=== PATIENT | male | born 1960 ===

== ENCOUNTER 2017-11-28 09:34 | Inpatient (IN) | payer MEDICAID ==
[2017-11-28 09:34] VITALS: BMI 35.7
[2017-11-28] MEDS ORDERED: Sodium Chloride 0.9% 1,000 ML IV SCH (10:30)
[2017-11-28] MEDS ORDERED: Iohexol 240 (50 ml) PO ONE (10:38)
[2017-11-28] MEDS ORDERED: Iohexol 240 (50 ml) ONE (11:16)
[2017-11-28 11:25] LABS: BASO % 0.5 % (0.0-2.0); EOS # 0.6 K/uL (0.0-0.7); EOS % 7.4 % (0.0-4.0); HEMOGLOBIN 13.9 g/dL (12.0-18.0); LYMPH # 1.6 K/uL (1.0-4.3); LYMPH % 19.9 % (20.0-40.0); MEAN CELL VOLUME 87.9 fl (80.0-94.0); MEAN CORPUSCULAR HEMOGLOBIN 29.5 pg (27.0-31.0); MEAN CORPUSCULAR HGB CONC 33.6 g/dL (33.0-37.0); MEAN PLATELET VOLUME 9.5 fl (7.2-11.7); MONO # 0.9 K/uL (0.0-0.8); MONO % 10.5 % (0.0-10.0); NEUT # 5.1 K/uL (1.8-7.0); NEUT % 61.7 % (50.0-75.0); NRBC % 0.4 % (0.0-0.0); RBC 4.71 Mil/uL (4.40-5.90); RED CELL DISTRIBUTION WIDTH 13.4 % (11.5-14.5); WHITE BLOOD COUNT 8.2 K/uL (4.8-10.8)
[2017-11-28 11:35] LABS: ALBUMIN 4.4 g/dL (3.5-5.0); ALT/SGPT 34 U/L (21-72); AST/SGOT 27 U/L (17-59); BLOOD UREA NITROGEN 17 mg/dl (9-20); CALCIUM 10.3 mg/dL (8.4-10.2); GFR AFRICAN-AMERICAN > 60; GFR NON-AFRICAN AMERICAN > 60; LIPASE 72 U/L (23-300)
[2017-11-28 11:41] LABS: INR 1.2 (0.9-1.2); PARTIAL THROMBOPLASTIN TIME 28.2 Seconds (25.6-37.1); PROTHROMBIN TIME 13.1 Seconds (9.8-13.1)
--- NOTE | 2017-11-28 11:42 | ED PDOC ---
HPI: Abdomen Time Seen by Provider: 11/28/17 09:59 Chief Complaint (Nursing): Abdominal Pain History Per: Patient History/Exam Limitations: no limitations Onset/Duration Of Symptoms: Days (1 week) Outside of [place] travel?: No Current Symptoms Are (Timing): Still Present Location Of Pain/Discomfort: Diffuse Associated Symptoms: Nausea, Vomiting, Diarrhea. denies: Fever Exacerbating Factors: None Alleviating Factors: None Additional Complaint(s): Keyon Bobo is a 57 year old male, whose past medical history includes HTN , peripheral edema, surgery for partial colectomy due to volvulus in 09/2016 and hernia repair in 09/2016, who presents to the emergency department complaining of diffused abdominal pain since 1 week. Patient reports his abdominal pain is associated with nausea, vomiting, and diarrhea. He notes having 5 previous colonoscopies in the past 4 years but only colonic polyps were found. Patient denies chest pain, shortness of breath, headache, fever, chills, cough, dysuria, hematuria, frequency, flank pain, testicular pain or penile discharge. States that he feels that he has gas, but is not able to pass it. Past Medical History Reviewed: Historical Data, Nursing Documentation, Vital Signs Vital Signs: Last Vital Signs Temp 97 F L 11/28/17 09:52 Pulse 90 11/28/17 09:52 Resp 18 11/28/17 09:52 BP 148/84 11/28/17 09:52 Pulse Ox 98 11/28/17 11:55 - Medical History PMH: Asthma, Colonic Polyps, Fractures (5TH FINGER LEFT HAND- NO TX.), HTN, Peripheral Edema Denies: Chronic Kidney Disease, TIA - Surgical History Surgical History: Endoscopy - Family History Family History: States: Unknown Family Hx - Immunization History Hx Tetanus Toxoid Vaccination: No Hx Influenza Vaccination: Yes Hx Pneumococcal Vaccination: Yes - Home Medications Home Medications: Ambulatory Orders Medication Instructions Recorded Metoprolol Tartrate [Lopressor] 100 mg PO BID 08/06/16 Losartan [Cozaar] 1 tab PO DAILY 09/09/16 Sertraline HCl 25 mg PO DAILY 08/05/17 Tamsulosin [Flomax] 0.4 mg PO DAILY 08/05/17 - Allergies Allergies/Adverse Reactions: Allergies Allergy/AdvReac Type Severity Reaction Status Date / Time No Known Allergies Allergy Verified 11/01/17 07:40 Review of Systems Constitutional: Negative for: Fever Cardiovascular: Negative for: Chest Pain Respiratory: Negative for: Shortness of Breath Gastrointestinal: Positive for: Nausea, Vomiting, Abdominal Pain, Diarrhea Genitourinary Male: Negative for: Dysuria, Frequency Musculoskeletal: Negative for: Back Pain Neurological: Negative for: Weakness Physical Exam - Reviewed Nursing Documentation Reviewed: Yes Vital Signs Reviewed: Yes - Physical Exam Comments: GENERAL APPEARANCE: Patient is awake, alert, oriented x 3, in mild distress SKIN: Warm, dry; (-) cyanosis. EYES: (-) conjunctival pallor, (-) scleral icterus. ENMT: Mucous membranes moist. NECK: (-) tenderness, (-) stiffness, (-) lymphadenopathy. CHEST AND RESPIRATORY: (-) rales, (-) rhonchi, (-) wheezes; breath sounds equal bilaterally. HEART AND CARDIOVASCULAR: (-) irregularity; (-) murmur, (-) gallop. ABDOMEN AND GI: (+) distention but still soft. Bowel sounds active; (-) tenderness, (-) guarding, (-) rebound, (-) palpable masses, (-) CVA tenderness. (+) dullness to percussion throughout the abdomen. EXTREMITIES: (-) deformity, (-) edema, (+) distal pulses. NEURO AND PSYCH: Mental status as above; (-) focal findings. - Laboratory Results Result Diagrams: 11/28/17 11:00 11/28/17 11:00 - ECG O2 Sat by Pulse Oximetry: 98 (room air) Pulse Ox Interpretation: Normal Medical Decision Making Medical Decision Making: Impression: 57 y/o male with abdominal distention and dullness to percussion c/o diffused abdominal pain x1 week with n/v/d Plan: -- CT abdomen and pelvis -- Labs -- Urinalysis -- Bentyl, Omnipaque, Pepcid, Zofran, Potassium Chloride, and Sodium Chloride -- Reassess and disposition Progress Notes: Labs reviewed : wbc is wnl, K 3.1, rest of the labs is wnl. On re-evaluation, patient reports improvement of pain, denies any nausea, or diarrhea at this time. On exam, patient remains AAOx3, in no acute distress, is tolerating po contrast. CT pending. KCL 20 mEq PO given. Patient returned from CT without any incident. On second re-evaluation, patient reports that his pain is recurring, denies any nausea, or diarrhea at this time. On exam, patient remains AAOx3, in no acute distress, abdomen is not soft , (+) distended, (+) mild diffuse tenderness, (-) guarding, (-) rebound. Patient medicated with morphine 4 mg IV and zofran [address] A/P w/ PO and IV contrast : FINDINGS: LOWER THORAX: The lung bases are clear. LIVER: The liver is normal in size and there is homogeneous enhancement. No gross lesion or ductal dilatation. GALLBLADDER AND BILE DUCTS: No calcified gallstones. PANCREAS: Normal in size with homogeneous enhancement. No gross lesion or ductal dilatation. SPLEEN: Normal in size and appearance. ADRENALS: No discrete nodule. KIDNEYS AND URETERS: Both kidneys are normal in size and there is homogeneous enhancement without hydronephrosis. There are simple cysts in both kidneys, the largest in the left upper pole measures 2.7 cm. VASCULATURE: No aortic aneurysm. BOWEL: The small bowel loops are normal in caliber. The sigmoid colon is elongated dense tract chest and/or volvulus is identified in the left mid abdomen with severe distention of the proximal sigmoid colon, descending transverse and ascending colon with air-fluid levels. Multiple surgical clips are identified at the site of the volvulus. APPENDIX: Normal appendix. PERITONEUM: No free fluid. No free air. LYMPH NODES: No enlarged lymph nodes. BLADDER: Normal in appearance. REPRODUCTIVE: Unremarkable. BONES: No acute fracture. OTHER FINDINGS: None. IMPRESSION: Findings are consistent with acute sigmoid volvulus with the transition between severely distended proximal colon and elongated stretch normal caliber distal sigmoid colon in the left mid abdomen at the site of prior surgery. CT results reviewed and discussed with the patient in great detail. Diagnosis of volvulus d/w the patient. Call placed to Dr. Valencia, who the patient states did his last surgery at [facility]. Patient seen and evaluated by ER MD and agrees with current management and plan. Case d/w resident surgeon Dr. Baird and Dr. Valencia, who will come and evaluate the patient. Dr. Elliott request admission under Dr. Vyas. Case d/w Dr. Vyas, will admit the patient. Bridge orders placed, patient kept NPO at this time. Based on history, exam and diagnostic results, plan will be for inpatient admission and possible OR. Patient states he fully agrees with and understands further plan and disposition. I have given the patient opportunity to ask any additional questions. Scribe Attestation: Documented by Myah Garcia acting as a scribe for Patti Saenz MD. Scribe Attestation: All medical record entries made by the Scribe were at my direction and personally dictated by me. I have reviewed the chart and agree that the record accurately reflects my personal performance of the history, physical exam, medical decision making, and the department course for this patient. I have also personally directed, reviewed, and agree with the discharge instructions and disposition. Disposition - Clinical Impression Clinical Impression: Abdominal pain, Sigmoid volvulus - Patient ED Disposition Is Patient to be Admitted: Yes Doctor Will See Patient In The: ED Counseled Patient/Family Regarding: Studies Performed, Diagnosis - Disposition Disposition Time: 15:45 Condition: STABLE Forms: [employer] (Nepali)
[2017-11-28] MEDS ORDERED: Potassium Chloride 20 mEq ER Tab PO ONE ×2 (11:47→15:05)
[2017-11-28] MEDS ORDERED: Iohexol 300 100 ML IJ ONE (12:20)
[2017-11-28 13:35] LABS: SQUAMOUS EPITHIAL < 1 /hpf (0-5); URINE AMORPHOUS SEDIMENT RARE /ul (<OCC); URINE BILIRUBIN NEGATIVE (NEGATIVE); URINE BLOOD NEGATIVE (NEGATIVE); URINE CLARITY SLIGHTY-CLOUDY (Clear); URINE COLOR YELLOW (YELLOW); URINE GLUCOSE (UA) NEG (Normal); URINE LEUKOCYTE ESTERASE NEG Leu/uL (Negative); URINE NITRATE NEGATIVE (NEGATIVE); URINE PROTEIN NEGATIVE (NEGATIVE); URINE UROBILINOGEN 0.2-1.0 mg/dL (0.2-1.0)
--- NOTE | 2017-11-28 14:13 | CT ---
PROCEDURE: CT Abdomen and Pelvis with contrast HISTORY: Abdominal pain, diarrhea, h/o volvulus COMPARISON: None. TECHNIQUE: CT scan of the abdomen and pelvis was performed after intravenous administration of contrast. Oral contrast was administered. Coronal and sagittal reformatted images were obtained. Contrast dose: 95 mL Omnipaque 300 Radiation dose: Total exam DLP = 1062.05 mGy-cm. This CT exam was performed using one or more of the following dose reduction techniques: Automated exposure control, adjustment of the mA and/or kV according to patient size, and/or use of iterative reconstruction technique. FINDINGS: LOWER THORAX: The lung bases are clear. LIVER: The liver is normal in size and there is homogeneous enhancement. No gross lesion or ductal dilatation. GALLBLADDER AND BILE DUCTS: No calcified gallstones. PANCREAS: Normal in size with homogeneous enhancement. No gross lesion or ductal dilatation. SPLEEN: Normal in size and appearance. ADRENALS: No discrete nodule. KIDNEYS AND URETERS: Both kidneys are normal in size and there is homogeneous enhancement without hydronephrosis. There are simple cysts in both kidneys, the largest in the left upper pole measures 2.7 cm. VASCULATURE: No aortic aneurysm. BOWEL: The small bowel loops are normal in caliber. The sigmoid colon is elongated dense tract chest and/or volvulus is identified in the left mid abdomen with severe distention of the proximal sigmoid colon, descending transverse and ascending colon with air-fluid levels. Multiple surgical clips are identified at the site of the volvulus. APPENDIX: Normal appendix. PERITONEUM: No free fluid. No free air. LYMPH NODES: No enlarged lymph nodes. BLADDER: Normal in appearance. REPRODUCTIVE: Unremarkable. BONES: No acute fracture. OTHER FINDINGS: None. IMPRESSION: Findings are consistent with acute sigmoid volvulus with the transition between severely distended proximal colon and elongated stretch normal caliber distal sigmoid colon in the left mid abdomen at the site of prior surgery. Important findings were discussed with PARRISH Molina on 11/28/2017 at 2:11 p.m.
[2017-11-28] MEDS ORDERED: Morphine 4 MG/ML VIAL IVP STA (14:52)
[2017-11-28] MEDS ORDERED: Morphine 4 MG/ML VIAL ONE (15:04)
--- NOTE | 2017-11-28 17:50 | CP.PCM.CON ---
<Nelson Baird - Last Filed: 11/29/17 11:34> History of Present Illness - History of Present Illness History of Present Illness: Consult Note Surgery- Dr. Valencia 6M significant PMHx of chronic constipation, recurrent sigmoid volvulus s/p robotic sigmoidectomy in 2015 presents to [facility] ED w/ increased crampy generalized abdominal pain localized to LLQ, w/ associated nausea and non- bloody non-bilious vomiting for the last week. Abd is feeling more distended than normal. unable to pass flatus for 1 day, although as the urge to. to Patient also has ongoing diarrhea and incontinences since January 2017. During ED course, pt had relief after pain medication and zofran. Denies current: Fevers, chills, chest pain, shortness of breath, changes in urinary habits, bright red blood per rectum, recent excessive weight loss/ weight gain PMH: Asthma, BPH, HTN, chronic constipation, sigmoid volvulus PSH: robotic sigmoidectomy, umbilical hernia repair, colonoscopy 07/2017 ALL: NKDA SocialHx: Denies Tobacco, etoh, recreational drug use Review of Systems - Review of Systems All systems: reviewed and no additional remarkable complaints except - Constitutional Constitutional: As Per HPI Past Patient History - Past Medical History & Family History Past Medical History?: Yes - Past Social History Smoking Status: Never Smoked - CARDIAC Hx Hypertension: Yes Hx Peripheral Edema: Yes - PULMONARY Hx Asthma: Yes - NEUROLOGICAL Hx Transient Ischemic Attacks (TIA): No - HEENT Hx HEENT Problems: No - RENAL Hx Chronic Kidney Disease: No - ENDOCRINE/METABOLIC Hx Endocrine Disorders: No - HEMATOLOGICAL/ONCOLOGICAL Hx Blood Disorders: No Hx Blood Transfusions: Yes Hx Blood Transfusion Reaction: No - INTEGUMENTARY Hx Dermatological Problems: No - MUSCULOSKELETAL/RHEUMATOLOGICAL Hx Fractures: Yes (5TH FINGER LEFT HAND- NO TX.) - GASTROINTESTINAL Hx Gastrointestinal Disorders: Yes Hx Bowel Surgery: Yes (HEMICOLECTOMY 2015) Hx Colostomy: No Hx Hemorrhoids: Yes (INTERNAL) Hx Ulcer: Yes (GASTRIC) Other/Comment: HX: SIGMOID VOLVULUS/CHRONIC CONSTIPATION/SPONTANEOUS UNCONTROLLED FECAL EVACUATION, WITH HEMICOLECTOMY - GENITOURINARY/GYNECOLOGICAL Hx Genitourinary Disorders: Yes Other/Comment: PATIENT HAS HESITANCY UPON URINATION BUT ON FLOMAX & HAS NO PROBLEM NOW (PER PT). - PSYCHIATRIC Hx Psychophysiologic Disorder: No Hx Substance Use: No - SURGICAL HISTORY Hx Surgeries: Yes Other/Comment: SIGMOID VOLVULUS/CHRONIC CONSTIPATION/SPONTANEOUS UNCONTROLLED FECAL EVACUATION, WITH HEMICOLECTOMY - ANESTHESIA Hx Anesthesia: Yes Hx Anesthesia Reactions: No Hx Malignant Hyperthermia: No Meds Allergies/Adverse Reactions: Allergies Allergy/AdvReac Type Severity Reaction Status Date / Time No Known Allergies Allergy Verified 08/05/17 07:40 - Medications Medications: Current Medications Sodium Chloride (Sodium Chloride 0.9%) 1,000 mls @ 1,000 mls/hr IV .Q1H REESE Last Admin: 11/28/17 11:29 Dose: 1,000 mls/hr Physical Exam - Constitutional Appears: Non-toxic, No Acute Distress - Head Exam Head Exam: ATRAUMATIC - Eye Exam Eye Exam: EOMI. absent: Scleral icterus - ENT Exam Additional comments: dentures in mouth - Respiratory Exam Respiratory Exam: NORMAL BREATHING PATTERN. absent: Accessory Muscle Use, Respiratory Distress - Cardiovascular Exam Cardiovascular Exam: +S1, +S2. absent: Bradycardia, Tachycardia - GI/Abdominal Exam GI & Abdominal Exam: Distended, Guarding, Hernia, Soft, Tenderness. absent: Firm, Rigid Additional comments: soft, distended, TTP LLQ Palpable umbilical hernia - Extremities Exam Extremities exam: Positive for: normal inspection. Negative for: calf tenderness - Back Exam Back exam: absent: CVA tenderness (L), CVA tenderness (R) - Neurological Exam Neurological exam: Alert, Oriented x3 - Psychiatric Exam Psychiatric exam: Normal Affect - Skin Skin Exam: Intact, Warm Results - Vital Signs Recent Vital Signs: Last Vital Signs Temp 98.1 F 11/28/17 17:20 Pulse 90 11/28/17 09:52 Resp 18 11/28/17 09:52 BP 148/84 11/28/17 09:52 Pulse Ox 98 11/28/17 16:19 - Labs Result Diagrams: 11/28/17 11:00 11/28/17 11:00 Labs: Laboratory Results - last 24 hr 11/28/17 11/28/17 11/28/17 11:00 11:00 11:00 WBC 8.2 RBC 4.71 Hgb 13.9 Hct 41.4 MCV 87.9 MCH 29.5 MCHC 33.6 RDW 13.4 Plt Count 213 MPV 9.5 Neut % (Auto) 61.7 Lymph % (Auto) 19.9 L [place] % (Auto) 10.5 H Eos % (Auto) 7.4 H Baso % (Auto) 0.5 Neut # (Auto) 5.1 Lymph # (Auto) 1.6 [place] # (Auto) 0.9 H Eos # (Auto) 0.6 Baso # (Auto) 0.0 PT INR APTT Sodium 139 Potassium 3.1 L Chloride 98 Carbon Dioxide 27 Anion Gap 17 BUN 17 Creatinine 0.9 Est GFR ( Amer) > 60 Est GFR (Non-Af Amer) > 60 Random Glucose 91 Calcium 10.3 H Total Bilirubin 0.7 AST 27 ALT 34 Alkaline Phosphatase 118 Total Protein 8.9 H Albumin 4.4 Globulin 4.5 H Albumin/Globulin Ratio 1.0 Lipase 72 Urine Color Urine Clarity Urine pH Ur Specific [place] Urine Protein Urine Glucose (UA) Urine Ketones Urine Blood Urine Nitrate Urine Bilirubin Urine Urobilinogen Ur Leukocyte Esterase Urine RBC (Auto) Urine Microscopic WBC Ur Squamous Epith Cells Amorphous Sediment Blood Type A POSITIVE Antibody Screen Negative BBK History Checked Patient has bt 11/28/17 11/28/17 11:00 13:22 WBC RBC Hgb Hct MCV MCH MCHC RDW Plt Count MPV Neut % (Auto) Lymph % (Auto) [place] % (Auto) Eos % (Auto) Baso % (Auto) Neut # (Auto) Lymph # (Auto) [place] # (Auto) Eos # (Auto) Baso # (Auto) PT 13.1 INR 1.2 APTT 28.2 Sodium Potassium Chloride Carbon Dioxide Anion Gap BUN Creatinine Est GFR ( Amer) Est GFR (Non-Af Amer) Random Glucose Calcium Total Bilirubin AST ALT Alkaline Phosphatase Total Protein Albumin Globulin Albumin/Globulin Ratio Lipase Urine Color Yellow Urine Clarity Slighty-cloudy Urine pH 6.0 Ur Specific [place] 1.014 Urine Protein Negative Urine Glucose (UA) Neg Urine Ketones Negative Urine Blood Negative Urine Nitrate Negative Urine Bilirubin Negative Urine Urobilinogen 0.2-1.0 Ur Leukocyte Esterase Neg Urine RBC (Auto) 1 Urine Microscopic WBC 1 Ur Squamous Epith Cells < 1 Amorphous Sediment Rare H Blood Type Antibody Screen BBK History Checked Assessment & Plan - Assessment and Plan (Free Text) Assessment: 57M hx of recurrent sigmoid volvulus s/p robotic sigmoidectomy; w/ bowel obstruction Plan: - NPO - NGT to suction - IVF - c/s GI- all recs appreciated - serial abd exams - monitor for bowel function return - monitor labs - discussed w/ Dr. Valencia surgical attending PGY1 <Ryan Valencia - Last Filed: 12/04/17 15:18> Meds - Medications Medications: Current Medications Enoxaparin Sodium (Lovenox) 40 mg SC DAILY REESE PRN Reason: Protocol Last Admin: 12/04/17 08:35 Dose: Not Given Sodium Chloride 35 meq/ Sodium Phosphate 18 mmole/ Potassium Chloride 20 meq/ Potassium Acetate 25 meq/ Magnesium Sulfate 8 meq/ Calcium Gluconate 4.5 meq/ Multivitamins/Vitamin C 10 ml/Chromium/Copper/Manganese/Zinc 3 ml/ Amino Acids 1,061.8978 mls @ 42 mls/hr IV .Q24H ONE Stop: 12/04/17 17:59 Last Admin: 12/04/17 02:00 Dose: 42 mls/hr Morphine Sulfate (Morphine) 2 mg IVP Q4 PRN PRN Reason: Pain, moderate (4-7) Last Admin: 11/30/17 02:14 Dose: 2 mg Pantoprazole Sodium (Protonix Inj) 40 mg IVP Q12 REESE Last Admin: 12/04/17 08:36 Dose: Not Given Phenol/Menthol (Phenaseptic 1.4% Throat [place]) 1 spry MT Q2 PRN PRN Reason: Sore Throat Last Admin: 11/28/17 22:10 Dose: 1 spr Results - Vital Signs Recent Vital Signs: Last Vital Signs Temp 99.4 F 12/04/17 14:36 Pulse 106 H 12/04/17 14:36 Resp 18 12/04/17 14:36 BP 162/96 H 12/04/17 14:36 Pulse Ox 99 12/04/17 12:50 - Labs Result Diagrams: 12/04/17 04:11 12/04/17 04:11 Labs: Laboratory Results - last 24 hr 12/04/17 12/04/17 04:11 04:11 WBC 7.9 RBC 3.96 L Hgb 11.7 L Hct 34.9 L MCV 88.2 MCH 29.6 MCHC 33.6 RDW 13.2 Plt Count 199 Sodium 143 Potassium 4.0 Chloride 107 Carbon Dioxide 26 Anion Gap 14 BUN 11 Creatinine 0.7 L Est GFR ( Amer) > 60 Est GFR (Non-Af Amer) > 60 Random Glucose 96 Calcium 8.7 Attending/Attestation - Attestation I have personally seen and examined this patient.: Yes I have fully participated in the care of the patient.: Yes I have reviewed all pertinent clinical information: Yes Notes (Text): Pt was seen and examined at beside Agree with above note and assessment Pt with Chronic Constipation and Severe colonic Dilatation Labs and radiology reviewed Ass: No clinical evidence of Volvulus Pt has severe Colonic dilatation and Ileus Plan : NG tube to LIS NPO,IVF c.w current mx Plan d.w pt in detail Risk and benefit explained in detail.
--- NOTE | 2017-11-28 18:24 | CP.PCM.CON ---
Past Patient History - Past Medical History & Family History Past Medical History?: Yes - Past Social History Smoking Status: Never Smoked - CARDIAC Hx Hypertension: Yes Hx Peripheral Edema: Yes - PULMONARY Hx Asthma: Yes - NEUROLOGICAL Hx Transient Ischemic Attacks (TIA): No - HEENT Hx HEENT Problems: No - RENAL Hx Chronic Kidney Disease: No - ENDOCRINE/METABOLIC Hx Endocrine Disorders: No - HEMATOLOGICAL/ONCOLOGICAL Hx Blood Disorders: No Hx Blood Transfusions: Yes Hx Blood Transfusion Reaction: No - INTEGUMENTARY Hx Dermatological Problems: No - MUSCULOSKELETAL/RHEUMATOLOGICAL Hx Fractures: Yes (5TH FINGER LEFT HAND- NO TX.) - GASTROINTESTINAL Hx Gastrointestinal Disorders: Yes Hx Bowel Surgery: Yes (HEMICOLECTOMY 2015) Hx Colostomy: No Hx Hemorrhoids: Yes (INTERNAL) Hx Ulcer: Yes (GASTRIC) Other/Comment: HX: SIGMOID VOLVULUS/CHRONIC CONSTIPATION/SPONTANEOUS UNCONTROLLED FECAL EVACUATION, WITH HEMICOLECTOMY - GENITOURINARY/GYNECOLOGICAL Hx Genitourinary Disorders: Yes Other/Comment: PATIENT HAS HESITANCY UPON URINATION BUT ON FLOMAX & HAS NO PROBLEM NOW (PER PT). - PSYCHIATRIC Hx Psychophysiologic Disorder: No Hx Substance Use: No - SURGICAL HISTORY Hx Surgeries: Yes Other/Comment: SIGMOID VOLVULUS/CHRONIC CONSTIPATION/SPONTANEOUS UNCONTROLLED FECAL EVACUATION, WITH HEMICOLECTOMY - ANESTHESIA Hx Anesthesia: Yes Hx Anesthesia Reactions: No Hx Malignant Hyperthermia: No Meds Allergies/Adverse Reactions: Allergies Allergy/AdvReac Type Severity Reaction Status Date / Time No Known Allergies Allergy Verified 08/05/17 07:40 - Medications Medications: Current Medications Sodium Chloride (Sodium Chloride 0.9%) 1,000 mls @ 1,000 mls/hr IV .Q1H REESE Last Admin: 11/28/17 11:29 Dose: 1,000 mls/hr Results - Vital Signs Recent Vital Signs: Last Vital Signs Temp 98.1 F 11/28/17 18:19 Pulse 78 11/28/17 18:19 Resp 18 11/28/17 18:19 BP 130/72 11/28/17 18:19 Pulse Ox 98 11/28/17 16:19 - Labs Result Diagrams: 11/28/17 11:00 11/28/17 11:00 Labs: Laboratory Results - last 24 hr 11/28/17 11/28/17 11/28/17 11:00 11:00 11:00 WBC 8.2 RBC 4.71 Hgb 13.9 Hct 41.4 MCV 87.9 MCH 29.5 MCHC 33.6 RDW 13.4 Plt Count 213 MPV 9.5 Neut % (Auto) 61.7 Lymph % (Auto) 19.9 L [place] % (Auto) 10.5 H Eos % (Auto) 7.4 H Baso % (Auto) 0.5 Neut # (Auto) 5.1 Lymph # (Auto) 1.6 [place] # (Auto) 0.9 H Eos # (Auto) 0.6 Baso # (Auto) 0.0 PT INR APTT Sodium 139 Potassium 3.1 L Chloride 98 Carbon Dioxide 27 Anion Gap 17 BUN 17 Creatinine 0.9 Est GFR ( Amer) > 60 Est GFR (Non-Af Amer) > 60 Random Glucose 91 Calcium 10.3 H Total Bilirubin 0.7 AST 27 ALT 34 Alkaline Phosphatase 118 Total Protein 8.9 H Albumin 4.4 Globulin 4.5 H Albumin/Globulin Ratio 1.0 Lipase 72 Urine Color Urine Clarity Urine pH Ur Specific [place] Urine Protein Urine Glucose (UA) Urine Ketones Urine Blood Urine Nitrate Urine Bilirubin Urine Urobilinogen Ur Leukocyte Esterase Urine RBC (Auto) Urine Microscopic WBC Ur Squamous Epith Cells Amorphous Sediment Blood Type A POSITIVE Antibody Screen Negative BBK History Checked Patient has bt 11/28/17 11/28/17 11:00 13:22 WBC RBC Hgb Hct MCV MCH MCHC RDW Plt Count MPV Neut % (Auto) Lymph % (Auto) [place] % (Auto) Eos % (Auto) Baso % (Auto) Neut # (Auto) Lymph # (Auto) [place] # (Auto) Eos # (Auto) Baso # (Auto) PT 13.1 INR 1.2 APTT 28.2 Sodium Potassium Chloride Carbon Dioxide Anion Gap BUN Creatinine Est GFR ( Amer) Est GFR (Non-Af Amer) Random Glucose Calcium Total Bilirubin AST ALT Alkaline Phosphatase Total Protein Albumin Globulin Albumin/Globulin Ratio Lipase Urine Color Yellow Urine Clarity Slighty-cloudy Urine pH 6.0 Ur Specific [place] 1.014 Urine Protein Negative Urine Glucose (UA) Neg Urine Ketones Negative Urine Blood Negative Urine Nitrate Negative Urine Bilirubin Negative Urine Urobilinogen 0.2-1.0 Ur Leukocyte Esterase Neg Urine RBC (Auto) 1 Urine Microscopic WBC 1 Ur Squamous Epith Cells < 1 Amorphous Sediment Rare H Blood Type Antibody Screen BBK History Checked
--- NOTE | 2017-11-28 18:30 | RAD ---
PROCEDURE: CHEST RADIOGRAPH, 1 VIEW HISTORY: s/p NGT placement COMPARISON: None available. FINDINGS: LUNGS: No acute infiltrate bilaterally. Linear atelectasis seen the left base versus trace fibrosis. PLEURA: No pneumothorax or pleural fluid seen. CARDIOVASCULAR: Normal. OSSEOUS STRUCTURES: No significant abnormalities. VISUALIZED UPPER ABDOMEN: Knee J-tube is in place and does not terminate at the left upper quadrant abdomen with coils at the esophagogastric junction and returns to terminate at the hypopharynx. Removal and re- insertion is advised CT follow-up by confirmation radiograph. OTHER FINDINGS: None. IMPRESSION: No acute infiltrate. No cardiomegaly. Linear atelectasis or fibrosis left base. Malpositioned NG tube. Removal of insertion follow-up by confirmation radiography advised. Discussed with Ms. Murphy SENIOR 11/28/2017 6:21 p.m. with written down and read back verification.
[2017-11-28] MEDS: Lactated Ringer's 1,000 ML IV SCH ×3 (19:11→22:09)
[2017-11-28] MEDS ORDERED: Phenol 1.4% Throat Spray MT PRN (20:39)
[2017-11-29] MEDS: Morphine 4 MG/ML VIAL IVP PRN ×4 (00:32→17:43)
[2017-11-29] MEDS: Lactated Ringer's 1,000 ML IV SCH ×3 (05:59→21:39)
--- NOTE | 2017-11-29 07:07 | CP.PCM.CON ---
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 The patient states that over the last 10 days he has noted intermittent, intensifying left sided abdominal pain and worsening abdominal distention. 10+/10 Pain comes in waves at approximately 20 minute intervals over the left flank. He has noted more difficulty passing flatus over the last week, has not passed flatus today and continues to have multiple episodes of loose watery stool daily with episodes of fecal incontinence increasing this past week. In the last 48 hours he has been more nauseated and had decreased appetite. As symptoms became unbearable, he came to the ED for further evaluation. Patient denies any rectal bleeding/ hematochezia/melena, weight loss, vomiting, fever, chills. In the ED, the surgical technology instructor placed an NGT for bowel decompression and nursing has inserted rectal tube, also to suction. Presently, he states pain is tolerable but does still have tenderness with palpation of the LLQ/flank. PMHx: See HPI PSHx: Robotic sigmoidectomy (09/2016), umbilical hernia repair FHx: Discussed with patient and denies any significant family history Social: Denies tobacco, EtOH or illicit drug use Endo: Most recent: Colon - 08/2017 - healthy colo-colonic anastamosis, internal hemorrhoids - biopsies unremarkable 12 system ROS performed and negative except where stated. Past Patient History - Past Medical History & Family History Past Medical History?: Yes - Past Social History Smoking Status: Never Smoked - CARDIAC Hx Cardiac Disorders: Yes Hx Hypertension: Yes Hx Peripheral Edema: Yes - PULMONARY Hx Respiratory Disorders: Yes Hx Asthma: Yes - NEUROLOGICAL Hx Neurological Disorder: No Hx Transient Ischemic Attacks (TIA): No - HEENT Hx HEENT Problems: No - RENAL Hx Chronic Kidney Disease: No - ENDOCRINE/METABOLIC Hx Endocrine Disorders: No - HEMATOLOGICAL/ONCOLOGICAL Hx Blood Disorders: Yes Hx Blood Transfusions: Yes Hx Blood Transfusion Reaction: No - INTEGUMENTARY Hx Dermatological Problems: No - MUSCULOSKELETAL/RHEUMATOLOGICAL Hx Musculoskeletal Disorders: Yes Hx Falls: No Hx Fractures: Yes (5TH FINGER LEFT HAND- NO TX.) - GASTROINTESTINAL Hx Gastrointestinal Disorders: Yes Hx Bowel Surgery: Yes (HEMICOLECTOMY 2015) Hx Colostomy: No Hx Hemorrhoids: Yes (INTERNAL) Hx Ulcer: Yes (GASTRIC) Other/Comment: HX: SIGMOID VOLVULUS/CHRONIC CONSTIPATION/SPONTANEOUS UNCONTROLLED FECAL EVACUATION, WITH HEMICOLECTOMY - GENITOURINARY/GYNECOLOGICAL Hx Genitourinary Disorders: Yes Other/Comment: PATIENT HAS HESITANCY UPON URINATION BUT ON FLOMAX & HAS NO PROBLEM NOW (PER PT). - PSYCHIATRIC Hx Psychophysiologic Disorder: No Hx Substance Use: No - SURGICAL HISTORY Hx Surgeries: Yes Other/Comment: SIGMOID VOLVULUS/CHRONIC CONSTIPATION/SPONTANEOUS UNCONTROLLED FECAL EVACUATION, WITH HEMICOLECTOMY - ANESTHESIA Hx Anesthesia: Yes Hx Anesthesia Reactions: No Hx Malignant Hyperthermia: No Meds Allergies/Adverse Reactions: Allergies Allergy/AdvReac Type Severity Reaction Status Date / Time No Known Allergies Allergy Verified 08/05/17 07:40 - Medications Medications: Current Medications Sodium Chloride (Sodium Chloride 0.9%) 1,000 mls @ 1,000 mls/hr IV .Q1H [facility] Last Admin: 11/28/17 11:29 Dose: 1,000 mls/hr Lactated Ringer's (Lactated Ringer's) 1,000 mls @ 120 mls/hr IV .Q8H20M [facility] Last Admin: 11/29/17 05:59 Dose: 120 mls/hr Morphine Sulfate (Morphine) 2 mg IVP Q4 PRN PRN Reason: Pain, moderate (4-7) Last Admin: 11/29/17 05:55 Dose: 2 mg Phenol/Menthol (Phenaseptic 1.4% Throat [place]) 1 spry MT Q2 PRN PRN Reason: Sore Throat Last Admin: 11/28/17 22:10 Dose: 1 spr Physical Exam - Constitutional Appears: No Acute Distress, Other (obese) - Eye Exam Eye Exam: EOMI, PERRL - ENT Exam ENT Exam: Mucous Membranes Dry - Respiratory Exam Respiratory Exam: Clear to Auscultation Bilateral. absent: Rales, Rhonchi, Wheezes - Cardiovascular Exam Cardiovascular Exam: Tachycardia, REGULAR RHYTHM, +S1, +S2 - GI/Abdominal Exam GI & Abdominal Exam: Distended, Firm, Guarding, Hyperactive Bowel Sounds, Tenderness (LLQ, left flank). absent: Hernia, Mass, Organomegaly, Rigid, Soft - Extremities Exam Extremities exam: Positive for: normal inspection. Negative for: pedal edema - Neurological Exam Neurological exam: Alert, Oriented x3 - Psychiatric Exam Psychiatric exam: Normal Affect, Normal Mood - Skin Skin Exam: Dry, Warm Results - Vital Signs Recent Vital Signs: Last Vital Signs Temp 97.7 F 11/28/17 23:45 Pulse 93 H 11/28/17 23:45 Resp 18 11/28/17 23:45 BP 122/79 11/28/17 23:45 Pulse Ox 95 11/28/17 23:45 - Labs Result Diagrams: 11/28/17 11:00 11/28/17 11:00 Labs: Laboratory Results - last 24 hr 11/28/17 11/28/17 11/28/17 11:00 11:00 11:00 WBC 8.2 RBC 4.71 Hgb 13.9 Hct 41.4 MCV 87.9 MCH 29.5 MCHC 33.6 RDW 13.4 Plt Count 213 MPV 9.5 Neut % (Auto) 61.7 Lymph % (Auto) 19.9 L [place] % (Auto) 10.5 H Eos % (Auto) 7.4 H Baso % (Auto) 0.5 Neut # (Auto) 5.1 Lymph # (Auto) 1.6 [place] # (Auto) 0.9 H Eos # (Auto) 0.6 Baso # (Auto) 0.0 PT INR APTT Sodium 139 Potassium 3.1 L Chloride 98 Carbon Dioxide 27 Anion Gap 17 BUN 17 Creatinine 0.9 Est GFR ( Amer) > 60 Est GFR (Non-Af Amer) > 60 Random Glucose 91 Lactic Acid Calcium 10.3 H Total Bilirubin 0.7 AST 27 ALT 34 Alkaline Phosphatase 118 Total Protein 8.9 H Albumin 4.4 Globulin 4.5 H Albumin/Globulin Ratio 1.0 Lipase 72 Urine Color Urine Clarity Urine pH Ur Specific [place] Urine Protein Urine Glucose (UA) Urine Ketones Urine Blood Urine Nitrate Urine Bilirubin Urine Urobilinogen Ur Leukocyte Esterase Urine RBC (Auto) Urine Microscopic WBC Ur Squamous Epith Cells Amorphous Sediment Blood Type A POSITIVE Antibody Screen Negative BBK History Checked Patient has bt 11/28/17 11/28/17 11/28/17 11:00 13:22 18:37 WBC RBC Hgb Hct MCV MCH MCHC RDW Plt Count MPV Neut % (Auto) Lymph % (Auto) [place] % (Auto) Eos % (Auto) Baso % (Auto) Neut # (Auto) Lymph # (Auto) [place] # (Auto) Eos # (Auto) Baso # (Auto) PT 13.1 INR 1.2 APTT 28.2 Sodium Potassium Chloride Carbon Dioxide Anion Gap BUN Creatinine Est GFR ( Amer) Est GFR (Non-Af Amer) Random Glucose Lactic Acid 1.4 Calcium Total Bilirubin AST ALT Alkaline Phosphatase Total Protein Albumin Globulin Albumin/Globulin Ratio Lipase Urine Color Yellow Urine Clarity Slighty-cloudy Urine pH 6.0 Ur Specific [place] 1.014 Urine Protein Negative Urine Glucose (UA) Neg Urine Ketones Negative Urine Blood Negative Urine Nitrate Negative Urine Bilirubin Negative Urine Urobilinogen 0.2-1.0 Ur Leukocyte Esterase Neg Urine RBC (Auto) 1 Urine Microscopic WBC 1 Ur Squamous Epith Cells < 1 Amorphous Sediment Rare H Blood Type Antibody Screen BBK History Checked Assessment & Plan - Assessment and Plan (Free Text) Assessment: Patient is a 57yo male with PMHx significant for 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, HTN, BPH, chronic diarrhea, depression/ anxiety who presented to the ER with abdominal pain -Abdominal pain; some concern for recurrent volvulus vs obstruction -Chronic diarrhea -Depression/anxiety Plan: -S/P insertion of NGT and rectal tube to decompression -Will discuss CT findings with radiology -If volvulus suspected, could consider flexible sigmoidoscopy to attempt to relieve this torsion -Surgical service following - appreciate recs -IVF as ordered -Symptomatic management -Avoid opiate medications where possible -NPO - Date & Time Date: 11/29/17 Time: 07:09 <Micah Butterfield Y - Last Filed: 11/29/17 11:18> Meds - Medications Medications: Current Medications Lactated Ringer's (Lactated Ringer's) 1,000 mls @ 120 mls/hr IV .Q8H20M [facility] Last Admin: 11/29/17 05:59 Dose: 120 mls/hr Morphine Sulfate (Morphine) 2 mg IVP Q4 PRN PRN Reason: Pain, moderate (4-7) Last Admin: 11/29/17 05:55 Dose: 2 mg Phenol/Menthol (Phenaseptic 1.4% Throat [place]) 1 spry MT Q2 PRN PRN Reason: Sore Throat Last Admin: 11/28/17 22:10 Dose: 1 spr Results - Vital Signs Recent Vital Signs: Last Vital Signs Temp 98.0 F 11/29/17 08:35 Pulse 92 H 11/29/17 08:35 Resp 20 11/29/17 08:35 BP 106/68 11/29/17 08:35 Pulse Ox 95 11/29/17 08:35 - Labs Result Diagrams: 11/29/17 05:20 11/29/17 05:20 Labs: Laboratory Results - last 24 hr 11/28/17 11/28/17 11/28/17 11:00 11:00 11:00 WBC 8.2 RBC 4.71 Hgb 13.9 Hct 41.4 MCV 87.9 MCH 29.5 MCHC 33.6 RDW 13.4 Plt Count 213 MPV 9.5 Neut % (Auto) 61.7 Lymph % (Auto) 19.9 L [place] % (Auto) 10.5 H Eos % (Auto) 7.4 H Baso % (Auto) 0.5 Neut # (Auto) 5.1 Lymph # (Auto) 1.6 [place] # (Auto) 0.9 H Eos # (Auto) 0.6 Baso # (Auto) 0.0 PT INR APTT Sodium 139 Potassium 3.1 L Chloride 98 Carbon Dioxide 27 Anion Gap 17 BUN 17 Creatinine 0.9 Est GFR ( Amer) > 60 Est GFR (Non-Af Amer) > 60 Random Glucose 91 Lactic Acid Calcium 10.3 H Total Bilirubin 0.7 AST 27 ALT 34 Alkaline Phosphatase 118 Total Protein 8.9 H Albumin 4.4 Globulin 4.5 H Albumin/Globulin Ratio 1.0 Lipase 72 TSH 3rd Generation Urine Color Urine Clarity Urine pH Ur Specific [place] Urine Protein Urine Glucose (UA) Urine Ketones Urine Blood Urine Nitrate Urine Bilirubin Urine Urobilinogen Ur Leukocyte Esterase Urine RBC (Auto) Urine Microscopic WBC Ur Squamous Epith Cells Amorphous Sediment Blood Type A POSITIVE Antibody Screen Negative BBK History Checked Patient has bt 11/28/17 11/28/17 11/28/17 11:00 13:22 18:37 WBC RBC Hgb Hct MCV MCH MCHC RDW Plt Count MPV Neut % (Auto) Lymph % (Auto) [place] % (Auto) Eos % (Auto) Baso % (Auto) Neut # (Auto) Lymph # (Auto) [place] # (Auto) Eos # (Auto) Baso # (Auto) PT 13.1 INR 1.2 APTT 28.2 Sodium Potassium Chloride Carbon Dioxide Anion Gap BUN Creatinine Est GFR ( Amer) Est GFR (Non-Af Amer) Random Glucose Lactic Acid 1.4 Calcium Total Bilirubin AST ALT Alkaline Phosphatase Total Protein Albumin Globulin Albumin/Globulin Ratio Lipase TSH 3rd Generation Urine Color Yellow Urine Clarity Slighty-cloudy Urine pH 6.0 Ur Specific [place] 1.014 Urine Protein Negative Urine Glucose (UA) Neg Urine Ketones Negative Urine Blood Negative Urine Nitrate Negative Urine Bilirubin Negative Urine Urobilinogen 0.2-1.0 Ur Leukocyte Esterase Neg Urine RBC (Auto) 1 Urine Microscopic WBC 1 Ur Squamous Epith Cells < 1 Amorphous Sediment Rare H Blood Type Antibody Screen BBK History Checked 11/29/17 11/29/17 11/29/17 05:20 05:20 05:20 WBC 8.8 RBC 4.30 L Hgb 12.9 Hct 38.2 MCV 88.7 MCH 29.9 MCHC 33.8 RDW 13.5 Plt Count 177 MPV 9.2 Neut % (Auto) 65.1 Lymph % (Auto) 20.0 [place] % (Auto) 8.8 Eos % (Auto) 5.8 H Baso % (Auto) 0.3 Neut # (Auto) 5.7 Lymph # (Auto) 1.7 [place] # (Auto) 0.8 Eos # (Auto) 0.5 Baso # (Auto) 0.0 PT INR APTT Sodium 141 Potassium 3.1 L Chloride 96 L Carbon Dioxide 30 Anion Gap 18 BUN 15 Creatinine 0.9 Est GFR ( Amer) > 60 Est GFR (Non-Af Amer) > 60 Random Glucose 95 Lactic Acid Calcium 9.0 Total Bilirubin AST ALT Alkaline Phosphatase Total Protein Albumin Globulin Albumin/Globulin Ratio Lipase TSH 3rd Generation 1.28 Urine Color Urine Clarity Urine pH Ur Specific [place] Urine Protein Urine Glucose (UA) Urine Ketones Urine Blood Urine Nitrate Urine Bilirubin Urine Urobilinogen Ur Leukocyte Esterase Urine RBC (Auto) Urine Microscopic WBC Ur Squamous Epith Cells Amorphous Sediment Blood Type Antibody Screen BBK History Checked Attending/Attestation - Attestation I have personally seen and examined this patient.: Yes I have fully participated in the care of the patient.: Yes I have reviewed all pertinent clinical information: Yes Notes (Text): 11/29/17 11:09 I have seen and examined patient. Agree with above documentation with the following additions. In brief, this is a 57 year old male with history of sigmoid volvulus s/p 30 cm segmental resection in 2016, HTN, BPH, chronic constipation/diarrhea who presents to hospital with complaint of progressive abdominal pain over the past 10 days. He describes intermittent LLQ pain that lasts for 20 minute intervals and resolves on its own. During this time he also reports frequent non-bloody liquid bowel movements, at times with incontinence. He endorses associated nausea and loss of appetite but denies weight loss, fever/chills, or rectal bleeding. He underwent colonoscopy in August 2017 which was unremarkable including biopsies. NGT was placed on initial presentation with approximately 300 cc output. Obesity HTN Chronic constipation/diarrhea History of sigmoid volvulus s/p surgical segmental resection Abdominal pain CT imaging reviewed by me showing air distended colon with distal tapering in LLQ, air in rectum. - NPO - Continue with IVF hydration, supportive care - Pain control - Monitor NGT output - Rectal tube to low intermittent suction - Case discussed in detail with surgical team (Dr. Valencia), felt unlikely to represent recurrent colonic volvulus. Will continue to closely monitor patient clinical course and plan for colonoscopy tomorrow AM with full thickness rectal biopsies for further evaluation.
[2017-11-29 07:21] LABS: BASO % 0.3 % (0.0-2.0); EOS # 0.5 K/uL (0.0-0.7); EOS % 5.8 % (0.0-4.0); HEMOGLOBIN 12.9 g/dL (12.0-18.0); LYMPH # 1.7 K/uL (1.0-4.3); MEAN CELL VOLUME 88.7 fl (80.0-94.0); MEAN CORPUSCULAR HEMOGLOBIN 29.9 pg (27.0-31.0); MEAN CORPUSCULAR HGB CONC 33.8 g/dL (33.0-37.0); MEAN PLATELET VOLUME 9.2 fl (7.2-11.7); MONO # 0.8 K/uL (0.0-0.8); MONO % 8.8 % (0.0-10.0); NEUT # 5.7 K/uL (1.8-7.0); NEUT % 65.1 % (50.0-75.0); NRBC % 0.1 % (0.0-0.0); RBC 4.3 Mil/uL (4.40-5.90); RED CELL DISTRIBUTION WIDTH 13.5 % (11.5-14.5); WHITE BLOOD COUNT 8.8 K/uL (4.8-10.8)
[2017-11-29 07:27] LABS: BLOOD UREA NITROGEN 15 mg/dl (9-20); GFR AFRICAN-AMERICAN > 60; GFR NON-AFRICAN AMERICAN > 60
--- NOTE | 2017-11-29 08:25 | RAD ---
PROCEDURE: CHEST RADIOGRAPH, 1 VIEW HISTORY: NGT placement COMPARISON: Portable chest 11/28/2017 5:49 p.m. FINDINGS: Nasogastric tube has been repositioned entering into the left marian abdomen with the tip off the image. LUNGS: No interval infiltrate bilaterally. Trace fibrosis again noted left base laterally. PLEURA: No pneumothorax or pleural fluid seen. CARDIOVASCULAR: Normal. OSSEOUS STRUCTURES: No significant abnormalities. VISUALIZED UPPER ABDOMEN: Gas is seen distending large-bowel segments in the visualized abdomen. OTHER FINDINGS: None. IMPRESSION: Status post repositioning of nasogastric tube entering into the abdomen as described above. No acute cardiopulmonary disease appreciable. Gas is identified distending large-bowel segments in the upper abdomen.
--- NOTE | 2017-11-29 08:53 | CP.PCM.PN ---
<Nelson Baird - Last Filed: 11/29/17 08:54> Subjective - Date & Time of Evaluation Date of Evaluation: 11/29/17 Time of Evaluation: 05:45 - Subjective Subjective: General Surgery- Dr. Valencia Patient seen and examined at bedside this AM. NGT and Rectal tube to suction. ABD still distended, however pain is better. OOB and ambulating. Denies F/C CP/ SOB N/V Objective - Vital Signs/Intake and Output Vital Signs (last 24 hours): Temp Pulse Resp BP Pulse Ox 97.7 F 93 H 18 122/79 95 11/28/17 23:45 11/28/17 23:45 11/28/17 23:45 11/28/17 23:45 11/28/17 23:45 Intake and Output: 11/29/17 11/29/17 06:59 18:59 Intake Total 3080 Output Total 2000 Balance 1080 - Medications Medications: Current Medications Sodium Chloride (Sodium Chloride 0.9%) 1,000 mls @ 1,000 mls/hr IV .Q1H [facility] Last Admin: 11/28/17 11:29 Dose: 1,000 mls/hr Lactated Ringer's (Lactated Ringer's) 1,000 mls @ 120 mls/hr IV .Q8H20M [facility] Last Admin: 11/29/17 05:59 Dose: 120 mls/hr Morphine Sulfate (Morphine) 2 mg IVP Q4 PRN PRN Reason: Pain, moderate (4-7) Last Admin: 11/29/17 05:55 Dose: 2 mg Phenol/Menthol (Phenaseptic 1.4% Throat [place]) 1 spry MT Q2 PRN PRN Reason: Sore Throat Last Admin: 11/28/17 22:10 Dose: 1 spr - Labs Labs: 11/29/17 05:20 11/29/17 05:20 PT 13.1 Seconds (9.8-13.1) 11/28/17 11:00 INR 1.2 (0.9-1.2) 11/28/17 11:00 APTT 28.2 Seconds (25.6-37.1) 11/28/17 11:00 - Constitutional Appears: Non-toxic, No Acute Distress - Head Exam Head Exam: ATRAUMATIC - Eye Exam Eye Exam: EOMI - ENT Exam ENT Exam: Mucous Membranes Moist - Respiratory Exam Respiratory Exam: NORMAL BREATHING PATTERN. absent: Accessory Muscle Use, Respiratory Distress - Cardiovascular Exam Cardiovascular Exam: +S1, +S2. absent: Bradycardia, Tachycardia - GI/Abdominal Exam GI & Abdominal Exam: Distended, Firm, Soft, Tenderness. absent: Guarding, Rigid , Rebound Additional comments: Tender to palpation in RLQ abd distended, however softer than yesterday NGT in place and to suction - Extremities Exam Extremities Exam: absent: Calf Tenderness - Neurological Exam Neurological Exam: Alert, Awake, Oriented x3 - Skin Skin Exam: Intact, Warm Assessment and Plan - Assessment and Plan (Free Text) Assessment: 57M hx sigmoid volvulus s/p robotic sigmoidectomy; abd pain, bowel obstruction vs volvulus Plan: - NPO - NGT and Rectal tube to suction - pain control and anti-emetic PRN; avoid opiates - aggressive fluid rehydration - c/s GI following- all recs appreciated - possible flex sig if decompression does not relieve symptoms - further recs per Dr. Valencia surgical attending [facility] PGY1 <Ryan Valencia - Last Filed: 12/04/17 15:16> Objective - Vital Signs/Intake and Output Vital Signs (last 24 hours): Temp Pulse Resp BP Pulse Ox 99.4 F 106 H 18 162/96 H 99 12/04/17 14:36 12/04/17 14:36 12/04/17 14:36 12/04/17 14:36 12/04/17 12:50 Intake and Output: 12/04/17 12/04/17 06:59 18:59 Intake Total 1128 Output Total 1200 Balance -72 - Medications Medications: Current Medications Enoxaparin Sodium (Lovenox) 40 mg SC DAILY [facility] PRN Reason: Protocol Last Admin: 12/04/17 08:35 Dose: Not Given Sodium Chloride 35 meq/ Sodium Phosphate 18 mmole/ Potassium Chloride 20 meq/ Potassium Acetate 25 meq/ Magnesium Sulfate 8 meq/ Calcium Gluconate 4.5 meq/ Multivitamins/Vitamin C 10 ml/Chromium/Copper/Manganese/Zinc 3 ml/ Amino Acids 1,061.8978 mls @ 42 mls/hr IV .Q24H [facility] Stop: 12/04/17 17:59 Last Admin: 12/04/17 02:00 Dose: 42 mls/hr Morphine Sulfate (Morphine) 2 mg IVP Q4 PRN PRN Reason: Pain, moderate (4-7) Last Admin: 11/30/17 02:14 Dose: 2 mg Pantoprazole Sodium (Protonix Inj) 40 mg IVP Q12 [facility] Last Admin: 12/04/17 08:36 Dose: Not Given Phenol/Menthol (Phenaseptic 1.4% Throat [place]) 1 spry MT Q2 PRN PRN Reason: Sore Throat Last Admin: 11/28/17 22:10 Dose: 1 spr - Labs Labs: 12/04/17 04:11 12/04/17 04:11 PT 13.1 Seconds (9.8-13.1) 11/28/17 11:00 INR 1.2 (0.9-1.2) 11/28/17 11:00 APTT 28.2 Seconds (25.6-37.1) 11/28/17 11:00 Attending/Attestation - Attestation I have personally seen and examined this patient.: Yes I have fully participated in the care of the patient.: Yes I have reviewed all pertinent clinical information, including history, physical exam and plan: Yes Notes (Text): Pt was seen and examined at beside Agree with above note and assessment Pt with Chronic Constipation and Severe colonic Dilatation Labs and radiology reviewed Ass: No clinical evidence of Volvulus Pt has severe Colonic dilatation and Ileus Plan : NG tube to LIS NPO,IVF c.w current mx Plan d.w pt in detail Risk and benefit explained in detail.
[2017-11-29] MEDS ORDERED: Potassium CL 10 MEQ/50 ML 50 ML IVPB SCH (14:00)
[2017-11-30] MEDS: Morphine 4 MG/ML VIAL IVP PRN (02:14)
[2017-11-30] MEDS: Lactated Ringer's 1,000 ML IV SCH (04:23)
[2017-11-30 06:38] LABS: MEAN CELL VOLUME 88.4 fl (80.0-94.0); MEAN CORPUSCULAR HEMOGLOBIN 29.6 pg (27.0-31.0); MEAN CORPUSCULAR HGB CONC 33.5 g/dL (33.0-37.0); RBC 4.37 Mil/uL (4.40-5.90)
[2017-11-30 06:52] LABS: ALBUMIN 3.6 g/dL (3.5-5.0); ALT/SGPT 24 U/L (21-72); AST/SGOT 28 U/L (17-59); BLOOD UREA NITROGEN 16 mg/dl (9-20); CALCIUM 8.7 mg/dL (8.4-10.2); GFR AFRICAN-AMERICAN > 60; GFR NON-AFRICAN AMERICAN > 60; HDL CHOLESTEROL 26 MG/DL (30-70)
[2017-11-30 06:57] LABS: LDL CHOLESTEROL 88 mg/dL (0-129)
--- NOTE | 2017-11-30 07:49 | CP.PCM.PN ---
<Laurie Jj - Last Filed: 11/30/17 08:03> Subjective - Date & Time of Evaluation Date of Evaluation: 11/30/17 Time of Evaluation: 07:47 - Subjective Subjective: General Surgery Progress Note - Dr. Valencia Patient seen and examined at bedside this morning. NGT and rectal tube to suction are in place. Pt says he is feeling slightly better today. Denies passing gas. Says he has been able to walk around on the floors. Denies F/C/N/V/ CP/SOB NGT 900cc output overnight Objective - Vital Signs/Intake and Output Vital Signs (last 24 hours): Temp Pulse Resp BP Pulse Ox 98.7 F 94 H 19 134/76 95 11/30/17 01:00 11/30/17 01:00 11/30/17 01:00 11/30/17 01:00 11/30/17 01:00 - Medications Medications: Current Medications Lactated Ringer's (Lactated Ringer's) 1,000 mls @ 120 mls/hr IV .Q8H20M [facility] Last Admin: 11/29/17 21:39 Dose: 120 mls/hr Morphine Sulfate (Morphine) 2 mg IVP Q4 PRN PRN Reason: Pain, moderate (4-7) Last Admin: 11/30/17 02:14 Dose: 2 mg Pantoprazole Sodium (Protonix Inj) 40 mg IVP Q12 [facility] Phenol/Menthol (Phenaseptic 1.4% Throat [place]) 1 spry MT Q2 PRN PRN Reason: Sore Throat Last Admin: 11/28/17 22:10 Dose: 1 spr - Labs Labs: 11/30/17 05:45 11/30/17 05:45 PT 13.1 Seconds (9.8-13.1) 11/28/17 11:00 INR 1.2 (0.9-1.2) 11/28/17 11:00 APTT 28.2 Seconds (25.6-37.1) 11/28/17 11:00 - Constitutional Appears: Well, Non-toxic, No Acute Distress - Head Exam Head Exam: NORMAL INSPECTION - Eye Exam Eye Exam: Normal appearance - ENT Exam Additional comments: NGT in place and to suction - Respiratory Exam Respiratory Exam: NORMAL BREATHING PATTERN. absent: Chest Wall Tenderness, Respiratory Distress - Cardiovascular Exam Cardiovascular Exam: Tachycardia Additional comments: 104 last night down to 94 today AM - GI/Abdominal Exam GI & Abdominal Exam: Distended, Soft. absent: Tenderness, Rebound Additional comments: Abdomen soft, moderately distended - Extremities Exam Extremities Exam: Normal Inspection - Neurological Exam Neurological Exam: Alert, Awake, Oriented x3 - Psychiatric Exam Psychiatric exam: Normal Affect, Normal Mood - Skin Skin Exam: Intact, Normal Color Assessment and Plan - Assessment and Plan (Free Text) Assessment: 57M hx sigmoid volvulus s/p robotic sigmoidectomy; abd pain, bowel obstruction vs volvulus Plan: - NPO - NGT and Rectal tube to suction - cont NGT decompression - pain control and anti-emetic PRN; avoid opiates - cont IVF - f/u colonoscopy today - further recs per Dr. Valencia surgical attending <Ryan Valencia - Last Filed: 12/04/17 15:19> Objective - Vital Signs/Intake and Output Vital Signs (last 24 hours): Temp Pulse Resp BP Pulse Ox 99.4 F 106 H 18 162/96 H 99 12/04/17 14:36 12/04/17 14:36 12/04/17 14:36 12/04/17 14:36 12/04/17 12:50 Intake and Output: 12/04/17 12/04/17 06:59 18:59 Intake Total 1128 Output Total 1200 Balance -72 - Medications Medications: Current Medications Enoxaparin Sodium (Lovenox) 40 mg SC DAILY [facility] PRN Reason: Protocol Last Admin: 12/04/17 08:35 Dose: Not Given Sodium Chloride 35 meq/ Sodium Phosphate 18 mmole/ Potassium Chloride 20 meq/ Potassium Acetate 25 meq/ Magnesium Sulfate 8 meq/ Calcium Gluconate 4.5 meq/ Multivitamins/Vitamin C 10 ml/Chromium/Copper/Manganese/Zinc 3 ml/ Amino Acids 1,061.8978 mls @ 42 mls/hr IV .Q24H [facility] Stop: 12/04/17 17:59 Last Admin: 12/04/17 02:00 Dose: 42 mls/hr Morphine Sulfate (Morphine) 2 mg IVP Q4 PRN PRN Reason: Pain, moderate (4-7) Last Admin: 11/30/17 02:14 Dose: 2 mg Pantoprazole Sodium (Protonix Inj) 40 mg IVP Q12 [facility] Last Admin: 12/04/17 08:36 Dose: Not Given Phenol/Menthol (Phenaseptic 1.4% Throat [place]) 1 spry MT Q2 PRN PRN Reason: Sore Throat Last Admin: 11/28/17 22:10 Dose: 1 spr - Labs Labs: 12/04/17 04:11 12/04/17 04:11 PT 13.1 Seconds (9.8-13.1) 11/28/17 11:00 INR 1.2 (0.9-1.2) 11/28/17 11:00 APTT 28.2 Seconds (25.6-37.1) 11/28/17 11:00 Attending/Attestation - Attestation I have personally seen and examined this patient.: Yes I have fully participated in the care of the patient.: Yes I have reviewed all pertinent clinical information, including history, physical exam and plan: Yes Notes (Text): Pt was seen and examined at beside Agree with above note and assessment Pt with Chronic Constipation and Severe colonic Dilatation Pt is improving clinically S/P Colonoscopy with no evidence of volvulus NG to LIS, NPO,IVF c.w current mx Plan d.w pt in detail Risk and benefit explained in detail.
[2017-11-30] MEDS ORDERED: Lactated Ringer's 1,000 ML IV ONE ×2 (08:05→08:11)
[2017-11-30] MEDS ORDERED: Propofol 10 mg/ml Inj (20 ML) ONE (08:08)
[2017-11-30] MEDS ORDERED: Lidocaine PF 2% (5 ml) Inj (For Cardiac Arrhy) IV ONE (08:08)
[2017-11-30] MEDS ORDERED: Lactated Ringer's 1,000 ML IV SCH (08:45)
--- NOTE | 2017-11-30 09:23 | HP ---
ADDENDUM If EKG is unremarkable, the patient is pain. The patient . CHIEF COMPLAINT: Abdominal pain and distention. 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 The patient was brought to Emergency Room, but the patient was found to have sigmoid volvulus and was admitted for further management. REVIEW OF SYSTEMS: Positive for abdominal pain and expansion. Review of systems, otherwise, is negative for headache, dizziness, syncope, loss of consciousness, chest pain, shortness of breath or any new joint or extremity pain. Review of systems of all other organ systems is unremarkable. PAST MEDICAL HISTORY: Significant for hypertension, bronchial asthma, and obesity. PAST SURGICAL HISTORY: Remarkable for sigmoidectomy for volvulus. PERSONAL HISTORY: The patient is currently nonsmoker and nondrinker. No substance abuse. MEDICATIONS: The patient is on multiple medications, which is as per reconciliation sheet, which was reviewed, which included Toprol, amlodipine, and Lexapro. ALLERGIES: THE PATIENT IS NOT ALLERGIC TO ANY MEDICATIONS. FAMILY HISTORY: Noncontributory. PHYSICAL EXAMINATION: GENERAL: A well-built and well-nourished, obese male with NG tube draining some of content, in no respiratory distress. VITAL SIGNS: Temperature is afebrile, pulse is 80, respirations are 18, and blood pressure is 136/76. HEENT: Pupils are reactive to light. No JVD. No thyromegaly. No lymphadenopathy. No nystagmus. Normocephalic and atraumatic skull. NG tube is in good position and functioning . HEART: S1 and S2 normal and regular. No significant murmur, gallop or rub is heard. LUNGS: Exam shows good bilateral air exchange. No rales or rhonchi. ABDOMEN: Soft and distended. There is mild tenderness . IMPRESSION: Sigmoid volvulus, intestinal obstruction, hypertension, and bronchial asthma. Available diagnostic data reviewed. Complete blood cell count and comprehensive metabolic panel acceptable. Chest x-ray is reviewed. CAT scan of abdomen is returned with abnormal findings which were reviewed. Electrocardiogram is . Vinnie Vyas MD [facility] # [id number]
--- NOTE | 2017-11-30 09:32 | PN ---
DATE: 11/30/2017 SUBJECTIVE: The patient is seen and examined. Interim events noted. Consults noted and appreciated. Gastroenterology and surgical followup and intervention noted and appreciated. The patient remains in regular medical floor with NG tube drainage. The patient still has abdominal distention and pain, but is slightly better, also had lot of NG drainage. PHYSICAL EXAMINATION: GENERAL: The patient is in no acute distress. VITAL SIGNS: Stable. HEART: S1 and S2, normal and regular. LUNGS: Good bilateral air exchange. ABDOMEN: Shows gross distention, but no sign of acute abdomen. No guarding. No rigidity. The patient has acute generalized mild tenderness. EXTREMITIES: No edema. No calf swelling. No tenderness. No acute ischemia. 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 DIAGNOSTIC DATA: Available diagnostic data is reviewed. PLAN: Overall, the patient's general medical condition is stable. The patient is today. Plan as ordered. Case and plan discussed with the patient. EKG did not reveal any acute ST-T changes where surgical intervention required. The patient is medically stable and surgeries and required anesthesia. There is no sign of any acute medical contraindication. Surgery should be . Vinnie Vyas MD
[2017-11-30] MEDS: Potassium Chloride 20 MEQ in Lactated Ringer's 1,000 ML IV SCH ×3 (13:10→23:00)
--- NOTE | 2017-11-30 19:09 | CARD ---
APPROVED REPORT EKG Measurement Heart [id number] CO [id number] <Conclusion> Normal sinus rhythm Incomplete right bundle branch block Borderline ECG
--- NOTE | 2017-11-30 21:23 | CARD ---
APPROVED REPORT EKG Measurement Heart [id number] ID [id number] <Conclusion> Normal sinus rhythm Normal ECG
[2017-12-01 06:51] LABS: MEAN CELL VOLUME 88.8 fl (80.0-94.0); MEAN CORPUSCULAR HEMOGLOBIN 29.8 pg (27.0-31.0); MEAN CORPUSCULAR HGB CONC 33.6 g/dL (33.0-37.0); RBC 4.04 Mil/uL (4.40-5.90); RED CELL DISTRIBUTION WIDTH 12.9 % (11.5-14.5); WHITE BLOOD COUNT 8.1 K/uL (4.8-10.8)
[2017-12-01 07:03] LABS: ALB/GLOB RATIO 0.9 (1.0-2.1); ALBUMIN 3.2 g/dL (3.5-5.0); ALT/SGPT 24 U/L (21-72); AST/SGOT 28 U/L (17-59); BLOOD UREA NITROGEN 18 mg/dl (9-20); CALCIUM 8.5 mg/dL (8.4-10.2); GFR AFRICAN-AMERICAN > 60; GFR NON-AFRICAN AMERICAN > 60
--- NOTE | 2017-12-01 07:50 | CP.PCM.PN ---
Addendum entered and electronically signed by Allen Palmer DO 12/01/17 10: 13: plan for half dose go lytely today repeat CT w/ PO and IV contrast tomorrow to r/o obstruction possible ICU admission for neostigmine tomorrow pending CT results will start PPN Original Note: <ParvizLaurie - Last Filed: 12/01/17 09:05> Subjective - Date & Time of Evaluation Date of Evaluation: 12/01/17 Time of Evaluation: 07:47 - Subjective Subjective: General Surgery Progress Note - Dr. Valencia Patient S&E at bedside this morning. NGT in place. Pt feeling better and says he had 2-3 bowel movements yesterday. Admits to passing flatus. Says he has been walking around on the floors. Denies F/C/N/V/CP/SOB NGT 200cc output overnight Objective - Vital Signs/Intake and Output Vital Signs (last 24 hours): Temp Pulse Resp BP Pulse Ox 99.3 F 97 H 18 120/64 95 12/01/17 00:36 12/01/17 00:36 12/01/17 00:36 12/01/17 00:36 12/01/17 00:36 Intake and Output: 12/01/17 12/01/17 06:59 18:59 Intake Total 300 Output Total 100 Balance 200 - Medications Medications: Current Medications Potassium Chloride 20 meq/ (Lactated Ringer's) 1,010 mls @ 150 mls/hr IV .Q6H44M [facility] Last Admin: 11/30/17 23:00 Dose: Not Given Morphine Sulfate (Morphine) 2 mg IVP Q4 PRN PRN Reason: Pain, moderate (4-7) Last Admin: 11/30/17 02:14 Dose: 2 mg Pantoprazole Sodium (Protonix Inj) 40 mg IVP Q12 [facility] Last Admin: 11/30/17 21:42 Dose: 40 mg Phenol/Menthol (Phenaseptic 1.4% Throat [place]) 1 spry MT Q2 PRN PRN Reason: Sore Throat Last Admin: 11/28/17 22:10 Dose: 1 spr - Labs Labs: 12/01/17 05:35 12/01/17 05:35 PT 13.1 Seconds (9.8-13.1) 11/28/17 11:00 INR 1.2 (0.9-1.2) 11/28/17 11:00 APTT 28.2 Seconds (25.6-37.1) 11/28/17 11:00 - Constitutional Appears: Well, Non-toxic, No Acute Distress - Head Exam Head Exam: ATRAUMATIC - Eye Exam Eye Exam: Normal appearance - ENT Exam Additional comments: NGT in place and to suction - Respiratory Exam Respiratory Exam: NORMAL BREATHING PATTERN. absent: Chest Wall Tenderness, Respiratory Distress - GI/Abdominal Exam GI & Abdominal Exam: Distended, Soft. absent: Guarding, Tenderness, Mass, Rebound Additional comments: Abdomen soft, moderately distended (decreased from yesterday) - Extremities Exam Extremities Exam: Normal Inspection - Neurological Exam Neurological Exam: Alert, Awake, Oriented x3 - Psychiatric Exam Psychiatric exam: Normal Affect, Normal Mood - Skin Skin Exam: Dry, Intact Assessment and Plan - Assessment and Plan (Free Text) Assessment: 57M hx sigmoid volvulus s/p robotic sigmoidectomy with abdominal pain; bowel obstruction vs volvulus -cont NPO -cont NGT decompression -abd flat plate to show resolution of obstruction if (-) will d/c NGT - pain control and anti-emetic PRN; avoid opiates - cont IVF -cont ambulation -seen with surgical sales representative Dr. Palmer and discussed with Dr. Valencia <Ryan Valencia - Last Filed: 12/04/17 15:20> Objective - Vital Signs/Intake and Output Vital Signs (last 24 hours): Temp Pulse Resp BP Pulse Ox 99.4 F 106 H 18 162/96 H 99 12/04/17 14:36 12/04/17 14:36 12/04/17 14:36 12/04/17 14:36 12/04/17 12:50 Intake and Output: 12/04/17 12/04/17 06:59 18:59 Intake Total 1128 Output Total 1200 Balance -72 - Medications Medications: Current Medications Enoxaparin Sodium (Lovenox) 40 mg SC DAILY REESE PRN Reason: Protocol Last Admin: 12/04/17 08:35 Dose: Not Given Sodium Chloride 35 meq/ Sodium Phosphate 18 mmole/ Potassium Chloride 20 meq/ Potassium Acetate 25 meq/ Magnesium Sulfate 8 meq/ Calcium Gluconate 4.5 meq/ Multivitamins/Vitamin C 10 ml/Chromium/Copper/Manganese/Zinc 3 ml/ Amino Acids 1,061.8978 mls @ 42 mls/hr IV .Q24H ONE Stop: 12/04/17 17:59 Last Admin: 12/04/17 02:00 Dose: 42 mls/hr Morphine Sulfate (Morphine) 2 mg IVP Q4 PRN PRN Reason: Pain, moderate (4-7) Last Admin: 11/30/17 02:14 Dose: 2 mg Pantoprazole Sodium (Protonix Inj) 40 mg IVP Q12 [facility] Last Admin: 12/04/17 08:36 Dose: Not Given Phenol/Menthol (Phenaseptic 1.4% Throat [place]) 1 spry MT Q2 PRN PRN Reason: Sore Throat Last Admin: 11/28/17 22:10 Dose: 1 spr - Labs Labs: 12/04/17 04:11 12/04/17 04:11 PT 13.1 Seconds (9.8-13.1) 11/28/17 11:00 INR 1.2 (0.9-1.2) 11/28/17 11:00 APTT 28.2 Seconds (25.6-37.1) 11/28/17 11:00 Attending/Attestation - Attestation I have personally seen and examined this patient.: Yes I have fully participated in the care of the patient.: Yes I have reviewed all pertinent clinical information, including history, physical exam and plan: Yes Notes (Text): Pt was seen and examined at beside Agree with above note and assessment Pt is improving clinically AXR is much improved Golytely today CT scan tomorrow PPN NG tube to LIS NPO,IVF c.w current mx Plan d.w pt in detail Risk and benefit explained in detail.
--- NOTE | 2017-12-01 07:55 | CP.PCM.PN ---
<Chikis Roblero - Last Filed: 12/01/17 16:29> Subjective - Date & Time of Evaluation Date of Evaluation: 12/01/17 Time of Evaluation: 07:00 - Subjective Subjective: GI Fellow PGY 4 Progress Note Pt seen and evaluated at bedside, pt says he feels a little better today with liquid stool 3 times overnight and passing gas. Pt reports abdominal discomfort is slightly better. Pt is s/p colonoscopy with no complications. NGT with 500 cc overnight. ROS: A 12pt ROS was negative except as above Objective - Vital Signs/Intake and Output Vital Signs (last 24 hours): Temp Pulse Resp BP Pulse Ox 99.3 F 97 H 18 120/64 95 12/01/17 00:36 12/01/17 00:36 12/01/17 00:36 12/01/17 00:36 12/01/17 00:36 Intake and Output: 12/01/17 12/01/17 06:59 18:59 Intake Total 300 Output Total 100 Balance 200 - Medications Medications: Current Medications Potassium Chloride 20 meq/ (Lactated Ringer's) 1,010 mls @ 150 mls/hr IV .Q6H44M [facility] Last Admin: 11/30/17 23:00 Dose: Not Given Morphine Sulfate (Morphine) 2 mg IVP Q4 PRN PRN Reason: Pain, moderate (4-7) Last Admin: 11/30/17 02:14 Dose: 2 mg Pantoprazole Sodium (Protonix Inj) 40 mg IVP Q12 [facility] Last Admin: 11/30/17 21:42 Dose: 40 mg Phenol/Menthol (Phenaseptic 1.4% Throat [place]) 1 spry MT Q2 PRN PRN Reason: Sore Throat Last Admin: 11/28/17 22:10 Dose: 1 spr - Labs Labs: 12/01/17 05:35 12/01/17 05:35 PT 13.1 Seconds (9.8-13.1) 11/28/17 11:00 INR 1.2 (0.9-1.2) 11/28/17 11:00 APTT 28.2 Seconds (25.6-37.1) 11/28/17 11:00 - Constitutional Appears: Non-toxic, No Acute Distress - Head Exam Head Exam: ATRAUMATIC, NORMAL INSPECTION, NORMOCEPHALIC - Eye Exam Eye Exam: EOMI, Normal appearance, PERRL Pupil Exam: PERRL - ENT Exam ENT Exam: Mucous Membranes Dry Additional comments: NGT to suction - Neck Exam Neck Exam: Full ROM - Respiratory Exam Respiratory Exam: Clear to Ausculation Bilateral, NORMAL BREATHING PATTERN - Cardiovascular Exam Cardiovascular Exam: REGULAR RHYTHM, RRR - GI/Abdominal Exam GI & Abdominal Exam: Distended, Soft, Normal Bowel Sounds. 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 He underwent colonoscopy in August 2017 which was unremarkable including biopsies. 1. Distended colon s/p colonoscopy with no obstruction or volvulus 2. History of sigmoid volvulus s/p surgical segmental resection 3. Abdominal pain 4. Chronic constipation/diarrhea Plan: -Continue supportive care with pain control and anti-emetics -NGT to suction with decreasing amount of bilious outpt -NPO -Discontinued rectal tube yesterday -s/p Colonoscopy to proximal transverse, poor prep, no luminal obstruction or volvulus, rectal lesion s/p biospy and rectal biospy to r/o Jacinta, path pending -Will discuss with surgical team about further plans, if pt needs repeat imaging or any surgical intervention -Will continue to follow pt closely <Marino Ramirez - Last Filed: 12/01/17 20:30> Objective - Vital Signs/Intake and Output Vital Signs (last 24 hours): Temp Pulse Resp BP Pulse Ox 98.2 F 90 19 143/82 99 12/01/17 16:20 12/01/17 16:20 12/01/17 16:20 12/01/17 16:20 12/01/17 16:20 Intake and Output: 12/01/17 12/02/17 18:59 06:59 Output Total 100 200 Balance -100 -200 - Medications Medications: Current Medications Potassium Chloride 40 meq/ (Lactated Ringer's) 1,020 mls @ 150 mls/hr IV .Q6H48M [facility] Last Admin: 12/01/17 17:20 Dose: Not Given Chromium/Copper/Manganese/Zinc 3 ml/ Multivitamins/Vitamin C 10 ml/ Amino Acids/ Electrolytes/Dextrose 1,013 mls @ 42 mls/hr IV .Q24H ONE Stop: 12/02/17 14:59 Last Admin: 12/01/17 18:53 Dose: 42 mls/hr Morphine Sulfate (Morphine) 2 mg IVP Q4 PRN PRN Reason: Pain, moderate (4-7) Last Admin: 11/30/17 02:14 Dose: 2 mg Pantoprazole Sodium (Protonix Inj) 40 mg IVP Q12 [facility] Last Admin: 12/01/17 09:15 Dose: 40 mg Phenol/Menthol (Phenaseptic 1.4% Throat [place]) 1 spry MT Q2 PRN PRN Reason: Sore Throat Last Admin: 11/28/17 22:10 Dose: 1 spr - Labs Labs: 12/01/17 05:35 12/01/17 05:35 PT 13.1 Seconds (9.8-13.1) 11/28/17 11:00 INR 1.2 (0.9-1.2) 11/28/17 11:00 APTT 28.2 Seconds (25.6-37.1) 11/28/17 11:00 Attending/Attestation - Attestation I have personally seen and examined this patient.: Yes I have fully participated in the care of the patient.: Yes I have reviewed all pertinent clinical information, including history, physical exam and plan: Yes Notes (Text): 12/01/17 20:24 Patient seen with Gi fellow. 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 He underwent colonoscopy in August 2017 which was unremarkable including biopsies. Now s/p colonoscopy till transverse colon unprepped colon showing no luminal obstruction or volvulus. NGt in place with decreasing output but yet significant with abdominal distension. Passing gas and stool. As per surgical team will repeat CT with IV contrast and po and decide to start neostigmine after transferring to MICU. Discussed with the patient side effects of neostigmine including but not limited to arrythmias and bradycardia. Will follow closely
--- NOTE | 2017-12-01 08:55 | CP.PCM.PN ---
Subjective - Date & Time of Evaluation Date of Evaluation: 12/01/17 Time of Evaluation: 07:35 - Subjective Subjective: Patient evaluated with Dr Vyas during morning rounds. No acute distress, no acute event overnight. Patient feels "better". Denies nausea, vomiting. Abd improved. Afebrile Objective - Vital Signs/Intake and Output Vital Signs (last 24 hours): Temp Pulse Resp BP Pulse Ox 98.3 F 91 H 20 134/72 96 12/01/17 08:01 12/01/17 08:01 12/01/17 08:01 12/01/17 08:01 12/01/17 08:01 Intake and Output: 12/01/17 12/01/17 06:59 18:59 Intake Total 300 Output Total 100 Balance 200 - Medications Medications: Current Medications Potassium Chloride 20 meq/ (Lactated Ringer's) 1,010 mls @ 150 mls/hr IV .Q6H44M [facility] Last Admin: 11/30/17 23:00 Dose: Not Given Morphine Sulfate (Morphine) 2 mg IVP Q4 PRN PRN Reason: Pain, moderate (4-7) Last Admin: 11/30/17 02:14 Dose: 2 mg Pantoprazole Sodium (Protonix Inj) 40 mg IVP Q12 [facility] Last Admin: 11/30/17 21:42 Dose: 40 mg Phenol/Menthol (Phenaseptic 1.4% Throat [place]) 1 spry MT Q2 PRN PRN Reason: Sore Throat Last Admin: 11/28/17 22:10 Dose: 1 spr - Labs Labs: 12/01/17 05:35 12/01/17 05:35 PT 13.1 Seconds (9.8-13.1) 11/28/17 11:00 INR 1.2 (0.9-1.2) 11/28/17 11:00 APTT 28.2 Seconds (25.6-37.1) 11/28/17 11:00 - Constitutional Appears: Non-toxic - Eye Exam Eye Exam: EOMI, PERRL - ENT Exam ENT Exam: Mucous Membranes Moist - Respiratory Exam Respiratory Exam: Clear to Ausculation Bilateral, NORMAL BREATHING PATTERN - Cardiovascular Exam Cardiovascular Exam: REGULAR RHYTHM, +S1, +S2. absent: Gallop - GI/Abdominal Exam GI & Abdominal Exam: Distended (Mild, diffuse), Tenderness (Mild, diffuse), Normal Bowel Sounds. absent: Guarding, Rebound - Extremities Exam Extremities Exam: absent: Calf Tenderness - Neurological Exam Neurological Exam: Alert, Awake, Oriented x3 - Skin Skin Exam: Normal Color, Warm Assessment and Plan - Assessment and Plan (Free Text) Assessment: Abdominal distention No obstruction or volvulus found C/W Supportive care/Decompression. Sx consult appreciated: F/U recs GI consult appreciated: F/U recs
--- NOTE | 2017-12-01 09:58 | RAD ---
HISTORY: volvulus COMPARISON: No prior. FINDINGS: BOWEL: Marked gaseous distention of bowel with focally dilated loop of bowel in the left upper quadrant. BONES: Normal. OTHER FINDINGS: Partially imaged enteric tube with tip in the stomach. Surgical material in the left mid abdomen IMPRESSION: Marked gaseous distention of bowel with focally dilated loop of bowel in the left upper quadrant.
[2017-12-01] MEDS ORDERED: Peg-Electrolyte Oral Soln 4L (Golytely) PO ONE (10:15)
[2017-12-01] MEDS: Potassium Chloride 40 MEQ in Lactated Ringer's 1,000 ML IV SCH ×3 (11:15→22:55)
[2017-12-01 13:18] LABS: MAGNESIUM 1.8 MG/DL (1.6-2.3)
[2017-12-01] MEDS ORDERED: [UNRECOGNIZED DRUG - NUTRITION] IV ONE ×2 (14:45→15:00)
[2017-12-02 06:47] LABS: HEMOGLOBIN 11.8 g/dL (12.0-18.0); MEAN CORPUSCULAR HEMOGLOBIN 30.2 pg (27.0-31.0); MEAN CORPUSCULAR HGB CONC 34.7 g/dL (33.0-37.0); RBC 3.92 Mil/uL (4.40-5.90); RED CELL DISTRIBUTION WIDTH 13.5 % (11.5-14.5); WHITE BLOOD COUNT 7.5 K/uL (4.8-10.8)
[2017-12-02 07:12] LABS: ALB/GLOB RATIO 0.9 (1.0-2.1); ALBUMIN 3.2 g/dL (3.5-5.0); ALT/SGPT 25 U/L (21-72); AST/SGOT 30 U/L (17-59); BLOOD UREA NITROGEN 16 mg/dl (9-20); CALCIUM 8.3 mg/dL (8.4-10.2); GFR AFRICAN-AMERICAN > 60; GFR NON-AFRICAN AMERICAN > 60; MAGNESIUM 1.9 MG/DL (1.6-2.3)
[2017-12-02] MEDS ORDERED: Iohexol 240 (50 ml) PO ONE (07:35)
--- NOTE | 2017-12-02 08:36 | PN ---
DATE: 12/02/2017 SUBJECTIVE: The patient is seen and examined. Interim events noted. Consults noted and appreciated. Surgical and Gastroenterology intervention noted and appreciated. The patient remains in regular medical floor with NG tube. The patient feels better. Abdominal pain Is improved and distention much less. No chest pain or shortness of breath. PHYSICAL EXAMINATION: GENERAL: The patient is in no acute distress. VITAL SIGNS: Stable. HEART: S1 and S2, normal and regular. LUNGS: Good bilateral air exchange. ABDOMEN: Still distended, but much softer. No guarding. No rigidity. No rebound. Bowel sounds are plus. Abdominal exam again is much more benign than before. No sign of acute abdomen. No guarding. No rigidity. No rebound. EXTREMITIES: No edema. No calf swelling. No tenderness. No acute ischemia. CENTRAL NERVOUS SYSTEM: Exam is essentially unchanged. DIAGNOSTIC DATA: Available diagnostic data is reviewed. IMPRESSION AND PLAN: Overall, the patient's general medical condition is stable and improving. Plan as ordered. Vinnie Vyas MD
[2017-12-02] MEDS: Potassium Chloride 40 MEQ in Lactated Ringer's 1,000 ML IV SCH (08:44)
--- NOTE | 2017-12-02 11:02 | CP.PCM.PN ---
<Chikis Roblero - Last Filed: 12/02/17 13:28> Subjective - Date & Time of Evaluation Date of Evaluation: 12/02/17 Time of Evaluation: 09:30 - Subjective Subjective: GI Fellow PGY 4 Progress Note Pt seen and evaluated at bedside, pt says he feels a little better today with liquid stool multiple times overnight and passing gas. Pt reports abdominal discomfort is slightly better. Pt is s/p colonoscopy with no complications. NGT with 200 cc overnight, decreasing. ROS: A 12pt ROS was negative except as above Objective - Vital Signs/Intake and Output Vital Signs (last 24 hours): Temp Pulse Resp BP Pulse Ox 97.8 F 76 20 178/79 H 95 12/02/17 07:46 12/02/17 07:46 12/02/17 07:46 12/02/17 07:46 12/02/17 07:46 Intake and Output: 12/02/17 12/02/17 06:59 18:59 Intake Total 300 Output Total 400 Balance -100 - Medications Medications: Current Medications Potassium Chloride 40 meq/ (Lactated Ringer's) 1,020 mls @ 150 mls/hr IV .Q6H48M [facility] Last Admin: 12/02/17 08:44 Dose: Not Given Chromium/Copper/Manganese/Zinc 3 ml/ Multivitamins/Vitamin C 10 ml/ Amino Acids/ Electrolytes/Dextrose 1,013 mls @ 42 mls/hr IV .Q24H ONE Stop: 12/02/17 14:59 Last Admin: 12/01/17 18:53 Dose: 42 mls/hr Potassium Chloride 10 meq/ (Sodium Chloride) 55 mls @ 55 mls/hr IV Q1 [facility] Stop: 12/02/17 11:59 Morphine Sulfate (Morphine) 2 mg IVP Q4 PRN PRN Reason: Pain, moderate (4-7) Last Admin: 11/30/17 02:14 Dose: 2 mg Pantoprazole Sodium (Protonix Inj) 40 mg IVP Q12 [facility] Last Admin: 12/02/17 09:27 Dose: 40 mg Phenol/Menthol (Phenaseptic 1.4% Throat [place]) 1 spry MT Q2 PRN PRN Reason: Sore Throat Last Admin: 11/28/17 22:10 Dose: 1 spr - Labs Labs: 12/02/17 05:40 12/02/17 05:40 PT 13.1 Seconds (9.8-13.1) 11/28/17 11:00 INR 1.2 (0.9-1.2) 11/28/17 11:00 APTT 28.2 Seconds (25.6-37.1) 11/28/17 11:00 - Constitutional Appears: Non-toxic, No Acute Distress - Head Exam Head Exam: ATRAUMATIC, NORMOCEPHALIC - Eye Exam Eye Exam: EOMI Pupil Exam: PERRL - ENT Exam ENT Exam: Mucous Membranes Dry Additional comments: NGT - Neck Exam Neck Exam: Full ROM, Normal Inspection - Respiratory Exam Respiratory Exam: Clear to Ausculation Bilateral, NORMAL BREATHING PATTERN - Cardiovascular Exam Cardiovascular Exam: REGULAR RHYTHM, RRR - GI/Abdominal Exam GI & Abdominal Exam: Distended, Firm, Soft, Normal Bowel Sounds. 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 He underwent colonoscopy in August 2017 which was unremarkable including biopsies. 1. Distended colon s/p colonoscopy with no obstruction or volvulus 2. History of sigmoid volvulus s/p surgical segmental resection 3. Abdominal pain 4. Chronic constipation/diarrhea Plan: -Continue supportive care with pain control and anti-emetics -NGT to suction with decreasing amount of bilious outpt -NPO -Pt started on PPN -s/p Colonoscopy 11/30/17 to proximal transverse, poor prep, no luminal obstruction or volvulus, rectal lesion s/p biospy and rectal biospy to r/o Hirshprungs, path pending -Discuss with surgical team, plan for Golytely and repeat CT imaging today, based on finding plan for possible neostigmine and ICU transfer for close monitoring as side effects of medication is bradyarrhythmias, r/o ash's syndrome -Will continue to follow pt closely <LouannEarl - Last Filed: 12/02/17 15:02> Objective - Vital Signs/Intake and Output Vital Signs (last 24 hours): Temp Pulse Resp BP Pulse Ox 97.8 F 76 20 178/79 H 95 12/02/17 07:46 12/02/17 07:46 12/02/17 07:46 12/02/17 07:46 12/02/17 07:46 Intake and Output: 12/02/17 12/02/17 06:59 18:59 Intake Total 300 Output Total 400 Balance -100 - Medications Medications: Current Medications Potassium Chloride 40 meq/ (Lactated Ringer's) 1,020 mls @ 150 mls/hr IV .Q6H48M [facility] Last Admin: 12/02/17 08:44 Dose: Not Given Chromium/Copper/Manganese/Zinc 3 ml/ Multivitamins/Vitamin C 10 ml/ Parenteral Electrolytes 20 ml/ Amino Acids 1,033 mls @ 42 mls/hr IV .Q24H ONE Stop: 12/03/17 13:44 Morphine Sulfate (Morphine) 2 mg IVP Q4 PRN PRN Reason: Pain, moderate (4-7) Last Admin: 11/30/17 02:14 Dose: 2 mg Pantoprazole Sodium (Protonix Inj) 40 mg IVP Q12 [facility] Last Admin: 12/02/17 09:27 Dose: 40 mg Phenol/Menthol (Phenaseptic 1.4% Throat [place]) 1 spry MT Q2 PRN PRN Reason: Sore Throat Last Admin: 11/28/17 22:10 Dose: 1 spr - Labs Labs: 12/02/17 05:40 12/02/17 05:40 PT 13.1 Seconds (9.8-13.1) 11/28/17 11:00 INR 1.2 (0.9-1.2) 11/28/17 11:00 APTT 28.2 Seconds (25.6-37.1) 11/28/17 11:00 Attending/Attestation - Attestation I have personally seen and examined this patient.: Yes I have fully participated in the care of the patient.: Yes I have reviewed all pertinent clinical information, including history, physical exam and plan: Yes Notes (Text): 12/02/17 15:00 57 year old male with h/o sigmoid volvulus s/p resection admitted with diffusely dilated colon 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 Repeat CT today per surgery. NG to LIS. Decreased abdominal distention. Small bms. Consider trial of neostigmine in ICU depending on CT results.
[2017-12-02] MEDS ORDERED: Iohexol 300 100 ML IJ ONE (11:43)
--- NOTE | 2017-12-02 12:11 | CP.PCM.PN ---
<Jasmin Wang - Last Filed: 12/02/17 12:08> Subjective - Date & Time of Evaluation Date of Evaluation: 12/02/17 Time of Evaluation: 11:30 - Subjective Subjective: General Surgery Dr. Valencia Pt S&E @bedside. NAEO. pt reports multiple bowel movements overnight and major improvement in abd distention. Pt denies f/c, n/v. NGT in place. currently NPO. Objective - Vital Signs/Intake and Output Vital Signs (last 24 hours): Temp Pulse Resp BP Pulse Ox 97.8 F 76 20 178/79 H 95 12/02/17 07:46 12/02/17 07:46 12/02/17 07:46 12/02/17 07:46 12/02/17 07:46 Intake and Output: 12/02/17 12/02/17 06:59 18:59 Intake Total 300 Output Total 400 Balance -100 - Medications Medications: Current Medications Potassium Chloride 40 meq/ (Lactated Ringer's) 1,020 mls @ 150 mls/hr IV .Q6H48M [facility] Last Admin: 12/02/17 08:44 Dose: Not Given Chromium/Copper/Manganese/Zinc 3 ml/ Multivitamins/Vitamin C 10 ml/ Amino Acids/ Electrolytes/Dextrose 1,013 mls @ 42 mls/hr IV .Q24H ONE Stop: 12/02/17 14:59 Last Admin: 12/01/17 18:53 Dose: 42 mls/hr Morphine Sulfate (Morphine) 2 mg IVP Q4 PRN PRN Reason: Pain, moderate (4-7) Last Admin: 11/30/17 02:14 Dose: 2 mg Pantoprazole Sodium (Protonix Inj) 40 mg IVP Q12 [facility] Last Admin: 12/02/17 09:27 Dose: 40 mg Phenol/Menthol (Phenaseptic 1.4% Throat [place]) 1 spry [place] Q2 PRN PRN Reason: Sore Throat Last Admin: 11/28/17 22:10 Dose: 1 spr - Labs Labs: 12/02/17 05:40 12/02/17 05:40 PT 13.1 Seconds (9.8-13.1) 11/28/17 11:00 INR 1.2 (0.9-1.2) 11/28/17 11:00 APTT 28.2 Seconds (25.6-37.1) 11/28/17 11:00 - Constitutional Appears: Non-toxic, No Acute Distress - Head Exam Head Exam: NORMAL INSPECTION - Eye Exam Eye Exam: Normal appearance - ENT Exam ENT Exam: Mucous Membranes Moist Additional comments: NGT in place on suction - Respiratory Exam Respiratory Exam: NORMAL BREATHING PATTERN. absent: Accessory Muscle Use, Respiratory Distress - GI/Abdominal Exam GI & Abdominal Exam: Distended (minima), Soft. absent: Firm, Guarding, Tenderness, Rebound - Extremities Exam Extremities Exam: Normal Capillary Refill - Neurological Exam Neurological Exam: Alert, Awake, Oriented x3 - Psychiatric Exam Psychiatric exam: Normal Affect, Normal Mood - Skin Skin Exam: Dry, Intact, Normal Color, Warm Assessment and Plan - Assessment and Plan (Free Text) Assessment: 57 y/o M w/ improved colon obstruction - f/u CT results - cont NGT to LCS - monitor output - replete electrolytes PRN - recommend reglan for potential gastroparesis Pt discussed w/ Dr. Annie Wang DO PGY2 <Ryan Valencia B - Last Filed: 12/04/17 15:22> Objective - Vital Signs/Intake and Output Vital Signs (last 24 hours): Temp Pulse Resp BP Pulse Ox 99.4 F 106 H 18 162/96 H 99 12/04/17 14:36 12/04/17 14:36 12/04/17 14:36 12/04/17 14:36 12/04/17 12:50 Intake and Output: 12/04/17 12/04/17 06:59 18:59 Intake Total 1128 Output Total 1200 Balance -72 - Medications Medications: Current Medications Enoxaparin Sodium (Lovenox) 40 mg SC DAILY [facility] PRN Reason: Protocol Last Admin: 12/04/17 08:35 Dose: Not Given Sodium Chloride 35 meq/ Sodium Phosphate 18 mmole/ Potassium Chloride 20 meq/ Potassium Acetate 25 meq/ Magnesium Sulfate 8 meq/ Calcium Gluconate 4.5 meq/ Multivitamins/Vitamin C 10 ml/Chromium/Copper/Manganese/Zinc 3 ml/ Amino Acids 1,061.8978 mls @ 42 mls/hr IV .Q24H ONE Stop: 12/04/17 17:59 Last Admin: 12/04/17 02:00 Dose: 42 mls/hr Morphine Sulfate (Morphine) 2 mg IVP Q4 PRN PRN Reason: Pain, moderate (4-7) Last Admin: 11/30/17 02:14 Dose: 2 mg Pantoprazole Sodium (Protonix Inj) 40 mg IVP Q12 [facility] Last Admin: 12/04/17 08:36 Dose: Not Given Phenol/Menthol (Phenaseptic 1.4% Throat [place]) 1 spry MT Q2 PRN PRN Reason: Sore Throat Last Admin: 11/28/17 22:10 Dose: 1 spr - Labs Labs: 12/04/17 04:11 12/04/17 04:11 PT 13.1 Seconds (9.8-13.1) 11/28/17 11:00 INR 1.2 (0.9-1.2) 11/28/17 11:00 APTT 28.2 Seconds (25.6-37.1) 11/28/17 11:00 Attending/Attestation - Attestation I have personally seen and examined this patient.: Yes I have fully participated in the care of the patient.: Yes I have reviewed all pertinent clinical information, including history, physical exam and plan: Yes Notes (Text): Pt was seen and examined at beside Agree with above note and assessment CT scan is suggestive of colonic dilatation NG tube to LIS NPO,IVF ICU consult for Neostigmine Plan son parker current mx Plan son pt in detail Risk and benefit explained in detail.
[2017-12-02] MEDS ORDERED: [UNRECOGNIZED DRUG - NUTRITION] IV ONE (13:30)
[2017-12-02] MEDS ORDERED: [UNRECOGNIZED DRUG - NUTRITION] IV ONE (13:45)
--- NOTE | 2017-12-02 15:40 | CT ---
PROCEDURE: CT Abdomen and Pelvis with contrast HISTORY: comparative for LBO COMPARISON: 11/28/2017 TECHNIQUE: Contrast dose: 95 mL Omnipaque 350 Radiation dose: Total exam DLP = 1066.98 mGy-cm. This CT exam was performed using one or more of the following dose reduction techniques: Automated exposure control, adjustment of the mA and/or kV according to patient size, and/or use of iterative reconstruction technique. FINDINGS: LOWER THORAX: Minimal dependent pleural thickening both lower lobes. Nasogastric tube traversing the esophagus to the gastric lumen. No infiltrate/ effusion. LIVER: Unremarkable. No gross lesion or ductal dilatation. GALLBLADDER AND BILE DUCTS: Unremarkable. PANCREAS: Unremarkable. No gross lesion or ductal dilatation. SPLEEN: Unremarkable. ADRENALS: Unremarkable. No mass. KIDNEYS AND URETERS: Left upper pole renal cyst, 3.0 cm. Right upper pole renal cyst, 1.4 cm. Additional smaller cortical cysts bilaterally. No calculus or hydronephrosis. VASCULATURE: Unremarkable. No aortic aneurysm. BOWEL: Previously noted large bowel dilatation has resolved. There is mild circumferential mural thickening of a redundant splenic flexure and proximal descending colon to the level surgical anastomosis, status post sigmoidectomy. This is nonspecific and may represent postoperative change though cannot rule out a colitis. . No other abnormal bowel loops. APPENDIX: Not identified. No secondary findings. PERITONEUM: No ascites or pneumoperitoneum. Umbilical hernia containing only mesenteric fat. LYMPH NODES: Unremarkable. No enlarged lymph nodes. BLADDER: Unremarkable. REPRODUCTIVE: Normal prostate BONES: No acute fracture. OTHER FINDINGS: None. IMPRESSION: No evidence of large bowel obstruction. Status post sigmoidectomy. Circumferential mural thickening of redundant splenic flexure and proximal descending colon, nonspecific. Rule out colitis versus postoperative change. Nasogastric tube. Additional minor findings as above.
[2017-12-03] MEDS: Potassium Chloride 40 MEQ in Lactated Ringer's 1,000 ML IV SCH ×3 (04:42→21:46)
[2017-12-03] MEDS ORDERED: Potassium Chl 40 mEq in D5-NS 1,000 ML IV SCH (07:15)
--- NOTE | 2017-12-03 08:36 | CP.PCM.PN ---
<CelestinoReinapierreguido - Last Filed: 12/03/17 15:14> Subjective - Date & Time of Evaluation Date of Evaluation: 12/03/17 Time of Evaluation: 07:45 - Subjective Subjective: General Surgery Progress Note - Dr. Valencia Patient S&E at bedside this morning. NGT in place. Patient reports that he had a large bowel movement and his belly feels a lot smaller today. Admits that he is feeling well today. Reports that he has been NPO. Denies F/C/N/V/CP/SOB NGT 200cc output overnight Objective - Vital Signs/Intake and Output Vital Signs (last 24 hours): Temp Pulse Resp BP Pulse Ox 97.7 F 75 20 124/71 99 12/03/17 07:59 12/03/17 07:59 12/03/17 07:59 12/03/17 07:59 12/03/17 07:59 Intake and Output: 12/03/17 12/03/17 06:59 18:59 Output Total 250 Balance -250 - Medications Medications: Current Medications Potassium Chloride 40 meq/ (Lactated Ringer's) 1,020 mls @ 150 mls/hr IV .Q6H48M [facility] Last Admin: 12/03/17 04:42 Dose: Not Given Chromium/Copper/Manganese/Zinc 3 ml/ Multivitamins/Vitamin C 10 ml/ Parenteral Electrolytes 20 ml/ Amino Acids 1,033 mls @ 42 mls/hr IV .Q24H ONE Stop: 12/03/17 13:44 Last Admin: 12/02/17 21:51 Dose: 42 mls/hr Potassium Chloride/Dextrose/Sod Cl (D5-Ns1l+40meq Kcl) 1,000 mls @ 100 mls/hr IV .Q10H [facility] Stop: 12/04/17 07:05 Morphine Sulfate (Morphine) 2 mg IVP Q4 PRN PRN Reason: Pain, moderate (4-7) Last Admin: 11/30/17 02:14 Dose: 2 mg Pantoprazole Sodium (Protonix Inj) 40 mg IVP Q12 [facility] Last Admin: 12/03/17 08:30 Dose: 40 mg Phenol/Menthol (Phenaseptic 1.4% Throat [place]) 1 spry MT Q2 PRN PRN Reason: Sore Throat Last Admin: 11/28/17 22:10 Dose: 1 spr - Labs Labs: 12/02/17 05:40 12/02/17 05:40 PT 13.1 Seconds (9.8-13.1) 11/28/17 11:00 INR 1.2 (0.9-1.2) 11/28/17 11:00 APTT 28.2 Seconds (25.6-37.1) 11/28/17 11:00 - Constitutional Appears: Well, Non-toxic, No Acute Distress - Head Exam Head Exam: ATRAUMATIC - Respiratory Exam Respiratory Exam: NORMAL BREATHING PATTERN - GI/Abdominal Exam GI & Abdominal Exam: Soft Additional comments: Abdomen soft, moderately distended - Extremities Exam Extremities Exam: Normal Inspection - Neurological Exam Neurological Exam: Alert, Awake, Oriented x3 - Psychiatric Exam Psychiatric exam: Normal Affect, Normal Mood - Skin Skin Exam: Intact, Normal Color, Warm Assessment and Plan - Assessment and Plan (Free Text) Assessment: 57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 Valencia <Ryan Valencia - Last Filed: 12/04/17 15:24> Objective - Vital Signs/Intake and Output Vital Signs (last 24 hours): Temp Pulse Resp BP Pulse Ox 99.4 F 106 H 18 162/96 H 99 12/04/17 14:36 12/04/17 14:36 12/04/17 14:36 12/04/17 14:36 12/04/17 12:50 Intake and Output: 12/04/17 12/04/17 06:59 18:59 Intake Total 1128 Output Total 1200 Balance -72 - Medications Medications: Current Medications Enoxaparin Sodium (Lovenox) 40 mg SC DAILY [facility] PRN Reason: Protocol Last Admin: 12/04/17 08:35 Dose: Not Given Sodium Chloride 35 meq/ Sodium Phosphate 18 mmole/ Potassium Chloride 20 meq/ Potassium Acetate 25 meq/ Magnesium Sulfate 8 meq/ Calcium Gluconate 4.5 meq/ Multivitamins/Vitamin C 10 ml/Chromium/Copper/Manganese/Zinc 3 ml/ Amino Acids 1,061.8978 mls @ 42 mls/hr IV .Q24H ONE Stop: 12/04/17 17:59 Last Admin: 12/04/17 02:00 Dose: 42 mls/hr Morphine Sulfate (Morphine) 2 mg IVP Q4 PRN PRN Reason: Pain, moderate (4-7) Last Admin: 11/30/17 02:14 Dose: 2 mg Pantoprazole Sodium (Protonix Inj) 40 mg IVP Q12 [facility] Last Admin: 12/04/17 08:36 Dose: Not Given Phenol/Menthol (Phenaseptic 1.4% Throat [place]) 1 spry MT Q2 PRN PRN Reason: Sore Throat Last Admin: 11/28/17 22:10 Dose: 1 spr - Labs Labs: 12/04/17 04:11 12/04/17 04:11 PT 13.1 Seconds (9.8-13.1) 11/28/17 11:00 INR 1.2 (0.9-1.2) 11/28/17 11:00 APTT 28.2 Seconds (25.6-37.1) 11/28/17 11:00 Attending/Attestation - Attestation I have personally seen and examined this patient.: Yes I have fully participated in the care of the patient.: Yes I have reviewed all pertinent clinical information, including history, physical exam and plan: Yes Notes (Text): Pt was seen and examined at beside Agree with above note and assessment Pt has bradycardia after Neostigmine Currently asymptomatic AXR looks much improved DC NG tube Clear liquid diet Plan d.w pt in detail
--- NOTE | 2017-12-03 08:46 | CP.PCM.PN ---
<Chikis Roblero - Last Filed: 12/03/17 12:08> Subjective - Date & Time of Evaluation Date of Evaluation: 12/03/17 Time of Evaluation: 07:30 - Subjective Subjective: GI Fellow PGY 4 Progress Note Pt seen and evaluated at bedside, pt says he feels better today with liquid stool multiple times and passing gas. Pt reports abdominal discomfort is much better. Pt is s/p colonoscopy with no complications. NGT with 200 cc overnight, decreasing. ROS: A 12pt ROS was negative except as above Objective - Vital Signs/Intake and Output Vital Signs (last 24 hours): Temp Pulse Resp BP Pulse Ox 97.7 F 75 20 124/71 99 12/03/17 07:59 12/03/17 07:59 12/03/17 07:59 12/03/17 07:59 12/03/17 07:59 Intake and Output: 12/03/17 12/03/17 06:59 18:59 Output Total 250 Balance -250 - Medications Medications: Current Medications Potassium Chloride 40 meq/ (Lactated Ringer's) 1,020 mls @ 150 mls/hr IV .Q6H48M [facility] Last Admin: 12/03/17 04:42 Dose: Not Given Chromium/Copper/Manganese/Zinc 3 ml/ Multivitamins/Vitamin C 10 ml/ Parenteral Electrolytes 20 ml/ Amino Acids 1,033 mls @ 42 mls/hr IV .Q24H ONE Stop: 12/03/17 13:44 Last Admin: 12/02/17 21:51 Dose: 42 mls/hr Potassium Chloride/Dextrose/Sod Cl (D5-Ns1l+40meq Kcl) 1,000 mls @ 100 mls/hr IV .Q10H [facility] Stop: 12/04/17 07:05 Morphine Sulfate (Morphine) 2 mg IVP Q4 PRN PRN Reason: Pain, moderate (4-7) Last Admin: 11/30/17 02:14 Dose: 2 mg Pantoprazole Sodium (Protonix Inj) 40 mg IVP Q12 [facility] Last Admin: 12/03/17 08:30 Dose: 40 mg Phenol/Menthol (Phenaseptic 1.4% Throat [place]) 1 spry MT Q2 PRN PRN Reason: Sore Throat Last Admin: 11/28/17 22:10 Dose: 1 spr - Labs Labs: 12/02/17 05:40 12/02/17 05:40 PT 13.1 Seconds (9.8-13.1) 11/28/17 11:00 INR 1.2 (0.9-1.2) 11/28/17 11:00 APTT 28.2 Seconds (25.6-37.1) 11/28/17 11:00 - Constitutional Appears: Non-toxic, No Acute Distress - Head Exam Head Exam: ATRAUMATIC, NORMAL INSPECTION, NORMOCEPHALIC - Eye Exam Eye Exam: EOMI, Normal appearance, PERRL - ENT Exam ENT Exam: Mucous Membranes Moist Additional comments: NGT - Neck Exam Neck Exam: Full ROM, Normal Inspection - Respiratory Exam Respiratory Exam: Clear to Ausculation Bilateral, NORMAL BREATHING PATTERN - Cardiovascular Exam Cardiovascular Exam: REGULAR RHYTHM, RRR, +S1, +S2 - GI/Abdominal Exam GI & Abdominal Exam: Distended, Soft, Normal Bowel Sounds. 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 He underwent colonoscopy in August 2017 which was unremarkable including biopsies. 1. Distended colon s/p colonoscopy with no obstruction or volvulus 2. History of sigmoid volvulus s/p surgical segmental resection 3. Abdominal pain 4. Chronic constipation/diarrhea Plan: -Continue supportive care with pain control and anti-emetics -NGT to suction with decreasing amount of bilious outpt -NPO -Pt started on PPN by surgical team -s/p Colonoscopy 11/30/17 to proximal transverse, poor prep, no luminal obstruction or volvulus, rectal lesion s/p biospy showing necrotic ulceration, maybe secondary to rectal tube trauma? rectal biospy r/o Hirshprungs path with rare neuroganglion cells -Discuss with surgical team, pt s/p Golytely and repeat CT imaging with improved colon distention, possible plan for possible neostigmine and ICU transfer for close monitoring as side effects of medication is bradyarrhythmias , r/o ash's syndrome -Will followup with surgical team plan -Will continue to follow pt closely <Marino Ramirez - Last Filed: 12/03/17 14:22> Objective - Vital Signs/Intake and Output Vital Signs (last 24 hours): Temp Pulse Resp BP Pulse Ox 97.9 F 86 19 121/81 98 12/03/17 12:00 12/03/17 11:12 12/03/17 11:12 12/03/17 11:12 12/03/17 11:12 Intake and Output: 12/03/17 12/03/17 06:59 18:59 Intake Total 84 Output Total 250 50 Balance -250 34 - Medications Medications: Current Medications Enoxaparin Sodium (Lovenox) 40 mg SC DAILY [facility] PRN Reason: Protocol Last Admin: 12/03/17 13:54 Dose: 40 mg Potassium Chloride 40 meq/ (Lactated Ringer's) 1,020 mls @ 150 mls/hr IV .Q6H48M [facility] Last Admin: 12/03/17 04:42 Dose: Not Given Morphine Sulfate (Morphine) 2 mg IVP Q4 PRN PRN Reason: Pain, moderate (4-7) Last Admin: 11/30/17 02:14 Dose: 2 mg Pantoprazole Sodium (Protonix Inj) 40 mg IVP Q12 [facility] Last Admin: 12/03/17 08:30 Dose: 40 mg Phenol/Menthol (Phenaseptic 1.4% Throat [place]) 1 spry MT Q2 PRN PRN Reason: Sore Throat Last Admin: 11/28/17 22:10 Dose: 1 spr - Labs Labs: 12/03/17 09:50 12/03/17 09:50 PT 13.1 Seconds (9.8-13.1) 11/28/17 11:00 INR 1.2 (0.9-1.2) 11/28/17 11:00 APTT 28.2 Seconds (25.6-37.1) 11/28/17 11:00 Attending/Attestation - Attestation I have personally seen and examined this patient.: Yes I have fully participated in the care of the patient.: Yes I have reviewed all pertinent clinical information, including history, physical exam and plan: Yes Notes (Text): 12/03/17 14:20 Patient seen with GI fellow. 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 He underwent colonoscopy in August 2017 which was unremarkable including biopsies. Now s/p colonoscopy till transverse colon unprepped colon showing no luminal obstruction or volvulus. Biospy shows rare neuroganglion cells. NGt in place with decreasing output. Passing gas and stool. CT scan abdomen shows distended right side of colon. Plan is to transfer to MICU for neostigmine as per surgical team. . Discussed with the patient side effects of neostigmine including but not limited to arrythmias and bradycardia. Will sign off now. Rest of plan as per surgical team
[2017-12-03] MEDS ORDERED: Potassium Phosphate 15 MMOLE in Dextrose 5% In Water 250 ML IV ONE (09:22)
--- NOTE | 2017-12-03 09:30 | CP.CCUPN ---
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 He had c/o diarrhea prior to admission. He underwent rectal biopsy showing nonspecific inflammation and ischemic necrosis. Differential dx now includes pseudo-colonic obstruction ( Ogilvies syndrome) versus w/u for adult Hirschsprungs. Surgical team and GI would like a trial of neostigmine therapy. He denies any new abdominal discomfort, fevers, chills, vomiting, dizziness, sweats, SOB or rectal pain. Other vitals and I/O s reviewed: afebrile, no fever spikes since admission. BP trends have been variable from 110s to as high as 170s, HR mostly in 70-80s last 2 days. Allergies: NKDA Meds: at home included Losartan/HCTZ, Lopressor, Zoloft, Flomax. In-hospital includes PPN, Protonix, prn Toradol. ROS: No other pertinent negs or positives on 10+ system review. PMSFH: All other Nursing and physician documentation reviewed to date; no new pertinent info noted relevant to current medical problems. LABS: WBC= 7.5 HGB= 11.8 PLTs= 159K Na= 143 K= 3.2 HCO3=28 CL= 104 BUN/Cr= 16/0.7 BS= 103 IMPRESSION / MAJOR PROBLEMS NOW: 1. Colonic Distention, Colonic Voluulus / rule out Pseudo-Obstruction, Mesenteric [place] 2. Hypokalemia 3. Hypophoshatemia 4. Essential HTN PLAN: 1. Needs more aggressive repletion of Potassium. Repeat lytes, mag, phosphate today. Would ensure normal lytes and trace elements, then re-assess bowel function. TSH screen is normal. 2. Would not continue certain home medications Zoloft, Losartan, Lopressor ( all can cause constipation). 3. Check bowel pattern today via Flat Plate Abdominal film. As reported and reviewed, yesterdays repeat CTAP shows dramatic resolution of previous colonic dilatation, compared to 4 days ago. He may not need Neostigmine now. 4. If still contemplated at a later time if colonic distention recurs: will need cardiac monitoring (watch for bradycardia, keeping Atropine ready at the bedside) while infusing trial of neostigmine 2 mg IV Q3-4H. CCU Objective - Vital Signs / Intake & Output Vital Signs (Last 4 hours): Vital Signs Temp Pulse Resp BP Pulse Ox 12/03/17 07:59 97.7 F 75 20 124/71 99 Intake and Output (Last 8hrs): Intake & Output 12/02/17 12/03/17 12/03/17 22:59 06:59 14:59 Output Total 250 Balance -250 Output: Gastric Amount 250 Stomach 250 - Physical Exam Head: Positive for: Normocephalic Pupils: Positive for: PERRL Extroacular Muscles: Positive for: EOMI Conjunctiva: Positive for: Normal. Negative for: Icteric Mouth: Positive for: Moist Mucous Membranes Neck: Negative for: JVD Respiratory/Chest: Positive for: Clear to Auscultation Abdomen: Positive for: Normal Bowel Sounds. Negative for: Tenderness, Distention, Mass/Organomegaly Lower Extremity: Positive for: NORMAL PULSES. Negative for: Edema, CALF TENDERNESS, Cyanosis Neurological: Positive for: GCS=15, CN II-XII Intact, Motor Func Grossly Intact , Normal Sensory Function Skin: Positive for: Warm, Dry. Negative for: Rashes Psychiatric: Positive for: Alert, Oriented x 3 - Medications Active Medications: Active Medications Generic Name Dose Route Start Last Admin Trade Name Freq PRN Reason Stop Dose Admin Potassium Chloride 40 meq/ 1,020 mls @ 150 mls/hr 12/01/17 09:15 12/03/17 04: 42 Lactated Ringer's IV Not Given .Q6H48M [facility] Chromium/Copper/Manganese/Zinc 1,033 mls @ 42 mls/hr 12/02/17 13:45 12/02/17 21:51 3 ml/ Multivitamins/Vitamin C IV 12/03/17 13:44 42 mls/hr 10 ml/ Parenteral .Q24H ONE Administration Electrolytes 20 ml/ Amino Acids Potassium Chloride/Dextrose/Sod Cl 1,000 mls @ 100 mls/hr 12/03/17 07:15 D5-Ns1l+40meq Kcl IV 12/04/17 07:05 .Q10H [facility] Potassium Phosphate 15 mmole/ 255 mls @ 84 mls/hr 12/03/17 09:22 Dextrose IV 12/03/17 12:24 .Q3H3M ONE Morphine Sulfate 2 mg 11/29/17 00:30 11/30/17 02:14 Morphine IVP 2 mg Q4 PRN Administration Pain, moderate (4-7) Pantoprazole Sodium 40 mg 11/30/17 09:00 12/03/17 08:30 Protonix Inj IVP 40 mg Q12 [facility] Administration Phenol/Menthol 1 spry 11/28/17 20:39 11/28/17 22:10 Phenaseptic 1.4% Throat [place] 1 spr Q2 PRN Administration Sore Throat - Patient Studies Lab Studies: Lab Studies 11/30/17 Range/Units 10:00 Stool Occult Blood Positive H (NEGATIVE) Laboratory Results - last 24 hr 11/30/17 10:00 Stool Occult Blood Positive H Review of Systems - Review of Systems All systems: reviewed and no additional remarkable complaints except (as above) Critical Care Progress Note - Nutrition Nutrition: Nutrition Category Date Time Status NPO Diet [DIET] Diets 11/28/17 Lunch Active
[2017-12-03] MEDS ORDERED: Neostigmine 1:1000 (1 mg/ml) Inj IV ONE (10:05)
[2017-12-03 10:20] LABS: BASO % 0.3 % (0.0-2.0); EOS # 0.8 K/uL (0.0-0.7); EOS % 11.2 % (0.0-4.0); HEMOGLOBIN 12.9 g/dL (12.0-18.0); LYMPH # 1.4 K/uL (1.0-4.3); LYMPH % 18.6 % (20.0-40.0); MEAN CELL VOLUME 87.1 fl (80.0-94.0); MEAN CORPUSCULAR HEMOGLOBIN 29.7 pg (27.0-31.0); MEAN CORPUSCULAR HGB CONC 34.1 g/dL (33.0-37.0); MONO # 0.7 K/uL (0.0-0.8); MONO % 9.6 % (0.0-10.0); NEUT # 4.5 K/uL (1.8-7.0); NEUT % 60.3 % (50.0-75.0); NRBC % 0.2 % (0.0-0.0); RBC 4.33 Mil/uL (4.40-5.90); RED CELL DISTRIBUTION WIDTH 13.2 % (11.5-14.5); WHITE BLOOD COUNT 7.4 K/uL (4.8-10.8)
--- NOTE | 2017-12-03 10:25 | RAD ---
HISTORY: obstruction COMPARISON: Abdomen radiographs 12/01/2017. FINDINGS: BOWEL: An abdomen obstructive series is performed demonstrating limited oral contrast material identified at the ascending colon but also at a left-sided bowel loop. The rectum appears collapsed. The overall pattern does demonstrated significant distension of the sigmoid colon up to 10 cm reflecting persistent sigmoid volvulus or stricture. No free intraperitoneal gas is appreciable and a nasogastric tube is again seen and terminating at the region of the gastric viscus left upper quadrant abdomen. BONES: Normal. OTHER FINDINGS: None. IMPRESSION: Persistent sigmoid volvulus versus postop stricture sigmoid colon. Distal sigmoid remains collapse as well as rectum.
[2017-12-03 10:28] LABS: ALB/GLOB RATIO 0.9 (1.0-2.1); ALBUMIN 3.9 g/dL (3.5-5.0); ALT/SGPT 37 U/L (21-72); AST/SGOT 42 U/L (17-59); BLOOD UREA NITROGEN 13 mg/dl (9-20); CALCIUM 8.8 mg/dL (8.4-10.2); GFR AFRICAN-AMERICAN > 60; GFR NON-AFRICAN AMERICAN > 60
--- NOTE | 2017-12-03 10:56 | PN ---
DATE: 12/03/2017 SUBJECTIVE: The patient is seen and examined. Interim events noted. Consults noted and appreciated. Gastroenterology and surgical followup and interventions noted and appreciated. The patient remains in regular medical floor with NG tube and now with , tolerating very well. Feels better. Abdominal pain, improving. No chest pain or shortness of breath. PHYSICAL EXAMINATION: GENERAL: The patient is in no acute distress. VITAL SIGNS: Stable. HEART: S1 and S2, normal and regular. LUNGS: Good bilateral air entry. ABDOMEN: Still remains distended. No sign of . No guarding, no rigidity, no rebound. Bowel sounds are plus and normal. EXTREMITIES: No edema, no calf swelling. No tenderness. No acute ischemia. 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 DIAGNOSTIC DATA: Available diagnostic data reviewed. PLAN: Overall, the patient's general medical condition is slowly improving, but abdomen still remains significantly distended. Plan as ordered. Case and plan discussed with the patient. Vinnie Vyas MD
--- NOTE | 2017-12-03 12:26 | CP.CCUPN ---
CCU Subjective - Physician Review Subjective (Free Text): This mornings Flat Plate Abdominal X-Ray revealed recurrent colonic distention , approx. 9cm at its widest portion. Patient transferred to ICU for Neostigmine trial as per Surg team request. Initial BP 140/82, HR 78, a dose of 2.5mg given via slow IVP resulted in significant bradycardia with HR down to 39 lasting for almost 1-2 minutes followed by sensation of dizziness, SOB, diaphoresis and excruciating abdominal pain and the sensation to defecate. Atropine 0.5mg x 2 doses required to raise HR, back up to the 80s in sinus rhythm. Morphine 4 mg IVP given as well to abolish the severe abdominal pain described as 10/10 level, similar to multiple exploding volcanos. Will now discontinue any further administration of Neostigmine given possibility of a mechanical obstruction. Reviewed the formal radiological interpretation of previous flat plate abdominal films which reported a sigmoid volvulus or sigmoid stricture.
[2017-12-03] MEDS: Enoxaparin 40 mg Syringe SC SCH (13:54)
--- NOTE | 2017-12-03 15:35 | RAD ---
HISTORY: abdominal pain, r/o increase in obstruction. COMPARISON: 12/03/2017 at 9:25 a.m. FINDINGS: BOWEL: Loop of dilated colon in the left upper quadrant of the abdomen measuring up to 11 cm in diameter, essentially unchanged from earlier examination of the same date. No other abnormal bowel loops are identified. Nasogastric tube noted in left upper quadrant of abdomen. No free intraperitoneal air seen. BONES: Normal. OTHER FINDINGS: None. IMPRESSION: Dilated loop of colon in left upper quadrant of abdomen. Nonspecific. No significant change from earlier examination.
[2017-12-03] MEDS ORDERED: SODIUM PHOSPHATE IV ONE (18:00)
[2017-12-03] MEDS ORDERED: SODIUM CHLORIDE IV ONE (18:00)
[2017-12-03] MEDS ORDERED: POTASSIUM CHLORIDE IV ONE (18:00)
[2017-12-03] MEDS ORDERED: [UNRECOGNIZED DRUG - OTHER] IV ONE (18:00)
[2017-12-04 05:03] LABS: HEMOGLOBIN 11.7 g/dL (12.0-18.0); MEAN CELL VOLUME 88.2 fl (80.0-94.0); MEAN CORPUSCULAR HEMOGLOBIN 29.6 pg (27.0-31.0); MEAN CORPUSCULAR HGB CONC 33.6 g/dL (33.0-37.0); RBC 3.96 Mil/uL (4.40-5.90); RED CELL DISTRIBUTION WIDTH 13.2 % (11.5-14.5); WHITE BLOOD COUNT 7.9 K/uL (4.8-10.8)
[2017-12-04 05:40] LABS: BLOOD UREA NITROGEN 11 mg/dl (9-20); CALCIUM 8.7 mg/dL (8.4-10.2); GFR AFRICAN-AMERICAN > 60; GFR NON-AFRICAN AMERICAN > 60
[2017-12-04] MEDS: Enoxaparin 40 mg Syringe SC SCH ×2 (08:35→17:26)
--- NOTE | 2017-12-04 08:42 | CP.PCM.PN ---
Subjective - Date & Time of Evaluation Date of Evaluation: 12/04/17 Time of Evaluation: 07:10 - Subjective Subjective: Patient evaluated at bedside with Dr Vyas this morning. Patient c/o B/L UE swelling and pain. As per Nurse team, IV infiltrated and is very difficult venipuncture on him. Patient VS stable. No other complains. Abd pain improved. Passed gas and had BM today. Objective - Vital Signs/Intake and Output Vital Signs (last 24 hours): Temp Pulse Resp BP Pulse Ox 98.4 F 85 17 188/104 H 100 12/04/17 08:00 12/04/17 08:00 12/04/17 08:00 12/04/17 08:00 12/04/17 08:00 Intake and Output: 12/04/17 12/04/17 06:59 18:59 Intake Total 1128 Output Total 1200 Balance -72 - Medications Medications: Current Medications Enoxaparin Sodium (Lovenox) 40 mg SC DAILY [facility] PRN Reason: Protocol Last Admin: 12/04/17 08:35 Dose: Not Given Potassium Chloride 40 meq/ (Lactated Ringer's) 1,020 mls @ 150 mls/hr IV .Q6H48M [facility] Last Admin: 12/03/17 21:46 Dose: 150 mls/hr Sodium Chloride 35 meq/ Sodium Phosphate 18 mmole/ Potassium Chloride 20 meq/ Potassium Acetate 25 meq/ Magnesium Sulfate 8 meq/ Calcium Gluconate 4.5 meq/ Multivitamins/Vitamin C 10 ml/Chromium/Copper/Manganese/Zinc 3 ml/ Amino Acids 1,061.8978 mls @ 42 mls/hr IV .Q24H ONE Stop: 12/04/17 17:59 Last Admin: 12/04/17 02:00 Dose: 42 mls/hr Morphine Sulfate (Morphine) 2 mg IVP Q4 PRN PRN Reason: Pain, moderate (4-7) Last Admin: 11/30/17 02:14 Dose: 2 mg Pantoprazole Sodium (Protonix Inj) 40 mg IVP Q12 [facility] Last Admin: 12/04/17 08:36 Dose: Not Given Phenol/Menthol (Phenaseptic 1.4% Throat [place]) 1 spry MT Q2 PRN PRN Reason: Sore Throat Last Admin: 11/28/17 22:10 Dose: 1 spr - Labs Labs: 12/04/17 04:11 12/04/17 04:11 PT 13.1 Seconds (9.8-13.1) 11/28/17 11:00 INR 1.2 (0.9-1.2) 11/28/17 11:00 APTT 28.2 Seconds (25.6-37.1) 11/28/17 11:00 - Constitutional Appears: Non-toxic - Eye Exam Eye Exam: EOMI, PERRL - ENT Exam ENT Exam: Mucous Membranes Moist - Respiratory Exam Respiratory Exam: Clear to Ausculation Bilateral, NORMAL BREATHING PATTERN - Cardiovascular Exam Cardiovascular Exam: REGULAR RHYTHM, +S1, +S2. absent: Gallop - GI/Abdominal Exam GI & Abdominal Exam: Soft, Tenderness (Mild. Diffuse). absent: Guarding, Rigid , Rebound - Extremities Exam Extremities Exam: absent: Calf Tenderness - Neurological Exam Neurological Exam: Alert, Awake, Oriented x3 - Psychiatric Exam Psychiatric exam: Normal Affect, Normal Mood - Skin Skin Exam: Warm Assessment and Plan - Assessment and Plan (Free Text) Assessment: Abd distension Neostigmine trial Yesterday had to be stopped cos patient became [place] and needed Atropine Stable since episode Repeat Abd Xray Yesterday shows persistent dilation of loops, unchanged since previous Colon biopsy shows: Some necrosis, ischemic changes, few neuroganglionar cells. C/W management as per Sx Team Will order PICC line for c/w TPN and meds.
--- NOTE | 2017-12-04 09:04 | CP.PCM.PN ---
<Zak Andrew - Last Filed: 12/04/17 09:40> Objective - Vital Signs/Intake and Output Vital Signs (last 24 hours): Temp Pulse Resp BP Pulse Ox 98.4 F 85 17 188/104 H 100 12/04/17 08:00 12/04/17 08:00 12/04/17 08:00 12/04/17 08:00 12/04/17 08:00 Intake and Output: 12/04/17 12/04/17 06:59 18:59 Intake Total 1128 Output Total 1200 Balance -72 - Medications Medications: Current Medications Enoxaparin Sodium (Lovenox) 40 mg SC DAILY [facility] PRN Reason: Protocol Last Admin: 12/04/17 08:35 Dose: Not Given Sodium Chloride 35 meq/ Sodium Phosphate 18 mmole/ Potassium Chloride 20 meq/ Potassium Acetate 25 meq/ Magnesium Sulfate 8 meq/ Calcium Gluconate 4.5 meq/ Multivitamins/Vitamin C 10 ml/Chromium/Copper/Manganese/Zinc 3 ml/ Amino Acids 1,061.8978 mls @ 42 mls/hr IV .Q24H ONE Stop: 12/04/17 17:59 Last Admin: 12/04/17 02:00 Dose: 42 mls/hr Morphine Sulfate (Morphine) 2 mg IVP Q4 PRN PRN Reason: Pain, moderate (4-7) Last Admin: 11/30/17 02:14 Dose: 2 mg Pantoprazole Sodium (Protonix Inj) 40 mg IVP Q12 [facility] Last Admin: 12/04/17 08:36 Dose: Not Given Phenol/Menthol (Phenaseptic 1.4% Throat [place]) 1 spry MT Q2 PRN PRN Reason: Sore Throat Last Admin: 11/28/17 22:10 Dose: 1 spr - Labs Labs: 12/04/17 04:11 12/04/17 04:11 PT 13.1 Seconds (9.8-13.1) 11/28/17 11:00 INR 1.2 (0.9-1.2) 11/28/17 11:00 APTT 28.2 Seconds (25.6-37.1) 11/28/17 11:00 Assessment and Plan - Assessment and Plan (Free Text) Plan: patient placed on pureed diet/mechanical soft diet - patient clear for DC for surgical standpoint - can follow up with Dr. Valencia on Thursday12/08/17 Jason Andrew, PGY2 <Arvind Tirado - Last Filed: 12/04/17 10:02> Subjective - Date & Time of Evaluation Date of Evaluation: 12/04/17 Time of Evaluation: 09:03 - Subjective Subjective: General Surgery Progress Note - Dr. Valencia Patient S&E at bedside walking in his room this morning. NGT in place. Admits that he is feeling well today except he feels bloated and his arms are swollen. Reports that he has been NPO. Denies F/C/N/V/CP/SOB Objective - Vital Signs/Intake and Output Vital Signs (last 24 hours): Temp Pulse Resp BP Pulse Ox 98.4 F 85 17 188/104 H 100 12/04/17 08:00 12/04/17 08:00 12/04/17 08:00 12/04/17 08:00 12/04/17 08:00 Intake and Output: 12/04/17 12/04/17 06:59 18:59 Intake Total 1128 Output Total 1200 Balance -72 - Medications Medications: Current Medications Enoxaparin Sodium (Lovenox) 40 mg SC DAILY [facility] PRN Reason: Protocol Last Admin: 12/04/17 08:35 Dose: Not Given Potassium Chloride 40 meq/ (Lactated Ringer's) 1,020 mls @ 150 mls/hr IV .Q6H48M [facility] Last Admin: 12/03/17 21:46 Dose: 150 mls/hr Sodium Chloride 35 meq/ Sodium Phosphate 18 mmole/ Potassium Chloride 20 meq/ Potassium Acetate 25 meq/ Magnesium Sulfate 8 meq/ Calcium Gluconate 4.5 meq/ Multivitamins/Vitamin C 10 ml/Chromium/Copper/Manganese/Zinc 3 ml/ Amino Acids 1,061.8978 mls @ 42 mls/hr IV .Q24H ONE Stop: 12/04/17 17:59 Last Admin: 12/04/17 02:00 Dose: 42 mls/hr Morphine Sulfate (Morphine) 2 mg IVP Q4 PRN PRN Reason: Pain, moderate (4-7) Last Admin: 11/30/17 02:14 Dose: 2 mg Pantoprazole Sodium (Protonix Inj) 40 mg IVP Q12 [facility] Last Admin: 12/04/17 08:36 Dose: Not Given Phenol/Menthol (Phenaseptic 1.4% Throat [place]) 1 spry MT Q2 PRN PRN Reason: Sore Throat Last Admin: 11/28/17 22:10 Dose: 1 spr - Labs Labs: 12/04/17 04:11 12/04/17 04:11 PT 13.1 Seconds (9.8-13.1) 11/28/17 11:00 INR 1.2 (0.9-1.2) 11/28/17 11:00 APTT 28.2 Seconds (25.6-37.1) 11/28/17 11:00 - Constitutional Appears: Well, Non-toxic, No Acute Distress - Head Exam Head Exam: ATRAUMATIC - Respiratory Exam Respiratory Exam: NORMAL BREATHING PATTERN - GI/Abdominal Exam GI & Abdominal Exam: Soft Additional comments: Abdomen soft, moderately distended - Rectal Exam Rectal Exam: Deferred - Neurological Exam Neurological Exam: Alert, Awake, Oriented x3 - Psychiatric Exam Psychiatric exam: Normal Affect, Normal Mood Assessment and Plan - Assessment and Plan (Free Text) Assessment: 57M hx sigmoid volvulus s/p robotic sigmoidectomy with abdominal pain; bowel obstruction vs volvulus Plan: -Clear liquid diet -cont NGT decompression - pain control and anti-emetic PRN; avoid opiates - replete electrolytes and trace elements - D/C LR and tPA -cont ambulation -bilateral upper extremity US -seen with surgical scheduler and discussed with Dr. Valencia <yRan Valencia - Last Filed: 12/04/17 15:26> Objective - Vital Signs/Intake and Output Vital Signs (last 24 hours): Temp Pulse Resp BP Pulse Ox 99.4 F 106 H 18 162/96 H 99 12/04/17 14:36 12/04/17 14:36 12/04/17 14:36 12/04/17 14:36 12/04/17 12:50 Intake and Output: 12/04/17 12/04/17 06:59 18:59 Intake Total 1128 Output Total 1200 Balance -72 - Medications Medications: Current Medications Enoxaparin Sodium (Lovenox) 40 mg SC DAILY [facility] PRN Reason: Protocol Last Admin: 12/04/17 08:35 Dose: Not Given Sodium Chloride 35 meq/ Sodium Phosphate 18 mmole/ Potassium Chloride 20 meq/ Potassium Acetate 25 meq/ Magnesium Sulfate 8 meq/ Calcium Gluconate 4.5 meq/ Multivitamins/Vitamin C 10 ml/Chromium/Copper/Manganese/Zinc 3 ml/ Amino Acids 1,061.8978 mls @ 42 mls/hr IV .Q24H ONE Stop: 12/04/17 17:59 Last Admin: 12/04/17 02:00 Dose: 42 mls/hr Morphine Sulfate (Morphine) 2 mg IVP Q4 PRN PRN Reason: Pain, moderate (4-7) Last Admin: 11/30/17 02:14 Dose: 2 mg Pantoprazole Sodium (Protonix Inj) 40 mg IVP Q12 [facility] Last Admin: 12/04/17 08:36 Dose: Not Given Phenol/Menthol (Phenaseptic 1.4% Throat [place]) 1 spry MT Q2 PRN PRN Reason: Sore Throat Last Admin: 11/28/17 22:10 Dose: 1 spr - Labs Labs: 12/04/17 04:11 12/04/17 04:11 PT 13.1 Seconds (9.8-13.1) 11/28/17 11:00 INR 1.2 (0.9-1.2) 11/28/17 11:00 APTT 28.2 Seconds (25.6-37.1) 11/28/17 11:00 Attending/Attestation - Attestation I have fully participated in the care of the patient.: Yes I have reviewed all pertinent clinical information, including history, physical exam and plan: Yes Notes (Text): Pt can be DC home Advance diet to thick liquid and soft diet f.u in office next week Plan d.w primary team.
[2017-12-04] MEDS ORDERED: Propofol 10 mg/ml Inj (20 ML) ONE (10:23)
[2017-12-04] MEDS ORDERED: Midazolam 2 MG/2 ML VIAL ONE (10:23)
[2017-12-04] MEDS ORDERED: Lidocaine 4% (Laryng-O-Jet) Kit MM ONE (10:24)
[2017-12-04] MEDS ORDERED: Succinylcholine 200 mg/10 ml Inj IV ONE (10:24)
[2017-12-04] MEDS ORDERED: Lidocaine 1% 5ml Abboject IV ONE (10:24)
--- NOTE | 2017-12-04 12:51 | US ---
PROCEDURE: Bilateral Upper Extremity Venous Doppler HISTORY: r/o dvt COMPARISON: None available. TECHNIQUE: Bilateral extremity deep veins, including the lower internal jugular, subclavian, axillary and brachial veins, were evaluated flow, compressibility and respiratory phasicity. FINDINGS: Normal flow, compressibility and respiratory phasicity was observed in the bilateral upper extremity deep veins. There is intraluminal echogenic material, partial compressibility and partial Doppler flow in the proximal left cephalic vein and lack of compressibility in the mid and distal cephalic vein. IMPRESSION: No evidence of deep venous thrombosis. Left cephalic vein superficial thrombophlebitis. Findings conveyed to EDITH Margaret by the agricultural engineering technologist immediately short after conclusion of the examination.
[2017-12-04] MEDS ORDERED: Lidocaine 1% Inj (20ml) ONE (14:21)
--- NOTE | 2017-12-04 14:48 | PCM.SURG1 ---
Surgeon's Initial Post Op Note - Surgeon's Notes Surgeon: Salvador Summers MD [facility] Path Therapist: NONE Type of Anesthesia: Local Pre-Operative Diagnosis: Poor venous access Operative Findings: US showed patent right brachial vein Post-Operative Diagnosis: POor venous access Operation Performed: Single lumen picc placement right brachial vein Specimen/Specimens Removed: NONE Estimated Blood Loss: EBL {In ML}: 2 Blood Products Given: N/A Drains Used: No Drains Post-Op Condition: Fair Date of Surgery/Procedure: 12/04/17 Time of Surgery/Procedure: 14:40
--- NOTE | 2017-12-04 18:13 | CARD ---
APPROVED REPORT EKG Measurement Heart [id number] [place] [id number] <Conclusion> Normal sinus rhythm Normal ECG
[2017-12-05] MEDS: Enoxaparin 40 mg Syringe SC SCH (09:30)
--- NOTE | 2017-12-06 07:57 | PN ---
DATE: 12/06/2017 SUBJECTIVE: The patient is seen and examined. Interim events noted. The patient remains in regular medical floor. Still complains of abdominal discomfort, but was able to move bowels, also urinating a lot, able to tolerate. PHYSICAL EXAMINATION: GENERAL: The patient is in no acute distress. VITAL SIGNS: Stable. HEART: S1 and S2, normal and regular. LUNGS: Good bilateral air exchange. ABDOMEN: Still distended, but non-acute. No guarding. No rigidity. No rebound. Bowel sounds are plus and normal. EXTREMITIES: No calf swelling, no tenderness, no acute ischemia. ELECTROPLATER: Essentially unchanged. DIAGNOSTIC DATA: Available diagnostic data reviewed. PLAN: Overall, the patient's general medical condition is stable. Plan as ordered. Vinnie Vyas MD
[2017-12-06] MEDS: Enoxaparin 40 mg Syringe SC SCH (09:36)
[2017-12-07 00:27] VITALS: O2SAT 95
[2017-12-07 07:58] VITALS: BP 126/81; PULSE 78; RESP 20; TEMP 98.7
--- NOTE | 2017-12-07 08:44 | PN ---
DATE: 12/05/2017 SUBJECTIVE: The patient is seen and examined. Interim events noted. Consults noted and appreciated. Surgical followup and interventions noted and appreciated. The patient feels better. Able to eat and tolerate food, has been moving bowels, but complains of weakness in both upper extremities. No chest pain. No shortness of breath. PHYSICAL EXAMINATION: GENERAL: The patient is in no acute distress. VITAL SIGNS: Stable. HEART: S1 and S2, normal and regular. LUNGS: Good bilateral air exchange. ABDOMEN: Soft and nontender. EXTREMITIES: No edema. No calf swelling. No tenderness. No acute ischemia. The patient has superficial thrombophlebitis on upper extremity. PLAN: Overall, the patient has improved clinically physical therapy. He will continue . Case and plan discussed with the patient. Vinnie Vyas MD
--- NOTE | 2017-12-07 09:07 | PN ---
DATE: 12/07/2017 SUBJECTIVE: The patient is seen and examined. Interim events noted. The patient feels much better. No chest pain, no shortness of breath, no abdominal pain. He was able to eat and able to move his bowels. PHYSICAL EXAMINATION: GENERAL: The patient is in no acute distress. VITAL SIGNS: Stable. HEART: S1, S2, normal and regular. LUNGS: Good bilateral air exchange. ABDOMEN: . No guarding, no rigidity, no rebound. EXTREMITIES: No edema, no calf swelling. No tenderness. No acute ischemia. CENTRAL NERVOUS SYSTEM: Essentially unchanged. DIAGNOSTIC DATA: Available diagnostic data reviewed. Overall, the patient's general medical condition is improved. No sign of acute abdomen. PLAN: As ordered. Case and plan discussed with the patient. Vinnie Vyas MD
--- NOTE | 2017-12-08 13:06 | VASCULAR ---
PROCEDURE: Date of procedure: 12/04/2017 Procedure: 1. Placement of a right arm PICC with ultrasound and fluoroscopic guidance, CPT 64019 2. PICC tip confirmation with spot radiograph and is in the superior vena cava Medications: 1 percent lidocaine Total Fluoro time: 2.4 seconds Radiation: 0.85 MGy EBL: 2 cc HISTORY: Infection requiring long-term IV antibiotics TECHNIQUE: Following informed consent and procedure time-out, the patient was placed supine on the interventional table and the right arm prepped and draped in the usual sterile fashion. Ultrasound showed a patent and compressible right basilic vein. After the skin was anesthetized with lidocaine, the basilic vein was accessed with micro micropuncture technique using ultrasound guidance. A guidewire was then advanced under fluoroscopic guidance into the superior vena cava. An image documenting ultrasound guidance for vascular access was permanently saved. The length of the single-lumen 4 [place] PICC was trimmed to 32 centimeters and advanced through a peel-away sheath. The PICC was position with tip of PICC confirm a spot radiograph the superior vena cava. The PICC was secured to the patient's skin. The PICC was flushed. A biopatch and sterile dressing was applied. IMPRESSION: Placement of a single-lumen 4 [place] PICC trimmed to 32 centimeters via right basilic vein. The tip of the PICC is confirmed with spot radiograph and is in the superior vena cava.
== END 2017-12-07 15:50 | disposition home or self-care (01) | DRG 188 ==
LOC: H.ER 09:34 → H.ERHOLD 16:29 → H.MEDSURG1 18:42 → H.ICU/CCU 12-03 11:52 → H.MEDSURG1 12-04 11:45
PROVIDERS: ADMIT Internal Medicine; ATTEND Internal Medicine
PROC: 0D9670Z Drainage of Stomach with Drainage Device, Via Natural or Artificial Opening (ICD-10-PCS; principal; 2017-11-29)
PROC: 0DBP8ZX Excision of Rectum, Via Natural or Artificial Opening Endoscopic, Diagnostic (ICD-10-PCS; 2017-11-30)
PROC: 3E0G76Z Introduction of Nutritional Substance into Upper GI, Via Natural or Artificial Opening (ICD-10-PCS; 2017-12-01)
PROC: 02HV33Z Insertion of Infusion Device into Superior Vena Cava, Percutaneous Approach (ICD-10-PCS; 2017-12-04)
DX: K59.39 Other megacolon (principal); K56.7 Ileus, unspecified; K55.9 Vascular disorder of intestine, unspecified; I80.8 Phlebitis and thrombophlebitis of other sites; E87.6 Hypokalemia; K62.6 Ulcer of anus and rectum; K59.00 Constipation, unspecified; E66.9 Obesity, unspecified; Z68.36 Body mass index [BMI] 36.0-36.9, adult; I10 Essential (primary) hypertension; J45.909 Unspecified asthma, uncomplicated; N40.0 Benign prostatic hyperplasia without lower urinary tract symptoms; F32.9 Major depressive disorder, single episode, unspecified; F41.9 Anxiety disorder, unspecified; K64.8 Other hemorrhoids; R00.1 Bradycardia, unspecified; T44.0X5A Adverse effect of anticholinesterase agents, initial encounter

== ENCOUNTER 2018-01-06 00:04 | Inpatient (IN) | payer MEDICAID ==
[2018-01-06 00:04] VITALS: BMI 35.7
--- NOTE | 2018-01-06 01:07 | ED PDOC ---
HPI: Abdomen Time Seen by Provider: 01/06/18 00:15 Chief Complaint (Nursing): Abdominal Pain Chief Complaint (Provider): Abdominal Pain History Per: Patient History/Exam Limitations: no limitations Onset/Duration Of Symptoms: Days (x 1) Current Symptoms Are (Timing): Still Present Additional Complaint(s): 57 year old male with a history of gastric ulcers, internal hemorrhoids, sigmoid volvulus, chronic constipation, spontaneous uncontrolled fecal evacuation and hemicolectomy presents to the ED complaining of left sided abdominal pain since yesterday with diarrhea. He denies nausea and vomiting. PMD: Dr. Max Tolbert MD Past Medical History Reviewed: Historical Data, Nursing Documentation, Vital Signs Vital Signs: Last Vital Signs Temp 98.6 F 01/06/18 00:12 Pulse 136 H 01/06/18 00:12 Resp 20 01/06/18 00:12 BP 111/71 01/06/18 00:12 Pulse Ox 96 01/06/18 06:06 - Medical History PMH: Asthma, Colonic Polyps, Fractures (5TH FINGER LEFT HAND- NO TX.), HTN, Peripheral Edema Denies: Chronic Kidney Disease, TIA Other PMH: gastric ulcers, internal hemmorhoids, sigmoid volvulus/chronic constipation - Surgical History Surgical History: Endoscopy - Family History Family History: States: Unknown Family Hx - Immunization History Hx Tetanus Toxoid Vaccination: No Hx Influenza Vaccination: Yes Hx Pneumococcal Vaccination: Yes - Home Medications Home Medications: Ambulatory Orders Medication Instructions Recorded Metoprolol Tartrate [Lopressor] 100 mg PO BID 08/06/16 Tamsulosin [Flomax] 0.4 mg PO DAILY 08/05/17 Losartan/Hydrochlorothiazide 1 tab PO DAILY 11/28/17 [Losartan-Hctz 50-12.5 mg Tab] Sertraline [Zoloft] 75 mg PO DAILY 11/28/17 - Allergies Allergies/Adverse Reactions: Allergies Allergy/AdvReac Type Severity Reaction Status Date / Time No Known Allergies Allergy Verified 08/05/17 07:40 Review of Systems ROS Statement: Except As Marked, All Systems Reviewed And Found Negative Gastrointestinal: Positive for: Abdominal Pain Physical Exam - Reviewed Nursing Documentation Reviewed: Yes Vital Signs Reviewed: Yes - Physical Exam Appears: Positive for: Well, Non-toxic, No Acute Distress Head Exam: Positive for: ATRAUMATIC, NORMAL INSPECTION, NORMOCEPHALIC Skin: Positive for: Normal Color, Warm, DRY ENT: Positive for: Normal ENT Inspection Neck: Positive for: Normal, Painless ROM Cardiovascular/Chest: Positive for: Regular Rate, Rhythm Respiratory: Positive for: CNT, Normal Breath Sounds Gastrointestinal/Abdominal: Positive for: Normal Exam, Soft Back: Positive for: Normal Inspection Extremity: Positive for: Normal ROM Neurologic/Psych: Positive for: Alert, Oriented - Laboratory Results Result Diagrams: 01/06/18 01:25 01/06/18 01:25 - ECG O2 Sat by Pulse Oximetry: 96 (RA) Pulse Ox Interpretation: Normal Medical Decision Making Medical Decision Making: Time: 00:47 Initial Plan: --CT abd/pelvis --CBC with differentials --Omnipaque 2 50 ml PO --Morphine 2 mg IVP --Zofran ODT 4 mg PO --Urine cx --Urinalysis Time: 03:00 --Morphine 4 mg IV --Normal Saline IV 200 mls/hr Time: 05:38 --ABG shock panel Radiologist called to inform that there is free air in the abdomen and perforation at the site of the prior sigmoidectomy. Ct Abdomen Pelvis FINDINGS: LUNG BASES: Consolidation in the posterior lung bases bilaterally, most likely representing dependent/compressive atelectasis. ABDOMEN: LIVER: Fatty infiltration of the liver. GALLBLADDER AND BILE DUCTS: No CT evidence of acute cholecystitis. No evidence of significant biliary ductal dilatation. PANCREAS: No CT evidence of acute pancreatitis. SPLEEN: No acute abnormality of the spleen identified. ADRENALS: No acute abnormality of the adrenal glands identified. KIDNEYS AND URETERS: Low density lesions in the kidneys bilaterally, most likely representing cysts. The largest of these measures 2.5 cm. STOMACH AND BOWEL: Moderate to large amount of free intraperitoneal air, compatible with a bowel perforation, in the absence of recent surgery. Marked focal wall thickening, associated with significant pericolonic fat infiltration, is seen and the descending colon, at the level of a surgical anastomosis. Tiny focus of extraluminal air also seen in this area, image 100/ series 3. Proximal to this, the colon is mildly, diffusely dilated, suspicious for an associated mild colonic obstruction. Wall thickening involving multiple small bowel loops, suspicious for multifocal enteritis. Small bowel dilatation. No definite single, abrupt transition point is seen in the small bowel. There appear to be dilated small bowel loops interposed with decompressed small bowel loops, and there is enteric contrast in the terminal ileum. The dilatation is suspicious for an ileus. APPENDIX: Normal appendix is not seen, however, there are no significant inflammatory changes visualized in the expected location of the appendix to suggest appendicitis. Recommend clinical correlation. PELVIS: BLADDER: No acute abnormality of the bladder identified. REPRODUCTIVE: No acute abnormality of the reproductive organs is seen. ABDOMEN and PELVIS: INTRAPERITONEAL SPACE: BONES/JOINTS: No acute fractures or other acute bony abnormality noted. SOFT TISSUES: No acute abnormality of the visualized soft tissues is seen. VASCULATURE: No evidence of abdominal aortic aneurysm. No evidence of periaortic hemorrhage. LYMPH NODES: No evidence of diffuse lymphadenopathy. IMPRESSION: - Free intraperitoneal air. This is compatible with a bowel perforation, in the absence of recent surgery. - The site of perforation is suspected to be the descending colon, at the level of a surgical anastomosis, where there is marked wall thickening and pericolonic fat infiltration. Findings could be due to marked focal colitis or recurrent neoplasm, if there is a history of colonic neoplasm. There are also findings suspicious for multifocal enteritis of the small bowel. - Small bowel dilatation, most likely due to an ileus. - See above for remaining findings Time; 05:44 --Patient reported the surgeon who performed his sigmoidectomy was Dr. Ryan Valencia MD. He was paged. --residential counselor was called as well. Time; 05:54 --Spoke to surgical appliances salesperson- will call Dr. Valencia and then call back. Time: 05:55 --Spoke to Dr. Valencia who is going on vacation and Dr. Galarza is covering. Time: 05:58 --Consulted Dr. Galarza. Will come see patient. Time; 06:00 --Patient will be admitted to Dr. Najera in telemetry due to bowel perforation and peritoneal free air. Scribe Attestation: Documented by Betsy Noonan, acting as a scribe for Kaela Small MD Provider Scribe Attestation: All medical record entries made by the Scribe were at my direction and personally dictated by me. I have reviewed the chart and agree that the record accurately reflects my personal performance of the history, physical exam, medical decision making, and the department course for this patient. I have also personally directed, reviewed, and agree with the discharge instructions and disposition. Disposition - Clinical Impression Clinical Impression: Free intraperitoneal air - Patient ED Disposition Is Patient to be Admitted: Yes Counseled Patient/Family Regarding: Studies Performed, Diagnosis - Disposition Disposition Time: 05:45 Condition: STABLE - Pt Status Changed To: Hospital Disposition Of: Inpatient - Admit Certification Admit to Inpatient:: After my assessment, the patient will require hospitalization for at least two midnights. This is because of the severity of symptoms shown, intensity of services needed, and/or the medical risk in this patient being treated as an outpatient.
[2018-01-06] MEDS ORDERED: Morphine 4 MG/ML VIAL IVP STA (01:16)
[2018-01-06] MEDS ORDERED: Morphine 4 MG/ML VIAL ONE ×4 (01:21→08:35)
[2018-01-06] MEDS ORDERED: Iohexol 240 (50 ml) PO ONE (01:41)
[2018-01-06] MEDS ORDERED: Iohexol 240 (50 ml) ONE (01:42)
[2018-01-06 01:45] LABS: BASO % 0.2 % (0.0-2.0); HEMOGLOBIN 12.5 g/dL (12.0-18.0); LYMPH # 0.8 K/uL (1.0-4.3); MEAN CELL VOLUME 88.6 fl (80.0-94.0); MEAN CORPUSCULAR HGB CONC 32.7 g/dL (33.0-37.0); MEAN PLATELET VOLUME 9.4 fl (7.2-11.7); MONO # 0.8 K/uL (0.0-0.8); MONO % 4.8 % (0.0-10.0); NEUT # 15.2 K/uL (1.8-7.0); PLATELET COUNT 215 K/uL (130-400); RBC 4.32 Mil/uL (4.40-5.90); RED CELL DISTRIBUTION WIDTH 13.2 % (11.5-14.5); WHITE BLOOD COUNT 16.9 K/uL (4.8-10.8)
[2018-01-06 01:51] LABS: CALCIUM 9.3 mg/dL (8.4-10.2); GFR AFRICAN-AMERICAN > 60; GFR NON-AFRICAN AMERICAN > 60
[2018-01-06 02:07] LABS: ALBUMIN 4.3 g/dL (3.5-5.0); ALT/SGPT 45 U/L (21-72); AST/SGOT 31 U/L (17-59); BLOOD UREA NITROGEN 22 mg/dl (9-20)
[2018-01-06 02:50] LABS: LYMPHOCYTE 8 % (20-50); MONOCYTE 4 % (0-10); NEUTROPHIL 88 % (42-75); PLATELET ESTIMATE NORMAL (NORMAL); TOTAL CELLS COUNTED 100
[2018-01-06] MEDS ORDERED: Morphine 4 MG/ML VIAL IV ONE ×2 (03:00→07:30)
[2018-01-06] MEDS ORDERED: Sodium Chloride 0.9% 1,000 ML IV STA ×2 (03:01→06:04)
[2018-01-06] MEDS ORDERED: Sodium Chloride 0.9% 100 ML ONE (03:43)
[2018-01-06] MEDS ORDERED: Iohexol 300 100 ML IJ ONE (03:43)
[2018-01-06 04:18] LABS: SQUAMOUS EPITHIAL < 1 /hpf (0-5); URINE BACTERIA RARE (<OCC); URINE BILIRUBIN NEGATIVE (NEGATIVE); URINE BLOOD NEGATIVE (NEGATIVE); URINE CLARITY CLOUDY (Clear); URINE COLOR AMBER (YELLOW); URINE GLUCOSE (UA) NEG (Normal); URINE LEUKOCYTE ESTERASE NEG Leu/uL (Negative); URINE PROTEIN 100 mg/dL (NEGATIVE); URINE UROBILINOGEN 0.2-1.0 mg/dL (0.2-1.0)
[2018-01-06] MEDS ORDERED: Piperacillin/Tazobact 4.5 GM in Sodium Chloride 0.9% 100 ML IVPB STA (05:39)
--- NOTE | 2018-01-06 05:39 | CT ---
EXAM: CT Abdomen and Pelvis With Intravenous Contrast EXAM DATE/TIME: 01/06/2018 1:16 AM CLINICAL HISTORY: 57 years old, male; Pain; Abdominal pain; Generalized; Prior surgery; Surgery date: 6+ months; Surgery type: Sigmoidectomy; Additional info: Abd pain TECHNIQUE: Axial computed tomography images of the abdomen and pelvis with intravenous contrast. All CT scans at this facility use one or more dose reduction techniques, viz.: automated exposure control; ma/kV adjustment per patient size (including targeted exams where dose is matched to indication; i.e. head); or iterative reconstruction technique. Coronal and sagittal reformatted images were created and reviewed. CONTRAST: 95 mL of administered intravenously. COMPARISON: Prior CT abdomen and pelvis of 2017-12-02 FINDINGS: LUNG BASES: Consolidation in the posterior lung bases bilaterally, most likely representing dependent/compressive atelectasis. ABDOMEN: LIVER: Fatty infiltration of the liver. GALLBLADDER AND BILE DUCTS: No CT evidence of acute cholecystitis. No evidence of significant biliary ductal dilatation. PANCREAS: No CT evidence of acute pancreatitis. SPLEEN: No acute abnormality of the spleen identified. ADRENALS: No acute abnormality of the adrenal glands identified. KIDNEYS AND URETERS: Low density lesions in the kidneys bilaterally, most likely representing cysts. The largest of these measures 2.5 cm. STOMACH AND BOWEL: Moderate to large amount of free intraperitoneal air, compatible with a bowel perforation, in the absence of recent surgery. Marked focal wall thickening, associated with significant pericolonic fat infiltration, is seen and the descending colon, at the level of a surgical anastomosis. Tiny focus of extraluminal air also seen in this area, image 100/series 3. Proximal to this, the colon is mildly, diffusely dilated, suspicious for an associated mild colonic obstruction. Wall thickening involving multiple small bowel loops, suspicious for multifocal enteritis. Small bowel dilatation. No definite single, abrupt transition point is seen in the small bowel. There appear to be dilated small bowel loops interposed with decompressed small bowel loops, and there is enteric contrast in the terminal ileum. The dilatation is suspicious for an ileus. APPENDIX: Normal appendix is not seen, however, there are no significant inflammatory changes visualized in the expected location of the appendix to suggest appendicitis. Recommend clinical correlation. PELVIS: BLADDER: No acute abnormality of the bladder identified. REPRODUCTIVE: No acute abnormality of the reproductive organs is seen. ABDOMEN and PELVIS: INTRAPERITONEAL SPACE: BONES/JOINTS: No acute fractures or other acute bony abnormality noted. SOFT TISSUES: No acute abnormality of the visualized soft tissues is seen. VASCULATURE: No evidence of abdominal aortic aneurysm. No evidence of periaortic hemorrhage. LYMPH NODES: No evidence of diffuse lymphadenopathy. IMPRESSION: - Free intraperitoneal air. This is compatible with a bowel perforation, in the absence of recent surgery. - The site of perforation is suspected to be the descending colon, at the level of a surgical anastomosis, where there is marked wall thickening and pericolonic fat infiltration. Findings could be due to marked focal colitis or recurrent neoplasm, if there is a history of colonic neoplasm. There are also findings suspicious for multifocal enteritis of the small bowel. - Small bowel dilatation, most likely due to an ileus. - See above for remaining findings.
[2018-01-06 06:17] LABS: ABG ALLEN TEST YES; ARTERIAL BLOOD GAS HCO3 26.2 mmol/L (21-28); ARTERIAL BLOOD GAS O2 SAT 86.3 % (95-98); ARTERIAL BLOOD GAS PCO2 43 mm/Hg (35-45); ARTERIAL BLOOD GAS PH 7.41 (7.35-7.45); ARTERIAL BLOOD GAS PO2 44 mm/Hg (80-100); ARTERIAL BLOOD GAS TCO2 28.6 mmol/L (22-28)
[2018-01-06] MEDS ORDERED: Sodium Chloride 0.9% 1,000 ML IV SCH ×2 (08:30→22:30)
[2018-01-06] MEDS: Piperacillin/Tazobact 3.375 GM in Sodium Chloride 0.9% 100 ML IVPB SCH ×2 (08:41→20:04)
[2018-01-06] MEDS ORDERED: Etomidate 20 mg/10ml Inj IV ONE (10:01)
[2018-01-06] MEDS ORDERED: Succinylcholine 200 mg/10 ml Inj IV ONE (10:01)
[2018-01-06] MEDS ORDERED: Bupivacaine HCl 0.25% PF (30 ml) Inj ONE (10:01)
[2018-01-06] MEDS ORDERED: Lidocaine 4% (Laryng-O-Jet) Kit MM ONE (10:01)
--- NOTE | 2018-01-06 10:13 | CP.CCUPN ---
CCU Subjective - Physician Review Subjective (Free Text): 57 y/o M known to me from last hospital admission 3 weeks ago; admitted today abdominal pain, found to have bowel perforation near site of previous sigmoidectomy in 2016. PMH includes chronic constipation, sigmoid volvulus, asthma. In ER, max temp so far 99F, BP 110 systolic with HR up to 145, 99% on NC, feels more comfortable now after Morphine, also had 2 diarrheal BMS so far. Denies any nausea, vomiting, dizziness, fevers, chills. Has recd 1000ml NSS bolus and IVFs at 125 ml/h with NSS. Other Vitals and I/Os reviewed. ROS: No other pertinent negs or positives on 10+ system review. Allergies: NKDA Meds: at home included Losartan/HCTZ, Lopressor, Zoloft, Flomax. ROS: No other pertinent negs or positives on 10+ system review. PMSFH: All other Nursing and physician documentation reviewed to date; no new pertinent info noted relevant to current medical problems. LABS: WBC= 16.9 HGB= 12.5 PLTs= 215K 7.41/43/44 Lactate= 0.7 Na= 136 K= 4.2 HCO3=24 CL= 98 BUN/Cr= 22/0.8 BS= 120 EKG: Sinus tachy 122/min, inv T in III. IMPRESSION / MAJOR PROBLEMS NOW: 1. h/o Colonic Distention, Colonic Volvulus, now with Bowel perforation 2. h/o Essential HTN 4. h/o Asthma PLAN: 1. Operative mgmt. as per surgical team. 2. Hold antihypertensives for now. Lactates are normal. 3. Fluid / Volume repletion. 4. Empiric abx coverage. 5. ICU mgmt if he fails to respond to initial therapy. CCU Objective - Vital Signs / Intake & Output Vital Signs (Last 4 hours): Vital Signs Temp Pulse Resp BP Pulse Ox 01/06/18 10:07 121 H 01/06/18 08:39 122 H 29 H 111/68 97 01/06/18 07:44 99 F 140 H 29 H 112/66 97 01/06/18 06:45 98.5 F 136 H 16 114/69 94 L 01/06/18 06:30 96 Intake and Output (Last 8hrs): Intake & Output 0401/06/18 01/06/18 22:59 06:59 14:59 Weight 214 lb - Physical Exam Head: Positive for: Normocephalic Pupils: Positive for: PERRL Extroacular Muscles: Positive for: EOMI Conjunctiva: Positive for: Normal. Negative for: Icteric Mouth: Positive for: Dry Neck: Positive for: Normal Range of Motion. Negative for: JVD Respiratory/Chest: Positive for: Clear to Auscultation. Negative for: Wheezes Cardiovascular: Positive for: Regular Rate and Rhythm, Tachycardic. Negative for: Murmurs, Rub Abdomen: Positive for: Distention, Guarding. Negative for: Normal Bowel Sounds (Hypoactive) Lower Extremity: Positive for: Edema (trace - +1 symmetrical edema). Negative for: CALF TENDERNESS, Cyanosis, Tenderness Neurological: Positive for: GCS=15, Motor Func Grossly Intact, Normal Sensory Function Skin: Positive for: Warm, Dry. Negative for: Rashes Psychiatric: Positive for: Alert, Oriented x 3 - Medications Active Medications: Active Medications Generic Name Dose Route Start Last Admin Trade Name Freq PRN Reason Stop Dose Admin Sodium Chloride 1,000 mls @ 125 mls/hr 01/06/18 06:04 01/06/18 06:37 Sodium Chloride 0.9% IV 01/06/18 14:03 125 mls/hr .Q8H STA Administration Piperacillin Sod/Tazobactam 100 mls @ 100 mls/hr 01/06/18 09:00 01/06/18 08: 41 Sod 3.375 gm/ Sodium Chloride IVPB Not Given Q12 [facility] Protocol Ondansetron HCl 8 mg 01/06/18 08:27 Zofran Odt PO Q8H PRN Nausea/Vomiting Pantoprazole Sodium 40 mg 01/06/18 09:00 Protonix Inj IVP DAILY REESE - Patient Studies Lab Studies: Lab Studies 01/06/18 01/06/18 01/06/18 Range/Units 06:09 04:00 01:25 WBC (4.8-10.8) K/uL RBC (4.40-5.90) Mil/uL Hgb (12.0-18.0) g/dL Hct (35.0-51.0) % MCV (80.0-94.0) fl MCH (27.0-31.0) pg MCHC (33.0-37.0) g/dL RDW (11.5-14.5) % Plt Count (130-400) K/uL MPV (7.2-11.7) fl Neut % (Auto) (50.0-75.0) % Lymph % (Auto) (20.0-40.0) % [place] % (Auto) (0.0-10.0) % Eos % (Auto) (0.0-4.0) % Baso % (Auto) (0.0-2.0) % Neut # (Auto) (1.8-7.0) K/uL Lymph # (Auto) (1.0-4.3) K/uL [place] # (Auto) (0.0-0.8) K/uL Eos # (Auto) (0.0-0.7) K/uL Baso # (Auto) (0.0-0.2) K/uL Neutrophils % (Manual) (42-75) % Lymphocytes % (Manual) (20-50) % Monocytes % (Manual) (0-10) % Platelet Estimate (NORMAL) RBC Morphology (NORMAL) pCO2 43 (35-45) mm/Hg pO2 44 L* (80-100) mm/Hg HCO3 26.2 (21-28) mmol/L ABG pH 7.41 (7.35-7.45) ABG Total CO2 28.6 H (22-28) mmol/L ABG O2 Saturation 86.3 L (95-98) % ABG Base Excess 2.2 (-2.0-3.0) mmol/L Rip Test Yes ABG Potassium 3.5 L (3.6-5.2) mmol/L A-a O2 Difference 52.0 mm/Hg Glucose 110 (75-110) mg/dL Lactate 0.7 (0.7-2.1) mmol/L FiO2 21.0 % Crit Value Called To Kaela toro md Crit Value Called By 292 Crit Value Read Back Y Blood Gas Notified Time 617 Sodium 131.0 L 136 (132-148) mmol/l Potassium 4.2 (3.6-5.0) MMOL/L Chloride 100.0 98 (98-107) mmol/L Carbon Dioxide 24 (22-30) mmol/L Anion Gap 18 (10-20) BUN 22 H (9-20) mg/dl Creatinine 0.8 (0.8-1.5) mg/dl Est GFR ( Amer) > 60 Est GFR (Non-Af Amer) > 60 Random Glucose 120 H (75-110) mg/dL Calcium 9.3 (8.4-10.2) mg/dL Total Bilirubin 1.2 (0.2-1.3) mg/dl AST 31 (17-59) U/L ALT 45 (21-72) U/L Alkaline Phosphatase 138 H D (38-126) U/L Total Protein 8.7 H (6.3-8.2) G/DL Albumin 4.3 (3.5-5.0) g/dL Globulin 4.4 H (2.2-3.9) gm/dL Albumin/Globulin Ratio 1.0 (1.0-2.1) Arterial Blood Potassium 3.5 L (3.6-5.2) mmol/L Urine Color Ana (YELLOW) Urine Clarity Cloudy (Clear) Urine pH 5.0 (5.0-8.0) Ur Specific Hector 1.035 H (1.003-1.030) Urine Protein 100 (NEGATIVE) mg/dL Urine Glucose (UA) Neg (Normal) mg/dL Urine Ketones Negative (NEGATIVE) mg/dL Urine Blood Negative (NEGATIVE) Urine Nitrate Negative (NEGATIVE) Urine Bilirubin Negative (NEGATIVE) Urine Urobilinogen 0.2-1.0 (0.2-1.0) mg/dL Ur Leukocyte Esterase Neg (Negative) Curly/uL Urine RBC (Auto) 7 H (0-3) /hpf Urine Microscopic WBC 3 (0-5) /hpf Ur Squamous Epith Cells < 1 (0-5) /hpf Urine Bacteria Rare (<OCC) Hyaline Casts 11-20 H (0-2) /hpf 04//18 Range/Units 01:25 WBC 16.9 H D (4.8-10.8) K/uL RBC 4.32 L (4.40-5.90) Mil/uL Hgb 12.5 (12.0-18.0) g/dL Hct 38.3 (35.0-51.0) % MCV 88.6 (80.0-94.0) fl MCH 29.0 (27.0-31.0) pg MCHC 32.7 L (33.0-37.0) g/dL RDW 13.2 (11.5-14.5) % Plt Count 215 (130-400) K/uL MPV 9.4 (7.2-11.7) fl Neut % (Auto) 90.0 H (50.0-75.0) % Lymph % (Auto) 5.0 L (20.0-40.0) % [place] % (Auto) 4.8 (0.0-10.0) % Eos % (Auto) 0.0 (0.0-4.0) % Baso % (Auto) 0.2 (0.0-2.0) % Neut # (Auto) 15.2 H (1.8-7.0) K/uL Lymph # (Auto) 0.8 L (1.0-4.3) K/uL [place] # (Auto) 0.8 (0.0-0.8) K/uL Eos # (Auto) 0.0 (0.0-0.7) K/uL Baso # (Auto) 0.0 (0.0-0.2) K/uL Neutrophils % (Manual) 88 H (42-75) % Lymphocytes % (Manual) 8 L (20-50) % Monocytes % (Manual) 4 (0-10) % Platelet Estimate Normal (NORMAL) RBC Morphology Normal (NORMAL) pCO2 (35-45) mm/Hg pO2 (80-100) mm/Hg HCO3 (21-28) mmol/L ABG pH (7.35-7.45) ABG Total CO2 (22-28) mmol/L ABG O2 Saturation (95-98) % ABG Base Excess (-2.0-3.0) mmol/L Rip Test ABG Potassium (3.6-5.2) mmol/L A-a O2 Difference mm/Hg Glucose (75-110) mg/dL Lactate (0.7-2.1) mmol/L FiO2 % Crit Value Called To Crit Value Called By Crit Value Read Back Blood Gas Notified Time Sodium (132-148) mmol/l Potassium (3.6-5.0) MMOL/L Chloride (98-107) mmol/L Carbon Dioxide (22-30) mmol/L Anion Gap (10-20) BUN (9-20) mg/dl Creatinine (0.8-1.5) mg/dl Est GFR ( Amer) Est GFR (Non-Af Amer) Random Glucose (75-110) mg/dL Calcium (8.4-10.2) mg/dL Total Bilirubin (0.2-1.3) mg/dl AST (17-59) U/L ALT (21-72) U/L Alkaline Phosphatase (38-126) U/L Total Protein (6.3-8.2) G/DL Albumin (3.5-5.0) g/dL Globulin (2.2-3.9) gm/dL Albumin/Globulin Ratio (1.0-2.1) Arterial Blood Potassium (3.6-5.2) mmol/L Urine Color (YELLOW) Urine Clarity (Clear) Urine pH (5.0-8.0) Ur Specific Hector (1.003-1.030) Urine Protein (NEGATIVE) mg/dL Urine Glucose (UA) (Normal) mg/dL Urine Ketones (NEGATIVE) mg/dL Urine Blood (NEGATIVE) Urine Nitrate (NEGATIVE) Urine Bilirubin (NEGATIVE) Urine Urobilinogen (0.2-1.0) mg/dL Ur Leukocyte Esterase (Negative) Curly/uL Urine RBC (Auto) (0-3) /hpf Urine Microscopic WBC (0-5) /hpf Ur Squamous Epith Cells (0-5) /hpf Urine Bacteria (<OCC) Hyaline Casts (0-2) /hpf Laboratory Results - last 24 hr 01/06/18 01/06/18 01/06/18 01:25 01:25 04:00 WBC 16.9 H D RBC 4.32 L Hgb 12.5 Hct 38.3 MCV 88.6 MCH 29.0 MCHC 32.7 L RDW 13.2 Plt Count 215 MPV 9.4 Neut % (Auto) 90.0 H Lymph % (Auto) 5.0 L [place] % (Auto) 4.8 Eos % (Auto) 0.0 Baso % (Auto) 0.2 Neut # (Auto) 15.2 H Lymph # (Auto) 0.8 L [place] # (Auto) 0.8 Eos # (Auto) 0.0 Baso # (Auto) 0.0 Neutrophils % (Manual) 88 H Lymphocytes % (Manual) 8 L Monocytes % (Manual) 4 Platelet Estimate Normal RBC Morphology Normal pCO2 pO2 HCO3 ABG pH ABG Total CO2 ABG O2 Saturation ABG Base Excess Rip Test ABG Potassium A-a O2 Difference Glucose Lactate FiO2 Crit Value Called To Crit Value Called By Crit Value Read Back Blood Gas Notified Time Sodium 136 Potassium 4.2 Chloride 98 Carbon Dioxide 24 Anion Gap 18 BUN 22 H Creatinine 0.8 Est GFR ( Amer) > 60 Est GFR (Non-Af Amer) > 60 Random Glucose 120 H Calcium 9.3 Total Bilirubin 1.2 AST 31 ALT 45 Alkaline Phosphatase 138 H D Total Protein 8.7 H Albumin 4.3 Globulin 4.4 H Albumin/Globulin Ratio 1.0 Arterial Blood Potassium Urine Color Ana Urine Clarity Cloudy Urine pH 5.0 Ur Specific Hector 1.035 H Urine Protein 100 Urine Glucose (UA) Neg Urine Ketones Negative Urine Blood Negative Urine Nitrate Negative Urine Bilirubin Negative Urine Urobilinogen 0.2-1.0 Ur Leukocyte Esterase Neg Urine RBC (Auto) 7 H Urine Microscopic WBC 3 Ur Squamous Epith Cells < 1 Urine Bacteria Rare Hyaline Casts 11-20 H 01/06/ 06:09 WBC RBC Hgb Hct MCV MCH MCHC RDW Plt Count MPV Neut % (Auto) Lymph % (Auto) [place] % (Auto) Eos % (Auto) Baso % (Auto) Neut # (Auto) Lymph # (Auto) [place] # (Auto) Eos # (Auto) Baso # (Auto) Neutrophils % (Manual) Lymphocytes % (Manual) Monocytes % (Manual) Platelet Estimate RBC Morphology pCO2 43 pO2 44 L* HCO3 26.2 ABG pH 7.41 ABG Total CO2 28.6 H ABG O2 Saturation 86.3 L ABG Base Excess 2.2 Rip Test Yes ABG Potassium 3.5 L A-a O2 Difference 52.0 Glucose 110 Lactate 0.7 FiO2 21.0 Crit Value Called To Kaela toro md Crit Value Called By 292 Crit Value Read Back Y Blood Gas Notified Time 617 Sodium 131.0 L Potassium Chloride 100.0 Carbon Dioxide Anion Gap BUN Creatinine Est GFR ( Amer) Est GFR (Non-Af Amer) Random Glucose Calcium Total Bilirubin AST ALT Alkaline Phosphatase Total Protein Albumin Globulin Albumin/Globulin Ratio Arterial Blood Potassium 3.5 L Urine Color Urine Clarity Urine pH Ur Specific [place] Urine Protein Urine Glucose (UA) Urine Ketones Urine Blood Urine Nitrate Urine Bilirubin Urine Urobilinogen Ur Leukocyte Esterase Urine RBC (Auto) Urine Microscopic WBC Ur Squamous Epith Cells Urine Bacteria Hyaline Casts Critical Care Progress Note - Nutrition Nutrition: Nutrition Category Date Time Status NPO Diet [DIET] Diets 01/06/18 Breakfast Active
[2018-01-06] MEDS ORDERED: Midazolam 2 MG/2 ML VIAL ONE (11:00)
[2018-01-06] MEDS ORDERED: Ketamine 50 mg/ml Inj (10 ml) ONE (11:00)
[2018-01-06] MEDS ORDERED: Lactated Ringer's 1,000 ML IV ONE ×4 (11:06→14:30)
--- NOTE | 2018-01-06 11:28 | RAD ---
HISTORY: admission COMPARISON: 11/28/2017. FINDINGS: LUNGS: The lungs are clear. PLEURA: No significant pleural effusion identified, no pneumothorax apparent. CARDIOVASCULAR: Normal. OSSEOUS STRUCTURES: No significant abnormalities. VISUALIZED UPPER ABDOMEN: Normal. OTHER FINDINGS: There is free intraperitoneal air. There is dilatation of bowel loops. IMPRESSION: No acute findings in the lungs. Pneumoperitoneum.
[2018-01-06] MEDS ORDERED: Piperacillin/Tazobact 3.375 gm Inj IVPB ONE (11:30)
[2018-01-06] MEDS ORDERED: Dexamethasone 4 mg/1 ml ONE (11:59)
[2018-01-06] MEDS ORDERED: Neostigmine 1:1000 (1 mg/ml) Inj ONE (12:21)
--- NOTE | 2018-01-06 12:33 | PCM.SURG1 ---
Surgeon's Initial Post Op Note - Surgeon's Notes Surgeon: Dr. Galarza Pediatric Oncologist: Dr. Mayfield PGY2, Dr. Disla PGY2 Type of Anesthesia: General Endo Pre-Operative Diagnosis: Abdominal Free Air, Bowel Perforation Operative Findings: See Operative dictation Post-Operative Diagnosis: Bowel perforation without fecal peritonitis Operation Performed: Exploratory laparotomy with transverse blowhole colostomy Specimen/Specimens Removed: none Estimated Blood Loss: EBL {In ML}: 10 Blood Products Given: N/A Drains Used: Arsh Post-Op Condition: Fair Date of Surgery/Procedure: 01/06/18 Time of Surgery/Procedure: 12:33
--- NOTE | 2018-01-06 12:37 | CP.PCM.CON ---
History of Present Illness - History of Present Illness History of Present Illness: General Surgery Consult For Dr. 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 He presented to the ED this AM with complaints of abdominal pain that he has had for the past two days however it got worse over night. He reports that he has moved his bowels regularly and is passing gas regularly. He denies any nausea or vomiting. He denied fevers chills or chest pain. At this time his only pain is significant abdominal pain. PMHx: See HPI PSHx: Robotic sigmoidectomy (09/2016), umbilical hernia repair FHx: Discussed with patient and denies any significant family history Social: Denies tobacco, EtOH or illicit drug use Review of Systems - Review of Systems All systems: reviewed and no additional remarkable complaints except - Gastrointestinal Gastrointestinal: Abdominal Pain. absent: Change in Bowel Habits, Constipation , Nausea, Vomiting Past Patient History - Past Medical History & Family History Past Medical History?: Yes - Past Social History Smoking Status: Never Smoked - CARDIAC Hx Hypertension: Yes Hx Peripheral Edema: Yes - PULMONARY Hx Asthma: Yes - NEUROLOGICAL Hx Transient Ischemic Attacks (TIA): No - HEENT Hx HEENT Problems: No - RENAL Hx Chronic Kidney Disease: No - ENDOCRINE/METABOLIC Hx Endocrine Disorders: No - HEMATOLOGICAL/ONCOLOGICAL Hx Blood Disorders: No Hx Blood Transfusions: Yes Hx Blood Transfusion Reaction: No - INTEGUMENTARY Hx Dermatological Problems: No - MUSCULOSKELETAL/RHEUMATOLOGICAL Hx Fractures: Yes (5TH FINGER LEFT HAND- NO TX.) - GASTROINTESTINAL Hx Gastrointestinal Disorders: Yes Hx Bowel Surgery: Yes (HEMICOLECTOMY 2015) Hx Colostomy: No Hx Hemorrhoids: Yes (INTERNAL) Hx Ulcer: Yes (GASTRIC) Other/Comment: HX: SIGMOID VOLVULUS/CHRONIC CONSTIPATION/SPONTANEOUS UNCONTROLLED FECAL EVACUATION, WITH HEMICOLECTOMY - GENITOURINARY/GYNECOLOGICAL Hx Genitourinary Disorders: Yes Other/Comment: PATIENT HAS HESITANCY UPON URINATION BUT ON FLOMAX & HAS NO PROBLEM NOW (PER PT). - PSYCHIATRIC Hx Psychophysiologic Disorder: No Hx Substance Use: No - SURGICAL HISTORY Hx Surgeries: Yes Other/Comment: SIGMOID VOLVULUS/CHRONIC CONSTIPATION/SPONTANEOUS UNCONTROLLED FECAL EVACUATION, WITH HEMICOLECTOMY - ANESTHESIA Hx Anesthesia: Yes Hx Anesthesia Reactions: No Hx Malignant Hyperthermia: No Meds Allergies/Adverse Reactions: Allergies Allergy/AdvReac Type Severity Reaction Status Date / Time No Known Allergies Allergy Verified 08/05/17 07:40 - Medications Medications: Current Medications Sodium Chloride (Sodium Chloride 0.9%) 1,000 mls @ 125 mls/hr IV .Q8H [facility] Stop: 01/06/18 14:03 Last Admin: 01/06/18 06:37 Dose: 125 mls/hr Piperacillin Sod/Tazobactam (Sod 3.375 gm/ Sodium Chloride) 100 mls @ 100 mls/ hr IVPB Q12 [facility] PRN Reason: Protocol Last Admin: 01/06/18 08:41 Dose: Not Given Acetaminophen (Ofirmev) 100 mls @ 400 mls/hr IVPB Q6H [facility] PRN Reason: Protocol Stop: 01/07/18 10:46 Ondansetron HCl (Zofran Odt) 8 mg PO Q8H PRN PRN Reason: Nausea/Vomiting Pantoprazole Sodium (Protonix Inj) 40 mg IVP DAILY [facility] Last Admin: 01/06/18 10:36 Dose: 40 mg Physical Exam - Constitutional Appears: In Acute Distress - Head Exam Head Exam: ATRAUMATIC, NORMOCEPHALIC - Eye Exam Eye Exam: EOMI, Normal appearance - ENT Exam ENT Exam: Mucous Membranes Moist - Respiratory Exam Respiratory Exam: NORMAL BREATHING PATTERN - Cardiovascular Exam Cardiovascular Exam: +S1, +S2 - GI/Abdominal Exam GI & Abdominal Exam: Distended, Rigid, Tenderness. absent: Hernia - Neurological Exam Neurological exam: Alert, Oriented x3 - Psychiatric Exam Psychiatric exam: Normal Affect, Normal Mood - Skin Skin Exam: Dry, Intact Results - Vital Signs Recent Vital Signs: Last Vital Signs Temp 99 F 01/06/18 07:44 Pulse 121 H 01/06/18 10:07 Resp 20 01/06/18 09:56 BP 118/79 01/06/18 09:56 Pulse Ox 96 01/06/18 09:56 - Labs Result Diagrams: 01/06/18 01:25 01/06/18 01:25 Labs: Laboratory Results - last 24 hr 01/06/18 01/06/18 01/06/18 01:25 01:25 04:00 WBC 16.9 H D RBC 4.32 L Hgb 12.5 Hct 38.3 MCV 88.6 MCH 29.0 MCHC 32.7 L RDW 13.2 Plt Count 215 MPV 9.4 Neut % (Auto) 90.0 H Lymph % (Auto) 5.0 L [place] % (Auto) 4.8 Eos % (Auto) 0.0 Baso % (Auto) 0.2 Neut # (Auto) 15.2 H Lymph # (Auto) 0.8 L [place] # (Auto) 0.8 Eos # (Auto) 0.0 Baso # (Auto) 0.0 Neutrophils % (Manual) 88 H Lymphocytes % (Manual) 8 L Monocytes % (Manual) 4 Platelet Estimate Normal RBC Morphology Normal pCO2 pO2 HCO3 ABG pH ABG Total CO2 ABG O2 Saturation ABG Base Excess Rip Test ABG Potassium A-a O2 Difference Glucose Lactate FiO2 Crit Value Called To Crit Value Called By Crit Value Read Back Blood Gas Notified Time Sodium 136 Potassium 4.2 Chloride 98 Carbon Dioxide 24 Anion Gap 18 BUN 22 H Creatinine 0.8 Est GFR ( Amer) > 60 Est GFR (Non-Af Amer) > 60 Random Glucose 120 H Calcium 9.3 Total Bilirubin 1.2 AST 31 ALT 45 Alkaline Phosphatase 138 H D Total Protein 8.7 H Albumin 4.3 Globulin 4.4 H Albumin/Globulin Ratio 1.0 Arterial Blood Potassium Urine Color Ana Urine Clarity Cloudy Urine pH 5.0 Ur Specific [place] 1.035 H Urine Protein 100 Urine Glucose (UA) Neg Urine Ketones Negative Urine Blood Negative Urine Nitrate Negative Urine Bilirubin Negative Urine Urobilinogen 0.2-1.0 Ur Leukocyte Esterase Neg Urine RBC (Auto) 7 H Urine Microscopic WBC 3 Ur Squamous Epith Cells < 1 Urine Bacteria Rare Hyaline Casts 11-20 H 01/06/ 06:09 WBC RBC Hgb Hct MCV MCH MCHC RDW Plt Count MPV Neut % (Auto) Lymph % (Auto) Faulkner % (Auto) Eos % (Auto) Baso % (Auto) Neut # (Auto) Lymph # (Auto) Fa[place]ner # (Auto) Eos # (Auto) Baso # (Auto) Neutrophils % (Manual) Lymphocytes % (Manual) Monocytes % (Manual) Platelet Estimate RBC Morphology pCO2 43 pO2 44 L* HCO3 26.2 ABG pH 7.41 ABG Total CO2 28.6 H ABG O2 Saturation 86.3 L ABG Base Excess 2.2 Rip Test Yes ABG Potassium 3.5 L A-a O2 Difference 52.0 Glucose 110 Lactate 0.7 FiO2 21.0 Crit Value Called To Kaela toro md Crit Value Called By 292 Crit Value Read Back Y Blood Gas Notified Time 617 Sodium 131.0 L Potassium Chloride 100.0 Carbon Dioxide Anion Gap BUN Creatinine Est GFR ( Amer) Est GFR (Non-Af Amer) Random Glucose Calcium Total Bilirubin AST ALT Alkaline Phosphatase Total Protein Albumin Globulin Albumin/Globulin Ratio Arterial Blood Potassium 3.5 L Urine Color Urine Clarity Urine pH Ur Specific [place] Urine Protein Urine Glucose (UA) Urine Ketones Urine Blood Urine Nitrate Urine Bilirubin Urine Urobilinogen Ur Leukocyte Esterase Urine RBC (Auto) Urine Microscopic WBC Ur Squamous Epith Cells Urine Bacteria Hyaline Casts Assessment & Plan - Assessment and Plan (Free Text) Assessment: 57M presents with abdominal pain and free extraluminal air most likely secondary to obstructional perforation OR today for exlap and blowhole colostomy NPO NGT to suction IVF ABX Monitor vitals AM labs Pain control 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 Geovanni Mayfield PGY2
[2018-01-06] MEDS ORDERED: Trimethobenzamide 200 mg/2 mL Inj IM ONE (12:53)
[2018-01-06] MEDS ORDERED: Morphine 4 MG/ML VIAL IVP PRN (12:54)
[2018-01-06] MEDS ORDERED: Lactated Ringer's 1,000 ML IV SCH (13:00)
--- NOTE | 2018-01-06 13:05 | PCM.ANESB5 ---
Transverse Abdominis Block - Transverse Abdominis Plane Date of Procedure: 01/06/18 Anesthesiologist: Afia Pre-Procedure Diagnosis: Colonic obstruction Post-Procedure Diagnosis: Same Procedure Performed: Transverse Abdominis Plane Nerve Block Left, Transverse Abdominis Plane Nerve Block Right - Procedure Transverse Abdominis Plane Nerve Block: The rectus sheath block procedure was explained to the patient that it is for post-operative pain management and would be performed after surgery. Consent was obtained prior to surgery after a thorough discussion with the patient regarding the benefits and possible complications of rectus sheath block. After the surgery had concluded and before the patient emerged from general anesthesia , time-out was held with the circulating nurse to re-confirm the appropriate block. With the patient in supine position, the ultrasound probe was placed transversely to the abdominal wall at the level of the midpoint of the rectus abdominus at the midpoint of the incision. The skin, subcutaneous tissue, fat, rectus muscle, posterior rectus fascia,and peritonium and bowel were identified. No vascular structures were visualzed on the screen. The general area of the block site was then prepped with Chloraprep. At this point, a # 21-gauge Stimuplex 4-inch needle was inserted posterior to and in plane with the ultrasound probe and directed medially . Needle was advanced under direct ultrasound visualization until it reached the plane between the rectus muscle and the posterior rectus fascia. No vessels were seen or penetrated along the path of the needle. After appropriate placement, 2mL of local anesthetic solution was injected. When the plane between the muscle and fascia was observed expanding in an ellipsoid way, the rest of the solution was slowly injected. A total of __30____ mL of ___0.25__ % __bupivicaine was used for this block. The needle was then removed and sterile dressing was applied. Similarly, the same procedure was performed on the other side using the same medications. The patient had stable vital signs throughout and had no untoward complications after emergence from general anesthesia in the recovery room.
[2018-01-06] MEDS: Lactated Ringer's 1,000 ML IV SCH (23:00)
[2018-01-07] MEDS: Lactated Ringer's 1,000 ML IV SCH ×2 (04:14→19:42)
[2018-01-07 05:26] LABS: BASO # 0.1 K/uL (0.0-0.2); BASO % 0.4 % (0.0-2.0); HEMOGLOBIN 10.8 g/dL (12.0-18.0); LYMPH # 0.6 K/uL (1.0-4.3); LYMPH % 4.8 % (20.0-40.0); MEAN CELL VOLUME 89.7 fl (80.0-94.0); MEAN CORPUSCULAR HEMOGLOBIN 29.1 pg (27.0-31.0); MEAN CORPUSCULAR HGB CONC 32.5 g/dL (33.0-37.0); MEAN PLATELET VOLUME 9.2 fl (7.2-11.7); MONO # 0.6 K/uL (0.0-0.8); MONO % 4.6 % (0.0-10.0); NEUT % 90.2 % (50.0-75.0); RBC 3.73 Mil/uL (4.40-5.90); RED CELL DISTRIBUTION WIDTH 13.8 % (11.5-14.5); WHITE BLOOD COUNT 12.2 K/uL (4.8-10.8)
[2018-01-07 06:13] LABS: BLOOD UREA NITROGEN 17 mg/dl (9-20); CALCIUM 8.3 mg/dL (8.4-10.2); GFR AFRICAN-AMERICAN > 60; GFR NON-AFRICAN AMERICAN > 60
--- NOTE | 2018-01-07 08:33 | CP.PCM.PN ---
Subjective - Date & Time of Evaluation Date of Evaluation: 01/07/18 Time of Evaluation: 08:31 - Subjective Subjective: SURGERY NOTE FOR DR. SARMIENTO 57M seen and examined at bedside. Patient states pain is improving, denies nausea, vomiting, fevers. Patient denies flatus and bowel movement. Objective - Vital Signs/Intake and Output Vital Signs (last 24 hours): Temp Pulse Resp BP Pulse Ox 98 F 86 21 111/61 95 01/07/18 08:00 01/07/18 08:00 01/07/18 08:00 01/07/18 08:00 01/07/18 08:00 Intake and Output: 01/07/18 01/07/18 06:59 18:59 Intake Total 2800 Output Total 1200 Balance 1600 - Medications Medications: Current Medications Enoxaparin Sodium (Lovenox) 40 mg SC DAILY [facility] PRN Reason: Protocol Piperacillin Sod/Tazobactam (Sod 3.375 gm/ Sodium Chloride) 100 mls @ 100 mls/ hr IVPB Q12 [facility] PRN Reason: Protocol Last Admin: 01/06/18 20:04 Dose: 100 mls/hr Acetaminophen (Ofirmev) 100 mls @ 400 mls/hr IVPB Q6H [facility] PRN Reason: Protocol Stop: 01/07/18 10:46 Last Admin: 01/07/18 05:13 Dose: 400 mls/hr Lactated Ringer's (Lactated Ringer's) 1,000 mls @ 200 mls/hr IV .Q5H [facility] Last Admin: 01/07/18 04:14 Dose: 200 mls/hr Sodium Chloride (Sodium Chloride 0.9%) 1,000 mls @ 1,000 mls/hr IV .Q1H [facility] Stop: 01/07/18 22:17 Last Admin: 01/06/18 22:30 Dose: 1,000 mls/hr Morphine Sulfate (Morphine Hide Paster 1 Mg/Ml) 0 mg IV PRN PRN; Protocol PRN Reason: Pain, moderate (4-7) Last Admin: 01/06/18 15:30 Dose: 1 mg Ondansetron HCl (Zofran Odt) 8 mg PO Q8H PRN PRN Reason: Nausea/Vomiting Pantoprazole Sodium (Protonix Inj) 40 mg IVP DAILY [facility] Last Admin: 04/04/18 10:36 Dose: 40 mg - Labs Labs: 01/07/18 04:40 01/07/18 04:40 - Constitutional Appears: Well, Non-toxic, No Acute Distress - Respiratory Exam Respiratory Exam: Clear to Ausculation Bilateral, NORMAL BREATHING PATTERN - Cardiovascular Exam Cardiovascular Exam: REGULAR RHYTHM, +S1, +S2 - GI/Abdominal Exam GI & Abdominal Exam: Soft, Tenderness. absent: Distended, Firm, Guarding, Rigid Additional comments: YULISA drain in place - 75cc serosanguinous output - Neurological Exam Neurological Exam: Alert, Awake - Psychiatric Exam Psychiatric exam: Normal Affect, Normal Mood - Skin Skin Exam: Dry, Intact, Normal Color, Warm Assessment and Plan - Assessment and Plan (Free Text) Assessment: 57M s/p exploratory laparotomy with transverse colon blow hole creation POD1 Plan: - NPO, IVF - Pain control - continue antibiotics - continue anticoagulation - Monitor drain output - DC gar[place] - OOB - IS Further recs discuss with Dr. Geovanni Andrew, PGY2
[2018-01-07] MEDS: Enoxaparin 40 mg Syringe SC SCH (09:21)
[2018-01-07] MEDS: Piperacillin/Tazobact 3.375 GM in Sodium Chloride 0.9% 100 ML IVPB SCH ×2 (10:55→21:55)
--- NOTE | 2018-01-07 13:12 | CP.PCM.CON ---
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 The patient states that over the last 10 days he has noted intermittent, intensifying left sided abdominal pain and worsening abdominal distention. 10+/10 Pain comes in waves at approximately 20 minute intervals over the left flank. He has noted more difficulty passing flatus over the last week, has not passed flatus today and continues to have multiple episodes of loose watery stool daily with episodes of fecal incontinence increasing this past week. In the last 48 hours he has been more nauseated and had decreased appetite. As symptoms became unbearable, he came to the ED for further evaluation. Patient denies any rectal bleeding/hematochezia/ melena, weight loss, vomiting, fever, chills. Presently, he states pain is tolerable but does still have tenderness with palpation of the LLQ/flank. Review of Systems - Review of Systems Review of Systems: 12 point ROS as per HPI Past Patient History - Past Medical History & Family History Past Medical History?: Yes - Past Social History Smoking Status: Never Smoked - CARDIAC Hx Cardiac Disorders: Yes Hx Hypertension: Yes Hx Peripheral Edema: Yes - PULMONARY Hx Respiratory Disorders: Yes Hx Asthma: Yes - NEUROLOGICAL Hx Neurological Disorder: No Hx Transient Ischemic Attacks (TIA): No - HEENT Hx HEENT Problems: No - RENAL Hx Chronic Kidney Disease: No - ENDOCRINE/METABOLIC Hx Endocrine Disorders: No - HEMATOLOGICAL/ONCOLOGICAL Hx Blood Disorders: Yes Hx Blood Transfusions: Yes Hx Blood Transfusion Reaction: No - INTEGUMENTARY Hx Dermatological Problems: No - MUSCULOSKELETAL/RHEUMATOLOGICAL Hx Musculoskeletal Disorders: Yes Hx Falls: No Hx Fractures: Yes (5TH FINGER LEFT HAND- NO TX.) - GASTROINTESTINAL Hx Gastrointestinal Disorders: Yes Hx Bowel Surgery: Yes (HEMICOLECTOMY 2015) Hx Colostomy: No Hx Hemorrhoids: Yes (INTERNAL) Hx Ulcer: Yes (GASTRIC) Other/Comment: HX: SIGMOID VOLVULUS/CHRONIC CONSTIPATION/SPONTANEOUS UNCONTROLLED FECAL EVACUATION, WITH HEMICOLECTOMY - GENITOURINARY/GYNECOLOGICAL Hx Genitourinary Disorders: Yes Hx Prostate Problems: Yes Other/Comment: PATIENT HAS HESITANCY UPON URINATION BUT ON FLOMAX & HAS NO PROBLEM NOW (PER PT). - PSYCHIATRIC Hx Psychophysiologic Disorder: No Hx Substance Use: No - SURGICAL HISTORY Hx Surgeries: Yes Other/Comment: SIGMOID VOLVULUS/CHRONIC CONSTIPATION/SPONTANEOUS UNCONTROLLED FECAL EVACUATION, WITH HEMICOLECTOMY - ANESTHESIA Hx Anesthesia: Yes Hx Anesthesia Reactions: No Hx Malignant Hyperthermia: No Meds Allergies/Adverse Reactions: Allergies Allergy/AdvReac Type Severity Reaction Status Date / Time No Known Allergies Allergy Verified 08/05/17 07:40 - Medications Medications: Current Medications Enoxaparin Sodium (Lovenox) 40 mg SC DAILY [facility] PRN Reason: Protocol Last Admin: 01/07/18 09:21 Dose: 40 mg Piperacillin Sod/Tazobactam (Sod 3.375 gm/ Sodium Chloride) 100 mls @ 100 mls/ hr IVPB Q12 [facility] PRN Reason: Protocol Last Admin: 01/07/18 10:55 Dose: 100 mls/hr Lactated Ringer's (Lactated Ringer's) 1,000 mls @ 200 mls/hr IV .Q5H [facility] Last Admin: 01/07/18 04:14 Dose: 200 mls/hr Sodium Chloride (Sodium Chloride 0.9%) 1,000 mls @ 1,000 mls/hr IV .Q1H [facility] Stop: 01/07/18 22:17 Last Admin: 01/06/18 22:30 Dose: 1,000 mls/hr Morphine Sulfate (Morphine Licensed Retail Supervisor 1 Mg/Ml) 0 mg IV PRN PRN; Protocol PRN Reason: Pain, moderate (4-7) Last Admin: 01/06/18 15:30 Dose: 1 mg Ondansetron HCl (Zofran Odt) 8 mg PO Q8H PRN PRN Reason: Nausea/Vomiting Pantoprazole Sodium (Protonix Inj) 40 mg IVP DAILY [facility] Last Admin: 01/07/18 09:16 Dose: 40 mg Physical Exam - Constitutional Appears: Well, Non-toxic, No Acute Distress - Head Exam Head Exam: ATRAUMATIC, NORMAL INSPECTION, NORMOCEPHALIC - Eye Exam Eye Exam: EOMI, Normal appearance, PERRL - ENT Exam ENT Exam: Mucous Membranes Moist, Normal Exam - Neck Exam Neck exam: Positive for: Normal Inspection - Respiratory Exam Respiratory Exam: Clear to Auscultation Bilateral, NORMAL BREATHING PATTERN - Cardiovascular Exam Cardiovascular Exam: REGULAR RHYTHM, RRR, +S1, +S2 - GI/Abdominal Exam GI & Abdominal Exam: Diminished Bowel Sounds, Distended, Hypoactive Bowel Sounds Additional comments: YULISA drain in place + - Extremities Exam Extremities exam: Positive for: normal inspection - Back Exam Back exam: FULL ROM, NORMAL INSPECTION - Neurological Exam Neurological exam: Normal Gait, Oriented x3 - Psychiatric Exam Psychiatric exam: Normal Affect, Normal Mood - Skin Skin Exam: Dry, Intact, Normal Color Results - Vital Signs Recent Vital Signs: Last Vital Signs Temp 98.1 F 01/07/18 12:00 Pulse 88 01/07/18 12:00 Resp 21 01/07/18 12:00 BP 116/75 01/07/18 12:00 Pulse Ox 95 01/07/18 12:00 - Labs Result Diagrams: 01/07/18 04:40 01/07/18 04:40 Labs: Laboratory Results - last 24 hr 01/07/18 01/07/18 04:40 04:40 WBC 12.2 H RBC 3.73 L Hgb 10.8 L Hct 33.4 L MCV 89.7 MCH 29.1 MCHC 32.5 L RDW 13.8 Plt Count 138 MPV 9.2 Neut % (Auto) 90.2 H Lymph % (Auto) 4.8 L Allen % (Auto) 4.6 Eos % (Auto) 0.0 Baso % (Auto) 0.4 Neut # (Auto) 11.0 H Lymph # (Auto) 0.6 L Allen # (Auto) 0.6 Eos # (Auto) 0.0 Baso # (Auto) 0.1 Total Counted Cancelled Neutrophils % (Manual) Cancelled Band Neutrophils % Cancelled Lymphocytes % (Manual) Cancelled Reactive Lymphs % Cancelled Monocytes % (Manual) Cancelled Eosinophils % (Manual) Cancelled Basophils % (Manual) Cancelled Metamyelocytes % Cancelled Myelocytes % Cancelled Promyelocytes % Cancelled Blast Cells % Cancelled Plasma Cell % (Manual) Cancelled Nucleated RBC % Cancelled Hypersegmented Polys Cancelled Smudge Cells Cancelled Toxic Granulation Cancelled Dohle Bodies Cancelled Shea Rods Cancelled Platelet Estimate Cancelled Plt Clumps, EDTA Cancelled Large Platelets Cancelled Giant Platelets Cancelled RBC Morphology Cancelled Polychromasia Cancelled Hypochromasia (manual) Cancelled Poikilocytosis (manual Cancelled Basophilic Stippling Cancelled Anisocytosis (manual) Cancelled Microcytosis (manual) Cancelled Macrocytosis (manual) Cancelled Spherocytes Cancelled Sickle Cells Cancelled Target Cells Cancelled Tear Drop Cells Cancelled Ovalocytes Cancelled Stomatocytes Cancelled Helmet Cells Cancelled Albert-Blue Eye Bodies Cancelled [place] Cells Cancelled Acanthocytes (Spur) Cancelled Rouleaux Cancelled Schistocytes Cancelled Sodium 139 Potassium 4.2 Chloride 106 Carbon Dioxide 23 Anion Gap 14 BUN 17 Creatinine 0.7 L Est GFR ( Amer) > 60 Est GFR (Non-Af Amer) > 60 Random Glucose 112 H Calcium 8.3 L Assessment & Plan - Assessment and Plan (Free Text) Assessment: This is a 57 year old male with history of sigmoid volvulus s/p 30 cm segmental resection in 2016, HTN, BPH, chronic constipation/diarrhea who presents to hospital with complaint of progressive abdominal pain and bowel perforation s/p exploratory lapratomy and loop ostomy with YULISA drains in place Plan: - NPO - Continue with IVF hydration, supportive care - Iv antibiotics - Pain control - Monitor YULISA drain output - Loop ostomy in place - No current indication for colonoscopy- last colonoscopy was last month with biopsies - No stricture was seen on bowel run through or on colonoscopy - rest of plan as per surgery - GI/DVT prophylaxis
--- NOTE | 2018-01-07 17:09 | CP.PCM.HP ---
History of Present Illness - History of Present Illness History of Present Illness: CC: Abdominal pain. 57 y/o M, Hx of Sigmoid volvulus, s/p Hemicolectomy 2016, chronic diarrhea, [facility] of abdominal pain for the last 10 days, gradually increased /worsening, on day [employer] with no relief. Pt was c/o of generalized abdominal pain, more prominent at the LLQ, pain was moaning, intermittent and continue at times, severe intensity 10:10, associated to nausea, diarrhea with tenderness and distended. Worsening symptoms: Abdomen/Pelv CT showed bowel perforation near site of previous sigmoidectomy in 2016. Aggravated factor: Food. Pt denied: Fever, chills, rectal bleeding, vomiting, urinary symptoms, CP, palpitations, SOB, cough, sick contact, recent travel out of [facility]. CXR: No acute finding. On DOA, Pt went to OR for surgical exploratory Laparotomy and transverse colostomy, after recovery was admitted to ICU. Present on Admission - Present on Admission Any Indicators Present on Admission: No Review of Systems - Constitutional Constitutional: Other (negative) - EENT Eyes: Requires Corrective Lenses Ears: Other (negative) Nose/Mouth/Throat: Other (negative) - Cardiovascular Cardiovascular: Rapid Heart Rate - Respiratory Respiratory: Other (negative) - Gastrointestinal Gastrointestinal: Abdominal Pain, Diarrhea, Nausea - Genitourinary Genitourinary: Other (negative) - Musculoskeletal Musculoskeletal: Other (negative) - Integumentary Integumentary: Other (negative) - Neurological Neurological: Other (negative) - Psychiatric Psychiatric: Other (negative) - Endocrine Endocrine: Other (obese > 20% IDW) - Hematologic/Lymphatic Hematologic: Other (negative) Past Patient History - Past Medical History & Family History Past Medical History?: Yes Pertinent Family History: Unknown - Past Social History Smoking Status: Never Smoked Alcohol: None Drugs: Denies Home Situation {Lives}: With Family - CARDIAC Hx Cardiac Disorders: Yes Hx Hypertension: Yes Hx Peripheral Edema: Yes - PULMONARY Hx Respiratory Disorders: Yes Hx Asthma: Yes - NEUROLOGICAL Hx Neurological Disorder: No Hx Transient Ischemic Attacks (TIA): No - HEENT Hx HEENT Problems: No - RENAL Hx Chronic Kidney Disease: No - ENDOCRINE/METABOLIC Hx Endocrine Disorders: No - HEMATOLOGICAL/ONCOLOGICAL Hx Blood Disorders: Yes Hx Blood Transfusions: Yes Hx Blood Transfusion Reaction: No - INTEGUMENTARY Hx Dermatological Problems: No - MUSCULOSKELETAL/RHEUMATOLOGICAL Hx Musculoskeletal Disorders: Yes Hx Falls: No Hx Fractures: Yes (5TH FINGER LEFT HAND- NO TX.) - GASTROINTESTINAL Hx Gastrointestinal Disorders: Yes Hx Bowel Surgery: Yes (HEMICOLECTOMY 2015) Hx Colostomy: No Hx Hemorrhoids: Yes (INTERNAL) Hx Ulcer: Yes (GASTRIC) Other/Comment: HX: SIGMOID VOLVULUS/CHRONIC CONSTIPATION/SPONTANEOUS UNCONTROLLED FECAL EVACUATION, WITH HEMICOLECTOMY - GENITOURINARY/GYNECOLOGICAL Hx Genitourinary Disorders: Yes Hx Prostate Problems: Yes Other/Comment: PATIENT HAS HESITANCY UPON URINATION BUT ON FLOMAX & HAS NO PROBLEM NOW (PER PT). - PSYCHIATRIC Hx Psychophysiologic Disorder: No Hx Substance Use: No - SURGICAL HISTORY Hx Surgeries: Yes Other/Comment: SIGMOID VOLVULUS/CHRONIC CONSTIPATION/SPONTANEOUS UNCONTROLLED FECAL EVACUATION, WITH HEMICOLECTOMY - ANESTHESIA Hx Anesthesia: Yes Hx Anesthesia Reactions: No Hx Malignant Hyperthermia: No Meds Allergies/Adverse Reactions: Allergies Allergy/AdvReac Type Severity Reaction Status Date / Time No Known Allergies Allergy Verified 08/05/17 07:40 Physical Exam - Constitutional Appears: No Acute Distress - Head Exam Head Exam: NORMAL INSPECTION - Eye Exam Eye Exam: PERRL - ENT Exam ENT Exam: Normal Exam - Neck Exam Neck exam: Positive for: Normal Inspection - Respiratory Exam Respiratory Exam: NORMAL BREATHING PATTERN - Cardiovascular Exam Cardiovascular Exam: REGULAR RHYTHM - GI/Abdominal Exam GI & Abdominal Exam: Diminished Bowel Sounds, Soft, Tenderness (mild). absent: Distended, Guarding, Rebound Additional comments: ostotomy bag , YULISA drain - Extremities Exam Additional comments: 1+ pitting edema upper extremities - Back Exam Back exam: NORMAL INSPECTION - Neurological Exam Neurological exam: Alert, Oriented x3 - Psychiatric Exam Psychiatric exam: Normal Mood - Skin Skin Exam: Warm Results - Vital Signs Recent Vital Signs: Last Vital Signs Temp 98.2 F 01/07/18 16:00 Pulse 82 01/07/18 16:00 Resp 11 L 01/07/18 16:00 BP 121/61 01/07/18 16:00 Pulse Ox 96 01/07/18 16:00 reviewed Elia - Labs Result Diagrams: 01/08/18 05:00 01/08/18 05:00 Labs: Laboratory Results - last 24 hr 01/07/18 01/07/18 04:40 04:40 WBC 12.2 H RBC 3.73 L Hgb 10.8 L Hct 33.4 L MCV 89.7 MCH 29.1 MCHC 32.5 L RDW 13.8 Plt Count 138 MPV 9.2 Neut % (Auto) 90.2 H Lymph % (Auto) 4.8 L [place] % (Auto) 4.6 Eos % (Auto) 0.0 Baso % (Auto) 0.4 Neut # (Auto) 11.0 H Lymph # (Auto) 0.6 L [place] # (Auto) 0.6 Eos # (Auto) 0.0 Baso # (Auto) 0.1 Total Counted Cancelled Neutrophils % (Manual) Cancelled Band Neutrophils % Cancelled Lymphocytes % (Manual) Cancelled Reactive Lymphs % Cancelled Monocytes % (Manual) Cancelled Eosinophils % (Manual) Cancelled Basophils % (Manual) Cancelled Metamyelocytes % Cancelled Myelocytes % Cancelled Promyelocytes % Cancelled Blast Cells % Cancelled Plasma Cell % (Manual) Cancelled Nucleated RBC % Cancelled Hypersegmented Polys Cancelled Smudge Cells Cancelled Toxic Granulation Cancelled Dohle Bodies Cancelled Shea Rods Cancelled Platelet Estimate Cancelled Plt Clumps, EDTA Cancelled Large Platelets Cancelled Giant Platelets Cancelled RBC Morphology Cancelled Polychromasia Cancelled Hypochromasia (manual) Cancelled Poikilocytosis (manual Cancelled Basophilic Stippling Cancelled Anisocytosis (manual) Cancelled Microcytosis (manual) Cancelled Macrocytosis (manual) Cancelled Spherocytes Cancelled Sickle Cells Cancelled Target Cells Cancelled Tear Drop Cells Cancelled Ovalocytes Cancelled Stomatocytes Cancelled Helmet Cells Cancelled Albert-Forbes Bodies Cancelled Hawkins Cells Cancelled Acanthocytes (Spur) Cancelled Rouleaux Cancelled Schistocytes Cancelled Sodium 139 Potassium 4.2 Chloride 106 Carbon Dioxide 23 Anion Gap 14 BUN 17 Creatinine 0.7 L Est GFR ( Amer) > 60 Est GFR (Non-Af Amer) > 60 Random Glucose 112 H Calcium 8.3 L reviewed J.P. - Imaging and Cardiology Chest x-ray Status: Report reviewed by me (JJerryP.) CT scan - abdomen Status: Report reviewed by me (J.P.) CT scan - pelvis Status: Report reviewed by me (J.P.) Assessment & Plan (1) Bowel obstruction Status: Acute Priority: High Comment: Without fecal Peritonitis. (2) Status post exploratory laparotomy Status: Acute Priority: High Comment: with transverse Coostomy (3) Abdominal pain Status: Acute Priority: High - Assessment and Plan (Free Text) Plan: Continue Zosyn, Lovenox and rest of Tx. Surgical consult appreciated. - Date & Time Date: 01/07/18 Time: 10:40
--- NOTE | 2018-01-07 21:01 | OP ---
PROCEDURE DATE: 01/06/2018 PREOPERATIVE DIAGNOSIS: Colonic obstruction, possible colonic perforation. POSTOPERATIVE DIAGNOSIS: Distal colonic obstruction. PROCEDURE: Exploratory laparotomy and transverse colostomy. SURGEON: Tierra Galarza MD AUTO TECH: Dr. Mayfield and Dr. Disla. TYPE OF ANESTHESIA: General. ANESTHESIA ADMINISTERED BY: Fabricio Oreilly MD DESCRIPTION OF OPERATION: With the patient in the supine position under adequate general anesthesia, a Ball catheter was inserted and the abdomen was prepped and draped in the usual sterile manner. The patient had a previous lower and umbilical midline incisions and midline incision was made above the umbilicus and taken down through the subcutaneous tissue. The peritoneal cavity was entered in the midline. Upon entering the peritoneal cavity, there was no evidence of free fluid or contamination and there was noted to be markedly dilated colon as well as some moderately dilated small bowel loops, palpation down to the left lower quadrant where the patient had a previous sigmoid resection and a retrocolic anastomosis also did not reveal any gross evidence of perforation and only a small amount of fluid was identified in the left gutter. The site of a transverse colostomy was identified and a transverse incision was made to the right of the main incision taken down through the subcutaneous tissues and the muscle was split to allow formation of a 1-1/2 inch fascial opening. A point on the transverse colon which was relatively mobile was decompressed using a 14-gauge Angiocath with removal of large amount of gas and the site of this decompression was then fed up into the defect to become blow-hole ostomy. was noted to pass easily up to the level of the skin and was maintained there with seromuscular sutures well a 19-Syriac Arsh drain was placed in the left gutter down to the area of the previous anastomosis and brought out through a left-sided stab incision, When this had been completed, the midline incision was closed with running fascial suture of double-stranded #1 PDS. The skin was closed with jamari and a dry sterile dressing was applied. The colostomy was then matured primarily with full thickness transcutaneous sutures of 2-0 Vicryl and opened palpation within the defect noted that there was free passage into the colon and a passage of a suction catheter revealed a small amount of semiformed stool as well as some gas. The stoma was noted to be pink and viable and a colostomy appliance was applied. The patient tolerated the procedure well and transferred to recovery room in stable condition. Estimated blood loss for the procedure was 10 mL. Tierra Galarza MD JOSE
[2018-01-07] MEDS ORDERED: Oxycodone/Acetaminophen 5/325 mg Tab PO PRN (21:15)
[2018-01-08] MEDS: Lactated Ringer's 1,000 ML IV SCH (01:34)
[2018-01-08] MEDS: Morphine 4 MG/ML VIAL IVP PRN ×2 (01:38→07:55)
[2018-01-08 05:23] LABS: BASO % 0.1 % (0.0-2.0); EOS # 0.4 K/uL (0.0-0.7); EOS % 3.3 % (0.0-4.0); HEMOGLOBIN 10.9 g/dL (12.0-18.0); LYMPH # 1.4 K/uL (1.0-4.3); LYMPH % 12.2 % (20.0-40.0); MEAN CELL VOLUME 89.4 fl (80.0-94.0); MEAN CORPUSCULAR HEMOGLOBIN 29.3 pg (27.0-31.0); MEAN CORPUSCULAR HGB CONC 32.8 g/dL (33.0-37.0); MEAN PLATELET VOLUME 8.9 fl (7.2-11.7); MONO # 0.7 K/uL (0.0-0.8); MONO % 6.1 % (0.0-10.0); NEUT # 8.8 K/uL (1.8-7.0); NEUT % 78.3 % (50.0-75.0); NRBC % 0.1 % (0.0-0.0); RBC 3.73 Mil/uL (4.40-5.90); WHITE BLOOD COUNT 11.3 K/uL (4.8-10.8)
[2018-01-08 05:33] LABS: BLOOD UREA NITROGEN 14 mg/dl (9-20); CALCIUM 8.7 mg/dL (8.4-10.2); GFR AFRICAN-AMERICAN > 60; GFR NON-AFRICAN AMERICAN > 60
--- NOTE | 2018-01-08 08:07 | CP.PCM.PN ---
Subjective - Date & Time of Evaluation Date of Evaluation: 01/08/18 Time of Evaluation: 06:45 - Subjective Subjective: Patient seen and examined. Tolerating liquid diet. Reports abdominal pain has improved. Scant serosanguinous output from YULISA drain. Denies n/v. Passing flatus into ostomy bag. Objective - Vital Signs/Intake and Output Vital Signs (last 24 hours): Temp Pulse Resp BP Pulse Ox 97.7 F 97 H 18 129/76 97 01/08/18 04:00 01/08/18 04:00 01/08/18 04:00 01/08/18 04:00 01/08/18 04:00 Intake and Output: 01/08/18 01/08/18 06:59 18:59 Output Total 5 Balance -5 - Medications Medications: Current Medications Bisacodyl (Dulcolax) 10 mg [place] DAILY [facility] Enoxaparin Sodium (Lovenox) 40 mg SC DAILY [facility] PRN Reason: Protocol Last Admin: 01/07/18 09:21 Dose: 40 mg Piperacillin Sod/Tazobactam (Sod 3.375 gm/ Sodium Chloride) 100 mls @ 100 mls/ hr IVPB Q12 [facility] PRN Reason: Protocol Last Admin: 01/07/18 21:55 Dose: 100 mls/hr Potassium Chloride/Dextrose/Sod Cl (Potassium Chl 20 Meq In D5-1/2ns) 1,000 mls @ 75 mls/hr IV .[id number] [facility] Stop: 01/09/18 08:04 Morphine Sulfate (Morphine) 2 mg IVP Q4 PRN PRN Reason: Pain, severe (8-10) Last Admin: 01/08/18 07:55 Dose: 2 mg Ondansetron HCl (Zofran Odt) 8 mg PO Q8H PRN PRN Reason: Nausea/Vomiting Oxycodone/Acetaminophen (Percocet 5/325 Mg Tab) 1 tab PO Q4 PRN PRN Reason: Pain, moderate (4-7) Stop: 01/10/18 21:16 Pantoprazole Sodium (Protonix Inj) 40 mg IVP DAILY [facility] Last Admin: 01/07/18 09:16 Dose: 40 mg - Labs Labs: 01/08/18 05:00 01/08/18 05:00 - Constitutional Appears: No Acute Distress - Head Exam Head Exam: NORMOCEPHALIC - Eye Exam Eye Exam: Normal appearance - ENT Exam ENT Exam: Mucous Membranes Moist - Respiratory Exam Respiratory Exam: NORMAL BREATHING PATTERN - Cardiovascular Exam Cardiovascular Exam: +S1, +S2 - GI/Abdominal Exam GI & Abdominal Exam: Soft - Neurological Exam Neurological Exam: Alert, Awake, Oriented x3 - Psychiatric Exam Psychiatric exam: Normal Mood - Skin Skin Exam: Dry, Intact, Warm Assessment and Plan - Assessment and Plan (Free Text) Assessment: 57M w/ LBO s/p laparotomy with blowhole stoma formation POD2 Plan: -CLD -C/w abx -C/w Anti-coagulation -Ok to transfer from ICU to Med/Surg from surgical standpoint -Medical management per primary team -Analgesic -Encourage IS use and ambulation -Further recs per Dr. Geovanni Zuniga PGY2
[2018-01-08] MEDS: Enoxaparin 40 mg Syringe SC SCH (08:17)
[2018-01-08] MEDS: Piperacillin/Tazobact 3.375 GM in Sodium Chloride 0.9% 100 ML IVPB SCH ×2 (08:19→20:23)
[2018-01-08] MEDS: Potassium Ch 20mEq in D5-1/2NS 1,000 ML IV SCH (10:17)
[2018-01-08] MEDS ORDERED: Simethicone 80 mg Chewtab PO PRN (10:56)
[2018-01-08] MEDS: oxyCODONE 5 mg Immediate Release Tab PO PRN ×2 (13:02→18:53)
--- NOTE | 2018-01-08 16:32 | CP.PCM.PN ---
Subjective - Date & Time of Evaluation Date of Evaluation: 01/08/18 Time of Evaluation: 13:00 - Subjective Subjective: F/U Bowel Obstruction. Pt feels better, taking full liquid diet, no abdominal pain. Ostotomy bag is working, Pt passing gases. Objective - Vital Signs/Intake and Output Vital Signs (last 24 hours): Temp Pulse Resp BP Pulse Ox 98.6 F 96 H 26 H 141/75 94 L 01/08/18 16:00 01/08/18 16:00 01/08/18 16:00 01/08/18 16:00 01/08/18 16:00 Intake and Output: 01/08/18 01/08/18 06:59 18:59 Intake Total 350 Output Total 805 Balance -455 - Medications Medications: Current Medications Bisacodyl (Dulcolax) 10 mg [place] DAILY [facility] Enoxaparin Sodium (Lovenox) 40 mg SC DAILY [facility] PRN Reason: Protocol Last Admin: 01/08/18 08:17 Dose: 40 mg Piperacillin Sod/Tazobactam (Sod 3.375 gm/ Sodium Chloride) 100 mls @ 100 mls/ hr IVPB Q12 [facility] PRN Reason: Protocol Last Admin: 01/08/18 08:19 Dose: 100 mls/hr Potassium Chloride/Dextrose/Sod Cl (Potassium Chl 20 Meq In D5-1/2ns) 1,000 mls @ 75 mls/hr IV .[id number] [facility] Stop: 01/09/18 08:04 Last Admin: 01/08/18 10:17 Dose: 75 mls/hr Ondansetron HCl (Zofran Odt) 8 mg PO Q8H PRN PRN Reason: Nausea/Vomiting Oxycodone HCl (Oxycodone Immediate Release Tab) 5 mg PO Q6 PRN PRN Reason: Pain, moderate (4-7) Last Admin: 01/08/18 13:02 Dose: 5 mg Pantoprazole Sodium (Protonix Inj) 40 mg IVP DAILY [facility] Last Admin: 01/08/18 08:15 Dose: 40 mg Simethicone (Mylicon Chew Tab) 80 mg PO TID PRN PRN Reason: Flatulence Last Admin: 01/08/18 12:58 Dose: 80 mg Tamsulosin HCl (Flomax) 0.4 mg PO DAILY [facility] - Labs Labs: 01/08/18 05:00 01/08/18 05:00 - Constitutional Appears: No Acute Distress - Head Exam Head Exam: NORMAL INSPECTION - Eye Exam Eye Exam: PERRL - ENT Exam ENT Exam: Normal Exam - Neck Exam Neck Exam: Normal Inspection - Respiratory Exam Respiratory Exam: NORMAL BREATHING PATTERN - Cardiovascular Exam Cardiovascular Exam: REGULAR RHYTHM - GI/Abdominal Exam GI & Abdominal Exam: Distended (mild), Soft, Diminished Bowel Sounds Additional comments: Ostotomy bag, YULISA drain - Extremities Exam Additional comments: 1+ pitting edema upper extremities. - Back Exam Back Exam: NORMAL INSPECTION - Neurological Exam Neurological Exam: Alert, Oriented x3 Additional comments: no focal motor/sensory deficit - Psychiatric Exam Psychiatric exam: Normal Mood - Skin Skin Exam: Warm Assessment and Plan (1) Bowel obstruction Status: Resolved (2) Status post exploratory laparotomy Status: Acute (3) Abdominal pain Status: Acute - Assessment and Plan (Free Text) Plan: Continue Zosyn IV, Protonix IV, Oxycodone, Lovenox and rest of Tx.
--- NOTE | 2018-01-08 17:51 | CP.PCM.PN ---
Subjective - Date & Time of Evaluation Date of Evaluation: 01/08/18 Time of Evaluation: 09:00 - Subjective Subjective: Patient seen at bedside in MICU this am. Sitting in chair. No fever. Ostomy with stool. Minimal serosanguinous in YULISA. Abdomen distended and tense. ON [employer]ELOPER pump Objective - Vital Signs/Intake and Output Vital Signs (last 24 hours): Temp Pulse Resp BP Pulse Ox 98.6 F 96 H 26 H 141/75 94 L 01/08/18 16:00 01/08/18 16:00 01/08/18 16:00 01/08/18 16:00 01/08/18 16:00 Intake and Output: 01/08/18 01/08/18 06:59 18:59 Intake Total 350 Output Total 805 Balance -455 - Medications Medications: Current Medications Bisacodyl (Dulcolax) 10 mg [place] DAILY [facility] Last Admin: 01/08/18 16:59 Dose: 10 mg Enoxaparin Sodium (Lovenox) 40 mg SC DAILY [facility] PRN Reason: Protocol Last Admin: 01/08/18 08:17 Dose: 40 mg Piperacillin Sod/Tazobactam (Sod 3.375 gm/ Sodium Chloride) 100 mls @ 100 mls/ hr IVPB Q12 [facility] PRN Reason: Protocol Last Admin: 01/08/18 08:19 Dose: 100 mls/hr Potassium Chloride/Dextrose/Sod Cl (Potassium Chl 20 Meq In D5-1/2ns) 1,000 mls @ 75 mls/hr IV .[id number] [facility] Stop: 01/09/18 08:04 Last Admin: 01/08/18 10:17 Dose: 75 mls/hr Ondansetron HCl (Zofran Odt) 8 mg PO Q8H PRN PRN Reason: Nausea/Vomiting Oxycodone HCl (Oxycodone Immediate Release Tab) 5 mg PO Q6 PRN PRN Reason: Pain, moderate (4-7) Last Admin: 01/08/18 13:02 Dose: 5 mg Pantoprazole Sodium (Protonix Inj) 40 mg IVP DAILY [facility] Last Admin: 01/08/18 08:15 Dose: 40 mg Simethicone (Mylicon Chew Tab) 80 mg PO TID PRN PRN Reason: Flatulence Last Admin: 01/08/18 12:58 Dose: 80 mg Tamsulosin HCl (Flomax) 0.4 mg PO DAILY [facility] - Labs Labs: 01/08/18 05:00 01/08/18 05:00 - Constitutional Appears: Well, Non-toxic - Head Exam Head Exam: ATRAUMATIC, NORMAL INSPECTION, NORMOCEPHALIC - Eye Exam Eye Exam: EOMI, Normal appearance, PERRL - Respiratory Exam Respiratory Exam: Clear to Ausculation Bilateral, NORMAL BREATHING PATTERN - Cardiovascular Exam Cardiovascular Exam: Tachycardia, REGULAR RHYTHM, +S1, +S2. absent: Murmur - GI/Abdominal Exam GI & Abdominal Exam: Distended, Soft, Hypoactive Bowel Sounds Additional comments: Guarding and tender. Ostomy with stool. - Neurological Exam Neurological Exam: Alert, Awake, Oriented x3 - Psychiatric Exam Psychiatric exam: Normal Affect, Normal Mood - Skin Skin Exam: Dry, Normal Color Assessment and Plan - Assessment and Plan (Free Text) Assessment: This is a 57 year old male with history of sigmoid volvulus s/p 30 cm segmental resection in 2016, HTN, BPH, chronic constipation/diarrhea who presents to hospital with complaint of progressive abdominal pain and bowel perforation s/p exploratory lapratomy and loop ostomy Plan: - NPO - Continue with IVF hydration, supportive care - IV antibiotics - Pain control - Loop ostomy in place - No current indication for colonoscopy- last colonoscopy was last month with biopsies - No stricture was seen on bowel run through or on colonoscopy - rest of plan as per surgery - GI/DVT prophylaxis
--- NOTE | 2018-01-08 18:26 | CARD ---
APPROVED REPORT EKG Measurement Heart [id number] IN [id number] [id number] <Conclusion> Sinus tachycardia Possible Left atrial enlargement Cannot rule out Anterior infarct, age undetermined Abnormal ECG
[2018-01-09] MEDS: oxyCODONE 5 mg Immediate Release Tab PO PRN ×3 (00:53→21:09)
[2018-01-09] MEDS: Potassium Ch 20mEq in D5-1/2NS 1,000 ML IV SCH (00:59)
[2018-01-09 05:40] LABS: HEMOGLOBIN 10.5 g/dL (12.0-18.0); MEAN CELL VOLUME 88.8 fl (80.0-94.0); MEAN CORPUSCULAR HEMOGLOBIN 29.5 pg (27.0-31.0); MEAN CORPUSCULAR HGB CONC 33.3 g/dL (33.0-37.0); RBC 3.57 Mil/uL (4.40-5.90); RED CELL DISTRIBUTION WIDTH 13.5 % (11.5-14.5); WHITE BLOOD COUNT 8.2 K/uL (4.8-10.8)
[2018-01-09 06:08] LABS: BLOOD UREA NITROGEN 10 mg/dl (9-20); CALCIUM 8.2 mg/dL (8.4-10.2); GFR AFRICAN-AMERICAN > 60; GFR NON-AFRICAN AMERICAN > 60
--- NOTE | 2018-01-09 07:00 | CP.PCM.PN ---
Subjective - Date & Time of Evaluation Date of Evaluation: 01/09/18 Time of Evaluation: 06:58 - Subjective Subjective: General Surgery Progress Note for Dr. Galarza This 57M was seen and examined this AM he was up in a donnie. He reports that he feels alot better. He reports last BM was yesterday from below. Since that time he has had gas from his stoma. Denies fevers chills chest pain, however notices increased upper extremity swelling bilaterally. Objective - Vital Signs/Intake and Output Vital Signs (last 24 hours): Temp Pulse Resp BP Pulse Ox 98.1 F 88 23 124/78 100 01/09/18 04:00 01/09/18 04:00 01/09/18 04:00 01/09/18 04:00 01/09/18 04:00 Intake and Output: 01/08/18 01/09/18 18:59 06:59 Intake Total 1415 75 Output Total 807 400 Balance 608 -325 - Medications Medications: Current Medications Bisacodyl (Dulcolax) 10 mg [place] DAILY [facility] Last Admin: 01/08/18 16:59 Dose: 10 mg Enoxaparin Sodium (Lovenox) 40 mg SC DAILY [facility] PRN Reason: Protocol Last Admin: 01/08/18 08:17 Dose: 40 mg Piperacillin Sod/Tazobactam (Sod 3.375 gm/ Sodium Chloride) 100 mls @ 100 mls/ hr IVPB Q12 [facility] PRN Reason: Protocol Last Admin: 01/08/18 20:23 Dose: 100 mls/hr Potassium Chloride/Dextrose/Sod Cl (Potassium Chl 20 Meq In D5-1/2ns) 1,000 mls @ 75 mls/hr IV .[id number] [facility] Stop: 01/09/18 08:04 Last Admin: 01/09/18 00:59 Dose: 75 mls/hr Ondansetron HCl (Zofran Odt) 8 mg PO Q8H PRN PRN Reason: Nausea/Vomiting Oxycodone HCl (Oxycodone Immediate Release Tab) 5 mg PO Q6 PRN PRN Reason: Pain, moderate (4-7) Last Admin: 01/09/18 00:53 Dose: 5 mg Pantoprazole Sodium (Protonix Inj) 40 mg IVP DAILY [facility] Last Admin: 01/08/18 08:15 Dose: 40 mg Simethicone (Mylicon Chew Tab) 80 mg PO TID PRN PRN Reason: Flatulence Last Admin: 01/08/18 12:58 Dose: 80 mg Tamsulosin HCl (Flomax) 0.4 mg PO DAILY [facility] - Labs Labs: 01/09/18 04:21 01/09/18 04:21 - Constitutional Appears: No Acute Distress - Head Exam Head Exam: NORMOCEPHALIC - Eye Exam Eye Exam: Normal appearance - ENT Exam ENT Exam: Mucous Membranes Moist - Respiratory Exam Respiratory Exam: NORMAL BREATHING PATTERN - Cardiovascular Exam Cardiovascular Exam: +S1, +S2 - GI/Abdominal Exam GI & Abdominal Exam: Soft Ostomy pink and patent with gas in bag and small amount of stool output. - Neurological Exam Neurological Exam: Alert, Awake, Oriented x3 - Psychiatric Exam Psychiatric exam: Normal Mood - Skin Skin Exam: Dry, Intact, Warm Assessment and Plan - Assessment and Plan (Free Text) Assessment: 57M w/ LBO s/p laparotomy with blowhole stoma formation POD3 Plan: -Advance Diet as tolerated -C/w abx -C/w Anti-coagulation -Medical management per primary team -Analgesic -Encourage IS use and ambulation -D/W Dr. Geovanni Mayfield PGY2
--- NOTE | 2018-01-09 07:40 | CP.PCM.PN ---
<Frankie Prince - Last Filed: 01/09/18 09:22> Subjective - Date & Time of Evaluation Date of Evaluation: 01/09/18 Time of Evaluation: 06:15 - Subjective Subjective: PGY5 GI Fellow Progress Note Patient seen and examined bedside this morning. The patient states that he is feeling better than he did on admission. Admits to B/L upper and lower extremity swelling. Passing small amount of stool at this time in to ostomy, + flatus. Denies fever, chills. 12 system ROS performed and negative except where stated. Objective - Vital Signs/Intake and Output Vital Signs (last 24 hours): Temp Pulse Resp BP Pulse Ox 98.1 F 99 H 17 104/70 97 01/09/18 04:00 01/09/18 06:00 01/09/18 06:00 01/09/18 06:00 01/09/18 06:00 Intake and Output: 01/09/18 01/09/18 06:59 18:59 Intake Total 75 Output Total 400 Balance -325 - Medications Medications: Current Medications Bisacodyl (Dulcolax) 10 mg PA DAILY [facility] Last Admin: 01/08/18 16:59 Dose: 10 mg Enoxaparin Sodium (Lovenox) 40 mg SC DAILY [facility] PRN Reason: Protocol Last Admin: 01/08/18 08:17 Dose: 40 mg Piperacillin Sod/Tazobactam (Sod 3.375 gm/ Sodium Chloride) 100 mls @ 100 mls/ hr IVPB Q12 [facility] PRN Reason: Protocol Last Admin: 01/08/18 20:23 Dose: 100 mls/hr Potassium Chloride/Dextrose/Sod Cl (Potassium Chl 20 Meq In D5-1/2ns) 1,000 mls @ 75 mls/hr IV .[id number] [facility] Stop: 01/09/18 08:04 Last Admin: 01/09/18 00:59 Dose: 75 mls/hr Ondansetron HCl (Zofran Odt) 8 mg PO Q8H PRN PRN Reason: Nausea/Vomiting Oxycodone HCl (Oxycodone Immediate Release Tab) 5 mg PO Q6 PRN PRN Reason: Pain, moderate (4-7) Last Admin: 01/09/18 00:53 Dose: 5 mg Pantoprazole Sodium (Protonix Inj) 40 mg IVP DAILY [facility] Last Admin: 01/08/18 08:15 Dose: 40 mg Simethicone (Mylicon Chew Tab) 80 mg PO TID PRN PRN Reason: Flatulence Last Admin: 01/08/18 12:58 Dose: 80 mg Tamsulosin HCl (Flomax) 0.4 mg PO DAILY [facility] - Labs Labs: 01/09/18 04:21 01/09/18 04:21 - Constitutional Appears: Non-toxic, No Acute Distress - Eye Exam Eye Exam: EOMI, PERRL - ENT Exam ENT Exam: Mucous Membranes Dry - Respiratory Exam Respiratory Exam: Clear to Ausculation Bilateral. absent: Rales, Rhonchi, Wheezes - Cardiovascular Exam Cardiovascular Exam: RRR, +S1, +S2 - GI/Abdominal Exam GI & Abdominal Exam: Soft, Tenderness (midline at healing surgical site; jamari present), Hypoactive Bowel Sounds. absent: Distended, Firm, Guarding, Rigid, Organomegaly Additional comments: Right sided ostomy - Extremities Exam Extremities Exam: Pedal Edema. 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, HTN, BPH, chronic diarrhea, depression/ anxiety who presented to the ER with abdominal pain -Large bowel obstruction, stricture at prior surgical site s/p exploratory laparotomy and blow-hole ostomy formation POD3 -H/O sigmoid volvulus s/p robotic resection -Depression/anxiety Plan: -Tolerating liquid diet without issue at this time -Blow-hole ostomy with gas/stool noted -No obvious perforation noted on exploratory laparotomy -On broad spectrum coverage with Zosyn -Consider diuresis given anasarca -Plan per medical/surgical teams -No plan for endoscopic interventions at this time <Micah uBtterfield - Last Filed: 01/09/18 09:32> Objective - Vital Signs/Intake and Output Vital Signs (last 24 hours): Temp Pulse Resp BP Pulse Ox 98.1 F 99 H 17 104/70 97 01/09/18 04:00 01/09/18 06:00 01/09/18 06:00 01/09/18 06:00 01/09/18 06:00 Intake and Output: 01/09/18 01/09/18 06:59 18:59 Intake Total 75 Output Total 400 Balance -325 - Medications Medications: Current Medications Bisacodyl (Dulcolax) 10 mg PA DAILY [facility] Last Admin: 01/08/18 16:59 Dose: 10 mg Enoxaparin Sodium (Lovenox) 40 mg SC DAILY [facility] PRN Reason: Protocol Last Admin: 01/08/18 08:17 Dose: 40 mg Piperacillin Sod/Tazobactam (Sod 3.375 gm/ Sodium Chloride) 100 mls @ 100 mls/ hr IVPB Q12 [facility] PRN Reason: Protocol Last Admin: 01/08/18 20:23 Dose: 100 mls/hr Ondansetron HCl (Zofran Odt) 8 mg PO Q8H PRN PRN Reason: Nausea/Vomiting Oxycodone HCl (Oxycodone Immediate Release Tab) 5 mg PO Q6 PRN PRN Reason: Pain, moderate (4-7) Last Admin: 01/09/18 00:53 Dose: 5 mg Pantoprazole Sodium (Protonix Inj) 40 mg IVP DAILY [facility] Last Admin: 01/08/18 08:15 Dose: 40 mg Simethicone (Mylicon Chew Tab) 80 mg PO TID PRN PRN Reason: Flatulence Last Admin: 01/08/18 12:58 Dose: 80 mg Tamsulosin HCl (Flomax) 0.4 mg PO DAILY [facility] - Labs Labs: 01/09/18 04:21 01/09/18 04:21 Attending/Attestation - Attestation I have personally seen and examined this patient.: Yes I have fully participated in the care of the patient.: Yes I have reviewed all pertinent clinical information, including history, physical exam and plan: Yes Notes (Text): 01/09/18 09:28 I have seen and examined patient with GI fellow. He is seen sitting in chair in room, appears comfortable. He continues to report mild abdominal pain at ostomy site but denies nausea, vomiting, fever/chills. Soft brown fecal output noted in ostomy bag. Review of vitals from today shows tachycardia. HTN Obesity Sigmoid volvulus s/p partial colectomy Abdominal pain, colonic distention s/p large bowel obstruction requiring surgical intervention. ?pseudoobstruction POD #3 exploratory laparotomy with ostomy creation - Liquid diet, advance as tolerated - Continue with antibiotic therapy - Pain control - Follow up surgical recommendations - No further planned GI interventions, will require outpatient follow up. Will sign off case, please reconsult as necessary, thank you.
[2018-01-09] MEDS: Piperacillin/Tazobact 3.375 GM in Sodium Chloride 0.9% 100 ML IVPB SCH (09:53)
[2018-01-09] MEDS: Enoxaparin 40 mg Syringe SC SCH (09:53)
[2018-01-09] MEDS ORDERED: Chlorhexidine Gluconate 1 APPL/PKT TP ONE (11:39)
--- NOTE | 2018-01-09 16:06 | CP.PCM.PN ---
Subjective - Date & Time of Evaluation Date of Evaluation: 01/09/18 Time of Evaluation: 13:10 - Subjective Subjective: no AD , no abdominal pain Objective - Vital Signs/Intake and Output Vital Signs (last 24 hours): Temp Pulse Resp BP Pulse Ox 98.1 F 99 H 17 110/70 97 01/09/18 04:00 01/09/18 06:00 01/09/18 06:00 01/09/18 12:00 01/09/18 06:00 Intake and Output: 01/09/18 01/09/18 06:59 18:59 Intake Total 75 Output Total 400 Balance -325 - Medications Medications: Current Medications Bisacodyl (Dulcolax) 10 mg ME DAILY [facility] Last Admin: 01/09/18 09:52 Dose: 10 mg Enoxaparin Sodium (Lovenox) 40 mg SC DAILY [facility] PRN Reason: Protocol Last Admin: 01/09/18 09:53 Dose: 40 mg Ondansetron HCl (Zofran Odt) 8 mg PO Q8H PRN PRN Reason: Nausea/Vomiting Oxycodone HCl (Oxycodone Immediate Release Tab) 5 mg PO Q6 PRN PRN Reason: Pain, moderate (4-7) Last Admin: 01/09/18 11:33 Dose: 5 mg Pantoprazole Sodium (Protonix Inj) 40 mg IVP DAILY [facility] Last Admin: 01/09/18 09:53 Dose: 40 mg Simethicone (Mylicon Chew Tab) 80 mg PO TID PRN PRN Reason: Flatulence Last Admin: 01/08/18 12:58 Dose: 80 mg Tamsulosin HCl (Flomax) 0.4 mg PO DAILY [facility] Last Admin: 01/09/18 09:52 Dose: 0.4 mg - Labs Labs: 01/09/18 04:21 01/09/18 04:21 - Constitutional Appears: No Acute Distress - Head Exam Head Exam: NORMAL INSPECTION - Eye Exam Eye Exam: PERRL - ENT Exam ENT Exam: Normal Exam - Neck Exam Neck Exam: Normal Inspection - Respiratory Exam Respiratory Exam: Clear to Ausculation Bilateral - Cardiovascular Exam Cardiovascular Exam: REGULAR RHYTHM - GI/Abdominal Exam GI & Abdominal Exam: Soft Additional comments: ostotomy working , passing gas , YULISA drain - Extremities Exam Additional comments: edema - Back Exam Back Exam: NORMAL INSPECTION - Neurological Exam Neurological Exam: Alert, CN II-XII Intact. absent: Motor Sensory Deficit - Psychiatric Exam Psychiatric exam: Normal Affect - Skin Skin Exam: Warm Assessment and Plan (1) Bowel obstruction Status: Resolved (2) Status post exploratory laparotomy Status: Acute (3) Abdominal pain Status: Resolved - Assessment and Plan (Free Text) Plan: continue current treatment
[2018-01-10] MEDS: oxyCODONE 5 mg Immediate Release Tab PO PRN ×3 (05:12→21:41)
--- NOTE | 2018-01-10 08:00 | CP.PCM.PN ---
Subjective - Date & Time of Evaluation Date of Evaluation: 01/10/18 Time of Evaluation: 06:45 - Subjective Subjective: Patient seen and examined. No acute events over night. Patient is having bowel movements into ostomy bag. No complaints. Tolerating full liquid diet. Scant serous output from YULISA drain. Objective - Vital Signs/Intake and Output Vital Signs (last 24 hours): Temp Pulse Resp BP Pulse Ox 98 F 81 16 115/67 98 01/10/18 04:00 01/10/18 04:00 01/10/18 04:00 01/10/18 04:00 01/10/18 04:00 Intake and Output: 01/10/18 01/10/18 06:59 18:59 Intake Total 500 Output Total 2002 Balance -1503 - Medications Medications: Current Medications Bisacodyl (Dulcolax) 10 mg LA DAILY [facility] Last Admin: 01/09/18 09:52 Dose: 10 mg Enoxaparin Sodium (Lovenox) 40 mg SC DAILY [facility] PRN Reason: Protocol Last Admin: 01/09/18 09:53 Dose: 40 mg Ondansetron HCl (Zofran Odt) 8 mg PO Q8H PRN PRN Reason: Nausea/Vomiting Oxycodone HCl (Oxycodone Immediate Release Tab) 5 mg PO Q6 PRN PRN Reason: Pain, moderate (4-7) Last Admin: 01/10/18 05:12 Dose: 5 mg Pantoprazole Sodium (Protonix Inj) 40 mg IVP DAILY [facility] Last Admin: 01/09/18 09:53 Dose: 40 mg Simethicone (Mylicon Chew Tab) 80 mg PO TID PRN PRN Reason: Flatulence Last Admin: 01/08/18 12:58 Dose: 80 mg Tamsulosin HCl (Flomax) 0.4 mg PO DAILY [facility] Last Admin: 01/09/18 09:52 Dose: 0.4 mg - Labs Labs: 01/09/18 04:21 01/09/18 04:21 - Constitutional Appears: No Acute Distress - Head Exam Head Exam: NORMOCEPHALIC - Eye Exam Eye Exam: Normal appearance - ENT Exam ENT Exam: Mucous Membranes Moist - Respiratory Exam Respiratory Exam: NORMAL BREATHING PATTERN - Cardiovascular Exam Cardiovascular Exam: +S1, +S2 - GI/Abdominal Exam GI & Abdominal Exam: Soft. absent: Tenderness - Neurological Exam Neurological Exam: Alert, Awake, Oriented x3 - Psychiatric Exam Psychiatric exam: Normal Mood - Skin Skin Exam: Dry, Intact, Warm Assessment and Plan - Assessment and Plan (Free Text) Assessment: 57M w/ LBO s/p laparotomy with blowhole stoma formation POD4 Plan: -Regular diet -C/w Anti-coagulation -Medical management per primary team -Analgesic -Encourage IS use and ambulation -D/W Dr. Geovanni Zuniga PGY2
[2018-01-10] MEDS: Enoxaparin 40 mg Syringe SC SCH (10:00)
--- NOTE | 2018-01-10 16:03 | CP.PCM.PN ---
Subjective - Date & Time of Evaluation Date of Evaluation: 01/10/18 Time of Evaluation: 10:40 - Subjective Subjective: no Ad , no abdominal pain Objective - Vital Signs/Intake and Output Vital Signs (last 24 hours): Temp Pulse Resp BP Pulse Ox 98.5 F 87 21 126/78 96 01/10/18 08:00 01/10/18 08:00 01/10/18 08:00 01/10/18 08:00 01/10/18 08:00 Intake and Output: 01/10/18 01/10/18 06:59 18:59 Intake Total 500 Output Total 2002 Balance -1503 - Medications Medications: Current Medications Bisacodyl (Dulcolax) 10 mg ME DAILY [facility] Last Admin: 01/10/18 10:00 Dose: 10 mg Ondansetron HCl (Zofran Odt) 8 mg PO Q8H PRN PRN Reason: Nausea/Vomiting Oxycodone HCl (Oxycodone Immediate Release Tab) 5 mg PO Q6 PRN PRN Reason: Pain, moderate (4-7) Last Admin: 01/10/18 14:26 Dose: 5 mg Pantoprazole Sodium (Protonix Inj) 40 mg IVP DAILY [facility] Last Admin: 01/10/18 10:00 Dose: 40 mg Simethicone (Mylicon Chew Tab) 80 mg PO TID PRN PRN Reason: Flatulence Last Admin: 01/08/18 12:58 Dose: 80 mg Tamsulosin HCl (Flomax) 0.4 mg PO DAILY [facility] Last Admin: 01/10/18 10:00 Dose: 0.4 mg - Labs Labs: 01/09/18 04:21 01/09/18 04:21 - Constitutional Appears: No Acute Distress - Head Exam Head Exam: NORMAL INSPECTION - Eye Exam Eye Exam: PERRL - ENT Exam ENT Exam: Normal Exam - Neck Exam Neck Exam: Normal Inspection - Respiratory Exam Respiratory Exam: Clear to Ausculation Bilateral - Cardiovascular Exam Cardiovascular Exam: REGULAR RHYTHM - GI/Abdominal Exam GI & Abdominal Exam: Soft, Normal Bowel Sounds Additional comments: ostotomy working , passing gas , surgical incision healing well , jamari in place , YULISA drain - Extremities Exam Additional comments: edema decreased - Back Exam Back Exam: NORMAL INSPECTION - Neurological Exam Neurological Exam: Alert, CN II-XII Intact, Oriented x3. absent: Motor Sensory Deficit - Psychiatric Exam Psychiatric exam: Normal Affect - Skin Skin Exam: Warm Assessment and Plan (1) Bowel obstruction Status: Resolved (2) Status post exploratory laparotomy Assessment & Plan: blowhole stoma PO D 4 Status: Acute (3) Abdominal pain Status: Resolved - Assessment and Plan (Free Text) Plan: tolerating full liquid diet , continue treatment, increase diet , Surgical f/ u
--- NOTE | 2018-01-11 08:12 | CP.PCM.PN ---
Subjective - Date & Time of Evaluation Date of Evaluation: 01/11/18 Time of Evaluation: 07:00 - Subjective Subjective: Patient seen and examined this morning. No acute events over night. Tolerating regular diet. Scant serous output from YULISA drain. Objective - Vital Signs/Intake and Output Vital Signs (last 24 hours): Temp Pulse Resp BP Pulse Ox 98 F 85 20 126/75 96 01/11/18 04:55 01/11/18 04:55 01/11/18 04:55 01/11/18 04:55 01/11/18 04:55 Intake and Output: 01/11/18 01/11/18 06:59 18:59 Output Total 602 Balance -602 - Medications Medications: Current Medications Bisacodyl (Dulcolax) 10 mg MO DAILY [facility] Last Admin: 01/10/18 10:00 Dose: 10 mg Ondansetron HCl (Zofran Odt) 8 mg PO Q8H PRN PRN Reason: Nausea/Vomiting Oxycodone HCl (Oxycodone Immediate Release Tab) 5 mg PO Q6 PRN PRN Reason: Pain, moderate (4-7) Last Admin: 01/10/18 21:41 Dose: 5 mg Pantoprazole Sodium (Protonix Inj) 40 mg IVP DAILY [facility] Last Admin: 01/10/18 10:00 Dose: 40 mg Simethicone (Mylicon Chew Tab) 80 mg PO TID PRN PRN Reason: Flatulence Last Admin: 01/08/18 12:58 Dose: 80 mg Tamsulosin HCl (Flomax) 0.4 mg PO DAILY [facility] Last Admin: 01/10/18 10:00 Dose: 0.4 mg - Labs Labs: 01/09/18 04:21 01/09/18 04:21 - Constitutional Appears: No Acute Distress - Head Exam Head Exam: NORMOCEPHALIC - Eye Exam Eye Exam: EOMI, Normal appearance - ENT Exam ENT Exam: Mucous Membranes Moist - Respiratory Exam Respiratory Exam: NORMAL BREATHING PATTERN - Cardiovascular Exam Cardiovascular Exam: +S1, +S2 - GI/Abdominal Exam GI & Abdominal Exam: Soft - Neurological Exam Neurological Exam: Alert, Awake, Oriented x3 - Psychiatric Exam Psychiatric exam: Normal Mood - Skin Skin Exam: Dry, Intact, Warm Assessment and Plan - Assessment and Plan (Free Text) Assessment: 57M w/ LBO s/p laparotomy with blowhole stoma formation POD5 Plan: -Clear for discharge from surgical standpoint -YULISA drain removed -Regular diet -C/w Anti-coagulation -Medical management per primary team -Analgesic -Encourage IS use and ambulation -D/W Dr. Geovanni Zuniga PGY2
[2018-01-11] MEDS: oxyCODONE 5 mg Immediate Release Tab PO PRN (09:22)
--- NOTE | 2018-01-11 12:05 | CP.PCM.DIS ---
Provider - Provider Date of Admission: 01/06/18 05:59 Attending physician: Pedro Luis Najera MD Primary care physician: Max Tolbert MD Diagnosis - Discharge Diagnosis (1) Bowel obstruction Status: Resolved Priority: High (2) Status post exploratory laparotomy Status: Acute Priority: High Hospital Course - Lab Results Lab Results: Micro Results 01/06/18 08:17 Nose MRSA Culture (Admit) - Final MRSA NOT DETECTED 01/06/18 04:00 Urine,Clean Catch Urine Culture - Final No Growth (<1,000 CFU/ML) Most Recent Lab Values WBC 8.2 K/uL (4.8-10.8) 01/09/18 04:21 RBC 3.57 Mil/uL (4.40-5.90) L 01/09/18 04:21 Hgb 10.5 g/dL (12.0-18.0) L 01/09/18 04:21 Hct 31.7 % (35.0-51.0) L 01/09/18 04:21 MCV 88.8 fl (80.0-94.0) 01/09/18 04:21 MCH 29.5 pg (27.0-31.0) 01/09/18 04:21 MCHC 33.3 g/dL (33.0-37.0) 01/09/18 04:21 RDW 13.5 % (11.5-14.5) 01/09/18 04:21 Plt Count 219 K/uL (130-400) 01/09/18 04:21 MPV 8.9 fl (7.2-11.7) 01/08/18 05:00 Neut % (Auto) 78.3 % (50.0-75.0) H 01/08/18 05:00 Lymph % (Auto) 12.2 % (20.0-40.0) L 01/08/18 05:00 [place] % (Auto) 6.1 % (0.0-10.0) 01/08/18 05:00 Eos % (Auto) 3.3 % (0.0-4.0) 01/08/18 05:00 Baso % (Auto) 0.1 % (0.0-2.0) 01/08/18 05:00 Neut # (Auto) 8.8 K/uL (1.8-7.0) H 01/08/18 05:00 Lymph # (Auto) 1.4 K/uL (1.0-4.3) 01/08/18 05:00 [place] # (Auto) 0.7 K/uL (0.0-0.8) 01/08/18 05:00 Eos # (Auto) 0.4 K/uL (0.0-0.7) 01/08/18 05:00 Baso # (Auto) 0.0 K/uL (0.0-0.2) 01/08/18 05:00 Total Counted Cancelled 01/07/18 04:40 Neutrophils % (Manual) 88 % (42-75) H 01/06/18 01:25 Band Neutrophils % Cancelled 01/07/18 04:40 Lymphocytes % (Manual) 8 % (20-50) L 01/06/18 01:25 Reactive Lymphs % Cancelled 01/07/18 04:40 Monocytes % (Manual) 4 % (0-10) 01/06/18 01:25 Eosinophils % (Manual) Cancelled 01/07/18 04:40 Basophils % (Manual) Cancelled 01/07/18 04:40 Metamyelocytes % Cancelled 01/07/18 04:40 Myelocytes % Cancelled 01/07/18 04:40 Promyelocytes % Cancelled 01/07/18 04:40 Blast Cells % Cancelled 01/07/18 04:40 Plasma Cell % (Manual) Cancelled 01/07/18 04:40 Nucleated RBC % Cancelled 01/07/18 04:40 Hypersegmented Polys Cancelled 01/07/18 04:40 Smudge Cells Cancelled 01/07/18 04:40 Toxic Granulation Cancelled 01/07/18 04:40 Dohle Bodies Cancelled 01/07/18 04:40 Shea Rods Cancelled 01/07/18 04:40 Platelet Estimate Normal (NORMAL) 01/06/18 01:25 Plt Clumps, EDTA Cancelled 01/07/18 04:40 Large Platelets Cancelled 01/07/18 04:40 Giant Platelets Cancelled 01/07/18 04:40 RBC Morphology Normal (NORMAL) 01/06/18 01:25 Polychromasia Cancelled 01/07/18 04:40 Hypochromasia (manual) Cancelled 01/07/18 04:40 Poikilocytosis (manual Cancelled 01/07/18 04:40 Basophilic Stippling Cancelled 01/07/18 04:40 Anisocytosis (manual) Cancelled 01/07/18 04:40 Microcytosis (manual) Cancelled 01/07/18 04:40 Macrocytosis (manual) Cancelled 01/07/18 04:40 Spherocytes Cancelled 01/07/18 04:40 Sickle Cells Cancelled 01/07/18 04:40 Target Cells Cancelled 01/07/18 04:40 Tear Drop Cells Cancelled 01/07/18 04:40 Ovalocytes Cancelled 01/07/18 04:40 Stomatocytes Cancelled 01/07/18 04:40 Helmet Cells Cancelled 01/07/18 04:40 [place] Bodies Cancelled 01/07/18 04:40 [place] Cells Cancelled 01/07/18 04:40 Acanthocytes (Spur) Cancelled 01/07/18 04:40 Rouleaux Cancelled 01/07/18 04:40 Schistocytes Cancelled 01/07/18 04:40 pCO2 43 mm/Hg (35-45) 01/06/18 06:09 pO2 44 mm/Hg (80-100) L* 01/06/18 06:09 HCO3 26.2 mmol/L (21-28) 01/06/18 06:09 ABG pH 7.41 (7.35-7.45) 01/06/18 06:09 ABG Total CO2 28.6 mmol/L (22-28) H 01/06/18 06:09 ABG O2 Saturation 86.3 % (95-98) L 01/06/18 06:09 ABG Base Excess 2.2 mmol/L (-2.0-3.0) 01/06/18 06:09 Rip Test Yes 01/06/18 06:09 ABG Potassium 3.5 mmol/L (3.6-5.2) L 01/06/18 06:09 A-a O2 Difference 52.0 mm/Hg 01/06/18 06:09 Sodium 131.0 mmol/L (132-148) L 01/06/18 06:09 Chloride 100.0 mmol/L (98-107) 01/06/18 06:09 Glucose 110 mg/dL (75-110) 01/06/18 06:09 Lactate 0.7 mmol/L (0.7-2.1) 01/06/18 06:09 FiO2 21.0 % 01/06/18 06:09 Crit Value Called To Kaela toro md 01/06/18 06:09 Crit Value Called By Francisco 01/06/18 06:09 Crit Value Read Back Y 01/06/18 06:09 Blood Gas Notified Time 617 01/06/18 06:09 Sodium 137 mmol/l (132-148) 01/09/18 04:21 Potassium 3.4 MMOL/L (3.6-5.0) L 01/09/18 04:21 Chloride 102 mmol/L (98-107) 01/09/18 04:21 Carbon Dioxide 25 mmol/L (22-30) 01/09/18 04:21 Anion Gap 13 (10-20) 01/09/18 04:21 BUN 10 mg/dl (9-20) 01/09/18 04:21 Creatinine 0.7 mg/dl (0.8-1.5) L 01/09/18 04:21 Est GFR ( Amer) > 60 01/09/18 04:21 Est GFR (Non-Af Amer) > 60 01/09/18 04:21 Random Glucose 95 mg/dL (75-110) 01/09/18 04:21 Calcium 8.2 mg/dL (8.4-10.2) L 01/09/18 04:21 Phosphorus 2.3 mg/dl (2.5-4.5) L 01/08/18 05:00 Magnesium 1.7 MG/DL (1.6-2.3) 01/09/18 04:21 Total Bilirubin 1.2 mg/dl (0.2-1.3) 01/06/18 01:25 AST 31 U/L (17-59) 01/06/18 01:25 ALT 45 U/L (21-72) 01/06/18 01:25 Alkaline Phosphatase 138 U/L (38-126) H D 01/06/18 01:25 Total Protein 8.7 G/DL (6.3-8.2) H 01/06/18 01:25 Albumin 4.3 g/dL (3.5-5.0) 01/06/18 01:25 Globulin 4.4 gm/dL (2.2-3.9) H 01/06/18 01:25 Albumin/Globulin Ratio 1.0 (1.0-2.1) 01/06/18 01:25 Arterial Blood Potassium 3.5 mmol/L (3.6-5.2) L 01/06/18 06:09 Urine Color Ana (YELLOW) 01/06/18 04:00 Urine Clarity Cloudy (Clear) 01/06/18 04:00 Urine pH 5.0 (5.0-8.0) 01/06/18 04:00 Ur Specific [place] 1.035 (1.003-1.030) H 01/06/18 04:00 Urine Protein 100 mg/dL (NEGATIVE) 01/06/18 04:00 Urine Glucose (UA) Neg mg/dL (Normal) 01/06/18 04:00 Urine Ketones Negative mg/dL (NEGATIVE) 01/06/18 04:00 Urine Blood Negative (NEGATIVE) 01/06/18 04:00 Urine Nitrate Negative (NEGATIVE) 01/06/18 04:00 Urine Bilirubin Negative (NEGATIVE) 01/06/18 04:00 Urine Urobilinogen 0.2-1.0 mg/dL (0.2-1.0) 01/06/18 04:00 Ur Leukocyte Esterase Neg Curly/uL (Negative) 01/06/18 04:00 Urine RBC (Auto) 7 /hpf (0-3) H 01/06/18 04:00 Urine Microscopic WBC 3 /hpf (0-5) 01/06/18 04:00 Ur Squamous Epith Cells < 1 /hpf (0-5) 01/06/18 04:00 Urine Bacteria Rare (<OCC) 01/06/18 04:00 Hyaline Casts 11-20 /hpf (0-2) H 01/06/18 04:00 Discharge Exam - Head Exam Head Exam: NORMAL INSPECTION Discharge Plan - Follow Up Plan Condition: FAIR Disposition: HOME/ ROUTINE Referrals: Max Tolbert MD [Primary Care Provider] -
[2018-01-11 12:17] VITALS: BP 138/85; PULSE 97; RESP 22; TEMP 98.6; O2SAT 95
== END 2018-01-11 15:11 | disposition home health service (06) | DRG 149 ==
LOC: H.ER 00:04 → H.ERHOLD 05:59 → H.ICU/CCU 18:38
PROVIDERS: ADMIT Internal Medicine Pulmonary Disease; ATTEND Internal Medicine Pulmonary Disease
PROC: 0D1L0Z4 Bypass Transverse Colon to Cutaneous, Open Approach (ICD-10-PCS; principal; 2018-01-06 11:00)
PROC: 3E0T3BZ Introduction of Anesthetic Agent into Peripheral Nerves and Plexi, Percutaneous Approach (ICD-10-PCS; 2018-01-06 11:00)
DX: K63.1 Perforation of intestine (nontraumatic) (principal); N40.0 Benign prostatic hyperplasia without lower urinary tract symptoms; Z90.49 Acquired absence of other specified parts of digestive tract; K59.09 Other constipation; K64.8 Other hemorrhoids; R00.0 Tachycardia, unspecified; E66.9 Obesity, unspecified; Z68.35 Body mass index [BMI] 35.0-35.9, adult; F32.9 Major depressive disorder, single episode, unspecified; F41.9 Anxiety disorder, unspecified; I10 Essential (primary) hypertension; J45.909 Unspecified asthma, uncomplicated

== ENCOUNTER 2018-01-23 12:39 | Inpatient (IN) | payer MEDICAID ==
--- NOTE | 2018-01-23 14:22 | ED PDOC ---
HPI: Abdomen Time Seen by Provider: 01/23/18 13:21 Chief Complaint (Nursing): Abdominal Pain History Per: Patient (57 yo male s/p colostomy by Dr. Galarza due to chronic BM problems. Surgery took place 2 weeks ago. He was seen by Dr. Galarza 4 days earlier when his jamari were removed. He then noticed progressive protrusion of the umbilical area. Today it is very tense and painful to touch. He has not had vomiting and has been passing gas and stool via the colostomy. He denies fever or chills.) History/Exam Limitations: no limitations Past Medical History Reviewed: Historical Data Vital Signs: Last Vital Signs Temp 98.3 F 01/23/18 13:34 Pulse 74 01/23/18 13:34 Resp 16 01/23/18 13:34 BP 110/63 01/23/18 13:34 Pulse Ox 97 01/23/18 14:24 - Medical History PMH: Asthma, Colonic Polyps, Fractures (5TH FINGER LEFT HAND- NO TX.), HTN, Peripheral Edema Denies: Chronic Kidney Disease, TIA - Surgical History Surgical History: Endoscopy - Family History Family History: States: Unknown Family Hx - Immunization History Hx Tetanus Toxoid Vaccination: No Hx Influenza Vaccination: Yes Hx Pneumococcal Vaccination: Yes - Home Medications Home Medications: Ambulatory Orders Medication Instructions Recorded Metoprolol Tartrate [Lopressor] 100 mg PO BID 08/06/16 Tamsulosin [Flomax] 0.4 mg PO DAILY 08/05/17 Losartan/Hydrochlorothiazide 1 tab PO DAILY 11/28/17 [Losartan-Hctz 50-12.5 mg Tab] Sertraline [Zoloft] 75 mg PO DAILY 11/28/17 - Allergies Allergies/Adverse Reactions: Allergies Allergy/AdvReac Type Severity Reaction Status Date / Time No Known Allergies Allergy Verified 08/05/17 07:40 Review of Systems ROS Statement: Except As Marked, All Systems Reviewed And Found Negative Constitutional: Negative for: Fever Gastrointestinal: Positive for: Abdominal Pain. Negative for: Nausea, Vomiting , Diarrhea Physical Exam - Reviewed Nursing Documentation Reviewed: Yes Vital Signs Reviewed: Yes - Physical Exam Appears: Positive for: Well, Non-toxic, No Acute Distress. Negative for: In Acute Distress Head Exam: Positive for: ATRAUMATIC, NORMAL INSPECTION, NORMOCEPHALIC Skin: Positive for: Normal Color, Warm Eye Exam: Positive for: Normal appearance Neck: Positive for: Normal Cardiovascular/Chest: Positive for: Regular Rate, Rhythm Respiratory: Positive for: CNT, Normal Breath Sounds Gastrointestinal/Abdominal: Positive for: Other (midline incision with tense protrusion at umbilical level with irritation of skin in the superior aspect. 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 Will see patient in ER and then discuss with surgery attending. patient seen by surgery resident. advised CT and labs. Disposition - Clinical Impression Clinical Impression: Umbilical hernia - Patient ED Disposition Is Patient to be Admitted: Transfer of Care - Disposition Disposition: Transfer of Care Disposition Time: 14:33 Condition: FAIR Forms: [employer] (Guamanian) Patient Signed Over To: Klaudia An Present On Arrival: None
[2018-01-23] MEDS ORDERED: Iohexol 240 (50 ml) PO ONE (14:31)
--- NOTE | 2018-01-23 14:35 | CP.PCM.CON ---
History of Present Illness - History of Present Illness History of Present Illness: Surgery 57 M w recent ho of ex lap and blow hole colostomy for bowel obstruction came with umbilical hernia. Pt had surgery on 01/06 and had the jamari removed 4 days ago. 2 days ago pt noticed umbilical hernia and it is getting larger, painful, and redder. There are skin changes with excoriations. Reports having semi solid feculent output from stoma. Denies Fever, chills, nausea, vomiting, SOB, CP, weakness, dizziness or diarrhea. Pain is localized around the umbilicus and feels like burning sensation. Denies hematemesis, hematochezia, hematuria, melena, dysuria. Tolerating diet. Pt had umbilical hernia in the past. Last CT scan before ex lap shows umbilical hernia containing bowel w free air and dilated bowel. PMH: HTN, BPH PSH: robotic sigmoidectomy w anastomosis (2016), ex lap blow hold colostomy ( 2018) Review of Systems - Constitutional Constitutional: As Per HPI Past Patient History - Past Medical History & Family History Past Medical History?: Yes - Past Social History Smoking Status: Never Smoked - CARDIAC Hx Hypertension: Yes Hx Peripheral Edema: Yes - PULMONARY Hx Asthma: Yes - NEUROLOGICAL Hx Transient Ischemic Attacks (TIA): No - HEENT Hx HEENT Problems: No - RENAL Hx Chronic Kidney Disease: No - ENDOCRINE/METABOLIC Hx Endocrine Disorders: No - HEMATOLOGICAL/ONCOLOGICAL Hx Blood Disorders: Yes Hx Blood Transfusions: Yes Hx Blood Transfusion Reaction: No - INTEGUMENTARY Hx Dermatological Problems: No - MUSCULOSKELETAL/RHEUMATOLOGICAL Hx Fractures: Yes (5TH FINGER LEFT HAND- NO TX.) - GASTROINTESTINAL Hx Gastrointestinal Disorders: Yes Hx Bowel Surgery: Yes (HEMICOLECTOMY 2015) Hx Colostomy: No Hx Hemorrhoids: Yes (INTERNAL) Hx Ulcer: Yes (GASTRIC) Other/Comment: HX: SIGMOID VOLVULUS/CHRONIC CONSTIPATION/SPONTANEOUS UNCONTROLLED FECAL EVACUATION, WITH HEMICOLECTOMY - GENITOURINARY/GYNECOLOGICAL Hx Genitourinary Disorders: Yes Hx Prostate Problems: Yes Other/Comment: PATIENT HAS HESITANCY UPON URINATION BUT ON FLOMAX & HAS NO PROBLEM NOW (PER PT). - PSYCHIATRIC Hx Psychophysiologic Disorder: No Hx Substance Use: No - SURGICAL HISTORY Hx Surgeries: Yes Other/Comment: SIGMOID VOLVULUS/CHRONIC CONSTIPATION/SPONTANEOUS UNCONTROLLED FECAL EVACUATION, WITH HEMICOLECTOMY - ANESTHESIA Hx Anesthesia: Yes Hx Anesthesia Reactions: No Hx Malignant Hyperthermia: No Meds Allergies/Adverse Reactions: Allergies Allergy/AdvReac Type Severity Reaction Status Date / Time No Known Allergies Allergy Verified 08/05/17 07:40 Physical Exam - Constitutional Appears: No Acute Distress - Head Exam Head Exam: ATRAUMATIC, NORMAL INSPECTION, NORMOCEPHALIC - Eye Exam Eye Exam: EOMI, Normal appearance, PERRL Pupil Exam: NORMAL ACCOMODATION, PERRL - ENT Exam ENT Exam: Mucous Membranes Moist, Normal Exam - Neck Exam Neck exam: Positive for: Normal Inspection - Respiratory Exam Respiratory Exam: Clear to Auscultation Bilateral, NORMAL BREATHING PATTERN - Cardiovascular Exam Cardiovascular Exam: REGULAR RHYTHM - GI/Abdominal Exam GI & Abdominal Exam: Hernia, Normal Bowel Sounds, Soft, Tenderness. absent: Distended, Firm, Rebound, Rigid Additional comments: [id number] umbilical hernia, TTP. erythema 4x5cm. Excoriation with cellulitis - Exam Exam: NORMAL INSPECTION - Extremities Exam Extremities exam: Positive for: normal inspection - Back Exam Back exam: NORMAL INSPECTION - Neurological Exam Neurological exam: Alert, CN II-XII Intact, Normal Gait, Oriented x3, Reflexes Normal - Psychiatric Exam Psychiatric exam: Normal Affect, Normal Mood - Skin Skin Exam: Abrasion, Erythema, Intact, Rash, Warm Results - Vital Signs Recent Vital Signs: Last Vital Signs Temp 98.3 F 01/23/18 13:34 Pulse 74 01/23/18 13:34 Resp 16 01/23/18 13:34 BP 110/63 01/23/18 13:34 Pulse Ox 97 01/23/18 14:24 Assessment & Plan - Assessment and Plan (Free Text) Assessment: recurrent umbilical hernia w skin changes s/p ex lap colostomy -CT A/P PO /IV contrast -Labs -blood cx -ABX -UA DW Dr. Galarza
[2018-01-23] MEDS ORDERED: Iohexol 240 (50 ml) ONE (15:29)
[2018-01-23 15:46] LABS: BASO # 0.1 K/uL (0.0-0.2); BASO % 1.1 % (0.0-2.0); EOS # 0.5 K/uL (0.0-0.7); EOS % 5.8 % (0.0-4.0); LYMPH % 23.3 % (20.0-40.0); MEAN CELL VOLUME 87.4 fl (80.0-94.0); MEAN CORPUSCULAR HEMOGLOBIN 29.8 pg (27.0-31.0); MEAN CORPUSCULAR HGB CONC 34.1 g/dL (33.0-37.0); MEAN PLATELET VOLUME 8.3 fl (7.2-11.7); MONO # 0.7 K/uL (0.0-0.8); NEUT # 5.2 K/uL (1.8-7.0); NEUT % 61.8 % (50.0-75.0); NRBC % 0.1 % (0.0-0.0); RBC 4.25 Mil/uL (4.40-5.90); RED CELL DISTRIBUTION WIDTH 13.4 % (11.5-14.5); WHITE BLOOD COUNT 8.5 K/uL (4.8-10.8)
[2018-01-23 15:52] LABS: HEMOGLOBIN 12.7 g/dL (12.0-18.0)
[2018-01-23 15:55] LABS: URINE BACTERIA RARE (<OCC); URINE BILIRUBIN NEGATIVE (NEGATIVE); URINE BLOOD NEGATIVE (NEGATIVE); URINE CLARITY SLIGHTY-CLOUDY (Clear); URINE COLOR YELLOW (YELLOW); URINE GLUCOSE (UA) NEG (Normal); URINE LEUKOCYTE ESTERASE NEG Leu/uL (Negative); URINE PROTEIN NEGATIVE (NEGATIVE); URINE UROBILINOGEN 0.2-1.0 mg/dL (0.2-1.0)
[2018-01-23 15:59] LABS: VENOUS BLOOD GAS BASE EXCESS 6.5 mmol/L (0.0-2.0); VENOUS BLOOD GAS PCO2 60 mmHg (40-60); VENOUS BLOOD GAS PO2 30 mm/Hg (30-55); VENOUS BLOOD PH 7.36 (7.32-7.43)
--- NOTE | 2018-01-23 16:05 | ED PDOC ---
- Laboratory Results Result Diagrams: 01/23/18 15:37 01/23/18 16:15 - ECG O2 Sat by Pulse Oximetry: 97 Medical Decision Making Medical Decision Making: Time: 15:[address] Ly. Patient presents with abdominal pain s/p recent colostomy. Patient was evaluated by neurosurgical nurse and is pending CT. 1930 Abdominal swelling at umbilicus suddenly expressed discharge while at CT. Thick pink-beige purulence expressed and swelling has decreased in size. Wound culture obtained and d/w residential specialist. Accession No. : [id number] Patient Name / ID : YOMI DAO / [id number] Exam Date : 01/23/2018 19:15:14 ( Approved ) Study Comment : Sex / Age : M / 57Y Creator : Karmen Saravia MD Dictator : Speeder Frame Tender : Tassel Snipper : Karmen Saravia MD Approver2 : Report Date : 01/23/2018 21:21:00 My Comment : [facility] Division of Radiology [address] [place] [address] Tel. no. Patient Name: FELIBERTO CELAYA Pt. Address: [address] [place] [address] Med. Rec #: [id number] [place] [address]: Aliyah BEAUCHAMP,Tuyet Cavazos Pt Order Location: [facility] : 1960 Male Age: 57 Order #: [id number] Reason for exam: umbilical hernia r/o incarceration CT Scan ABD PELVIS PO IV CONTRAST Exam Date: 01/23/18 This imaging exam was performed at [facility] EXAM: CT Abdomen and Pelvis With Intravenous Contrast EXAM DATE/TIME: 01/23/2018 2:31 PM CLINICAL HISTORY: 57 years old, male; Pain; Other: Umbillical swollen; Additional info: Umbilical hernia R/O incarceration TECHNIQUE: Axial computed tomography images of the abdomen and pelvis with intravenous contrast. All CT scans at this facility use one or more dose reduction techniques, viz.: automated exposure control; ma/kV adjustment per patient size (including targeted exams where dose is matched to indication; i.e. head); or iterative reconstruction technique. Coronal and sagittal reformatted images were created and reviewed. CONTRAST: 96 mL of omnipaque administered intravenously. COMPARISON: Prior CT abdomen and pelvis of 2018-01-06 FINDINGS: LUNG BASES: No significant abnormality seen. ABDOMEN: LIVER: Fatty infiltration of the liver. GALLBLADDER AND BILE DUCTS: No CT evidence of acute cholecystitis. No evidence of significant biliary ductal dilatation. PANCREAS: No CT evidence of acute pancreatitis. SPLEEN: No acute abnormality of the spleen identified. ADRENALS: No acute abnormality of the adrenal glands identified. KIDNEYS AND URETERS: Low density lesions in the kidneys bilaterally, most likely representing cysts. The largest of these measures 2.8 cm, and is located in the left kidney. STOMACH AND BOWEL: Compared to the previous exam, there is a new loop colostomy in the right anterior abdominal wall, which contains the proximal transverse colon. There is mild to moderate segmental wall thickening of the colon at the ostomy site, which could represent mild, segmental colitis. The remainder of the colon is filled with stool and air. Surgical anastomosis noted in the distal sigmoid colon. Otherwise, no significant abnormality of the bowel is identified. No acute abnormality of the stomach or duodenum identified. No evidence of bowel obstruction. No evidence of diffuse colitis/pancolitis. APPENDIX: Normal appendix is not seen, however, there are no significant inflammatory changes visualized in the expected location of the appendix to suggest appendicitis. Recommend clinical correlation. PELVIS: BLADDER: No acute abnormality of the bladder identified. REPRODUCTIVE: No acute abnormality of the reproductive organs is seen. ABDOMEN and PELVIS: INTRAPERITONEAL SPACE: No evidence of free intraperitoneal air or fluid. BONES/JOINTS: No acute fractures or other acute bony abnormality noted. SOFT TISSUES: Compared to the previous exam, interval development of rounded, low density areas in the umbilicus, suspicious for fluid collections. 2 are seen. The larger, located superficially, measures 4.5 x 2 cm, and the smaller, located deep to this larger fluid collection, measures 3 x 1.2 cm. The smaller fluid collection has an enhancing rim. Neither contains gas. There is adjacent periumbilical skin thickening, as well as skin thickening and subcutaneous fat infiltration in the nearby anterior pelvic wall soft tissues. Findings could represent cellulitis. No evidence of soft tissue gas. VASCULATURE: No evidence of abdominal aortic aneurysm. No evidence of periaortic hemorrhage. LYMPH NODES: No evidence of diffuse lymphadenopathy. IMPRESSION: - Findings suspicious for small fluid collections in the umbilicus, the larger , located more superficially, measuring 4.5 x 2 cm. These could represent postoperative collections, such as seromas or resolving hematomas. Infected fluid collections are not excluded. There are findings in the nearby soft tissues which could represent cellulitis. No evidence of an umbilical hernia containing bowel. - Segmental wall thickening of the colon, at the loop colostomy. This could be due to mild, segmental colitis. - Otherwise, no evidence of significant acute process. - See above for remaining findings. Dictated By: Karmen Saravia MD Dictated Date/Time: 01/23/182120 Signed By: Kramen Saravia MD Date Signed: 2120 Transcribed By: JUANCARLOS Transcribe Date/Time : 01/23/182120 [facility]RENU Najera, admitting physician during prior admission. Accepted for hospitalization with Surgery consult. Scribe Attestation: Documented by Jose Ca, acting as a scribe for Klaudia An MD. Scribe Attestation: All medical record entries made by the Scribe were at my direction and personally dictated by me. I have reviewed the chart and agree that the record accurately reflects my personal performance of the history, physical exam, medical decision making, and the department course for this patient. I have also personally directed, reviewed, and agree with the discharge instructions and disposition. Disposition - Clinical Impression Clinical Impression: Umbilical hernia, Abdominal abscess - POA Present On Arrival: Surgical Site Infection - Disposition Disposition: Admitted as In-Patient Disposition Time: 19:30 Condition: FAIR
[2018-01-23 16:51] LABS: INR 1.1 (0.9-1.2); PROTHROMBIN TIME 12.7 Seconds (9.8-13.1)
[2018-01-23 16:54] LABS: ALB/GLOB RATIO 0.9 (1.0-2.1); ALT/SGPT 35 U/L (21-72); AST/SGOT 25 U/L (17-59); BLOOD UREA NITROGEN 13 mg/dl (9-20); CALCIUM 9.7 mg/dL (8.4-10.2); GFR AFRICAN-AMERICAN > 60; GFR NON-AFRICAN AMERICAN > 60
[2018-01-23 16:59] LABS: PARTIAL THROMBOPLASTIN TIME 24.4 Seconds (25.6-37.1)
[2018-01-23] MEDS ORDERED: cefTRIAXone (Rocephin) 1 gm Inj ONE (17:43)
[2018-01-23] MEDS ORDERED: metroNIDAZOLE 500mg/100ml NS 100 ML IVPB ONE ×2 (17:43→22:55)
[2018-01-23] MEDS: metroNIDAZOLE 500mg/100ml NS 100 ML IVPB SCH ×2 (17:43→22:54)
[2018-01-23] MEDS ORDERED: Iohexol 300 100 ML IJ ONE (19:13)
[2018-01-23] MEDS ORDERED: Sodium Chloride 0.9% 100 ML ONE (19:14)
[2018-01-23] MEDS ORDERED: metroNIDAZOLE 500mg/100ml NS 100 ML IVPB SCH (21:00)
--- NOTE | 2018-01-23 21:21 | CT ---
EXAM: CT Abdomen and Pelvis With Intravenous Contrast EXAM DATE/TIME: 01/23/2018 2:31 PM CLINICAL HISTORY: 57 years old, male; Pain; Other: Umbillical swollen; Additional info: Umbilical hernia R/O incarceration TECHNIQUE: Axial computed tomography images of the abdomen and pelvis with intravenous contrast. All CT scans at this facility use one or more dose reduction techniques, viz.: automated exposure control; ma/kV adjustment per patient size (including targeted exams where dose is matched to indication; i.e. head); or iterative reconstruction technique. Coronal and sagittal reformatted images were created and reviewed. CONTRAST: 96 mL of omnipaque administered intravenously. COMPARISON: Prior CT abdomen and pelvis of 2018-01-06 FINDINGS: LUNG BASES: No significant abnormality seen. ABDOMEN: LIVER: Fatty infiltration of the liver. GALLBLADDER AND BILE DUCTS: No CT evidence of acute cholecystitis. No evidence of significant biliary ductal dilatation. PANCREAS: No CT evidence of acute pancreatitis. SPLEEN: No acute abnormality of the spleen identified. ADRENALS: No acute abnormality of the adrenal glands identified. KIDNEYS AND URETERS: Low density lesions in the kidneys bilaterally, most likely representing cysts. The largest of these measures 2.8 cm, and is located in the left kidney. STOMACH AND BOWEL: Compared to the previous exam, there is a new loop colostomy in the right anterior abdominal wall, which contains the proximal transverse colon. There is mild to moderate segmental wall thickening of the colon at the ostomy site, which could represent mild, segmental colitis. The remainder of the colon is filled with stool and air. Surgical anastomosis noted in the distal sigmoid colon. Otherwise, no significant abnormality of the bowel is identified. No acute abnormality of the stomach or duodenum identified. No evidence of bowel obstruction. No evidence of diffuse colitis/pancolitis. APPENDIX: Normal appendix is not seen, however, there are no significant inflammatory changes visualized in the expected location of the appendix to suggest appendicitis. Recommend clinical correlation. PELVIS: BLADDER: No acute abnormality of the bladder identified. REPRODUCTIVE: No acute abnormality of the reproductive organs is seen. ABDOMEN and PELVIS: INTRAPERITONEAL SPACE: No evidence of free intraperitoneal air or fluid. BONES/JOINTS: No acute fractures or other acute bony abnormality noted. SOFT TISSUES: Compared to the previous exam, interval development of rounded, low density areas in the umbilicus, suspicious for fluid collections. 2 are seen. The larger, located superficially, measures 4.5 x 2 cm, and the smaller, located deep to this larger fluid collection, measures 3 x 1.2 cm. The smaller fluid collection has an enhancing rim. Neither contains gas. There is adjacent periumbilical skin thickening, as well as skin thickening and subcutaneous fat infiltration in the nearby anterior pelvic wall soft tissues. Findings could represent cellulitis. No evidence of soft tissue gas. VASCULATURE: No evidence of abdominal aortic aneurysm. No evidence of periaortic hemorrhage. LYMPH NODES: No evidence of diffuse lymphadenopathy. IMPRESSION: - Findings suspicious for small fluid collections in the umbilicus, the larger, located more superficially, measuring 4.5 x 2 cm. These could represent postoperative collections, such as seromas or resolving hematomas. Infected fluid collections are not excluded. There are findings in the nearby soft tissues which could represent cellulitis. No evidence of an umbilical hernia containing bowel. - Segmental wall thickening of the colon, at the loop colostomy. This could be due to mild, segmental colitis. - Otherwise, no evidence of significant acute process. - See above for remaining findings.
--- NOTE | 2018-01-24 08:21 | CP.PCM.PN ---
Subjective - Date & Time of Evaluation Date of Evaluation: 01/24/18 Time of Evaluation: 08:16 - Subjective Subjective: Surgery Pt seen and examined. Umbilical abscess ruptured spontaneously yesterday while in CT scan. Drained 10cc purulent fluids. Pain is relieved since then. Dressing changed this AM. ruptured area closed up with some retained fluids. Denies Fever , chills, nausea, vomiting, diarrhea. Tolerating Clears and stoma has ourput. Objective - Vital Signs/Intake and Output Vital Signs (last 24 hours): Temp Pulse Resp BP Pulse Ox 97.8 F 65 20 91/50 L 98 01/24/18 08:06 01/24/18 08:06 01/24/18 08:06 01/24/18 08:06 01/24/18 08:06 - Medications Medications: Current Medications HCTZ/Losartan Potassium (Hyzaar 12.5 Mg-50 Mg) 1 tab PO DAILY [facility] Ceftriaxone Sodium 1 gm/ (Sodium Chloride) 100 mls @ 100 mls/hr IVPB DAILY [facility]ESE PRN Reason: Protocol Last Admin: 01/23/18 17:43 Dose: 100 mls/hr Metronidazole (Flagyl 500mg/100ml Ns) 100 mls @ 100 mls/hr IVPB Q12 [facility] PRN Reason: Protocol Last Admin: 01/23/18 22:54 Dose: 100 mls/hr Metoprolol Tartrate (Lopressor) 100 mg PO BID [facility] Sertraline HCl (Zoloft) 75 mg PO DAILY [facility] Tamsulosin HCl (Flomax) 0.4 mg PO DAILY REESE - Labs Labs: 01/23/18 15:37 01/23/18 16:15 PT 12.7 Seconds (9.8-13.1) 01/23/18 16:15 INR 1.1 (0.9-1.2) 01/23/18 16:15 APTT 24.4 Seconds (25.6-37.1) L 01/23/18 16:15 - Constitutional Appears: No Acute Distress - Head Exam Head Exam: ATRAUMATIC, NORMAL INSPECTION, NORMOCEPHALIC - Eye Exam Eye Exam: EOMI, Normal appearance, PERRL Pupil Exam: NORMAL ACCOMODATION, PERRL - ENT Exam ENT Exam: Mucous Membranes Moist, Normal Exam - Neck Exam Neck Exam: Full ROM, Normal Inspection. absent: Lymphadenopathy - Respiratory Exam Respiratory Exam: Clear to Ausculation Bilateral, NORMAL BREATHING PATTERN - Cardiovascular Exam Cardiovascular Exam: REGULAR RHYTHM, +S1, +S2. absent: Murmur - GI/Abdominal Exam GI & Abdominal Exam: Soft, Tenderness, Normal Bowel Sounds. absent: Distended, Guarding, Rigid Additional comments: ruptured skin closed up. Retained fluids. Stoma has output - Exam Exam: NORMAL INSPECTION - Extremities Exam Extremities Exam: Full ROM, Normal Capillary Refill, Normal Inspection. absent : Joint Swelling, Pedal Edema - Back Exam Back Exam: NORMAL INSPECTION - Neurological Exam Neurological Exam: Alert, Awake, CN II-XII Intact, Normal Gait, Oriented x3 - Psychiatric Exam Psychiatric exam: Normal Affect, Normal Mood - Skin Skin Exam: Erythema, Warm. absent: Dry, Intact Assessment and Plan - Assessment and Plan (Free Text) Assessment: recurrent umbilical hernia w skin changes s/p ex lap colostomy CT A/P PO /IV contrast : no evidence of umbilical hernia containing bowel, fluid collection subcutaenous. colitis drained abscess. Closed up with reptained fluids. -f/u blood cx -ABX -UA -May need bedside I&D to further drain retained abscess Will ESPERANZA Galarza
[2018-01-24] MEDS: metroNIDAZOLE 500mg/100ml NS 100 ML IVPB SCH ×2 (08:35→21:41)
[2018-01-24] MEDS: HCTZ/Losartan 12.5/50 Tab PO SCH (08:38)
--- NOTE | 2018-01-24 15:23 | CP.PCM.HP ---
History of Present Illness - History of Present Illness History of Present Illness: CC: Abdominal pain. 57 y/o M, with multiple chronic medical condition, including recent S/P Ex-Lap Colostomy 0n 01/06/18. due to chronic BM problems. Pt came to ER [facility] for evaluation of constant, moderate abdominal pain, intensity 3:10 previous surgical site, associated to recurrent large umbilical hernia with progressive protrusion of the umbilical area with swelling/redness, noticed 2 days [employer], with no relief of pain. Worsening symptom: Pt with umbilical abscess that ruptured spontaneously while in CT Scan with purulent drained fluid. Aggravated factor: movements/exercise. Pt denied: Fever, chills, n/v/d, CP, palpitations, SOB, cough, weakness, dizziness, hematemesis, hematuria, hematochezia, dysuria, sick contact. Abd/Pelv CT showed: No evidence of umbilical hernia containing bowel. small fluid collection, infected fluid not excluded. Present on Admission - Present on Admission Any Indicators Present on Admission: No Review of Systems - Constitutional Constitutional: Other (negative) - EENT Eyes: Requires Corrective Lenses Ears: Other (negative) Nose/Mouth/Throat: Other (negative) - Cardiovascular Cardiovascular: Other (negative) - Respiratory Respiratory: Other (negative) - Gastrointestinal Gastrointestinal: Abdominal Pain - Genitourinary Genitourinary: Other (negative) - Musculoskeletal Musculoskeletal: Other (negative) - Integumentary Integumentary: Erythema, Swelling - Neurological Neurological: Other (negative) - Psychiatric Psychiatric: Other (negative) - Endocrine Endocrine: Other (Obese BMI 36.1) - Hematologic/Lymphatic Hematologic: Other (negative) Past Patient History - Past Medical History & Family History Past Medical History?: Yes Pertinent Family History: Unknown - Past Social History Smoking Status: Never Smoked Alcohol: None Drugs: Denies Home Situation {Lives}: With Family - CARDIAC Hx Cardiac Disorders: Yes Hx Hypertension: Yes - PULMONARY Hx Respiratory Disorders: Yes Hx Asthma: Yes - NEUROLOGICAL Hx Neurological Disorder: No - HEENT Hx HEENT Problems: No - RENAL Hx Chronic Kidney Disease: No - ENDOCRINE/METABOLIC Hx Endocrine Disorders: No - HEMATOLOGICAL/ONCOLOGICAL Hx Blood Disorders: Yes Hx Anemia: Yes Hx Blood Transfusions: Yes Hx Blood Transfusion Reaction: No - INTEGUMENTARY Hx Dermatological Problems: No - MUSCULOSKELETAL/RHEUMATOLOGICAL Hx Musculoskeletal Disorders: Yes Hx Falls: No Hx Fractures: Yes (5th finger right) - GASTROINTESTINAL Hx Gastrointestinal Disorders: Yes Hx Bowel Surgery: Yes (HEMICOLECTOMY 2015) Hx Colostomy: Yes Hx Hemorrhoids: Yes (INTERNAL) Hx Ulcer: Yes (GASTRIC) Other/Comment: HX: SIGMOID VOLVULUS/CHRONIC CONSTIPATION/SPONTANEOUS UNCONTROLLED FECAL EVACUATION, WITH HEMICOLECTOMY - GENITOURINARY/GYNECOLOGICAL Hx Genitourinary Disorders: Yes - PSYCHIATRIC Hx Psychophysiologic Disorder: No Hx Substance Use: No - SURGICAL HISTORY Hx Surgeries: Yes Other/Comment: SIGMOID VOLVULUS/CHRONIC CONSTIPATION/SPONTANEOUS UNCONTROLLED FECAL EVACUATION, WITH HEMICOLECTOMY - ANESTHESIA Hx Anesthesia: Yes Hx Anesthesia Reactions: No Hx Malignant Hyperthermia: No Has any member of the family had a problem w/ anesthesia?: No Meds Allergies/Adverse Reactions: Allergies Allergy/AdvReac Type Severity Reaction Status Date / Time No Known Allergies Allergy Verified 08/05/17 07:40 Physical Exam - Constitutional Appears: No Acute Distress, Chronically Ill - Head Exam Head Exam: NORMAL INSPECTION - Eye Exam Eye Exam: PERRL - ENT Exam ENT Exam: Normal Exam - Neck Exam Neck exam: Positive for: Normal Inspection - Respiratory Exam Respiratory Exam: Clear to Auscultation Bilateral - Cardiovascular Exam Cardiovascular Exam: REGULAR RHYTHM - GI/Abdominal Exam GI & Abdominal Exam: Normal Bowel Sounds, Soft, Tenderness (umbilical area) Additional comments: Erythema, abscess umbilical area decreasing in size, draining small amount of pus. - Extremities Exam Extremities exam: Positive for: normal inspection - Back Exam Back exam: NORMAL INSPECTION - Neurological Exam Neurological exam: Alert, CN II-XII Intact, Oriented x3 - Psychiatric Exam Psychiatric exam: Normal Mood - Skin Skin Exam: Erythema, Warm Results - Vital Signs Recent Vital Signs: Last Vital Signs Temp 97.8 F 01/24/18 08:06 Pulse 65 01/24/18 08:06 Resp 20 01/24/18 08:06 BP 91/50 L 01/24/18 08:06 Pulse Ox 98 01/24/18 08:06 reviewed Elia - Labs Result Diagrams: 01/25/18 08:50 01/23/18 16:15 Labs: Laboratory Results - last 24 hr 01/23/18 01/23/18 01/23/18 15:34 15:37 15:53 WBC 8.5 RBC 4.25 L Hgb 12.7 D Hct 37.2 MCV 87.4 MCH 29.8 MCHC 34.1 RDW 13.4 Plt Count 367 D MPV 8.3 Neut % (Auto) 61.8 Lymph % (Auto) 23.3 Newberry % (Auto) 8.0 Eos % (Auto) 5.8 H Baso % (Auto) 1.1 Neut # (Auto) 5.2 Lymph # (Auto) 2.0 Newberry # (Auto) 0.7 Eos # (Auto) 0.5 Baso # (Auto) 0.1 PT INR APTT pO2 30 VBG pH 7.36 VBG pCO2 60 VBG HCO3 28.8 VBG Total CO2 35.7 H VBG O2 Sat (Calc) 44.8 VBG Base Excess 6.5 H VBG Potassium 4.3 Sodium 140.0 Chloride 102.0 Glucose 85 Lactate 1.2 FiO2 21.0 Potassium Carbon Dioxide Anion Gap BUN Creatinine Est GFR ( Amer) Est GFR (Non-Af Amer) Random Glucose Calcium Total Bilirubin AST ALT Alkaline Phosphatase Total Protein Albumin Globulin Albumin/Globulin Ratio Venous Blood Potassium 4.3 Urine Color Yellow Urine Clarity Slighty-cloudy Urine pH 5.0 Ur Specific Royal 1.016 Urine Protein Negative Urine Glucose (UA) Neg Urine Ketones Negative Urine Blood Negative Urine Nitrate Negative Urine Bilirubin Negative Urine Urobilinogen 0.2-1.0 Ur Leukocyte Esterase Neg Urine RBC (Auto) 2 Urine Microscopic WBC 1 Urine Bacteria Rare 01/23/18 01/23/18 16:15 16:15 WBC RBC Hgb Hct MCV MCH MCHC RDW Plt Count MPV Neut % (Auto) Lymph % (Auto) Newberry % (Auto) Eos % (Auto) Baso % (Auto) Neut # (Auto) Lymph # (Auto) Newberry # (Auto) Eos # (Auto) Baso # (Auto) PT 12.7 INR 1.1 APTT 24.4 L pO2 VBG pH VBG pCO2 VBG HCO3 VBG Total CO2 VBG O2 Sat (Calc) VBG Base Excess VBG Potassium Sodium 143 Chloride 103 Glucose Lactate FiO2 Potassium 4.1 Carbon Dioxide 22 Anion Gap 22 H BUN 13 Creatinine 0.7 L Est GFR ( Amer) > 60 Est GFR (Non-Af Amer) > 60 Random Glucose 82 Calcium 9.7 Total Bilirubin 0.6 AST 25 ALT 35 Alkaline Phosphatase 150 H Total Protein 8.4 H Albumin 4.0 Globulin 4.5 H Albumin/Globulin Ratio 0.9 L Venous Blood Potassium Urine Color Urine Clarity Urine pH Ur Specific Royal Urine Protein Urine Glucose (UA) Urine Ketones Urine Blood Urine Nitrate Urine Bilirubin Urine Urobilinogen Ur Leukocyte Esterase Urine RBC (Auto) Urine Microscopic WBC Urine Bacteria reviewed J.P. - Imaging and Cardiology CT scan - abdomen Status: Report reviewed by me (ThorP.) CT scan - pelvis Status: Report reviewed by me ([email or web address].P.) Assessment & Plan (1) Abdominal abscess Status: Acute Priority: High (2) Umbilical hernia Status: Acute Priority: High (3) Status post exploratory laparotomy Status: Chronic Priority: High (4) HTN (hypertension) Status: Chronic Priority: Medium - Assessment and Plan (Free Text) Plan: F/U Blood C-S, Abdomen wound C-S, continue with Rocephin, Flagyl, Hyzaar and rest of Tx, Surgical consult appreciated. - Date & Time Date: 01/24/18 Time: 13:20
--- NOTE | 2018-01-25 08:28 | CP.PCM.PN ---
Subjective - Date & Time of Evaluation Date of Evaluation: 01/25/18 Time of Evaluation: 08:27 - Subjective Subjective: SURGERY NOTE FOR DR. SARMIENTO 57M seen and examined at bedside. Doing much better this AM. Umbilical abscess significantly reduced. No fevers or chills. tolerating diet. Objective - Vital Signs/Intake and Output Vital Signs (last 24 hours): Temp Pulse Resp BP Pulse Ox 97.7 F 63 18 108/71 99 01/25/18 08:24 01/25/18 08:24 01/25/18 08:24 01/25/18 08:24 01/25/18 08:24 - Medications Medications: Current Medications HCTZ/Losartan Potassium (Hyzaar 12.5 Mg-50 Mg) 1 tab PO DAILY [facility] Last Admin: 01/24/18 08:38 Dose: 1 tab Ceftriaxone Sodium 1 gm/ (Sodium Chloride) 100 mls @ 100 mls/hr IVPB DAILY [facility] PRN Reason: Protocol Last Admin: 01/24/18 08:37 Dose: 100 mls/hr Metronidazole (Flagyl 500mg/100ml Ns) 100 mls @ 100 mls/hr IVPB Q12 [facility] PRN Reason: Protocol Last Admin: 01/24/18 21:41 Dose: 100 mls/hr Metoprolol Tartrate (Lopressor) 100 mg PO BID@0900,2100 [facility] Last Admin: 01/24/18 21:47 Dose: Not Given Sertraline HCl (Zoloft) 75 mg PO DAILY [facility] Last Admin: 01/24/18 08:37 Dose: 75 mg Tamsulosin HCl (Flomax) 0.4 mg PO DAILY [facility] Last Admin: 01/24/18 08:36 Dose: 0.4 mg - Labs Labs: 01/23/18 15:37 01/23/18 16:15 PT 12.7 Seconds (9.8-13.1) 01/23/18 16:15 INR 1.1 (0.9-1.2) 01/23/18 16:15 APTT 24.4 Seconds (25.6-37.1) L 01/23/18 16:15 - Constitutional Appears: Well, Non-toxic, No Acute Distress - Respiratory Exam Respiratory Exam: Clear to Ausculation Bilateral, NORMAL BREATHING PATTERN - Cardiovascular Exam Cardiovascular Exam: REGULAR RHYTHM, +S1, +S2 - GI/Abdominal Exam GI & Abdominal Exam: Soft, Tenderness. absent: Distended, Firm, Guarding, Rigid , Rebound Additional comments: abscess in umbilical region significantly reduces. draining small amount of pus - Neurological Exam Neurological Exam: Alert, Awake Assessment and Plan - Assessment and Plan (Free Text) Assessment: 57M with draining abscess of abdominal wall Plan: - Bacitracin to area of raw skin - No surgical intervention - Follow up outpatient Discussed with Dr. Geovanni Andrew, PGY2
[2018-01-25] MEDS: HCTZ/Losartan 12.5/50 Tab PO SCH (08:57)
[2018-01-25] MEDS: metroNIDAZOLE 500mg/100ml NS 100 ML IVPB SCH (09:00)
[2018-01-25 09:47] LABS: HEMOGLOBIN 12.9 g/dL (12.0-18.0); MEAN CELL VOLUME 88.2 fl (80.0-94.0); MEAN CORPUSCULAR HEMOGLOBIN 29.1 pg (27.0-31.0); RBC 4.42 Mil/uL (4.40-5.90); RED CELL DISTRIBUTION WIDTH 13.5 % (11.5-14.5)
[2018-01-25] MEDS: Bacitracin 500 Units/gm Oint Foilpak UD TOP SCH ×3 (11:22→17:23)
--- NOTE | 2018-01-25 11:41 | RAD ---
PROCEDURE: CHEST RADIOGRAPH, 1 VIEW HISTORY: HTN COMPARISON: 01/06/2018. FINDINGS: LUNGS: Clear. PLEURA: No pneumothorax or pleural fluid seen. CARDIOVASCULAR: No radiographic findings to suggest acute or significant cardiovascular disease. OSSEOUS STRUCTURES: No significant abnormalities. VISUALIZED UPPER ABDOMEN: Normal. OTHER FINDINGS: None IMPRESSION: No active disease.
--- NOTE | 2018-01-25 12:24 | CP.PCM.CON ---
History of Present Illness - History of Present Illness History of Present Illness: 57 M w recent ho of ex lap and blow hole colostomy for bowel obstruction came with umbilical hernia. Pt had surgery on 01/06 and had the jamari removed 4 days ago. 2 days ago pt noticed umbilical hernia and it is getting larger, painful, and redder. There are skin changes with excoriations. Reports having semi solid feculent output from stoma. Denies Fever, chills, nausea, vomiting, SOB, CP, weakness, dizziness or diarrhea. Pain is localized around the umbilicus and feels like burning sensation. Denies hematemesis, hematochezia, hematuria, melena, dysuria. Tolerating diet. Pt had umbilical hernia in the past. Last CT scan before ex lap shows umbilical hernia containing bowel w free air and dilated bowel. PMH: HTN, BPH PSH: robotic sigmoidectomy w anastomosis (2015), ex lap blow hold colostomy ( 2018) id consulted for antibiotic management await results of cultures cont empiric IV rx for now Past Patient History - Past Medical History & Family History Past Medical History?: Yes - Past Social History Smoking Status: Never Smoked Alcohol: None Drugs: Denies Home Situation {Lives}: With Family - CARDIAC Hx Cardiac Disorders: Yes Hx Hypertension: Yes - PULMONARY Hx Respiratory Disorders: Yes Hx Asthma: Yes - NEUROLOGICAL Hx Neurological Disorder: No - HEENT Hx HEENT Problems: No - RENAL Hx Chronic Kidney Disease: No - ENDOCRINE/METABOLIC Hx Endocrine Disorders: No - HEMATOLOGICAL/ONCOLOGICAL Hx Blood Disorders: Yes Hx Anemia: Yes Hx Blood Transfusions: Yes Hx Blood Transfusion Reaction: No - INTEGUMENTARY Hx Dermatological Problems: No - MUSCULOSKELETAL/RHEUMATOLOGICAL Hx Musculoskeletal Disorders: Yes Hx Falls: No Hx Fractures: Yes (5th finger right) - GASTROINTESTINAL Hx Gastrointestinal Disorders: Yes Hx Bowel Surgery: Yes (HEMICOLECTOMY 2015) Hx Colostomy: Yes Hx Hemorrhoids: Yes (INTERNAL) Hx Ulcer: Yes (GASTRIC) Other/Comment: HX: SIGMOID VOLVULUS/CHRONIC CONSTIPATION/SPONTANEOUS UNCONTROLLED FECAL EVACUATION, WITH HEMICOLECTOMY - GENITOURINARY/GYNECOLOGICAL Hx Genitourinary Disorders: Yes - PSYCHIATRIC Hx Psychophysiologic Disorder: No Hx Substance Use: No - SURGICAL HISTORY Hx Surgeries: Yes Other/Comment: SIGMOID VOLVULUS/CHRONIC CONSTIPATION/SPONTANEOUS UNCONTROLLED FECAL EVACUATION, WITH HEMICOLECTOMY - ANESTHESIA Hx Anesthesia: Yes Hx Anesthesia Reactions: No Hx Malignant Hyperthermia: No Has any member of the family had a problem w/ anesthesia?: No Meds Allergies/Adverse Reactions: Allergies Allergy/AdvReac Type Severity Reaction Status Date / Time No Known Allergies Allergy Verified 08/05/17 07:40 - Medications Medications: Current Medications Bacitracin (Bacitracin) 1 ea TOP TID [facility] HCTZ/Losartan Potassium (Hyzaar 12.5 Mg-50 Mg) 1 tab PO DAILY [facility] Last Admin: 01/25/18 08:57 Dose: 1 tab Vancomycin HCl 1 gm/ Sodium (Chloride) 250 mls @ 166.667 mls/hr IVPB Q12 [facility] PRN Reason: Protocol Piperacillin Sod/Tazobactam (Sod 3.375 gm/ Sodium Chloride) 100 mls @ 100 mls/ hr IVPB Q8 [facility] PRN Reason: Protocol Metoprolol Tartrate (Lopressor) 100 mg PO BID@0900,2100 [facility] Last Admin: 01/25/18 09:01 Dose: 100 mg Sertraline HCl (Zoloft) 75 mg PO DAILY [facility] Last Admin: 01/25/18 08:57 Dose: 75 mg Tamsulosin HCl (Flomax) 0.4 mg PO DAILY [facility] Last Admin: 01/25/18 08:57 Dose: 0.4 mg Results - Vital Signs Recent Vital Signs: Last Vital Signs Temp 97.7 F 01/25/18 08:24 Pulse 79 01/25/18 09:01 Resp 18 01/25/18 08:24 BP 122/73 01/25/18 09:01 Pulse Ox 99 01/25/18 08:24 - Labs Result Diagrams: 01/25/18 08:50 01/23/18 16:15 Labs: Laboratory Results - last 24 hr 01/25/18 08:50 WBC 7.0 RBC 4.42 Hgb 12.9 Hct 39.0 MCV 88.2 MCH 29.1 MCHC 33.0 RDW 13.5 Plt Count 330
[2018-01-25] MEDS: Piperacillin/Tazobact 3.375 GM in Sodium Chloride 0.9% 100 ML IVPB SCH ×2 (13:45→17:13)
--- NOTE | 2018-01-25 16:18 | CP.PCM.PN ---
Subjective - Date & Time of Evaluation Date of Evaluation: 01/25/18 Time of Evaluation: 11:30 - Subjective Subjective: CC: Abdominal pain. No c/o of abdominal pain, eating well, Colostomy working Objective - Vital Signs/Intake and Output Vital Signs (last 24 hours): Temp Pulse Resp BP Pulse Ox 97.7 F 79 18 122/73 99 01/25/18 08:24 01/25/18 09:01 01/25/18 08:24 01/25/18 09:01 01/25/18 08:24 - Medications Medications: Current Medications Bacitracin (Bacitracin) 1 ea TOP TID [facility] HCTZ/Losartan Potassium (Hyzaar 12.5 Mg-50 Mg) 1 tab PO DAILY [facility] Last Admin: 01/25/18 08:57 Dose: 1 tab Vancomycin HCl 1 gm/ Sodium (Chloride) 250 mls @ 166.667 mls/hr IVPB Q12 [facility] PRN Reason: Protocol Piperacillin Sod/Tazobactam (Sod 3.375 gm/ Sodium Chloride) 100 mls @ 100 mls/ hr IVPB Q8 [facility] PRN Reason: Protocol Metoprolol Tartrate (Lopressor) 100 mg PO BID@0900,2100 [facility] Last Admin: 01/25/18 09:01 Dose: 100 mg Sertraline HCl (Zoloft) 75 mg PO DAILY [facility] Last Admin: 01/25/18 08:57 Dose: 75 mg Tamsulosin HCl (Flomax) 0.4 mg PO DAILY [facility] Last Admin: 01/25/18 08:57 Dose: 0.4 mg - Labs Labs: 01/25/18 08:50 01/23/18 16:15 PT 12.7 Seconds (9.8-13.1) 01/23/18 16:15 INR 1.1 (0.9-1.2) 01/23/18 16:15 APTT 24.4 Seconds (25.6-37.1) L 01/23/18 16:15 - Constitutional Appears: No Acute Distress, Chronically Ill - Head Exam Head Exam: NORMAL INSPECTION - Eye Exam Eye Exam: PERRL - ENT Exam ENT Exam: Normal Exam - Respiratory Exam Respiratory Exam: Clear to Ausculation Bilateral - Cardiovascular Exam Cardiovascular Exam: REGULAR RHYTHM - GI/Abdominal Exam GI & Abdominal Exam: Soft, Tenderness (minimal umbilical area), Normal Bowel Sounds Additional comments: Lower part of surgical incision with with small amount of. drainage - Extremities Exam Extremities Exam: Normal Inspection - Back Exam Back Exam: NORMAL INSPECTION - Neurological Exam Neurological Exam: Alert, CN II-XII Intact, Oriented x3 - Psychiatric Exam Psychiatric exam: Normal Mood - Skin Skin Exam: Warm Assessment and Plan (1) Abdominal abscess Status: Acute (2) Umbilical hernia Status: Acute (3) Status post exploratory laparotomy Status: Chronic (4) HTN (hypertension) Status: Chronic - Assessment and Plan (Free Text) Plan: Abscess C-S + for Gran negative slick, begins Vanco, Zosyn, F/U C-S, ID consult.
[2018-01-26] MEDS: Piperacillin/Tazobact 3.375 GM in Sodium Chloride 0.9% 100 ML IVPB SCH ×3 (00:53→16:05)
[2018-01-26] MEDS: Bacitracin 500 Units/gm Oint Foilpak UD TOP SCH ×3 (08:20→16:06)
[2018-01-26] MEDS: HCTZ/Losartan 12.5/50 Tab PO SCH (08:20)
--- NOTE | 2018-01-26 10:52 | CARD ---
APPROVED REPORT EKG Measurement Heart [id number] <Conclusion> Normal sinus rhythm Incomplete RBBB
--- NOTE | 2018-01-26 12:04 | CP.PCM.PCO ---
Physician Communication Note - Physician Communication Note Physician Communication Note: Per Dr. Stern, pt will require IV antibiotics x 7 days
--- NOTE | 2018-01-26 12:25 | CP.PCM.PN ---
Subjective - Date & Time of Evaluation Date of Evaluation: 01/26/18 Time of Evaluation: 06:00 - Subjective Subjective: iv rx in progress cellulitis less abscess draining Objective - Vital Signs/Intake and Output Vital Signs (last 24 hours): Temp Pulse Resp BP Pulse Ox 97.9 F 62 19 100/64 97 01/26/18 08:20 01/26/18 08:20 01/26/18 08:20 01/26/18 08:20 01/26/18 08:20 - Medications Medications: Current Medications Bacitracin (Bacitracin) 1 ea TOP TID [facility] Last Admin: 01/26/18 08:20 Dose: 1 ea HCTZ/Losartan Potassium (Hyzaar 12.5 Mg-50 Mg) 1 tab PO DAILY [facility] Last Admin: 01/26/18 08:20 Dose: 1 tab Vancomycin HCl 1 gm/ Sodium (Chloride) 250 mls @ 166.667 mls/hr IVPB Q12 [facility] PRN Reason: Protocol Last Admin: 01/26/18 08:21 Dose: 166.667 mls/hr Piperacillin Sod/Tazobactam (Sod 3.375 gm/ Sodium Chloride) 100 mls @ 100 mls/ hr IVPB Q8 [facility] PRN Reason: Protocol Last Admin: 01/26/18 08:22 Dose: 100 mls/hr Metoprolol Tartrate (Lopressor) 100 mg PO BID@0900,2100 [facility] Last Admin: 01/26/18 08:21 Dose: 100 mg Sertraline HCl (Zoloft) 75 mg PO DAILY [facility] Last Admin: 01/26/18 08:22 Dose: 75 mg Tamsulosin HCl (Flomax) 0.4 mg PO DAILY [facility] Last Admin: 01/26/18 08:20 Dose: 0.4 mg - Labs Labs: 01/25/18 08:50 01/23/18 16:15 PT 12.7 Seconds (9.8-13.1) 01/23/18 16:15 INR 1.1 (0.9-1.2) 01/23/18 16:15 APTT 24.4 Seconds (25.6-37.1) L 01/23/18 16:15 - Constitutional Appears: Non-toxic - Head Exam Head Exam: NORMOCEPHALIC - Eye Exam Eye Exam: PERRL - ENT Exam ENT Exam: Mucous Membranes Dry - Neck Exam Neck Exam: absent: Lymphadenopathy - Respiratory Exam Respiratory Exam: Decreased Breath Sounds - Cardiovascular Exam Cardiovascular Exam: REGULAR RHYTHM - GI/Abdominal Exam GI & Abdominal Exam: Distended - Rectal Exam Rectal Exam: Deferred - Exam Exam: NORMAL INSPECTION Assessment and Plan (1) Abdominal abscess Status: Acute (2) Umbilical hernia Status: Acute
--- NOTE | 2018-01-26 12:43 | CP.PCM.PN ---
Subjective - Date & Time of Evaluation Date of Evaluation: 01/26/18 Time of Evaluation: 11:15 - Subjective Subjective: F/U Abdominal abscess no tenderness umbilical area Objective - Vital Signs/Intake and Output Vital Signs (last 24 hours): Temp Pulse Resp BP Pulse Ox 97.9 F 62 19 100/64 97 01/26/18 08:20 01/26/18 08:20 01/26/18 08:20 01/26/18 08:20 01/26/18 08:20 - Medications Medications: Current Medications Bacitracin (Bacitracin) 1 ea TOP TID [facility] Last Admin: 01/26/18 12:35 Dose: 1 ea HCTZ/Losartan Potassium (Hyzaar 12.5 Mg-50 Mg) 1 tab PO DAILY [facility] Last Admin: 01/26/18 08:20 Dose: 1 tab Vancomycin HCl 1 gm/ Sodium (Chloride) 250 mls @ 166.667 mls/hr IVPB Q12 [facility] PRN Reason: Protocol Last Admin: 01/26/18 08:21 Dose: 166.667 mls/hr Piperacillin Sod/Tazobactam (Sod 3.375 gm/ Sodium Chloride) 100 mls @ 100 mls/ hr IVPB Q8 [facility] PRN Reason: Protocol Last Admin: 01/26/18 08:22 Dose: 100 mls/hr Metoprolol Tartrate (Lopressor) 100 mg PO BID@0900,2100 [facility] Last Admin: 01/26/18 08:21 Dose: 100 mg Sertraline HCl (Zoloft) 75 mg PO DAILY [facility] Last Admin: 01/26/18 08:22 Dose: 75 mg Tamsulosin HCl (Flomax) 0.4 mg PO DAILY [facility] Last Admin: 01/26/18 08:20 Dose: 0.4 mg - Labs Labs: 01/25/18 08:50 01/23/18 16:15 PT 12.7 Seconds (9.8-13.1) 01/23/18 16:15 INR 1.1 (0.9-1.2) 01/23/18 16:15 APTT 24.4 Seconds (25.6-37.1) L 01/23/18 16:15 - Constitutional Appears: No Acute Distress, Chronically Ill - Head Exam Head Exam: NORMAL INSPECTION - Eye Exam Eye Exam: PERRL - ENT Exam ENT Exam: Normal Exam - Neck Exam Neck Exam: Normal Inspection - Respiratory Exam Respiratory Exam: Clear to Ausculation Bilateral - Cardiovascular Exam Cardiovascular Exam: REGULAR RHYTHM - GI/Abdominal Exam GI & Abdominal Exam: Soft, Tenderness (minimal umbilical area, open area with minimal drainage , Colostomy working), Normal Bowel Sounds - Extremities Exam Extremities Exam: Normal Inspection - Back Exam Back Exam: NORMAL INSPECTION - Neurological Exam Neurological Exam: Alert, CN II-XII Intact, Oriented x3 - Psychiatric Exam Psychiatric exam: Normal Mood - Skin Skin Exam: Warm Assessment and Plan (1) Abdominal abscess Status: Acute (2) Umbilical hernia Status: Acute (3) Status post exploratory laparotomy Status: Chronic (4) HTN (hypertension) Status: Chronic - Assessment and Plan (Free Text) Plan: abcess C-S E Coli , Staph coag (-) , continue Davon Powell , attempt to transfer to TCU for IV Atb Tx
[2018-01-26 16:49] VITALS: BMI 36.1
[2018-01-27] MEDS: Piperacillin/Tazobact 3.375 GM in Sodium Chloride 0.9% 100 ML IVPB SCH ×3 (00:02→16:00)
[2018-01-27] MEDS: Bacitracin 500 Units/gm Oint Foilpak UD TOP SCH ×3 (08:02→16:01)
[2018-01-27] MEDS: HCTZ/Losartan 12.5/50 Tab PO SCH (08:03)
--- NOTE | 2018-01-27 14:31 | CP.PCM.PN ---
Subjective - Date & Time of Evaluation Date of Evaluation: 01/27/18 Time of Evaluation: 11:50 - Subjective Subjective: F/U abdominal abscess No abdominal pain, eating well, colostomy working Objective - Vital Signs/Intake and Output Vital Signs (last 24 hours): Temp Pulse Resp BP Pulse Ox 97.9 F 59 L 20 105/70 97 01/27/18 07:56 01/27/18 07:56 01/27/18 07:56 01/27/18 07:56 01/27/18 07:56 - Medications Medications: Current Medications Bacitracin (Bacitracin) 1 ea TOP TID [facility] Last Admin: 01/27/18 12:07 Dose: 1 ea HCTZ/Losartan Potassium (Hyzaar 12.5 Mg-50 Mg) 1 tab PO DAILY [facility] Last Admin: 01/27/18 08:03 Dose: 1 tab Vancomycin HCl 1 gm/ Sodium (Chloride) 250 mls @ 166.667 mls/hr IVPB Q12 [facility] PRN Reason: Protocol Last Admin: 01/27/18 08:02 Dose: 166.667 mls/hr Piperacillin Sod/Tazobactam (Sod 3.375 gm/ Sodium Chloride) 100 mls @ 100 mls/ hr IVPB Q8 [facility] PRN Reason: Protocol Last Admin: 01/27/18 08:01 Dose: 100 mls/hr Metoprolol Tartrate (Lopressor) 100 mg PO BID@0900,2100 [facility] Last Admin: 01/27/18 08:02 Dose: 100 mg Sertraline HCl (Zoloft) 75 mg PO DAILY [facility] Last Admin: 01/27/18 08:03 Dose: 75 mg Tamsulosin HCl (Flomax) 0.4 mg PO DAILY [facility] Last Admin: 01/27/18 08:03 Dose: 0.4 mg - Labs Labs: 01/25/18 08:50 01/23/18 16:15 PT 12.7 Seconds (9.8-13.1) 01/23/18 16:15 INR 1.1 (0.9-1.2) 01/23/18 16:15 APTT 24.4 Seconds (25.6-37.1) L 01/23/18 16:15 - Constitutional Appears: No Acute Distress - Head Exam Head Exam: NORMAL INSPECTION - Eye Exam Eye Exam: PERRL - ENT Exam ENT Exam: Normal Exam - Neck Exam Neck Exam: Normal Inspection - Respiratory Exam Respiratory Exam: Clear to Ausculation Bilateral - Cardiovascular Exam Cardiovascular Exam: REGULAR RHYTHM - GI/Abdominal Exam GI & Abdominal Exam: Tenderness (Tenderness mild umbilical open area with minimal drainage ,Colostomy working) - Extremities Exam Extremities Exam: Normal Inspection - Back Exam Back Exam: NORMAL INSPECTION - Neurological Exam Neurological Exam: Alert, CN II-XII Intact. absent: Motor Sensory Deficit - Psychiatric Exam Psychiatric exam: Normal Affect, Normal Mood - Skin Skin Exam: Warm Assessment and Plan (1) Abdominal abscess Status: Acute (2) Umbilical hernia Status: Acute (3) Status post exploratory laparotomy Status: Chronic (4) HTN (hypertension) Status: Chronic - Assessment and Plan (Free Text) Plan: Continue Vanco and Zosyn IV, bacitracin to the area of abscess with local dressing, attempt to transfer to TCU
--- NOTE | 2018-01-27 17:33 | CP.PCM.PN ---
Subjective - Date & Time of Evaluation Date of Evaluation: 01/27/18 Time of Evaluation: 09:00 - Subjective Subjective: wound is slowly improving no fever alert awake NAD Objective - Vital Signs/Intake and Output Vital Signs (last 24 hours): Temp Pulse Resp BP Pulse Ox 97.5 F L 73 20 100/63 99 01/27/18 15:47 01/27/18 15:47 01/27/18 15:47 01/27/18 15:47 01/27/18 15:47 - Medications Medications: Current Medications Bacitracin (Bacitracin) 1 ea TOP TID [facility] Last Admin: 01/27/18 16:01 Dose: 1 ea HCTZ/Losartan Potassium (Hyzaar 12.5 Mg-50 Mg) 1 tab PO DAILY [facility] Last Admin: 01/27/18 08:03 Dose: 1 tab Vancomycin HCl 1 gm/ Sodium (Chloride) 250 mls @ 166.667 mls/hr IVPB Q12 [facility] PRN Reason: Protocol Last Admin: 01/27/18 08:02 Dose: 166.667 mls/hr Piperacillin Sod/Tazobactam (Sod 3.375 gm/ Sodium Chloride) 100 mls @ 100 mls/ hr IVPB Q8 [facility] PRN Reason: Protocol Last Admin: 01/27/18 16:00 Dose: 100 mls/hr Metoprolol Tartrate (Lopressor) 100 mg PO BID@0900,2100 [facility] Last Admin: 01/27/18 08:02 Dose: 100 mg Sertraline HCl (Zoloft) 75 mg PO DAILY [facility] Last Admin: 01/27/18 08:03 Dose: 75 mg Tamsulosin HCl (Flomax) 0.4 mg PO DAILY [facility] Last Admin: 01/27/18 08:03 Dose: 0.4 mg - Labs Labs: 01/25/18 08:50 01/23/18 16:15 PT 12.7 Seconds (9.8-13.1) 01/23/18 16:15 INR 1.1 (0.9-1.2) 01/23/18 16:15 APTT 24.4 Seconds (25.6-37.1) L 01/23/18 16:15 - Constitutional Appears: Non-toxic, Chronically Ill - Head Exam Head Exam: NORMOCEPHALIC - Eye Exam Eye Exam: PERRL - ENT Exam ENT Exam: Mucous Membranes Dry - Neck Exam Neck Exam: absent: Lymphadenopathy - Respiratory Exam Respiratory Exam: Decreased Breath Sounds - Cardiovascular Exam Cardiovascular Exam: REGULAR RHYTHM - GI/Abdominal Exam GI & Abdominal Exam: Distended, Soft Additional comments: wound improving less drainege - Rectal Exam Rectal Exam: Deferred - Exam Exam: NORMAL INSPECTION - Extremities Exam Extremities Exam: absent: Pedal Edema - Back Exam Back Exam: absent: CVA tenderness (L), CVA tenderness (R) - Neurological Exam Neurological Exam: Alert, Awake, CN II-XII Intact, Oriented x3 Neuro motor strength exam: Left Upper Extremity: 3, Right Upper Extremity: 3, Left Lower Extremity: 3, Right Lower Extremity: 3 Assessment and Plan (1) Abdominal abscess Status: Acute (2) Umbilical hernia Status: Acute - Assessment and Plan (Free Text) Assessment: cont iv rx and wound care
[2018-01-28] MEDS: Piperacillin/Tazobact 3.375 GM in Sodium Chloride 0.9% 100 ML IVPB SCH ×3 (00:15→16:59)
[2018-01-28] MEDS: Bacitracin 500 Units/gm Oint Foilpak UD TOP SCH ×3 (08:21→17:01)
[2018-01-28] MEDS: HCTZ/Losartan 12.5/50 Tab PO SCH (08:21)
--- NOTE | 2018-01-28 14:02 | CP.PCM.PN ---
Subjective - Date & Time of Evaluation Date of Evaluation: 01/28/18 Objective - Vital Signs/Intake and Output Vital Signs (last 24 hours): Temp Pulse Resp BP Pulse Ox 98.2 F 64 20 102/64 99 01/28/18 08:03 01/28/18 08:20 01/28/18 08:03 01/28/18 08:20 01/28/18 08:03 - Medications Medications: Current Medications Acetaminophen (Tylenol 325mg Tab) 650 mg PO Q6 PRN PRN Reason: Pain, Mild (1-3) Last Admin: 01/28/18 00:50 Dose: 650 mg Bacitracin (Bacitracin) 1 ea TOP TID [facility] Last Admin: 01/28/18 08:21 Dose: 1 ea HCTZ/Losartan Potassium (Hyzaar 12.5 Mg-50 Mg) 1 tab PO DAILY [facility] Last Admin: 01/28/18 08:21 Dose: 1 tab Vancomycin HCl 1 gm/ Sodium (Chloride) 250 mls @ 166.667 mls/hr IVPB Q12 [facility] PRN Reason: Protocol Last Admin: 01/28/18 10:19 Dose: 166.667 mls/hr Piperacillin Sod/Tazobactam (Sod 3.375 gm/ Sodium Chloride) 100 mls @ 100 mls/ hr IVPB Q8 [facility] PRN Reason: Protocol Last Admin: 01/28/18 08:22 Dose: 100 mls/hr Metoprolol Tartrate (Lopressor) 100 mg PO BID@0900,2100 [facility] Last Admin: 01/28/18 08:20 Dose: 100 mg Sertraline HCl (Zoloft) 75 mg PO DAILY [facility] Last Admin: 01/28/18 08:22 Dose: 75 mg Tamsulosin HCl (Flomax) 0.4 mg PO DAILY [facility] Last Admin: 01/28/18 08:21 Dose: 0.4 mg - Labs Labs: 01/25/18 08:50 01/23/18 16:15 PT 12.7 Seconds (9.8-13.1) 01/23/18 16:15 INR 1.1 (0.9-1.2) 01/23/18 16:15 APTT 24.4 Seconds (25.6-37.1) L 01/23/18 16:15 - Constitutional Appears: No Acute Distress - Head Exam Head Exam: NORMAL INSPECTION - Eye Exam Eye Exam: PERRL - ENT Exam ENT Exam: Normal Exam - Neck Exam Neck Exam: Normal Inspection - Respiratory Exam Respiratory Exam: Clear to Ausculation Bilateral - Cardiovascular Exam Cardiovascular Exam: REGULAR RHYTHM - GI/Abdominal Exam GI & Abdominal Exam: Tenderness (mild unbilical open area with minimal drainage , colostomy working.) - Extremities Exam Extremities Exam: Normal Inspection - Back Exam Back Exam: NORMAL INSPECTION - Neurological Exam Neurological Exam: Alert, CN II-XII Intact. absent: Motor Sensory Deficit - Psychiatric Exam Psychiatric exam: Normal Affect, Normal Mood - Skin Skin Exam: Warm Assessment and Plan (1) Abdominal abscess Status: Acute (2) Umbilical hernia Status: Acute (3) Status post exploratory laparotomy Status: Chronic (4) HTN (hypertension) Status: Chronic
[2018-01-28 15:42] VITALS: BP 94/60; PULSE 70; RESP 18; TEMP 97.8; O2SAT 98
--- NOTE | 2018-01-28 18:22 | CP.PCM.PN ---
Subjective - Date & Time of Evaluation Date of Evaluation: 01/28/18 Time of Evaluation: 08:00 - Subjective Subjective: wound improving await transfer to TCU Objective - Vital Signs/Intake and Output Vital Signs (last 24 hours): Temp Pulse Resp BP Pulse Ox 97.8 F 70 18 94/60 L 98 01/28/18 15:42 01/28/18 15:42 01/28/18 15:42 01/28/18 15:42 01/28/18 15:42 - Medications Medications: Current Medications Acetaminophen (Tylenol 325mg Tab) 650 mg PO Q6 PRN PRN Reason: Pain, Mild (1-3) Last Admin: 01/28/18 00:50 Dose: 650 mg Bacitracin (Bacitracin) 1 ea TOP TID [facility] [place] Last Admin: 01/28/18 17:01 Dose: 1 ea HCTZ/Losartan Potassium (Hyzaar 12.5 Mg-50 Mg) 1 tab PO DAILY [facility] Last Admin: 01/28/18 08:21 Dose: 1 tab Vancomycin HCl 1 gm/ Sodium (Chloride) 250 mls @ 166.667 mls/hr IVPB Q12 [facility] PRN Reason: Protocol Last Admin: 01/28/18 10:19 Dose: 166.667 mls/hr Piperacillin Sod/Tazobactam (Sod 3.375 gm/ Sodium Chloride) 100 mls @ 100 mls/ hr IVPB Q8 [facility] PRN Reason: Protocol Last Admin: 01/28/18 16:59 Dose: 100 mls/hr Metoprolol Tartrate (Lopressor) 100 mg PO BID@0900,2100 [facility] [place] Last Admin: 01/28/18 08:20 Dose: 100 mg Sertraline HCl (Zoloft) 75 mg PO DAILY [facility] [place] Last Admin: 01/28/18 08:22 Dose: 75 mg Tamsulosin HCl (Flomax) 0.4 mg PO DAILY [facility] Last Admin: 01/28/18 08:21 Dose: 0.4 mg - Labs Labs: 01/25/18 08:50 01/23/18 16:15 PT 12.7 Seconds (9.8-13.1) 01/23/18 16:15 INR 1.1 (0.9-1.2) 01/23/18 16:15 APTT 24.4 Seconds (25.6-37.1) L 01/23/18 16:15 - Constitutional Appears: Non-toxic, Chronically Ill - Head Exam Head Exam: NORMOCEPHALIC - Eye Exam Eye Exam: PERRL - ENT Exam ENT Exam: Mucous Membranes Dry - Neck Exam Neck Exam: absent: Lymphadenopathy - Respiratory Exam Respiratory Exam: Decreased Breath Sounds - Cardiovascular Exam Cardiovascular Exam: REGULAR RHYTHM - GI/Abdominal Exam GI & Abdominal Exam: Distended, Soft Assessment and Plan (1) Abdominal abscess Status: Acute (2) Umbilical hernia Status: Acute
== END 2018-01-28 19:45 | DRG 418 ==
LOC: H.ER 12:39 → H.ERHOLD 20:27 → H.MEDSURG1 23:08
PROVIDERS: ADMIT Internal Medicine Pulmonary Disease; ATTEND Internal Medicine Pulmonary Disease
DX: T81.4XXA Infection following a procedure, initial encounter (principal); L02.211 Cutaneous abscess of abdominal wall; K42.9 Umbilical hernia without obstruction or gangrene; J45.909 Unspecified asthma, uncomplicated; I10 Essential (primary) hypertension; Z86.010 Personal history of colon polyps; Z93.3 Colostomy status; N40.0 Benign prostatic hyperplasia without lower urinary tract symptoms

== ENCOUNTER 2018-01-28 10:33 | Inpatient (IN) | payer MEDICAID ==
[2018-01-28 20:05] VITALS: BMI 35.6
[2018-01-28 21:21] VITALS: RESP 20
[2018-01-28] MEDS ORDERED: Patient's Own Med (Vancomycin 1 Gm [Vancomycin 1gm In Normal Saline Addvantage] 1 GM) IVPB SCH (22:00)
[2018-01-28] MEDS: Piperacillin/Tazobact 3.375 GM in Sodium Chloride 0.9% 100 ML IVPB SCH (23:40)
[2018-01-29] MEDS ORDERED: Patient's Own Med (Piperacill/Tazo 3.375gm In Dex [Zosyn 3.375 Gm Iv] 3.375 GM) IVPB SCH (01:00)
[2018-01-29] MEDS: Piperacillin/Tazobact 3.375 GM in Sodium Chloride 0.9% 100 ML IVPB SCH ×3 (06:23→22:44)
[2018-01-29] MEDS: HCTZ/Losartan 12.5/50 Tab PO SCH (09:14)
[2018-01-29] MEDS: Bacitracin 500 Units/gm Oint Foilpak UD TOP SCH ×3 (09:15→16:33)
--- NOTE | 2018-01-29 12:43 | CP.PCM.CON ---
History of Present Illness - History of Present Illness History of Present Illness: 57 M w recent ho of ex lap and blow hole colostomy for bowel obstruction came with umbilical hernia. Pt had surgery on 01/06 and had the jamari removed 4 days ago. 2 days ago pt noticed umbilical hernia and it is getting larger, painful, and redder. There are skin changes with excoriations. Reports having semi solid feculent output from stoma. Denies Fever, chills, nausea, vomiting, SOB, CP, weakness, dizziness or diarrhea. Pain is localized around the umbilicus and feels like burning sensation. Denies hematemesis, hematochezia, hematuria, melena, dysuria. Tolerating diet. Pt had umbilical hernia in the past. Last CT scan before ex lap shows umbilical hernia containing bowel w free air and dilated bowel. PMH: HTN, BPH PSH: robotic sigmoidectomy w anastomosis (2015), ex lap blow hold colostomy ( 2018) id consulted for antibiotic management await results of cultures cont empiric IV rx for now Review of Systems - Review of Systems All systems: reviewed and no additional remarkable complaints except Past Patient History - Past Medical History & Family History Past Medical History?: Yes - Past Social History Smoking Status: Never Smoked - CARDIAC Hx Cardiac Disorders: Yes Hx Hypertension: Yes - PULMONARY Hx Respiratory Disorders: Yes Hx Asthma: Yes - NEUROLOGICAL Hx Neurological Disorder: No - HEENT Hx HEENT Problems: No - RENAL Hx Chronic Kidney Disease: No - ENDOCRINE/METABOLIC Hx Endocrine Disorders: No - HEMATOLOGICAL/ONCOLOGICAL Hx Blood Disorders: Yes Hx AIDS: No Hx Anemia: Yes Hx Blood Transfusions: Yes Hx Blood Transfusion Reaction: No Hx Human Immunodeficiency Virus (HIV): No - INTEGUMENTARY Hx Dermatological Problems: No - MUSCULOSKELETAL/RHEUMATOLOGICAL Hx Musculoskeletal Disorders: Yes Hx Falls: No Hx Fractures: Yes (5th finger right) - GASTROINTESTINAL Hx Gastrointestinal Disorders: Yes Hx Bowel Surgery: Yes (HEMICOLECTOMY 2015) Hx Colostomy: Yes Hx Hemorrhoids: Yes (INTERNAL) Hx Ulcer: Yes (GASTRIC) Other/Comment: HX: SIGMOID VOLVULUS/CHRONIC CONSTIPATION/SPONTANEOUS UNCONTROLLED FECAL EVACUATION, WITH HEMICOLECTOMY - GENITOURINARY/GYNECOLOGICAL Hx Genitourinary Disorders: Yes - PSYCHIATRIC Hx Psychophysiologic Disorder: No Hx Substance Use: No - SURGICAL HISTORY Hx Surgeries: Yes Other/Comment: SIGMOID VOLVULUS/CHRONIC CONSTIPATION/SPONTANEOUS UNCONTROLLED FECAL EVACUATION, WITH HEMICOLECTOMY - ANESTHESIA Hx Anesthesia: Yes Hx Anesthesia Reactions: No Hx Malignant Hyperthermia: No Meds Allergies/Adverse Reactions: Allergies Allergy/AdvReac Type Severity Reaction Status Date / Time No Known Allergies Allergy Verified 01/29/18 12:14 - Medications Medications: Current Medications Bacitracin (Bacitracin) 1 ea TOP TID [facility] Last Admin: 01/29/18 12:17 Dose: 1 ea HCTZ/Losartan Potassium (Hyzaar 12.5 Mg-50 Mg) 1 tab PO DAILY [facility] Last Admin: 01/29/18 09:14 Dose: 1 tab Piperacillin Sod/Tazobactam (Sod 3.375 gm/ Sodium Chloride) 100 mls @ 100 mls/ hr IVPB Q8H [facility] Last Admin: 01/29/18 12:10 Dose: 100 mls/hr Vancomycin HCl 1 gm/ Sodium (Chloride) 250 mls @ 125 mls/hr IVPB Q12H [facility] Last Admin: 01/29/18 09:15 Dose: 125 mls/hr Metoprolol Tartrate (Lopressor) 100 mg PO Q12 [facility] Last Admin: 01/29/18 09:14 Dose: 100 mg Sertraline HCl (Zoloft) 75 mg PO DAILY [facility] Last Admin: 01/29/18 09:15 Dose: 75 mg Tamsulosin HCl (Flomax) 0.4 mg PO DAILY [facility] Last Admin: 01/29/18 09:14 Dose: 0.4 mg Physical Exam - Constitutional Appears: Non-toxic, Chronically Ill - Head Exam Head Exam: NORMOCEPHALIC - Eye Exam Eye Exam: PERRL. absent: Scleral icterus - ENT Exam ENT Exam: Mucous Membranes Dry - Neck Exam Neck exam: Negative for: Lymphadenopathy - Respiratory Exam Respiratory Exam: Decreased Breath Sounds - Cardiovascular Exam Cardiovascular Exam: REGULAR RHYTHM - GI/Abdominal Exam GI & Abdominal Exam: Diminished Bowel Sounds, Distended, Soft, Tenderness. absent: Pulsatile Mass, Rebound, Rigid Additional comments: wound midline healing functioning colostomy right side - Rectal Exam Rectal Exam: Deferred - Exam Exam: NORMAL INSPECTION - Extremities Exam Extremities exam: Negative for: pedal edema - Back Exam Back exam: absent: CVA tenderness (L), CVA tenderness (R) - Neurological Exam Neurological exam: Alert, CN II-XII Intact, Oriented x3, Reflexes Normal - Psychiatric Exam Psychiatric exam: Normal Mood - Skin Skin Exam: Dry Results - Vital Signs Recent Vital Signs: Last Vital Signs Temp 97.0 F L 01/29/18 08:43 Pulse 64 01/29/18 11:11 Resp 20 01/29/18 08:43 BP 117/63 01/29/18 09:14 Pulse Ox 97 01/29/18 08:43 Assessment & Plan (1) Abdominal abscess Status: Acute Priority: High - Assessment and Plan (Free Text) Assessment: s/p i and d of abscess abd wall cellulitis cont iv rx and wound care for 7 days
--- NOTE | 2018-01-29 14:03 | CP.PCM.HP ---
History of Present Illness - History of Present Illness History of Present Illness: 57 y/o M, admitted to [facility] on 01/23/18 with acute abdominal pain, Hx of s/p Lap kingsley on 01/06/18, on evaluation was found to have abdominal abscess surgical site, there after, Pt underwent I&D of site. On 01/28/17, Pt condition improved and was transferred to TCU for continue abx course. Present on Admission - Present on Admission Any Indicators Present on Admission: No Review of Systems - Constitutional Constitutional: Other (negative) - EENT Eyes: Requires Corrective Lenses Ears: Other (negative) Nose/Mouth/Throat: Other (negative) - Cardiovascular Cardiovascular: Other (negative) - Respiratory Respiratory: Other (negative) - Gastrointestinal Gastrointestinal: Abdominal Pain - Genitourinary Genitourinary: Other (negative) - Musculoskeletal Musculoskeletal: Other (negative) - Integumentary Integumentary: Wounds (abdominal) - Neurological Neurological: Other (negative) - Psychiatric Psychiatric: Other (negative) - Endocrine Endocrine: Other (obese) - Hematologic/Lymphatic Hematologic: Other (negative) Past Patient History - Past Medical History & Family History Past Medical History?: Yes Pertinent Family History: Unknown - Past Social History Smoking Status: Never Smoked Alcohol: None Drugs: Denies Home Situation {Lives}: With Family - CARDIAC Hx Cardiac Disorders: Yes Hx Hypertension: Yes - PULMONARY Hx Respiratory Disorders: Yes Hx Asthma: Yes - NEUROLOGICAL Hx Neurological Disorder: No - HEENT Hx HEENT Problems: No - RENAL Hx Chronic Kidney Disease: No - ENDOCRINE/METABOLIC Hx Endocrine Disorders: No - HEMATOLOGICAL/ONCOLOGICAL Hx Blood Disorders: Yes Hx AIDS: No Hx Anemia: Yes Hx Blood Transfusions: Yes Hx Blood Transfusion Reaction: No Hx Human Immunodeficiency Virus (HIV): No - INTEGUMENTARY Hx Dermatological Problems: No - MUSCULOSKELETAL/RHEUMATOLOGICAL Hx Musculoskeletal Disorders: Yes Hx Falls: No Hx Fractures: Yes (5th finger right) - GASTROINTESTINAL Hx Gastrointestinal Disorders: Yes Hx Bowel Surgery: Yes (HEMICOLECTOMY 2015) Hx Colostomy: Yes Hx Hemorrhoids: Yes (INTERNAL) Hx Ulcer: Yes (GASTRIC) Other/Comment: HX: SIGMOID VOLVULUS/CHRONIC CONSTIPATION/SPONTANEOUS UNCONTROLLED FECAL EVACUATION, WITH HEMICOLECTOMY - GENITOURINARY/GYNECOLOGICAL Hx Genitourinary Disorders: Yes - PSYCHIATRIC Hx Psychophysiologic Disorder: No Hx Substance Use: No - SURGICAL HISTORY Hx Surgeries: Yes Other/Comment: SIGMOID VOLVULUS/CHRONIC CONSTIPATION/SPONTANEOUS UNCONTROLLED FECAL EVACUATION, WITH HEMICOLECTOMY - ANESTHESIA Hx Anesthesia: Yes Hx Anesthesia Reactions: No Hx Malignant Hyperthermia: No Meds Allergies/Adverse Reactions: Allergies Allergy/AdvReac Type Severity Reaction Status Date / Time No Known Allergies Allergy Verified 01/29/18 12:14 Physical Exam - Constitutional Appears: No Acute Distress - Head Exam Head Exam: NORMAL INSPECTION - Eye Exam Eye Exam: PERRL - ENT Exam ENT Exam: Normal Exam - Neck Exam Neck exam: Positive for: Normal Inspection - Respiratory Exam Respiratory Exam: Clear to Auscultation Bilateral - Cardiovascular Exam Cardiovascular Exam: REGULAR RHYTHM - GI/Abdominal Exam GI & Abdominal Exam: Distended (mild), Soft Additional comments: Mid abdominal dressing, colostomy R uper abdomen. - Extremities Exam Extremities exam: Positive for: normal inspection - Back Exam Back exam: NORMAL INSPECTION - Neurological Exam Neurological exam: Alert, Oriented x3 - Psychiatric Exam Psychiatric exam: Normal Affect, Normal Mood - Skin Skin Exam: Warm Results - Vital Signs Recent Vital Signs: Last Vital Signs Temp 97.0 F L 01/29/18 08:43 Pulse 64 01/29/18 11:11 Resp 20 01/29/18 08:43 BP 117/63 01/29/18 09:14 Pulse Ox 97 01/29/18 08:43 reviewed j.P. - Labs Result Diagrams: 02/01/18 05:30 02/01/18 05:30 Labs: reviewed J.P. Assessment & Plan (1) Abdominal abscess Status: Acute Priority: High (2) Status post incision and drainage Status: Acute Priority: High (3) Umbilical hernia Status: Acute Priority: High (4) Status post exploratory laparotomy Status: Chronic Priority: High (5) HTN (hypertension) Status: Chronic Priority: Medium - Assessment and Plan (Free Text) Plan: Continue Bacitracin, Zosyn-Vanco x 7 days as per ID dairy consultant, continue Lopressor, Hyzaar and rest of Tx. - Date & Time Date: 01/29/18 Time: 15:30
[2018-01-30] MEDS: Piperacillin/Tazobact 3.375 GM in Sodium Chloride 0.9% 100 ML IVPB SCH ×3 (05:52→20:46)
[2018-01-30] MEDS: Bacitracin 500 Units/gm Oint Foilpak UD TOP SCH ×2 (08:46→12:59)
[2018-01-30] MEDS: HCTZ/Losartan 12.5/50 Tab PO SCH (08:47)
--- NOTE | 2018-01-30 15:22 | CP.PCM.PN ---
Subjective - Date & Time of Evaluation Date of Evaluation: 01/30/18 Time of Evaluation: 12:20 - Subjective Subjective: F/U Abdominal abscess/ S/P I&D No abdominal pain , eating well Objective - Vital Signs/Intake and Output Vital Signs (last 24 hours): Temp Pulse Resp BP Pulse Ox 97.7 F 63 20 102/50 L 100 01/30/18 08:42 01/30/18 08:46 01/30/18 08:42 01/30/18 08:46 01/30/18 08:42 - Medications Medications: Current Medications Bacitracin (Bacitracin) 1 ea TOP TID [facility] Last Admin: 01/30/18 12:59 Dose: 1 ea HCTZ/Losartan Potassium (Hyzaar 12.5 Mg-50 Mg) 1 tab PO DAILY [facility] Last Admin: 01/30/18 08:47 Dose: 1 tab Piperacillin Sod/Tazobactam (Sod 3.375 gm/ Sodium Chloride) 100 mls @ 100 mls/ hr IVPB Q8H [facility] Last Admin: 01/30/18 12:57 Dose: 100 mls/hr Vancomycin HCl 1 gm/ Sodium (Chloride) 250 mls @ 125 mls/hr IVPB Q12H [facility] Last Admin: 01/30/18 08:52 Dose: 125 mls/hr Metoprolol Tartrate (Lopressor) 100 mg PO Q12 [facility] Last Admin: 01/30/18 08:46 Dose: 100 mg Sertraline HCl (Zoloft) 75 mg PO DAILY [facility] Last Admin: 01/30/18 12:58 Dose: 75 mg Tamsulosin HCl (Flomax) 0.4 mg PO DAILY [facility] Last Admin: 01/30/18 08:47 Dose: 0.4 mg - Constitutional Appears: No Acute Distress - Head Exam Head Exam: NORMAL INSPECTION - Eye Exam Eye Exam: PERRL - ENT Exam ENT Exam: Normal Exam - Neck Exam Neck Exam: Normal Inspection - Respiratory Exam Respiratory Exam: Clear to Ausculation Bilateral - Cardiovascular Exam Cardiovascular Exam: REGULAR RHYTHM - GI/Abdominal Exam GI & Abdominal Exam: Soft, Normal Bowel Sounds Additional comments: Umbilical wound open , clean is clear discharge minimal tenderness to palpation ,rest of the midline surgical incision healing well, colostomy working - Extremities Exam Extremities Exam: Normal Inspection - Back Exam Back Exam: NORMAL INSPECTION - Neurological Exam Neurological Exam: Alert, Oriented x3 - Psychiatric Exam Psychiatric exam: Normal Affect, Normal Mood - Skin Skin Exam: Warm Assessment and Plan (1) Abdominal abscess Status: Acute (2) Status post incision and drainage Status: Acute (3) Umbilical hernia Status: Acute (4) Status post exploratory laparotomy Status: Chronic (5) HTN (hypertension) Status: Chronic - Assessment and Plan (Free Text) Plan: Continue local care of the wounds with normal saline and bacitracin, continue Zosyn and Zyvox , dnd rest of treatment
[2018-01-30] MEDS ORDERED: Bacitracin 500 Units/gm Oint Foilpak UD TOP SCH (21:00)
[2018-01-31] MEDS: Piperacillin/Tazobact 3.375 GM in Sodium Chloride 0.9% 100 ML IVPB SCH ×3 (04:34→21:21)
[2018-01-31] MEDS: Bacitracin 500 Units/gm Oint Foilpak UD TOP SCH ×4 (08:41→21:22)
[2018-01-31] MEDS: HCTZ/Losartan 12.5/50 Tab PO SCH (08:42)
--- NOTE | 2018-01-31 12:50 | CP.PCM.PN ---
Subjective - Date & Time of Evaluation Date of Evaluation: 01/31/18 Time of Evaluation: 10:00 - Subjective Subjective: improving slowly no fever vanco levels noted iv rx reordered Objective - Vital Signs/Intake and Output Vital Signs (last 24 hours): Temp Pulse Resp BP Pulse Ox 97.2 F L 66 20 96/59 L 100 01/31/18 08:17 01/31/18 08:41 01/31/18 08:17 01/31/18 08:17 01/31/18 08:17 - Medications Medications: Current Medications Bacitracin (Bacitracin) 1 ea TOP TID@0900,1300,2100 [facility] Last Admin: 01/31/18 08:41 Dose: 1 ea HCTZ/Losartan Potassium (Hyzaar 12.5 Mg-50 Mg) 1 tab PO DAILY [facility] Last Admin: 01/31/18 08:42 Dose: 1 tab Piperacillin Sod/Tazobactam (Sod 3.375 gm/ Sodium Chloride) 100 mls @ 100 mls/ hr IVPB Q8H [facility] Last Admin: 01/31/18 04:34 Dose: 100 mls/hr Vancomycin HCl 1 gm/ Sodium (Chloride) 250 mls @ 125 mls/hr IVPB Q12H [facility] Last Admin: 01/31/18 08:41 Dose: 125 mls/hr Metoprolol Tartrate (Lopressor) 100 mg PO Q12 [facility] Last Admin: 01/31/18 08:41 Dose: 100 mg Sertraline HCl (Zoloft) 75 mg PO DAILY [facility] Last Admin: 01/31/18 08:42 Dose: 75 mg Tamsulosin HCl (Flomax) 0.4 mg PO DAILY [facility] Last Admin: 01/31/18 08:41 Dose: 0.4 mg - Constitutional Appears: Non-toxic, Chronically Ill - Head Exam Head Exam: NORMOCEPHALIC - Eye Exam Eye Exam: PERRL - ENT Exam ENT Exam: Mucous Membranes Dry - Neck Exam Neck Exam: absent: Lymphadenopathy - Respiratory Exam Respiratory Exam: Decreased Breath Sounds - Cardiovascular Exam Cardiovascular Exam: REGULAR RHYTHM - GI/Abdominal Exam GI & Abdominal Exam: Distended - Rectal Exam Rectal Exam: Deferred - Extremities Exam Extremities Exam: absent: Pedal Edema - Back Exam Back Exam: absent: CVA tenderness (L), CVA tenderness (R) - Neurological Exam Neurological Exam: Alert, Awake, Oriented x3 - Psychiatric Exam Psychiatric exam: Normal Mood Assessment and Plan (1) Abdominal abscess Status: Acute
--- NOTE | 2018-01-31 14:39 | CP.PCM.PN ---
Subjective - Date & Time of Evaluation Date of Evaluation: 01/31/18 Time of Evaluation: 12:20 - Subjective Subjective: F/U Abdominal abscess I&D. No abdominal pain, eating well Objective - Vital Signs/Intake and Output Vital Signs (last 24 hours): Temp Pulse Resp BP Pulse Ox 97.2 F L 66 20 96/59 L 100 01/31/18 08:17 01/31/18 08:41 01/31/18 08:17 01/31/18 08:17 01/31/18 08:17 - Medications Medications: Current Medications Bacitracin (Bacitracin) 1 ea TOP TID@0900,1300,2100 [facility] Last Admin: 01/31/18 13:08 Dose: 1 ea HCTZ/Losartan Potassium (Hyzaar 12.5 Mg-50 Mg) 1 tab PO DAILY [facility] Last Admin: 01/31/18 08:42 Dose: 1 tab Piperacillin Sod/Tazobactam (Sod 3.375 gm/ Sodium Chloride) 100 mls @ 100 mls/ hr IVPB Q8H [facility] Last Admin: 01/31/18 13:08 Dose: 100 mls/hr Vancomycin HCl 1 gm/ Sodium (Chloride) 250 mls @ 125 mls/hr IVPB Q12H [facility] Last Admin: 01/31/18 08:41 Dose: 125 mls/hr Metoprolol Tartrate (Lopressor) 100 mg PO Q12 [facility] Last Admin: 01/31/18 08:41 Dose: 100 mg Sertraline HCl (Zoloft) 75 mg PO DAILY [facility] Last Admin: 01/31/18 08:42 Dose: 75 mg Tamsulosin HCl (Flomax) 0.4 mg PO DAILY [facility] Last Admin: 01/31/18 08:41 Dose: 0.4 mg - Constitutional Appears: No Acute Distress - Head Exam Head Exam: NORMAL INSPECTION - Eye Exam Eye Exam: PERRL - ENT Exam ENT Exam: Normal Exam - Neck Exam Neck Exam: Normal Inspection - Respiratory Exam Respiratory Exam: Clear to Ausculation Bilateral - Cardiovascular Exam Cardiovascular Exam: REGULAR RHYTHM - GI/Abdominal Exam GI & Abdominal Exam: Soft, Tenderness (minimal to palpation), Normal Bowel Sounds Additional comments: Area of umbilical abscess open with minimal draining. R upper abdomen colostomy working well. - Extremities Exam Extremities Exam: Normal Inspection - Back Exam Back Exam: NORMAL INSPECTION - Neurological Exam Neurological Exam: Alert, Oriented x3 - Psychiatric Exam Psychiatric exam: Normal Affect, Normal Mood - Skin Skin Exam: Warm Assessment and Plan (1) Abdominal abscess Status: Acute (2) Status post incision and drainage Status: Acute (3) Umbilical hernia Status: Acute (4) Status post exploratory laparotomy Status: Chronic (5) HTN (hypertension) Status: Chronic - Assessment and Plan (Free Text) Plan: Continue normal saline and bacitracin in umbilical wound, Vanco trough level 11.5, continue Zosyn , Vancomycin and rest of the treatment.
[2018-02-01] MEDS: Piperacillin/Tazobact 3.375 GM in Sodium Chloride 0.9% 100 ML IVPB SCH ×3 (05:35→21:17)
[2018-02-01 06:18] LABS: BASO % 0.4 % (0.0-2.0); EOS # 1.1 K/uL (0.0-0.7); EOS % 12.2 % (0.0-4.0); HEMOGLOBIN 11.8 g/dL (12.0-18.0); MEAN CELL VOLUME 87.9 fl (80.0-94.0); MEAN CORPUSCULAR HEMOGLOBIN 28.8 pg (27.0-31.0); MEAN CORPUSCULAR HGB CONC 32.7 g/dL (33.0-37.0); MEAN PLATELET VOLUME 8.9 fl (7.2-11.7); MONO # 0.8 K/uL (0.0-0.8); MONO % 8.5 % (0.0-10.0); NEUT # 5.2 K/uL (1.8-7.0); NEUT % 56.9 % (50.0-75.0); NRBC % 0.1 % (0.0-0.0); RBC 4.09 Mil/uL (4.40-5.90); RED CELL DISTRIBUTION WIDTH 13.6 % (11.5-14.5); WHITE BLOOD COUNT 9.2 K/uL (4.8-10.8)
[2018-02-01 06:36] LABS: ALB/GLOB RATIO 0.9 (1.0-2.1); ALBUMIN 3.6 g/dL (3.5-5.0); ALT/SGPT 34 U/L (21-72); AST/SGOT 26 U/L (17-59); BLOOD UREA NITROGEN 18 mg/dl (9-20); CALCIUM 9.3 mg/dL (8.4-10.2); GFR AFRICAN-AMERICAN > 60; GFR NON-AFRICAN AMERICAN > 60
[2018-02-01] MEDS: Bacitracin 500 Units/gm Oint Foilpak UD TOP SCH ×3 (08:29→21:17)
[2018-02-01] MEDS: HCTZ/Losartan 12.5/50 Tab PO SCH (08:29)
--- NOTE | 2018-02-01 16:33 | CP.PCM.PN ---
Subjective - Date & Time of Evaluation Date of Evaluation: 02/01/18 Time of Evaluation: 12:00 - Subjective Subjective: F/U Abdominal abscess I&D. Pt eating well, no abdominal pain. Objective - Vital Signs/Intake and Output Vital Signs (last 24 hours): Temp Pulse Resp BP Pulse Ox 97.7 F 67 20 100/52 L 99 02/01/18 08:15 02/01/18 08:29 02/01/18 08:15 02/01/18 08:29 02/01/18 08:15 - Medications Medications: Current Medications Bacitracin (Bacitracin) 1 ea TOP TID@0900,1300,2100 [facility] Last Admin: 02/01/18 12:37 Dose: 1 ea HCTZ/Losartan Potassium (Hyzaar 12.5 Mg-50 Mg) 1 tab PO DAILY [facility] Last Admin: 02/01/18 08:29 Dose: 1 tab Piperacillin Sod/Tazobactam (Sod 3.375 gm/ Sodium Chloride) 100 mls @ 100 mls/ hr IVPB Q8H [facility] Last Admin: 02/01/18 12:37 Dose: 100 mls/hr Vancomycin HCl 1 gm/ Sodium (Chloride) 250 mls @ 125 mls/hr IVPB Q12H [facility] Last Admin: 02/01/18 08:29 Dose: 125 mls/hr Metoprolol Tartrate (Lopressor) 100 mg PO Q12 [facility] Last Admin: 02/01/18 08:29 Dose: 100 mg Sertraline HCl (Zoloft) 75 mg PO DAILY [facility] Last Admin: 02/01/18 08:29 Dose: 75 mg Tamsulosin HCl (Flomax) 0.4 mg PO DAILY [facility] Last Admin: 02/01/18 08:29 Dose: 0.4 mg - Labs Labs: 02/01/18 05:30 02/01/18 05:30 - Constitutional Appears: No Acute Distress - Head Exam Head Exam: NORMAL INSPECTION - Eye Exam Eye Exam: PERRL - ENT Exam ENT Exam: Normal Exam - Neck Exam Neck Exam: Normal Inspection - Respiratory Exam Respiratory Exam: Clear to Ausculation Bilateral - Cardiovascular Exam Cardiovascular Exam: REGULAR RHYTHM - GI/Abdominal Exam GI & Abdominal Exam: Soft, Tenderness (minimal to palpation umbilical area), Normal Bowel Sounds Additional comments: Area of umbilical abscess open with minimal clear draining, R upper colostomy working well - Extremities Exam Extremities Exam: Normal Inspection - Back Exam Back Exam: NORMAL INSPECTION - Neurological Exam Neurological Exam: Alert, Oriented x3 - Psychiatric Exam Psychiatric exam: Normal Affect, Normal Mood - Skin Skin Exam: Warm Assessment and Plan (1) Abdominal abscess Status: Acute (2) Status post incision and drainage Status: Acute (3) Umbilical hernia Status: Acute (4) Status post exploratory laparotomy Status: Chronic (5) HTN (hypertension) Status: Chronic - Assessment and Plan (Free Text) Plan: Continue Zosyn,Vanco, Bacitracin and rest of Tx.
[2018-02-02] MEDS: Piperacillin/Tazobact 3.375 GM in Sodium Chloride 0.9% 100 ML IVPB SCH ×3 (05:46→20:12)
[2018-02-02] MEDS: HCTZ/Losartan 12.5/50 Tab PO SCH (08:56)
[2018-02-02] MEDS: Bacitracin 500 Units/gm Oint Foilpak UD TOP SCH ×3 (08:58→20:18)
--- NOTE | 2018-02-02 12:27 | CP.PCM.PN ---
Subjective - Date & Time of Evaluation Date of Evaluation: 02/02/18 Time of Evaluation: 12:00 - Subjective Subjective: F/U Abdominal abscess. no AD , no abdominal pain , eating well Objective - Vital Signs/Intake and Output Vital Signs (last 24 hours): Temp Pulse Resp BP Pulse Ox 98.1 F 63 20 113/62 99 02/02/18 09:17 02/02/18 09:17 02/02/18 09:17 02/02/18 09:17 02/02/18 09:17 - Medications Medications: Current Medications Bacitracin (Bacitracin) 1 ea TOP TID@0900,1300,2100 [facility] Last Admin: 02/02/18 08:58 Dose: 1 ea HCTZ/Losartan Potassium (Hyzaar 12.5 Mg-50 Mg) 1 tab PO DAILY [facility] Last Admin: 02/02/18 08:56 Dose: 1 tab Piperacillin Sod/Tazobactam (Sod 3.375 gm/ Sodium Chloride) 100 mls @ 100 mls/ hr IVPB Q8H [facility] Last Admin: 02/02/18 05:46 Dose: 100 mls/hr Vancomycin HCl 1 gm/ Sodium (Chloride) 250 mls @ 125 mls/hr IVPB Q12H [facility] Last Admin: 02/02/18 08:56 Dose: 125 mls/hr Metoprolol Tartrate (Lopressor) 100 mg PO Q12 [facility] Last Admin: 02/02/18 08:54 Dose: 100 mg Sertraline HCl (Zoloft) 75 mg PO DAILY [facility] Last Admin: 02/02/18 08:56 Dose: 75 mg Tamsulosin HCl (Flomax) 0.4 mg PO DAILY [facility] Last Admin: 02/02/18 08:54 Dose: 0.4 mg - Labs Labs: 02/01/18 05:30 02/01/18 05:30 - Constitutional Appears: No Acute Distress - Head Exam Head Exam: NORMAL INSPECTION - Eye Exam Eye Exam: PERRL - ENT Exam ENT Exam: Normal Exam - Neck Exam Neck Exam: Normal Inspection - Respiratory Exam Respiratory Exam: Clear to Ausculation Bilateral - Cardiovascular Exam Cardiovascular Exam: REGULAR RHYTHM - GI/Abdominal Exam GI & Abdominal Exam: Soft, Tenderness (minimal on palpation) Additional comments: Area of open wound umbilical abscess with minimal drainage, R upper colostomy working well. - Extremities Exam Extremities Exam: Normal Inspection - Back Exam Back Exam: NORMAL INSPECTION - Neurological Exam Neurological Exam: Alert, Oriented x3. absent: Motor Sensory Deficit - Psychiatric Exam Psychiatric exam: Normal Affect, Normal Mood - Skin Skin Exam: Warm Assessment and Plan (1) Abdominal abscess Status: Acute (2) Status post incision and drainage Status: Acute (3) Umbilical hernia Status: Acute (4) Status post exploratory laparotomy Status: Chronic (5) HTN (hypertension) Status: Chronic - Assessment and Plan (Free Text) Plan: Zosyn, Vanco IV ,continue rest of treatment , discharge planning in am
[2018-02-03 08:28] VITALS: BP 103/55; PULSE 72; TEMP 97.5; O2SAT 99
[2018-02-03] MEDS: HCTZ/Losartan 12.5/50 Tab PO SCH (09:00)
[2018-02-03] MEDS: Bacitracin 500 Units/gm Oint Foilpak UD TOP SCH (09:01)
--- NOTE | 2018-02-03 11:40 | CP.PCM.PN ---
Subjective - Date & Time of Evaluation Date of Evaluation: 02/03/18 Time of Evaluation: 08:00 - Subjective Subjective: doing well on IV rx can d/c on PO rx with wound care upon discharge Objective - Vital Signs/Intake and Output Vital Signs (last 24 hours): Temp Pulse Resp BP Pulse Ox 97.5 F L 72 20 103/55 L 99 02/03/18 08:27 02/03/18 09:00 02/03/18 08:27 02/03/18 09:00 02/03/18 08:27 - Medications Medications: Current Medications Bacitracin (Bacitracin) 1 ea TOP TID@0900,1300,2100 [facility] Last Admin: 02/03/18 09:01 Dose: 1 ea HCTZ/Losartan Potassium (Hyzaar 12.5 Mg-50 Mg) 1 tab PO DAILY [facility] Last Admin: 02/03/18 09:00 Dose: 1 tab Metoprolol Tartrate (Lopressor) 100 mg PO Q12 [facility] Last Admin: 02/03/18 09:00 Dose: 100 mg Sertraline HCl (Zoloft) 75 mg PO DAILY [facility] Last Admin: 02/03/18 09:01 Dose: 75 mg Tamsulosin HCl (Flomax) 0.4 mg PO DAILY [facility] Last Admin: 02/03/18 09:01 Dose: 0.4 mg - Labs Labs: 02/01/18 05:30 02/01/18 05:30 - Constitutional Appears: Non-toxic, Chronically Ill - Head Exam Head Exam: NORMOCEPHALIC - Eye Exam Eye Exam: PERRL - ENT Exam ENT Exam: Mucous Membranes Dry - Neck Exam Neck Exam: absent: Lymphadenopathy - Respiratory Exam Respiratory Exam: Decreased Breath Sounds - Cardiovascular Exam Cardiovascular Exam: REGULAR RHYTHM - GI/Abdominal Exam GI & Abdominal Exam: Soft. absent: Tenderness Additional comments: + colostomy midline incision healing - Rectal Exam Rectal Exam: Deferred - Exam Exam: NORMAL INSPECTION - Extremities Exam Extremities Exam: absent: Pedal Edema Assessment and Plan (1) Abdominal abscess Status: Acute - Assessment and Plan (Free Text) Assessment: doing well on IV rx can d/c on PO rx with wound care upon discharge
--- NOTE | 2018-02-03 14:12 | CP.PCM.DIS ---
Provider - Provider Date of Admission: 01/28/18 20:05 Attending physician: Pedro Luis Najera MD Diagnosis - Discharge Diagnosis (1) Abdominal abscess Status: Acute Priority: High (2) Status post incision and drainage Status: Acute Priority: High (3) Umbilical hernia Status: Acute Priority: High (4) Status post exploratory laparotomy Status: Chronic Priority: High (5) HTN (hypertension) Status: Chronic Priority: Medium Hospital Course - Lab Results Lab Results: Most Recent Lab Values WBC 9.2 K/uL (4.8-10.8) 02/01/18 05:30 RBC 4.09 Mil/uL (4.40-5.90) L 02/01/18 05:30 Hgb 11.8 g/dL (12.0-18.0) L 02/01/18 05:30 Hct 35.9 % (35.0-51.0) 02/01/18 05:30 MCV 87.9 fl (80.0-94.0) 02/01/18 05:30 MCH 28.8 pg (27.0-31.0) 02/01/18 05:30 MCHC 32.7 g/dL (33.0-37.0) L 02/01/18 05:30 RDW 13.6 % (11.5-14.5) 02/01/18 05:30 Plt Count 239 K/uL (130-400) 02/01/18 05:30 MPV 8.9 fl (7.2-11.7) 02/01/18 05:30 Neut % (Auto) 56.9 % (50.0-75.0) 02/01/18 05:30 Lymph % (Auto) 22.0 % (20.0-40.0) 02/01/18 05:30 Shannon % (Auto) 8.5 % (0.0-10.0) 02/01/18 05:30 Eos % (Auto) 12.2 % (0.0-4.0) H 02/01/18 05:30 Baso % (Auto) 0.4 % (0.0-2.0) 02/01/18 05:30 Neut # (Auto) 5.2 K/uL (1.8-7.0) 02/01/18 05:30 Lymph # (Auto) 2.0 K/uL (1.0-4.3) 02/01/18 05:30 Shannon # (Auto) 0.8 K/uL (0.0-0.8) 02/01/18 05:30 Eos # (Auto) 1.1 K/uL (0.0-0.7) H 02/01/18 05:30 Baso # (Auto) 0.0 K/uL (0.0-0.2) 02/01/18 05:30 Sodium 144 mmol/l (132-148) 02/01/18 05:30 Potassium 3.8 MMOL/L (3.6-5.0) 02/01/18 05:30 Chloride 101 mmol/L (98-107) 02/01/18 05:30 Carbon Dioxide 29 mmol/L (22-30) 02/01/18 05:30 Anion Gap 18 (10-20) 02/01/18 05:30 BUN 18 mg/dl (9-20) 02/01/18 05:30 Creatinine 0.7 mg/dl (0.8-1.5) L 02/01/18 05:30 Est GFR ( Amer) > 60 02/01/18 05:30 Est GFR (Non-Af Amer) > 60 02/01/18 05:30 Random Glucose 116 mg/dL (75-110) H 02/01/18 05:30 Calcium 9.3 mg/dL (8.4-10.2) 02/01/18 05:30 Total Bilirubin 0.4 mg/dl (0.2-1.3) 02/01/18 05:30 AST 26 U/L (17-59) 02/01/18 05:30 ALT 34 U/L (21-72) 02/01/18 05:30 Alkaline Phosphatase 87 U/L (38-126) 02/01/18 05:30 Total Protein 7.4 G/DL (6.3-8.2) 02/01/18 05:30 Albumin 3.6 g/dL (3.5-5.0) 02/01/18 05:30 Globulin 3.8 gm/dL (2.2-3.9) 02/01/18 05:30 Albumin/Globulin Ratio 0.9 (1.0-2.1) L 02/01/18 05:30 Vancomycin Trough 11.5 ug/mL (5.0-10.0) H 01/30/18 08:00 Discharge Exam - Head Exam Head Exam: NORMOCEPHALIC Discharge Plan - Follow Up Plan Condition: GOOD Disposition: HOME/ ROUTINE
== END 2018-02-03 16:00 | disposition home or self-care (01) | DRG 278 ==
LOC: H.TCU 20:05
PROVIDERS: ADMIT Internal Medicine Pulmonary Disease; ATTEND Internal Medicine Pulmonary Disease
DX: L03.311 Cellulitis of abdominal wall (principal); Z93.3 Colostomy status; I10 Essential (primary) hypertension; J45.909 Unspecified asthma, uncomplicated; K42.9 Umbilical hernia without obstruction or gangrene; N40.0 Benign prostatic hyperplasia without lower urinary tract symptoms

== ENCOUNTER 2018-01-29 11:22 | Day surgery (SDC) | payer MEDICAID ==
[2018-01-28 20:05] VITALS: BMI 35.6
[2018-01-29 12:19] VITALS: RESP 18
[2018-01-29] MEDS ORDERED: Lidocaine 1% Inj (20ml) ONE (13:53)
--- NOTE | 2018-01-29 14:02 | CP.SDSHP ---
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 Pt referred for PICC. Plan single lumen picc. Informed consent obtained. Pt. Evaluated Today:Candidate for Anesthesia & Procedure: No Short Stay Discharge - Short Stay Discharge Admitting Diagnosis/Reason for Visit: ABX TREATMENT Disposition: REHAB FACILITY/REHAB UNIT Referrals: Pedro Luis Najera MD [Primary Care Provider] -
--- NOTE | 2018-01-29 14:06 | PCM.SURG1 ---
Surgeon's Initial Post Op Note - Surgeon's Notes Surgeon: Salvador Summers MD Transcription Manager: NONE Type of Anesthesia: Local Pre-Operative Diagnosis: Infection Operative Findings: US showed patent right basilic vein Post-Operative Diagnosis: Infection Operation Performed: Single lumen picc right arm, 35 cm. Tip is in the SVC. Specimen/Specimens Removed: None Estimated Blood Loss: EBL {In ML}: 2 Blood Products Given: N/A Drains Used: No Drains Post-Op Condition: Fair Date of Surgery/Procedure: 01/29/18 Time of Surgery/Procedure: 14:10
[2018-01-29 14:36] VITALS: BP 94/55; PULSE 81; TEMP 97.8; O2SAT 96
--- NOTE | 2018-02-01 11:31 | VASCULAR ---
PROCEDURE: Date of procedure: 01/29/2018 Procedure: 1. Placement of a right arm PICC with ultrasound and fluoroscopic guidance, CPT 51425 2. PICC tip confirmation with spot radiograph and is in the superior vena cava Medications: 1 percent lidocaine Total Fluoro time: 4.7 seconds Radiation: 0.63 MGy EBL: 2 cc HISTORY: Infection requiring long-term IV antibiotics TECHNIQUE: Following informed consent and procedure time-out, the patient was placed supine on the interventional table and the right arm prepped and draped in the usual sterile fashion. Ultrasound showed a patent and compressible right basilic vein. After the skin was anesthetized with lidocaine, the basilic vein was accessed with micro micropuncture technique using ultrasound guidance. A guidewire was then advanced under fluoroscopic guidance into the superior vena cava. An image documenting ultrasound guidance for vascular access was permanently saved. The length of the single-lumen 4 [place] PICC was trimmed to 35 centimeters and advanced through a peel-away sheath. The PICC was position with tip of PICC confirm a spot radiograph the superior vena cava. The PICC was secured to the patient's skin. The PICC was flushed. A biopatch and sterile dressing was applied. IMPRESSION: Placement of a single-lumen 4 [place] PICC trimmed to 35 centimeters via right basilic vein. The tip of the PICC is confirmed with spot radiograph and is in the superior vena cava.
== END 2018-01-29 14:35 ==
LOC: H.OPSURG 11:22
PROVIDERS: ATTEND Internal Medicine Pulmonary Disease
DX: Z45.2 Encounter for adjustment and management of vascular access device (principal)
CPT/HCPCS: 36569; 76937; 77001; A4310; C1751

== ENCOUNTER 2018-10-12 05:35 | Inpatient (IN) | payer MEDICAID ==
[2018-10-12 05:36] VITALS: BMI 38.2
[2018-10-12] MEDS ORDERED: Sodium Chloride 0.9% 1,000 ML IV STA (06:38)
[2018-10-12] MEDS ORDERED: Iohexol 240 (50 ml) PO ONE (06:42)
[2018-10-12] MEDS ORDERED: Iohexol 240 (50 ml) ONE (06:44)
--- NOTE | 2018-10-12 06:48 | ED PDOC ---
HPI: Abdomen Time Seen by Provider: 10/12/18 06:19 Chief Complaint (Nursing): Abdominal Pain History Per: Patient History/Exam Limitations: no limitations Additional Complaint(s): Hx of HTN, CHF, colostomy from complication of colonoscopy from 03/2018 presenting with abdominal pain, states he's had the pain for months and was intially following up with Dr. Galarza but has a new surgeon he's supposed to followup with tomorrow but states he came to the ER instead because the pain was worse. Also states he's having frequent diarrhea through the colostmy, changing it 4 x a day. No vomiting. No fevers. Past Medical History Reviewed: Historical Data, Nursing Documentation, Vital Signs Vital Signs: Last Vital Signs Temp 98.8 F 10/12/18 05:54 Pulse 82 10/12/18 05:54 Resp 16 10/12/18 05:54 BP 105/62 10/12/18 05:54 Pulse Ox 98 10/12/18 05:54 - Medical History PMH: Anemia, Asthma, Colonic Polyps, Fractures (5th finger right), HTN, Peripheral Edema Denies: HIV, Chronic Kidney Disease, TIA - Surgical History Surgical History: Endoscopy - Family History Family History: States: Unknown Family Hx - Immunization History Hx Tetanus Toxoid Vaccination: No Hx Influenza Vaccination: Yes Hx Pneumococcal Vaccination: Yes - Home Medications Home Medications: Ambulatory Orders Medication Instructions Recorded Sertraline [Zoloft] 50 mg PO DAILY 11/28/17 Tamsulosin [Flomax] 0.4 mg PO DAILY #30 cap 02/03/18 Albuterol HFA [Ventolin HFA 90 2 puff IH PRN PRN 09/08/18 mcg/actuation (8 g)] Metoprolol Tartrate [Lopressor] 100 mg PO DAILY 09/08/18 Rosuvastatin Calcium [Crestor] 5 mg PO HS 09/08/18 - Allergies Allergies/Adverse Reactions: Allergies Allergy/AdvReac Type Severity Reaction Status Date / Time No Known Allergies Allergy Verified 09/08/18 09:45 Review of Systems ROS Statement: Except As Marked, All Systems Reviewed And Found Negative Constitutional: Negative for: Fever Gastrointestinal: Positive for: Nausea, Abdominal Pain, Diarrhea. Negative for: Vomiting Physical Exam - Reviewed Nursing Documentation Reviewed: Yes Vital Signs Reviewed: Yes - Physical Exam Appears: Positive for: Well, Non-toxic, No Acute Distress Head Exam: Positive for: ATRAUMATIC, NORMAL INSPECTION, NORMOCEPHALIC Skin: Positive for: Normal Color, Warm, DRY Eye Exam: Positive for: EOMI, Normal appearance, PERRL ENT: Positive for: Normal ENT Inspection Neck: Positive for: Normal, Painless ROM Cardiovascular/Chest: Positive for: Regular Rate, Rhythm Respiratory: Positive for: CNT, Normal Breath Sounds Gastrointestinal/Abdominal: Positive for: Soft, Tenderness (Diffuse tenderness, mild), Distended, Other (Large inflamed bowel in colostomy bag). Negative for: Organomegaly, Mass, Guarding Back: Positive for: Normal Inspection Extremity: Positive for: Normal ROM Neurologic/Psych: Positive for: Alert, Oriented - ECG O2 Sat by Pulse Oximetry: 98 Pulse Ox Interpretation: Normal Medical Decision Making Medical Decision Makin58 year old presenting with abdominal pain, worsening --Possibly due to colostomy --Will get labs, CT --Will endrose to Dr. Woo pending workup Disposition - Clinical Impression Clinical Impression: Abdominal pain - Patient ED Disposition Is Patient to be Admitted: Transfer of Care - Disposition Disposition: Transfer of Care Disposition Time: 07:00 Condition: STABLE Patient Signed Over To: Morales Woo Handoff Comments: pending workup
[2018-10-12 06:52] LABS: BASO # 0.1 K/uL (0.0-0.2); BASO % 0.5 % (0.0-2.0); EOS # 0.7 K/uL (0.0-0.7); LYMPH # 2.2 K/uL (1.0-4.3); LYMPH % 19.1 % (20.0-40.0); MEAN CELL VOLUME 86.9 fl (80.0-94.0); MEAN CORPUSCULAR HEMOGLOBIN 29.1 pg (27.0-31.0); MEAN CORPUSCULAR HGB CONC 33.5 g/dL (33.0-37.0); MEAN PLATELET VOLUME 9.2 fl (7.2-11.7); MONO % 9.1 % (0.0-10.0); NEUT # 7.4 K/uL (1.8-7.0); NEUT % 65.3 % (50.0-75.0); RBC 4.49 Mil/uL (4.40-5.90); RED CELL DISTRIBUTION WIDTH 13.5 % (11.5-14.5); WHITE BLOOD COUNT 11.4 K/uL (4.8-10.8)
[2018-10-12 07:02] LABS: ALBUMIN 4.2 g/dL (3.5-5.0); ALT/SGPT 22 U/L (21-72); AST/SGOT 31 U/L (17-59); BLOOD UREA NITROGEN 16 mg/dl (9-20); CALCIUM 9.5 mg/dL (8.4-10.2); GFR NON-AFRICAN AMERICAN > 60; LIPASE 74 U/L (23-300)
--- NOTE | 2018-10-12 07:09 | ED PDOC ---
- Laboratory Results Result Diagrams: 10/12/18 06:48 10/12/18 06:48 Lab Results: Total Bilirubin 0.3 mg/dl (0.2-1.3) 10/12/18 06:48 AST 31 U/L (17-59) 10/12/18 06:48 ALT 22 U/L (21-72) 10/12/18 06:48 Alkaline Phosphatase 142 U/L (38-126) H D 10/12/18 06:48 Total Protein 8.4 G/DL (6.3-8.2) H 10/12/18 06:48 Albumin 4.2 g/dL (3.5-5.0) 10/12/18 06:48 Globulin 4.2 gm/dL (2.2-3.9) H 10/12/18 06:48 Albumin/Globulin Ratio 1.0 (1.0-2.1) 10/12/18 06:48 Lipase 74 U/L (23-300) 10/12/18 06:48 - ECG O2 Sat by Pulse Oximetry: 98 (RA) Pulse Ox Interpretation: Normal Medical Decision Making Medical Decision Making: Time: 0700 Patient endorsed to me by Dr. Hurtado pending workup and reevaluation. Scribe Attestation: Documented by Carlos Alberto Cerna, acting as a scribe for Morales Woo MD. Provider Scribe Attestation: All medical record entries made by the Scribe were at my direction and personally dictated by me. I have reviewed the chart and agree that the record accurately reflects my personal performance of the history, physical exam, medic al decision making, and the department course for this patient. I have also personally directed, reviewed, and agree with the discharge instructions and disposition. Disposition - Clinical Impression Clinical Impression: Abdominal pain, Colostomy prolapse - POA Present On Arrival: None - Disposition Disposition: Admitted as In-Patient Disposition Time: 11:14 Condition: FAIR Forms: [employer] (Swedish)
[2018-10-12 08:19] LABS: URINE BILIRUBIN NEGATIVE (NEGATIVE); URINE BLOOD NEGATIVE (NEGATIVE); URINE CLARITY CLEAR (Clear); URINE COLOR YELLOW (YELLOW); URINE GLUCOSE (UA) NEG (NEGATIVE); URINE HYALINE CAST 0-2 /hpf (0-2); URINE LEUKOCYTE ESTERASE NEG Leu/uL (Negative); URINE PROTEIN NEGATIVE (NEGATIVE); URINE UROBILINOGEN 0.2-1.0 mg/dL (0.2-1.0)
[2018-10-12] MEDS ORDERED: Sodium Chloride 0.9% 50 ML IV ONE (09:27)
[2018-10-12] MEDS ORDERED: Iohexol 300 100 ML IJ ONE (09:27)
--- NOTE | 2018-10-12 10:31 | CT ---
Date of service: 10/12/2018 PROCEDURE: CT Abdomen and Pelvis with contrast HISTORY: s/p colostomy, abd pain, nausea COMPARISON: Abdomen and pelvis CT with contrast 01/23/2018. TECHNIQUE: Following the intravenous administration of iodinated contrast material, a CT examination of the abdomen and pelvis performed from the domes of the diaphragms to the symphysis pubis with reformatted datasets provided in axial, sagittal and coronal planes. Oral contrast was not administered as per referring physician request. Coronal and sagittal reformats were generated. contrast dose: Omnipaque 300, 95 cc Radiation dose: Total exam DLP = 912.54 mGy-cm. This CT exam was performed using one or more of the following dose reduction techniques: Automated exposure control, adjustment of the mA and/or kV according to patient size, and/or use of iterative reconstruction technique. FINDINGS: LOWER THORAX: Small hiatal hernia reiterated. LIVER: Unremarkable. No gross lesion or ductal dilatation. GALLBLADDER AND BILE DUCTS: Unremarkable. PANCREAS: Unremarkable. No gross lesion or ductal dilatation. SPLEEN: Unremarkable. ADRENALS: Unremarkable. No mass. KIDNEYS AND URETERS: Bilateral renal cysts reiterated. No hydronephrosis. No solid mass. VASCULATURE: Unremarkable. No aortic aneurysm. No aortic atherosclerotic calcification or mural plaque present. BOWEL: No definite acute gastrointestinal pathology appreciable. Right flank colostomy, possible loop colostomy based on prior CT pattern. However, significant segment of bowel appears of herniated through the colostomy extrinsic to the peritoneal space. No bowel obstruction appreciable. APPENDIX: Normal appendix. PERITONEUM: Prior umbilical abscess appears resolved with [id number] bowel hernia identified containing only fat at this time. No bowel obstruction. LYMPH NODES: Unremarkable. No enlarged lymph nodes. BLADDER: Unremarkable. REPRODUCTIVE: Unremarkable. BONES: No acute fracture. OTHER FINDINGS: None. IMPRESSION: Herniated mesentery and a bit of colon are identified through the right flank colostomy, previously contained within the right flank abdominal wall and intra peritoneal space on CT 01/23/2018. No bowel obstruction or mesenteric edema appreciated grossly. Clinically correlate further. Prior umbilical abscess resolved with residual umbilical hernia containing mesentery as per above. Bilateral renal cysts reiterated.
[2018-10-12] MEDS ORDERED: Potassium CL 10mEq/100ml 100 ML IVPB ONE (11:12)
--- NOTE | 2018-10-12 11:33 | CP.PCM.HP ---
History of Present Illness - History of Present Illness History of Present Illness: 58M with PMHx of HTN, BPH, sigmoid volvulus s/p robotic sigmoidectomy, presents to [facility] ED with prolapsed stoma. Patient states he has been dealing with prolapsed stoma for past few months. Usually stoma is able to be manually reduced. However, this time around he has been experiencing more pain than usual and patient reports feeling nauseous. Patient states he's been having normal output from afferent limb however he's noted the output from efferent limb has decreased substantially ever since this current prolapsed. He denies he adache/dizziness, chest pain, palpitations, shortness of breath, vomiting, dysuria. PMHx: HTN, BPH, sigmoid volvulus PSHx: Transverse loop colostomy (2018), Robotic sigmoidectomy (09/2016), umbilic al hernia repair FHx: non-contributory Social: Denies tobacco, EtOH or illicit drug use Present on Admission - Present on Admission Any Indicators Present on Admission: No Review of Systems - Review of Systems Review of Systems: 10 pt ROS negative except as stated in HPI Past Patient History - Past Medical History & Family History Past Medical History?: Yes - Past Social History Smoking Status: Never Smoked - CARDIAC Hx Hypertension: Yes Hx Peripheral Edema: Yes - PULMONARY Hx Asthma: Yes - NEUROLOGICAL Hx Transient Ischemic Attacks (TIA): No - HEENT Hx HEENT Problems: No - RENAL Hx Chronic Kidney Disease: No - ENDOCRINE/METABOLIC Hx Endocrine Disorders: No - HEMATOLOGICAL/ONCOLOGICAL Hx Anemia: Yes Hx Human Immunodeficiency Virus (HIV): No - INTEGUMENTARY Hx Dermatological Problems: No - MUSCULOSKELETAL/RHEUMATOLOGICAL Hx Fractures: Yes (5th finger right) - GASTROINTESTINAL Hx Gastrointestinal Disorders: Yes Hx Bowel Surgery: Yes (HEMICOLECTOMY 2015) Hx Colostomy: Yes Hx Hemorrhoids: Yes (INTERNAL) Hx Ulcer: Yes (GASTRIC) Other/Comment: HX: SIGMOID VOLVULUS/CHRONIC CONSTIPATION/SPONTANEOUS UNCONTROLLED FECAL EVACUATION, WITH HEMICOLECTOMY - GENITOURINARY/GYNECOLOGICAL Other/Comment: PATIENT HAS HESITANCY UPON URINATION BUT ON FLOMAX & HAS NO PROBLEM NOW (PER PT). - PSYCHIATRIC Hx Psychophysiologic Disorder: No Hx Substance Use: No - SURGICAL HISTORY Hx Surgeries: Yes Other/Comment: SIGMOID VOLVULUS/CHRONIC CONSTIPATION/SPONTANEOUS UNCONTROLLED FECAL EVACUATION, WITH HEMICOLECTOMY - ANESTHESIA Hx Anesthesia: Yes Hx Anesthesia Reactions: No Hx Malignant Hyperthermia: No Meds Allergies/Adverse Reactions: Allergies Allergy/AdvReac Type Severity Reaction Status Date / Time No Known Allergies Allergy Verified 09/08/18 09:45 Physical Exam - Constitutional Appears: Non-toxic, No Acute Distress - Head Exam Head Exam: NORMAL INSPECTION - Eye Exam Eye Exam: EOMI, Normal appearance - ENT Exam ENT Exam: Mucous Membranes Moist - Respiratory Exam Respiratory Exam: NORMAL BREATHING PATTERN - Cardiovascular Exam Cardiovascular Exam: +S1, +S2 - GI/Abdominal Exam GI & Abdominal Exam: Hernia, Soft. absent: Firm, Guarding, Rebound Additional comments: prolapsed transverse loop colostomy efferent loop with venous congestion multiple mucosal erosions noted on efferent loop - Neurological Exam Neurological exam: Alert, Oriented x3 - Psychiatric Exam Psychiatric exam: Normal Mood - Skin Skin Exam: Dry, Normal Color, Warm Results - Vital Signs Recent Vital Signs: Last Vital Signs Temp 98.8 F 10/12/18 05:54 Pulse 82 10/12/18 05:54 Resp 16 10/12/18 05:54 BP 105/62 10/12/18 05:54 Pulse Ox 98 10/12/18 11:14 - Labs Result Diagrams: 10/12/18 06:48 10/12/18 06:48 Labs: Laboratory Results - last 24 hr 10/12/18 10/12/18 10/12/18 06:48 06:48 07:01 WBC 11.4 H RBC 4.49 Hgb 13.0 Hct 39.0 MCV 86.9 MCH 29.1 MCHC 33.5 RDW 13.5 Plt Count 243 MPV 9.2 Neut % (Auto) 65.3 Lymph % (Auto) 19.1 L [place] % (Auto) 9.1 Eos % (Auto) 6.0 H Baso % (Auto) 0.5 Neut # (Auto) 7.4 H Lymph # (Auto) 2.2 [place] # (Auto) 1.0 H Eos # (Auto) 0.7 Baso # (Auto) 0.1 Sodium 140 Potassium 3.4 L Chloride 100 Carbon Dioxide 29 Anion Gap 14 BUN 16 Creatinine 0.8 Est GFR ( Amer) > 60 Est GFR (Non-Af Amer) > 60 Random Glucose 107 Lactic Acid 1.1 Calcium 9.5 Total Bilirubin 0.3 AST 31 ALT 22 Alkaline Phosphatase 142 H D Total Protein 8.4 H Albumin 4.2 Globulin 4.2 H Albumin/Globulin Ratio 1.0 Lipase 74 Urine Color Urine Clarity Urine pH Ur Specific [place] Urine Protein Urine Glucose (UA) Urine Ketones Urine Blood Urine Nitrate Urine Bilirubin Urine Urobilinogen Ur Leukocyte Esterase Urine RBC (Auto) Urine Microscopic WBC Hyaline Casts 10/12/18 07:40 WBC RBC Hgb Hct MCV MCH MCHC RDW Plt Count MPV Neut % (Auto) Lymph % (Auto) [place] % (Auto) Eos % (Auto) Baso % (Auto) Neut # (Auto) Lymph # (Auto) [place] # (Auto) Eos # (Auto) Baso # (Auto) Sodium Potassium Chloride Carbon Dioxide Anion Gap BUN Creatinine Est GFR ( Amer) Est GFR (Non-Af Amer) Random Glucose Lactic Acid Calcium Total Bilirubin AST ALT Alkaline Phosphatase Total Protein Albumin Globulin Albumin/Globulin Ratio Lipase Urine Color Yellow Urine Clarity Clear Urine pH 5.0 Ur Specific [place] 1.020 Urine Protein Negative Urine Glucose (UA) Neg Urine Ketones Negative Urine Blood Negative Urine Nitrate Negative Urine Bilirubin Negative Urine Urobilinogen 0.2-1.0 Ur Leukocyte Esterase Neg Urine RBC (Auto) 1 Urine Microscopic WBC 1 Hyaline Casts 0-2 Assessment & Plan - Assessment and Plan (Free Text) Assessment: 58M with prolapsed efferent limb of transverse loop colostomy Plan: -Plan for OR this afternoon for loop colostomy revision -NPO -CXR/EKG -IVF -Analgesics prn -Anti-emetics prn -Consent in chart -D/w Dr. Geovanni Zuniga PGY3
[2018-10-12] MEDS: Lactated Ringer's 1,000 ML IV SCH ×3 (11:44→20:35)
[2018-10-12] MEDS ORDERED: Albuterol HFA 90 mcg/actuation (8 g) IH PRN (11:59)
[2018-10-12 12:25] LABS: INR 1.1; PROTHROMBIN TIME 12.6 Seconds (9.8-13.1)
[2018-10-12] MEDS ORDERED: metroNIDAZOLE 500mg/100ml NS 100 ML IVPB ONE (12:25)
[2018-10-12] MEDS ORDERED: ceFAZolin IV 1 gm in Dextrose 2 GM/100 ML BAG IVPB ONE (12:25)
[2018-10-12] MEDS ORDERED: Rocuronium 10 mg/ml (5 ml) ONE (13:40)
[2018-10-12] MEDS ORDERED: Propofol 10 mg/ml Inj (20 ML) ONE ×2 (13:40→15:00)
[2018-10-12] MEDS ORDERED: Succinylcholine Chloride 20 mg/ml Syr (5 ml) IV ONE (13:47)
[2018-10-12] MEDS ORDERED: Midazolam 2 MG/2 ML VIAL ONE (14:06)
[2018-10-12] MEDS ORDERED: Lactated Ringer's 1,000 ML IV ONE ×3 (14:20→18:30)
[2018-10-12] MEDS ORDERED: ePHEDrine 50 mg/ml Inj ONE (14:21)
[2018-10-12] MEDS ORDERED: Phenylephrine 10 mg/ml Inj ONE (14:56)
--- NOTE | 2018-10-12 15:10 | RAD ---
Date of service: 10/12/2018 HISTORY: Prolapsed colostomy COMPARISON: Comparison chest dated 01/25/2018. The TECHNIQUE: Chest PA and lateral FINDINGS: LUNGS: No active pulmonary disease. PLEURA: No significant pleural effusion identified. No pneumothorax apparent. CARDIOVASCULAR: No aortic atherosclerotic calcification present. Heart size upper limits of normal.. No pulmonary vascular congestion. OSSEOUS STRUCTURES: Mild moderate multilevel degenerative spondylosis of the thoracic spine. VISUALIZED UPPER ABDOMEN: Normal. OTHER FINDINGS: None. IMPRESSION: No active disease.
[2018-10-12] MEDS ORDERED: Lactated Ringer's 1,000 ML IV PRN (15:15)
--- NOTE | 2018-10-12 15:32 | PCM.SURG1 ---
Surgeon's Initial Post Op Note - Surgeon's Notes Surgeon: Nereyda Galarza Spot Washer: Thor Disla Type of Anesthesia: General Endo Anesthesia Administered By: Bhavesh Pre-Operative Diagnosis: Prolapse of loop colostomy Operative Findings: Prolapse of distal limb of transverse colostomy with intussuception Post-Operative Diagnosis: Prolapse of loop colostomy Operation Performed: REduction of colonic intussuception Specimen/Specimens Removed: none Estimated Blood Loss: EBL {In ML}: 2 Blood Products Given: N/A Drains Used: No Drains Post-Op Condition: Good Date of Surgery/Procedure: 10/12/18 Time of Surgery/Procedure: 15:32
--- NOTE | 2018-10-12 20:37 | CARD ---
APPROVED REPORT Date of service: 10/12/2018 EKG Measurement Heart [id number] MD [id number] <Conclusion> Normal sinus rhythm Normal ECG
--- NOTE | 2018-10-13 01:44 | OP ---
PROCEDURE DATE: 10/12/2018 SURGEON: Tierra Galarza MD TEMPLATE FITTER: Dr. Disla. ANESTHESIA: General. ANESTHESIOLOGIST: Dr. Ospina. PREOPERATIVE DIAGNOSIS: Prolapse of transverse loop colostomy. POSTOPERATIVE DIAGNOSIS: Prolapse of transverse loop colostomy. PROCEDURE: Reduction of colocolonic intussusception via transverse colostomy. DESCRIPTION OF OPERATION: The patient was anesthetized on the operating table in the supine position. He was noted to have a right transverse blow-hole colostomy through which there was noted to be prolapse of approximately 1 foot of edematous colon. The colostomy appliance was removed with the removal of serosanguineous fluid, and it was noted that while the proximal bowel was intact, there was intussusception of the distal loop of colon which was prolapsing via the loop colostomy site. With gentle progressive pressure, the prolapsed portion of the bowel was reduced beneath the level of the skin and into the abdominal cavity. The patient has been seen a number of times in the past and had reductions of prolapse of his ostomy; however, he had never had a procedure under anesthesia, and at this point, the intussusception was easily palpable and additional reduction was able to be performed with manual reduction of the intussusception completely followed by use of a sponge stick to ensure that the colon was completely reduced. At this point, decision was made to not undertake a formal colon resection which was anticipated as a possibility as the patient has previously undergone multiple colon procedures. The ostomy appliance was reapplied, and although there was minor prolapse noted as the patient was emerging from anesthesia, this was easily reduced and remained reduced throughout the emergence from anesthesia after that. The patient was taken to the recovery room in stable condition. Blood loss for the procedure was 2 mL, and plan is to discuss with the patient possible elective colon resection if the prolapse recurs. Tierra Galarza MD
[2018-10-13] MEDS: Lactated Ringer's 1,000 ML IV SCH ×2 (03:29→17:59)
[2018-10-13 07:35] LABS: BLOOD UREA NITROGEN 10 mg/dl (9-20); CALCIUM 8.5 mg/dL (8.4-10.2); GFR NON-AFRICAN AMERICAN > 60
--- NOTE | 2018-10-13 08:01 | CP.PCM.PN ---
<Zak Andrew - Last Filed: 10/13/18 07:58> Subjective - Date & Time of Evaluation Date of Evaluation: 10/13/18 Time of Evaluation: 07:58 - Subjective Subjective: SURGERY NOTE FOR DR. GALARZA 58M seen and examined at bedside. Patient states abdominal pain minimal, denies any nausea or vomiting overnight, states stoma was having output. He has a long history of stoma prolapse. POD#1 from reduction of prolapse which was recurred soon after OR. Objective - Vital Signs/Intake and Output Vital Signs (last 24 hours): Temp Pulse Resp BP Pulse Ox 97.8 F 98 H 20 100/58 L 98 10/13/18 03:41 10/13/18 03:41 10/13/18 03:41 10/13/18 03:41 10/13/18 03:41 - Medications Medications: Current Medications Albuterol (Ventolin Hfa 90 Mcg/Actuation (8 G)) 2 puff IH Q6 PRN PRN Reason: Shortness of Breath Atorvastatin Calcium (Lipitor) 10 mg PO DAILY [facility] HCTZ/Losartan Potassium (Hyzaar 12.5 Mg-50 Mg) 1 tab PO DAILY [facility] Hydromorphone HCl (Dilaudid) 1 mg IVP Q6H PRN PRN Reason: Pain, moderate (4-7) Last Admin: 10/13/18 02:28 Dose: 1 mg Lactated Ringer's (Lactated Ringer's) 1,000 mls @ 125 mls/hr IV .Q8H REESE Last Admin: 10/13/18 03:29 Dose: 125 mls/hr Lactated Ringer's (Lactated Ringer's) 1,000 mls @ 999 mls/hr IV .Q1H1M PRN PRN Reason: Hypotension Potassium Chloride (Potassium Chloride 20 Meq/100 Ml) 100 mls @ 50 mls/hr IVPB Q2 [facility] Stop: 10/13/18 11:59 Metoprolol Tartrate (Lopressor) 100 mg PO Q12 [facility] Last Admin: 10/12/18 20:53 Dose: Not Given Ondansetron HCl (Zofran Inj) 4 mg IVP Q6 PRN PRN Reason: Nausea/Vomiting Sertraline HCl (Zoloft) 25 mg PO DAILY [facility] Tamsulosin HCl (Flomax) 0.4 mg PO DAILY [facility] - Labs Labs: 10/12/18 06:48 10/13/18 05:55 PT 12.6 Seconds (9.8-13.1) 10/12/18 12:07 INR 1.1 10/12/18 12:07 APTT 29.0 Seconds (25.6-37.1) 10/12/18 12:07 - Constitutional Appears: Non-toxic, No Acute Distress - Respiratory Exam Respiratory Exam: Clear to Ausculation Bilateral, NORMAL BREATHING PATTERN - Cardiovascular Exam Cardiovascular Exam: REGULAR RHYTHM, +S1, +S2 - GI/Abdominal Exam GI & Abdominal Exam: Soft, Tenderness. absent: Distended, Firm, Guarding, R igid, Rebound Additional comments: stoma in place, currently not prolapsed, some output noted - Neurological Exam Neurological Exam: Alert, Awake - Skin Skin Exam: Dry, Intact, Normal Color, Warm Assessment and Plan - Assessment and Plan (Free Text) Assessment: 58M with prolapsed colostomy stoma Plan: - Return to OR today for revision of stoma Further recs discuss with Dr. Geovanni Andrew, PGY3 <Tierra Galarza - Last Filed: 10/13/18 10:16> Objective - Vital Signs/Intake and Output Vital Signs (last 24 hours): Temp Pulse Resp BP Pulse Ox 98.5 F 98 H 20 105/63 94 L 10/13/18 08:03 10/13/18 08:03 10/13/18 08:03 10/13/18 08:03 10/13/18 08:03 - Medications Medications: Current Medications Albuterol (Ventolin Hfa 90 Mcg/Actuation (8 G)) 2 puff IH Q6 PRN PRN Reason: Shortness of Breath Atorvastatin Calcium (Lipitor) 10 mg PO DAILY [facility] Last Admin: 10/13/18 09:47 Dose: Not Given HCTZ/Losartan Potassium (Hyzaar 12.5 Mg-50 Mg) 1 tab PO DAILY [facility] Last Admin: 10/13/18 09:46 Dose: Not Given Hydromorphone HCl (Dilaudid) 1 mg IVP Q6H PRN PRN Reason: Pain, moderate (4-7) Last Admin: 10/13/18 09:45 Dose: 1 mg Lactated Ringer's (Lactated Ringer's) 1,000 mls @ 125 mls/hr IV .Q8H [facility] Last Admin: 10/13/18 03:29 Dose: 125 mls/hr Lactated Ringer's (Lactated Ringer's) 1,000 mls @ 999 mls/hr IV .Q1H1M PRN PRN Reason: Hypotension Potassium Chloride (Potassium Chloride 20 Meq/100 Ml) 100 mls @ 50 mls/hr IVPB Q2 [facility] Stop: 10/13/18 11:59 Metoprolol Tartrate (Lopressor) 100 mg PO Q12 [facility] Last Admin: 10/12/18 20:53 Dose: Not Given Ondansetron HCl (Zofran Inj) 4 mg IVP Q6 PRN PRN Reason: Nausea/Vomiting Sertraline HCl (Zoloft) 25 mg PO DAILY [facility] Tamsulosin HCl (Flomax) 0.4 mg PO DAILY [facility] Last Admin: 10/13/18 09:46 Dose: Not Given - Labs Labs: 10/12/18 06:48 10/13/18 05:55 PT 12.6 Seconds (9.8-13.1) 10/12/18 12:07 INR 1.1 10/12/18 12:07 APTT 29.0 Seconds (25.6-37.1) 10/12/18 12:07 Assessment and Plan (1) Asthma in adult Assessment & Plan: Mild, occasional symptoms controlled with current medications, Status: Chronic
[2018-10-13] MEDS: HCTZ/Losartan 12.5/50 Tab PO SCH (09:46)
[2018-10-13 12:01] LABS: BASO % 0.1 % (0.0-2.0); EOS # 0.5 K/uL (0.0-0.7); EOS % 4.9 % (0.0-4.0); HEMOGLOBIN 11.3 g/dL (12.0-18.0); LYMPH # 1.2 K/uL (1.0-4.3); LYMPH % 11.4 % (20.0-40.0); MEAN CELL VOLUME 90.3 fl (80.0-94.0); MEAN CORPUSCULAR HEMOGLOBIN 29.4 pg (27.0-31.0); MEAN CORPUSCULAR HGB CONC 32.6 g/dL (33.0-37.0); MEAN PLATELET VOLUME 8.6 fl (7.2-11.7); MONO # 0.8 K/uL (0.0-0.8); MONO % 7.9 % (0.0-10.0); NEUT # 7.8 K/uL (1.8-7.0); NEUT % 75.7 % (50.0-75.0); NRBC % 0.2 % (0.0-0.0); RBC 3.84 Mil/uL (4.40-5.90); RED CELL DISTRIBUTION WIDTH 13.1 % (11.5-14.5); WHITE BLOOD COUNT 10.3 K/uL (4.8-10.8)
[2018-10-13] MEDS ORDERED: ceFAZolin IV 1 gm in Dextrose 2 GM/100 ML BAG IVPB ONE (13:36)
[2018-10-13] MEDS ORDERED: metroNIDAZOLE 500mg/100ml NS 100 ML IVPB ONE (13:36)
[2018-10-13] MEDS ORDERED: Lactated Ringer's 1,000 ML IV ONE ×2 (13:37→15:40)
[2018-10-13] MEDS ORDERED: Succinylcholine Chloride 20 mg/ml Syr (5 ml) IV ONE (13:44)
[2018-10-13] MEDS ORDERED: Propofol 10 mg/ml Inj (20 ML) ONE (13:44)
[2018-10-13] MEDS ORDERED: Phenylephrine 10 mg/ml Inj ONE ×2 (14:08→14:09)
[2018-10-13] MEDS ORDERED: Dexamethasone 4 mg/1 ml IVP PRN (15:44)
--- NOTE | 2018-10-13 15:44 | PCM.SURG1 ---
Surgeon's Initial Post Op Note - Surgeon's Notes Surgeon: Tierra Galarza MD Manager Planning: Lorrie, PGY3 Pre-Operative Diagnosis: Prolapsed Transverse Colonic stoma Operative Findings: reduntant colon, colonic mass Post-Operative Diagnosis: Prolapsed Transverse Colonic stoma Operation Performed: Revision of loop colostomy, redunctant colon resection with primary anastomosis and loop colostomy Specimen/Specimens Removed: Colon Estimated Blood Loss: EBL {In ML}: 30 Date of Surgery/Procedure: 10/13/18 Time of Surgery/Procedure: 15:45
[2018-10-13] MEDS: HYDROmorphone 0.5 mg/0.5 ml ISec IVP PRN ×3 (15:55→17:10)
[2018-10-13] MEDS ORDERED: Lactated Ringer's 500 ML IV SCH (16:00)
[2018-10-13] MEDS ORDERED: Lactated Ringer's 500 ML IV PRN (17:04)
[2018-10-13 18:51] LABS: HEMOGLOBIN 10.9 g/dL (12.0-18.0); MEAN CELL VOLUME 89.1 fl (80.0-94.0); MEAN CORPUSCULAR HEMOGLOBIN 28.8 pg (27.0-31.0); MEAN CORPUSCULAR HGB CONC 32.3 g/dL (33.0-37.0); RBC 3.78 Mil/uL (4.40-5.90); RED CELL DISTRIBUTION WIDTH 13.1 % (11.5-14.5)
[2018-10-13] MEDS ORDERED: ceFAZolin IV 2 gm in Dextrose 2 GM/50 ML BAG IVPB ONE (20:00)
[2018-10-13] MEDS ORDERED: metroNIDAZOLE 500mg/100ml NS 100 ML IVPB SCH (21:00)
[2018-10-13] MEDS: Potassium Chloride 20 mEq 100 ML IVPB SCH ×2 (21:55→22:23)
[2018-10-14] MEDS: Lactated Ringer's 1,000 ML IV SCH ×4 (03:33→09:48)
[2018-10-14 06:13] LABS: BLOOD UREA NITROGEN 11 mg/dl (9-20); CALCIUM 7.7 mg/dL (8.4-10.2); GFR NON-AFRICAN AMERICAN > 60
--- NOTE | 2018-10-14 08:00 | CP.PCM.PN ---
Subjective - Date & Time of Evaluation Date of Evaluation: 10/14/18 Time of Evaluation: 07:58 - Subjective Subjective: SURGERY NOTE FOR DR SARMIENTO 58M s/p colon resection with revision of stoma. Moved to telemetry overnight for low BP, however this is baseline for patient. Denies pain, denies nausea or vomiting, denies fevers and chills, tolerating liquid diet. Passing gas and liquid BM out of Stoma Objective - Vital Signs/Intake and Output Vital Signs (last 24 hours): Temp Pulse Resp BP Pulse Ox 98.6 F 88 16 96/57 L 94 L 10/14/18 04:51 10/14/18 04:51 10/14/18 04:51 10/14/18 04:51 10/14/18 04:51 - Medications Medications: Current Medications Acetaminophen (Tylenol 325mg Tab) 650 mg PO Q6 PRN PRN Reason: Fever >100.4 F Albuterol (Ventolin Hfa 90 Mcg/Actuation (8 G)) 2 puff IH Q6 PRN PRN Reason: Shortness of Breath Atorvastatin Calcium (Lipitor) 10 mg PO DAILY [facility] Last Admin: 10/13/18 09:47 Dose: Not Given HCTZ/Losartan Potassium (Hyzaar 12.5 Mg-50 Mg) 1 tab PO DAILY [facility] Last Admin: 10/13/18 09:46 Dose: Not Given Hydromorphone HCl (Dilaudid) 1 mg IVP Q4 PRN PRN Reason: Pain, severe (8-10) Lactated Ringer's (Lactated Ringer's) 1,000 mls @ 125 mls/hr IV .Q8H [facility] Last Admin: 10/14/18 04:19 Dose: Not Given Metoprolol Tartrate (Lopressor) 100 mg PO Q12 [facility] Last Admin: 10/13/18 21:00 Dose: Not Given Ondansetron HCl (Zofran Inj) 4 mg IVP Q6 PRN PRN Reason: Nausea/Vomiting Sertraline HCl (Zoloft) 25 mg PO DAILY [facility] Tamsulosin HCl (Flomax) 0.4 mg PO DAILY [facility] Last Admin: 10/13/18 09:46 Dose: Not Given - Labs Labs: 10/13/18 18:34 10/14/18 04:40 PT 12.6 Seconds (9.8-13.1) 10/12/18 12:07 INR 1.1 10/12/18 12:07 APTT 29.0 Seconds (25.6-37.1) 10/12/18 12:07 - Constitutional Appears: Non-toxic, No Acute Distress - Respiratory Exam Respiratory Exam: Clear to Ausculation Bilateral, NORMAL BREATHING PATTERN - Cardiovascular Exam Cardiovascular Exam: REGULAR RHYTHM, +S1, +S2 - GI/Abdominal Exam GI & Abdominal Exam: Soft. absent: Distended, Firm, Guarding, Rigid, Tenderness, Rebound Additional comments: air and Liquid BM out of stoma - Neurological Exam Neurological Exam: Alert, Awake Assessment and Plan - Assessment and Plan (Free Text) Assessment: 58m S/P revision of stoma, colon resection, loop transverse colostomy POD#1 Plan: - advance diet - ambulating out of bed - incentive spirometer - monitor for further BMs Discussed with Dr. Geovanni Andrew, PGY3
[2018-10-14] MEDS: HCTZ/Losartan 12.5/50 Tab PO SCH (09:51)
[2018-10-14 13:14] LABS: BASO # 0.1 K/uL (0.0-0.2); BASO % 0.5 % (0.0-2.0); EOS # 0.2 K/uL (0.0-0.7); EOS % 1.1 % (0.0-4.0); HEMOGLOBIN 10.6 g/dL (12.0-18.0); LYMPH # 1.3 K/uL (1.0-4.3); LYMPH % 8.5 % (20.0-40.0); MEAN CELL VOLUME 88.3 fl (80.0-94.0); MEAN CORPUSCULAR HEMOGLOBIN 28.7 pg (27.0-31.0); MEAN CORPUSCULAR HGB CONC 32.5 g/dL (33.0-37.0); MEAN PLATELET VOLUME 8.9 fl (7.2-11.7); MONO # 1.4 K/uL (0.0-0.8); MONO % 8.8 % (0.0-10.0); NEUT # 12.7 K/uL (1.8-7.0); NEUT % 81.1 % (50.0-75.0); PLATELET COUNT 221 K/uL (130-400); RBC 3.69 Mil/uL (4.40-5.90); RED CELL DISTRIBUTION WIDTH 13.1 % (11.5-14.5); WHITE BLOOD COUNT 15.7 K/uL (4.8-10.8)
[2018-10-14 14:20] LABS: HYPOCHROMIC SLIGHT; LYMPHOCYTE 8 % (20-50); MONOCYTE 6 % (0-10); NEUTROPHIL 86 % (42-75); PLATELET ESTIMATE NORMAL (NORMAL); TOTAL CELLS COUNTED 100
[2018-10-15 00:49] VITALS: RESP 18
--- NOTE | 2018-10-15 07:40 | CP.PCM.DIS ---
Provider - Provider Date of Admission: 10/12/18 11:11 Attending physician: Tierra Galarza MD Time Spent in preparation of Discharge (in minutes): 40 Hospital Course - Lab Results Lab Results: Most Recent Lab Values WBC 15.7 K/uL (4.8-10.8) H 10/14/18 13:00 RBC 3.69 Mil/uL (4.40-5.90) L 10/14/18 13:00 Hgb 10.6 g/dL (12.0-18.0) L 10/14/18 13:00 Hct 32.6 % (35.0-51.0) L 10/14/18 13:00 MCV 88.3 fl (80.0-94.0) 10/14/18 13:00 MCH 28.7 pg (27.0-31.0) 10/14/18 13:00 MCHC 32.5 g/dL (33.0-37.0) L 10/14/18 13:00 RDW 13.1 % (11.5-14.5) 10/14/18 13:00 Plt Count 221 K/uL (130-400) 10/14/18 13:00 MPV 8.9 fl (7.2-11.7) 10/14/18 13:00 Neut % (Auto) 81.1 % (50.0-75.0) H 10/14/18 13:00 Lymph % (Auto) 8.5 % (20.0-40.0) L 10/14/18 13:00 [place] % (Auto) 8.8 % (0.0-10.0) 10/14/18 13:00 Eos % (Auto) 1.1 % (0.0-4.0) 10/14/18 13:00 Baso % (Auto) 0.5 % (0.0-2.0) 10/14/18 13:00 Neut # (Auto) 12.7 K/uL (1.8-7.0) H 10/14/18 13:00 Lymph # (Auto) 1.3 K/uL (1.0-4.3) 10/14/18 13:00 [place] # (Auto) 1.4 K/uL (0.0-0.8) H 10/14/18 13:00 Eos # (Auto) 0.2 K/uL (0.0-0.7) 10/14/18 13:00 Baso # (Auto) 0.1 K/uL (0.0-0.2) 10/14/18 13:00 Neutrophils % (Manual) 86 % (42-75) H 10/14/18 13:00 Lymphocytes % (Manual) 8 % (20-50) L 10/14/18 13:00 Monocytes % (Manual) 6 % (0-10) 10/14/18 13:00 Platelet Estimate Normal (NORMAL) 10/14/18 13:00 Hypochromasia (manual) Slight 10/14/18 13:00 PT 12.6 Seconds (9.8-13.1) 10/12/18 12:07 INR 1.1 10/12/18 12:07 APTT 29.0 Seconds (25.6-37.1) 10/12/18 12:07 Sodium 133 mmol/l (132-148) 10/14/18 04:40 Potassium 4.1 MMOL/L (3.6-5.0) 10/14/18 04:40 Chloride 100 mmol/L (98-107) 10/14/18 04:40 Carbon Dioxide 24 mmol/L (22-30) 10/14/18 04:40 Anion Gap 13 (10-20) 10/14/18 04:40 BUN 11 mg/dl (9-20) 10/14/18 04:40 Creatinine 0.6 mg/dl (0.8-1.5) L 10/14/18 04:40 Est GFR ( Amer) > 60 10/14/18 04:40 Est GFR (Non-Af Amer) > 60 10/14/18 04:40 Random Glucose 89 mg/dL (75-110) 10/14/18 04:40 Lactic Acid 1.1 MMOL/L (0.7-2.1) 10/12/18 07:01 Calcium 7.7 mg/dL (8.4-10.2) L 10/14/18 04:40 Phosphorus 3.5 mg/dl (2.5-4.5) 10/13/18 05:55 Magnesium 1.6 MG/DL (1.6-2.3) 10/13/18 05:55 Total Bilirubin 0.3 mg/dl (0.2-1.3) 10/12/18 06:48 AST 31 U/L (17-59) 10/12/18 06:48 ALT 22 U/L (21-72) 10/12/18 06:48 Alkaline Phosphatase 142 U/L (38-126) H D 10/12/18 06:48 Total Protein 8.4 G/DL (6.3-8.2) H 10/12/18 06:48 Albumin 4.2 g/dL (3.5-5.0) 10/12/18 06:48 Globulin 4.2 gm/dL (2.2-3.9) H 10/12/18 06:48 Albumin/Globulin Ratio 1.0 (1.0-2.1) 10/12/18 06:48 Lipase 74 U/L (23-300) 10/12/18 06:48 Urine Color Yellow (YELLOW) 10/12/18 07:40 Urine Clarity Clear (Clear) 10/12/18 07:40 Urine pH 5.0 (5.0-8.0) 10/12/18 07:40 Ur Specific [place] 1.020 (1.003-1.030) 10/12/18 07:40 Urine Protein Negative mg/dL (NEGATIVE) 10/12/18 07:40 Urine Glucose (UA) Neg mg/dL (NEGATIVE) 10/12/18 07:40 Urine Ketones Negative mg/dL (NEGATIVE) 10/12/18 07:40 Urine Blood Negative (NEGATIVE) 10/12/18 07:40 Urine Nitrate Negative (NEGATIVE) 10/12/18 07:40 Urine Bilirubin Negative (NEGATIVE) 10/12/18 07:40 Urine Urobilinogen 0.2-1.0 mg/dL (0.2-1.0) 10/12/18 07:40 Ur Leukocyte Esterase Neg [place]/uL (Negative) 10/12/18 07:40 Urine RBC (Auto) 1 /hpf (0-3) 10/12/18 07:40 Urine Microscopic WBC 1 /hpf (0-5) 10/12/18 07:40 Hyaline Casts 0-2 /hpf (0-2) 10/12/18 07:40 Blood Type A POSITIVE 10/12/18 12:20 Antibody Screen Negative 10/12/18 12:20 BBK History Checked Patient has bt 10/12/18 12:20 - Hospital Course Hospital Course: 58M with PMHx of HTN, BPH, sigmoid volvulus s/p robotic sigmoidectomy, presents to [facility] ED with prolapsed stoma. Patient states he has been dealing with prolapsed stoma for past few months. Usually stoma is able to be manually reduced. However, this time around he has been experiencing more pain than usual and patient reports feeling nauseous. Patient states he's been having normal output from afferent limb however he's noted the output from efferent limb has decreased substantially ever since this current prolapsed. He denies headache/dizziness, chest pain, palpitations, shortness of breath, vomiting, dysuria. PMHx: HTN, BPH, sigmoid volvulus PSHx: Transverse loop colostomy (2017), Robotic sigmoidectomy (09/2016), umbilical hernia repair FHx: non-contributory Social: Denies tobacco, EtOH or illicit drug use 10/12/18: Patient key to OR for reduction of stoma under sedation 10/13/18: Patient went back to OR for partial colectomy and revision of stoma to limit prolapse 10/14/18: Patient was having stoma function, and stool from stoma 10/15/18: Patient continues to have stoma function and his tolerating diet. Discharge Exam - Head Exam Head Exam: NORMAL INSPECTION - Eye Exam Eye Exam: Normal appearance - Respiratory Exam Respiratory Exam: NORMAL BREATHING PATTERN - Cardiovascular Exam Cardiovascular Exam: REGULAR RHYTHM, +S1, +S2 - GI/Abdominal Exam GI & Abdominal Exam: Soft. absent: Distended, Firm, Guarding, Rebound, Rigid, Tenderness Additional comments: stoma pink and patent - Neurological Exam Neurological exam: Alert, Oriented x3 - Skin Skin Exam: Dry, Intact, Normal Color, Warm Discharge Plan - Follow Up Plan Condition: FAIR Disposition: HOME/ ROUTINE Patient education suggested?: Yes Instructions: Colostomy Care Additional Instructions: 1) Please follow up in 2 weeks 2) Please take prescriptions as directed 3) Can shower but no bathing 4) Continue ostomy care 5) Return to ED for any emergencies Referrals: Tierra Galarza MD [Staff Provider] -
[2018-10-15 07:55] VITALS: BP 105/70
[2018-10-15] MEDS: HCTZ/Losartan 12.5/50 Tab PO SCH (08:45)
[2018-10-15 09:17] VITALS: TEMP 97.6; O2SAT 95
[2018-10-15 09:23] VITALS: PULSE 71
--- NOTE | 2018-10-15 12:24 | OP ---
PROCEDURE DATE: 10/13/2018 PREOPERATIVE DIAGNOSIS: Prolapse of transverse loop colostomy. POSTOPERATIVE DIAGNOSIS: Prolapse of transverse loop colostomy. PROCEDURE: Revision of colostomy, partial colectomy and creation of new stoma. SURGEON: Tierra Galarza MD METAL DRILLING MACHINE OPERATOR: Zak Andrew DO ANESTHESIA: General. ANESTHESIOLOGIST: João Hedrick MD ESTIMATED BLOOD LOSS: 30 mL. DESCRIPTION OF OPERATION: The patient was brought into the operating room and placed under general anesthesia. Upon placed under general anesthesia, abdomen was prepped and draped in the usual sterile fashion with Betadine. Stoma was closed with nylon suture to allow for no leakage of stool on to the operative field. Stoma was cored out circumferentially using a scalpel and electrocautery taking care not to enter the colon. Stoma was cored out all the way through the fascia which was made in his previous stoma. Upon dissecting all the way down to the fascia transverse colon was within the stoma was freed from any adhesions in the intraabdominal wall. Upon freeing the colon from the intraabdominal wall, the colon was externalized and the colon was ran distally in order to visualize the thickened portion which was prolapsing in the patient's diagnosis. Approximately 8 to 10 inches of bowel was able to be externalized which contained thickened colonic wall and anirudh like structure in the transverse colon and descending colon. All redundant colon was externalized distally. Decision was made to resect the colon proximal to the original stoma and distal to the mass in the transverse colon/descending colon. Resection was done with MACIEJ stapler both proximally and distally and mesocolon was dissected with LigaSure. Upon resection of that portion of colon anastomosis was done using a MACIEJ and the remaining defect in the colon was used as a stoma. The defect was placed into the original sites of the previous stoma and 3-0 Vicryl sutures were used to create the new stoma. Upon creation of the new stoma, abdomen was cleaned and new colostomy bag was placed on the patient. The patient tolerated the procedure well. Blood loss was approximately was 30 mL and was returned to the PACU in stable condition. Zak Andrew DO Tierra Galarza MD [employer]
== END 2018-10-15 10:20 | disposition home or self-care (01) | DRG 148 ==
LOC: H.ER 05:35 → H.ERHOLD 11:11 → H.MEDSURG1 18:56 → H.TEL 10-13 20:04
PROVIDERS: ADMIT Specialist; ATTEND Specialist
PROC: 0DS Gastrointestinal System, Reposition (ICD-10-PCS; 2018-10-12)
PROC: 0D1L0Z4 Bypass Transverse Colon to Cutaneous, Open Approach (ICD-10-PCS; 2018-10-13)
PROC: 0DTL0ZZ Resection of Transverse Colon, Open Approach (ICD-10-PCS; principal; 2018-10-13 13:30)
DX: K94.09 Other complications of colostomy (principal); K56.1 Intussusception; J45.20 Mild intermittent asthma, uncomplicated; I95.81 Postprocedural hypotension; I10 Essential (primary) hypertension; N40.0 Benign prostatic hyperplasia without lower urinary tract symptoms; Y83.3 Surgical operation with formation of external stoma as the cause of abnormal reaction of the patient, or of later complication, without mention of misadventure at the time of the procedure; Z86.010 Personal history of colon polyps